=== PATIENT | male | born 1955 | race Caucasian/White ===

== ENCOUNTER 2016-11-28 19:47 | Emergency (ER) | payer OTHER, MEDICARE ==
[~2016-11-28] VITALS: Ht 188 cm; Wt 104.8 kg
[~2016-11-28 19:47] MED LIST: ASP81CT; ATOR40TA; DANT25CA PO; DPAS20025; HCT25T; HDRL25T; IBP600T1; INSASP10V; INSU100V8; INSULIN; METO-270 PO; MTP100TCR; PNT40TEC PO; RMP5C PO; TIZAN4T; TRAMADOL; TRIA0.2581 PO; VNL75T PO; ZLP10T
--- OUTSIDE RECORDS SUMMARY | 2016-11-28 19:52 | XMS REPORT | Continuity of Care Document ---
Author Author [facility] Organization [facility] Address Unknown Phone Unavailable Care Team Providers Care Electrical And Electronic Assembler Name Role Phone Donovan Terrell PCP [phone] Source Comments Some departments are not documenting in the electronic medical record. If you do not see the information that you expected, contact Release of Information in the Health Information Management department at [phone] for further assistance in locating additional records.[facility] Active Allergies and Adverse Reactions Allergen Noted Date Severity Reactions Comments Ranitidine Hcl 05/18/2007 Medium Allergy recorded in SMS: ZANTAC~Reactions: DIARRHEA Current Medications Not on file Active Problems Not on file Social History Tobacco Use Types Packs/Day Years Used Date Never Assessed Plan of Care Health Maintenance Due Date Last Done Comments Hepatitis C Screening 1953 Physical (Comprehensive) 1960 Exam Pertussis Vaccine 1964 Tetanus Vaccine 1970 Colorectal Cancer 2003 Screening Shingles Vaccine 2013 Influenza Vaccine 07/16/2016 Results from Last 3 Months Not on file
[2016-11-28] MEDS ORDERED: AMOXICILLIN 500 MG (POLYMOX) CAP PO ONE (21:12)
--- NOTE | 2016-11-28 21:13 | ED EENT ---
History of Present Illness General Chief Complaint: Oral/Throat Problems Stated Complaint: PARTIAL DENTURE HOOKED IN TONGUE Source: patient Exam Limitations: no limitations History of Present Illness Time seen by provider: 21:12 Initial Comments To ER with reports of his partial denture being hooked in the frenulum of the tongue for the past few hours. He is unable to get this undone. Timing/Duration: abrupt Severity: moderate Location: mouth Prearrival Treatment: no prearrival treatment Associated Symptoms: denies symptoms Allergies and Home Medications Allergies Coded Allergies: Ranitidine (Verified Allergy, Unknown, 08/08/08) Home Medications PRN (Reported) Prescribed by: SKIP PERRY on 07/31/16 1256 Aspirin 81 Mg Chew (Reported) Atorvastatin Calcium 40 Mg Tablet (Reported) Dantrolene Sodium 25 Mg Capsule 25 MG PO QID (Reported) Dipyridamole/Aspirin 1 Ea Cap (Reported) Hydrochlorothiazide 25 Mg Tab (Reported) Metoprolol Succinate 25 Mg Tab.er.24h 25 MG PO BID (Reported) Pantoprazole Sodium 40 Mg Tablet.dr 40 MG PO BID (Reported) Ramipril 5 Mg Capsule 10 PO BID (Reported) Triazolam 0.25 Mg Tablet 0.25 MG PO HS (Reported) Venlafaxine Hcl 75 Mg Tab 75 MG PO BID (Reported) Review of Systems Constitutional: see HPI Eyes: No Symptoms Reported Ears: No Symptoms Reported Nose: no symptoms reported Mouth: see HPI Throat: no symptoms reported Respiratory: no symptoms reported Cardiovascular: no symptoms reported Musculoskeletal: no symptoms reported Skin: no symptoms reported Past Xqpilts-Tlozys-Yiqzuq Hx Patient Social History Recent Foreign Travel: No Contact w/Someone Who Travel: No Respiratory Hx Respiratory Disorders: No Cardiovascular Hx Cardiac Disorders: Yes (WHOLE IN HEART-PFO DX. [place] 2006) Neurological Hx Neurological Disorders: Yes Reproductive System Hx Reproductive Disorders: Yes (PROSTATE CANCER- AROUND ) Genitourinary Hx Genitourinary Disorders: No Gastrointestinal Hx Gastrointestinal Disorders: No Musculoskeletal Hx Musculoskeletal Disorders: Yes Endocrine Hx Endocrine Disorders: Yes HEENT HX ENT Disorders: No Psychosocial Hx Psychiatric Problems: No Blood Transfusions Hx Blood Disorders: No Physical Exam Vital Signs Vital Sign - Last 12Hours 11/28/16 21:11 Temp 98.4 Pulse 87 Resp 18 B/P 143/82 Pulse Ox 97 O2 Delivery Room Air General Appearance: WD/WN no apparent distress Eyes: bilateral eye EOMI, bilateral eye PERRL, bilateral eye normal inspection Ears: bilateral ear TM normal, bilateral ear auricle normal, bilateral ear canal normal Mouth/Throat: other (the left side of the frenulum of the tongue is in fact hooked on a piece of the partial denture with the piece of the partial denture protruding out the other side of the frenulum.) Neck: non-tender full range of motion Respiratory: no respiratory distress no accessory muscle use Gastrointestinal: normal bowel sounds non tender soft Neurologic/Psychiatric: alert normal mood/affect oriented x 3 Skin: normal color warm/dry Progress/Results/Core Measures Results/Orders My Orders Orders-ZHARA DIAMOND APRN Lidocaine/Epi 1% 1:100,000 (Xylocaine /E (11/28/16 21:15) Amoxicillin Capsule (Polymox Capsule) (11/28/16 21:15) Amoxicillin Capsule (Polymox Capsule) (11/28/16 21:12) Medications Given in ED Current Medications Medications Dose Ordered Sig/Rhea Route Start Time Stop Time Status Last Admin Dose Admin Lidocaine/ Epinephrine 1 ml ONCE ONCE INJ 11/28/16 21:15 11/28/16 21:16 11/28/16 21:16 1 ML Vital Signs/I&O Vital Sign - Last 12Hours 11/28/16 11/28/16 21:11 21:16 Temp 98.4 98.4 Pulse 87 Resp 18 B/P 143/82 Pulse Ox 97 O2 Delivery Room Air Departure Impression Impression: Primary Impression: Denture injury Disposition: 01 HOME, SELF-CARE Condition: Stable Departure-Patient Inst. Decision time for Depature: 21:22 Referrals: VÍCTOR CORBIN MD (PCP/Family) Primary Care Physician Patient Instructions: Dental Bridges Add. Discharge Instructions: 1. Use a mouthwash 2-3 times a day for the next 2 days 2. Return to ER for any redness or swelling to this area or excessive bleeding 3. Follow up with whomever provides your dentures to see if they can make this particular spike a little less sharp. All discharge instructions reviewed with patient and/or family. Voiced understanding. ZAHRA DIAMOND APRN Nov 28, 2016 21:13
[2016-11-28] MEDS ORDERED: LIDOCAINE/EPI 1%-1:100,000 (XYLOCAINE) 20ML INJ ONE (21:15)
[2016-11-28] MEDS: AMOXICILLIN 250 MG (POLYMOX) CAP PO SCH ×2 (21:19→21:24)
[2016-11-28 21:25] VITALS: BP 143/82
== END 2016-11-28 21:25 | disposition home or self-care (01) ==
LOC: EDUNIT# 19:47 → ER 19:49
DX: S01.542A Puncture wound with foreign body of oral cavity, initial encounter (principal); Z79.82 Long term (current) use of aspirin; Z79.899 Other long term (current) drug therapy; Z85.46 Personal history of malignant neoplasm of prostate; X58.XXXA Exposure to other specified factors, initial encounter; Y92.009 Unspecified place in unspecified non-institutional (private) residence as the place of occurrence of the external cause; Y99.8 Other external cause status
CPT/HCPCS: 99282

== ENCOUNTER → 2017-03-01 | Outpatient (CLI) | payer BC, MEDICARE ==
--- NOTE | 2017-03-01 13:16 | Diagnostic Imaging Report ---
PROCEDURE: US Thyroid. TECHNIQUE: Multiple real-time grayscale images were obtained of the thyroid in various projections. INDICATION: Anterior right neck fullness. Comparison: None. DISCUSSION: The thyroid gland is normal in echotexture and size with normal color Doppler blood flow. The right thyroid measures 4.2 x 1.7 x 1.7 cm. The left thyroid measures 4.0 x 1.2 x 1.9 cm. No discrete nodule is identified. No abnormal adjacent lymph node is identified. IMPRESSION: Normal sonographic appearance of the thyroid gland. Dictated by: Dictated on workstation # [id number]
== END ==
LOC: RAD 11:35
PROVIDERS: ATTEND Internal Medicine
DX: E03.9 Hypothyroidism, unspecified (principal)
CPT/HCPCS: 76536

== ENCOUNTER → 2017-05-19 | Outpatient (CLI) | payer BC, MEDICARE ==
[~2017-05-19] MED LIST changes: +AMIT25TA9 PO; +APIX5TAB PO; +ASPI-983 PO; +ATOR40TA70 PO; +CINN500C2 PO; +DILT120C53 PO; +HYDR25TA4 PO; +INSU100I10 SQ; +INSU100I14 SQ; +INSU100V16 SC; +INSU100V5 SQ; -METO-270 PO; +METO-333 PO; +METO-387 PO; +NF-METHI10 PO; +OMEG-109 PO; +OMEG-77 PO; +PANT40TA3 PO; +PROP150T2 PO; +PROP225T2 PO; +RAMI10CA PO; +RIVA20TA PO; +TRAM50TA2 PO
== END ==
LOC: CARD 15:53
PROVIDERS: ATTEND Internal Medicine
DX: R00.2 Palpitations (principal)
CPT/HCPCS: 93005

== ENCOUNTER → 2017-05-21 | Outpatient (CLI) | payer BC, MEDICARE ==
[~2017-05-21] MED LIST changes: -APIX5TAB PO; -INSU100V16 SC; -INSU100V5 SQ; +METO-270 PO; -METO-387 PO; -NF-METHI10 PO; -OMEG-77 PO; -PROP225T2 PO
== END ==
LOC: CARD 10:50
PROVIDERS: ATTEND Internal Medicine Cardiovascular Disease
DX: I48.91 Unspecified atrial fibrillation (principal); I63.9 Cerebral infarction, unspecified; I10 Essential (primary) hypertension; E78.2 Mixed hyperlipidemia
CPT/HCPCS: 93306

== ENCOUNTER 2017-05-24 08:48 | Inpatient (IN) | payer BC, MEDICARE ==
[2017-05-24] VITALS (10 sets, daily range): BP systolic 85–132; BP diastolic 48–80
[~2017-05-24 08:48] MED LIST changes: -AMIT25TA9 PO; -ASPI-983 PO; -ATOR40TA70 PO; -CINN500C2 PO; -DILT120C53 PO; -HYDR25TA4 PO; -INSU100I10 SQ; -INSU100I14 SQ; -METO-333 PO; -OMEG-109 PO; -PANT40TA3 PO; -PROP150T2 PO; -RAMI10CA PO; -RIVA20TA PO; -TRAM50TA2 PO
[2017-05-24] MEDS ORDERED: DILTIAZEM DRIP 100 MG in SODIUM CHLORIDE (ADD-VANTAGE) 100 ML IV SCH ×2 (14:00→14:45)
[2017-05-24] MEDS ORDERED: DILTIAZEM 100 MG/VIAL (CARDIZEM) ADD-VANTAGE IV ONE (14:30)
[2017-05-24] MEDS ORDERED: SODIUM CHLORIDE (ADD-VANTAGE) 100 ML IV ONE (14:30)
[2017-05-24] MEDS ORDERED: METO-333 PO (14:43)
[2017-05-24] MEDS ORDERED: AMIT25TA9 PO (14:43)
[2017-05-24] MEDS ORDERED: TRAM50TA2 PO (14:43)
[2017-05-24] MEDS ORDERED: INSU100I10 SQ (14:43)
[2017-05-24] MEDS ORDERED: RAMI10CA PO (14:43)
[2017-05-24] MEDS ORDERED: INSU100I14 SQ (14:43)
[2017-05-24] MEDS ORDERED: HYDR25TA4 PO (14:43)
[2017-05-24] MEDS ORDERED: DILT120C53 PO (14:43)
[2017-05-24] MEDS ORDERED: RIVA20TA PO (14:43)
[2017-05-24] MEDS ORDERED: PANT40TA3 PO (14:43)
[2017-05-24] MEDS ORDERED: ATOR40TA70 PO (14:43)
[2017-05-24] MEDS ORDERED: ASPI-983 PO (14:43)
[2017-05-24] MEDS ORDERED: VNL75T PO (14:43)
[2017-05-24] MEDS ORDERED: CINN500C2 PO (14:45)
[2017-05-24] MEDS ORDERED: DILTIAZEM 25 MG/5 ML INJ (CARDIZEM) VIAL IVP NR (14:45)
[2017-05-24] MEDS ORDERED: CATHETER FLUSH 10 ML SYR IV PRN (14:45)
[2017-05-24] MEDS ORDERED: OMEG-109 PO (14:45)
[2017-05-24 14:53] LABS: MEAN PLATELET VOLUME 9.7 FL (7.4-10.4); RED BLOOD COUNT 4.18 10^6/uL (4.35-5.85); RED CELL DISTRIBUTION WIDTH 12.8 % (10.0-14.5); WHITE BLOOD COUNT 6.1 10^3/uL (4.3-11.0)
[2017-05-24 15:09] LABS: ALANINE AMINOTRANSFERASE 15 U/L (0-55); ALBUMIN 3.3 GM/DL (3.2-4.5); ANION GAP 4 MMOL/L (5-14); ASPARTATE AMINO TRANSFERASE 14 U/L (5-34); BILIRUBIN,TOTAL 0.4 MG/DL (0.1-1.0); BLOOD UREA NITROGEN 21 MG/DL (7-18); BUN/CREATININE RATIO 27; CALCIUM 8.4 MG/DL (8.5-10.1); CARBON DIOXIDE 27 MMOL/L (21-32); CHLORIDE 101 MMOL/L (98-107); CREATININE SERUM 0.79 MG/DL (0.60-1.30); GFR ESTIMATED > 60; GLUCOSE 297 MG/DL (70-105); MAGNESIUM 1.7 MG/DL (1.8-2.4); POTASSIUM 4.3 MMOL/L (3.6-5.0); SODIUM 132 MMOL/L (135-145); TOTAL PROTEIN 5.7 GM/DL (6.4-8.2)
[2017-05-24 15:26] LABS: INR 1.7 (0.8-1.4); PROTHROMBIN TIME PATIENT 19.8 SEC (12.2-14.7)
[2017-05-24 15:29] LABS: TROPONIN I < 0.30 NG/ML (<0.30)
[2017-05-24] MEDS: MAGNESIUM 1 GM/100 ML IVPB 100 ML IV SCH ×2 (17:16→18:25)
[2017-05-24] MEDS ORDERED: RIVAROXABAN 20 MG TABLET (XARELTO) PO SCH (18:00)
[2017-05-24] MEDS: PANTOPRAZOLE 40 MG (PROTONIX) TAB PO SCH (20:31)
[2017-05-24] MEDS: RAMIPRIL 5 MG (ALTACE) CAP PO SCH (20:32)
[2017-05-24] MEDS: meTOprolol TARTRATE 25 MG (LOPRESSOR) TABLET PO SCH (20:32)
[2017-05-24] MEDS ORDERED: ATORVASTATIN 40 MG (LIPITOR) TABLET PO SCH (21:00)
[2017-05-24] MEDS ORDERED: AMITRIPTYLINE 25 MG (ELAVIL) TAB PO SCH (21:00)
[2017-05-24] MEDS ORDERED: INSULIN GLARGINE HUM REC ANLOG 56 UNIT SQ SCH (21:00)
[2017-05-24] MEDS ORDERED: inSUlin DETERMIR 1 UNIT/0.01 ML (LEVEMIR) CHARGE PER UNIT SQ SCH (21:00)
[2017-05-24] MEDS ORDERED: [UNRECOGNIZED DRUG - OTHER] SQ SCH (21:00)
[2017-05-24] MEDS ORDERED: NON-FORMULARY MEDICATION 1 EA EA (Ramipril 10 MG) PO SCH (21:00)
[2017-05-24] MEDS: inSUlin ASPART (NovoLOG) 1 UNIT/0.01 ML (CHARGE PER UNIT) SC SCH (23:14)
[2017-05-24] MEDS: CATHETER FLUSH 10 ML SYR IV SCH (23:14)
[2017-05-25] VITALS (18 sets, daily range): BP systolic 85–132; BP diastolic 46–66
[2017-05-25 04:02] LABS: MEAN PLATELET VOLUME 9.5 FL (7.4-10.4); RED BLOOD COUNT 4.33 10^6/uL (4.35-5.85)
[2017-05-25 04:21] LABS: ANION GAP 7 MMOL/L (5-14); BLOOD UREA NITROGEN 18 MG/DL (7-18); BUN/CREATININE RATIO 25; CALCIUM 8.9 MG/DL (8.5-10.1); CARBON DIOXIDE 29 MMOL/L (21-32); CHLORIDE 102 MMOL/L (98-107); CREATININE SERUM 0.72 MG/DL (0.60-1.30); GFR ESTIMATED > 60; GLUCOSE 80 MG/DL (70-105); POTASSIUM 3.7 MMOL/L (3.6-5.0); SODIUM 138 MMOL/L (135-145)
[2017-05-25] MEDS: CATHETER FLUSH 10 ML SYR IV SCH ×2 (06:19→14:00)
[2017-05-25] MEDS: inSUlin ASPART (NovoLOG) 1 UNIT/0.01 ML (CHARGE PER UNIT) SC SCH ×3 (06:20→16:15)
[2017-05-25] MEDS: PANTOPRAZOLE 40 MG (PROTONIX) TAB PO SCH (06:20)
[2017-05-25] MEDS ORDERED: OMEGA 3 (FISH OIL) 1000 MG CAP PO SCH (07:00)
--- NOTE | 2017-05-25 07:37 | Diagnostic Imaging Report ---
INDICATION: Atrial fibrillation with RVR. Bilateral pulmonary emboli. COMPARISON STUDY: None. FINDINGS: Portable semiupright view of the chest demonstrate the heart size is upper normal. Lungs are clear. The vascularity is normal. There is questionable small hiatal hernia. IMPRESSION: 1. The heart size is upper normal. 2. There is a questionable small hiatal hernia versus tortuosity of aorta. Dictated by: Dictated on workstation # [id number]
[2017-05-25] MEDS ORDERED: LIDOCAINE 2% VISCOUS 15 ML UDC ONE (07:47)
--- NOTE | 2017-05-25 08:12 | Cardiology History & Physical ---
HPI-Cardiology Cardiology Consultation Date of Consultation 05/25/17 Date of Admission May 24, 2070 Time Seen by Provider: 08:06 Indication: tachycardia HPI 61 years old gentleman with history of CVA, patient was seen in my office last week and noted to be in atrial fibrillation with rapid ventricular response, he was referred for for evaluation of tachycardia. Denied any chest pain or shortness of breath. Denied any palpitation, I started him on Cardizem and Eliquis, returned yesterday and he was still tachycardic, I decided to admit him to the hospital start him on Cardizem drip and workup for atrial fibrillation. has been compliant with his medications. overnight he converted to sinus rhythm, continue to be asymptomatic. PMH-Cardiology Immunizations Up To Date Tetanus Booster (DTap): Unknown Date of Influenza Vaccine: Aug 24, 2016 Seasonal Allergies Seasonal Allergies: No Surgeries HX Surgeries: Yes (RIGHT TESTICAL REMOVED) Respiratory Hx Respiratory Disorders: No Cardiovascular Hx Cardiovascular Disorders: Yes (WHOLE IN HEART-PFO DX. [place] 2006) Cardiac Disorders: Atrial Fibrillation, High Cholesterol, Hypertension Neurological Hx Neurological Disorders: Yes Reproductive System Hx Reproductive Disorders: Yes (PROSTATE CANCER- AROUND ) Sexually Transmitted Disease: No HIV/AIDS: No Genitourinary Hx Genitourinary Disorders: No Gastrointestinal Hx Gastrointestinal Disorders: No Gastrointestinal Disorders: Gastroesophageal Reflux, Chronic Constipation Musculoskeletal Hx Musculoskeletal Disorders: Yes Endocrine Hx Endocrine Disorders: Yes HEENT HX ENT Disorders: No HEENT Disorders: Cataract Loss of Vision: Denies Hearing Impairment: Denies Cancer Cancer: Prostate Psychosocial Hx Psychiatric Problems: No Blood Transfusions Hx Blood Disorders: No Other PMHx Other PMHx: past medical history as discussed below Social History Patient Social History Marrital Status: Employed/Student: retired Alcohol Use: Denies Use Recreational Drug Use: No Smoking: Never smoker Recent Foreign Travel: No Contact w/other who traveled: No Recent Infectious Disease Expo: No Family Hx Family History: Alzheimer's disease G8 SISTER Arthritis G8 SISTER Completed stroke 19 FATHER Dementia G8 SISTER Diabetes mellitus 19 MOTHER G8 BROTHER Hypercholesterolemia Hypertension 19 FATHER Myocardial infarction 19 FATHER Respiratory disorder 19 FATHER ROS-Cardiology Review of Systems General: No Chills, No Night Sweats, No Fatigue, No Malaise, No Appetite HEENT: No Head Aches, No Visual Changes, No Eye Pain, No Ear Pain, No Dysphasia , No Sinus Congestion, No Post Nasal Drip, No Sore Throat Pulmonary: No Dyspnea, No Cough, No Pleuritic Chest Pain Cardiovascular: No: Chest Pain, Edema, Lt Headedness, Orthopnea, Palpitations, Paroxysmal Noc. Dyspnea Gastrointestinal: No: Abdominal Pain, Constipation, Diarrhea, Hematochezia, Melena, Nausea, Vomiting Genitourinary: No Dysuria, No Frequency, No Incontinence, No Hematuria, No Retention Musculoskeletal: No: arm pain, back pain, foot pain, hand pain, leg pain, neck pain, shoulder pain Neurological: Change in speech, Numbness, Weakness, No: Confusion, Incoordination, Seizures Home Medications & Allergies Allergies: Coded Allergies: ranitidine (Verified Allergy, Unknown, 08/08/08) Home Medication List Reviewed: Yes Exam-Cardiology Vital Signs Vital Signs Date Time Temp Pulse Resp B/P (MAP) Pulse Ox O2 Delivery O2 Flow Rate FiO2 05/25/17 06:00 84 21 103/52 95 05/25/17 05:00 Room Air 05/25/17 00:00 98.2 Exam General Appearance: Alert, Oriented X3, Cooperative, No Acute Distress HEENT: Atraumatic, PERRLA Respiratory: Clear to Auscultation, Normal Air Movement Cardiovascular: Regular Rate, Normal S1, Normal S2, No Murmurs Abdominal: Normal Bowel Sounds, Soft, No Tenderness, No Hepatosplenomegaly, No Masses Extremities: No Clubbing, No Cyanosis, No Edema, Normal Pulses, No Tenderness/ Swelling Skin: No Rashes, No Breakdown, No Significant Lesion Neuro: Other (history of CVA with slurred speech and weakness) Psych/Mental Status: Mental Status NL, Mood NL Results Labs Labs Laboratory Tests 05/24/17 14:46: White Blood Count 6.1, Red Blood Count 4.18L, Hemoglobin 12.0L, Hematocrit 37L, Mean Corpuscular Volume 88, Mean Corpuscular Hemoglobin 29, Mean Corpuscular Hemoglobin Concent 33, Red Cell Distribution Width 12.8, Platelet Count 164, Mean Platelet Volume 9.7, Prothrombin Time 19.8H, INR Comment 1.7H, Activated Partial Thromboplast Time 38H, Sodium Level 132L, Potassium Level 4.3, Chloride Level 101, Carbon Dioxide Level 27, Anion Gap 4L, Blood Urea Nitrogen 21H, Creatinine 0.79, Estimat Glomerular Filtration Rate > 60, BUN/Creatinine Ratio 27, Glucose Level 297H, Calcium Level 8.4L, Magnesium Level 1.7L, Total Bilirubin 0.4, Aspartate Amino Transf (AST/SGOT) 14, Alanine Aminotransferase ( ALT/SGPT) 15, Alkaline Phosphatase 73, Troponin I < 0.30, Total Protein 5.7L, Albumin 3.3, Thyroid Stimulating Hormone (TSH) 0.00L, Free Thyroxine 1.57H, TSH [place] Testing 0.00L 05/24/17 20:25: Glucometer 101 05/25/17 03:42: White Blood Count 8.0, Red Blood Count 4.33L, Hemoglobin 12.5L, Hematocrit 38L, Mean Corpuscular Volume 89, Mean Corpuscular Hemoglobin 29, Mean Corpuscular Hemoglobin Concent 33, Red Cell Distribution Width 13.0, Platelet Count 171, Mean Platelet Volume 9.5, Sodium Level 138, Potassium Level 3.7, Chloride Level 102, Carbon Dioxide Level 29, Anion Gap 7, Blood Urea Nitrogen 18, Creatinine 0.72, Estimat Glomerular Filtration Rate > 60, BUN/Creatinine Ratio 25, Glucose Level 80, Calcium Level 8.9, Magnesium Level 2.0 A/P-Cardiology Admission Diagnosis Paroxysmal atrial fibrillation/flutter CVA Tachycardia Hypertension Hyperlipidemia Assessment/Plan Paroxysmal atrial fibrillation/atrial flutter, started on Xarelto last week, admitted to the hospital and started on Cardizem drip, converted to sinus rhythm. I will continue on beta blockers and calcium channel blockers, planning to evaluate stress test and echocardiogram today. Hyperthyroidism, noted incidentally, I will consult Dr. Selby for evaluation. [id number] score of 4, yearly risk of stroke without oral anticoagulation is 4 percent. Patient was started on Xarelto History of CVA in 2006, TIA in 2005, was maintained on Aggrenox, it was changed to Xarelto after discovering the atrial fibrillation last week. Continue to monitor Hypertension, controlled, monitor blood pressure while starting on the new medication Hyperlipidemia I will evaluate lipid profile and metabolic profile Diabetes mellitus, followed and managed by primary care physician Clinical Quality Measures DVT/VTE Risk/Contraindication: Risk Factor Score Per Nursin RFS Level Per Nursing on Admit: 2=Moderate DAMIEN DUVALL MD May 25, 2017 08:12
[2017-05-25] MEDS ORDERED: DILTIAZEM 120 MG (CARDIZEM CD) CAP PO SCH (09:00)
[2017-05-25] MEDS ORDERED: HYDROCHLOROTHIAZIDE 25 MG (HCTZ) TAB PO SCH (09:00)
[2017-05-25] MEDS: meTOprolol TARTRATE 25 MG (LOPRESSOR) TABLET PO SCH (09:00)
[2017-05-25] MEDS: RAMIPRIL 5 MG (ALTACE) CAP PO SCH (09:00)
[2017-05-25] MEDS ORDERED: NON-FORMULARY MEDICATION 1 EA EA (Omega-3 Fatty Acids/Fish Oil (Fish Oil 1,200 mg Softgel) PO SCH (09:00)
[2017-05-25] MEDS ORDERED: ASPIRIN E.C. 81 MG (ECOTRIN) TAB PO SCH (09:00)
[2017-05-25] MEDS ORDERED: REGADENOSON 0.4 MG/5 ML SYR (LEXISCAN) IV ONE ×2 (12:00→12:15)
--- NOTE | 2017-05-25 15:15 | Consultation-Hospitalist ---
HPI History of Present Illness: HPI/Chief Complaint The patient is a 61-year-old white male admitted by Dr. Desai for potential cardioversion of recent onset atrial fibrillation. The patient and his states that last Wednesday she had gone to work and he had fallen to the floor at home. Ultimately he was able to get himself to the phone albeit with great difficulty. He had had a scheduled appointment with Dr. Desai for the morning. His came home from work after the phone call and got things arranged and he was seen in the afternoon. He was found to be in atrial fibrillation at that time. I met him a goodly number of years ago because of adult-onset diabetes and hypertension. He ultimately suffered a right hemispheric CVA which left him with considerable disability on the left side. He underwent considerable rehabilitation process. He was ultimately able to walk with a platform CANE and an ankle brace. His left hand did not fair so well and despite rather exotic brace with extension capability it did not proved to be very useful and he is abandoned that. 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 He has converted to a sinus rhythm overnight avoiding the need for electrocardioversion Source: patient Exam Limitations: no limitations Date Seen 05/25/17 Attending Physician Shiva Desai MD PCP Ashu Jackson MD Referring Physician Giselle Date of Admission May 24, 2017 at 14:00 Home Medications & Allergies Home Medications Reviewed patient Home Medication Reconciliation Form Allergies Allergies Coded Allergies ranitidine (Verified Allergy, Unknown, 08/08/08) Past Ordrdry-Hlwkwp-Eflkjz Hx Patient Social History Marrital Status: Employed/Student: retired Alcohol Use: Denies Use Recreational Drug Use: No Smoking Status: Former Smoker Physical Abuse Screen: No Sexual Abuse: No Recent Foreign Travel: No Contact w/other who traveled: No Recent Hopitalizations: No Recent Infectious Disease Expo: No Immunizations Up To Date Tetanus Booster (TDap): Unknown Date of Influenza Vaccine: Aug 24, 2016 Seasonal Allergies Seasonal Allergies: No Surgeries HX Surgeries: Yes (RIGHT TESTICAL REMOVED) Respiratory Hx Respiratory Disorders: No Cardiovascular Hx Cardiovascular Disorders: Yes (WHOLE IN HEART-PFO DX. [place] 2006) Neurological Hx Neurological Disorders: Yes Neurological Disorders: Stroke Reproductive System Hx Reproductive Disorders: Yes (PROSTATE CANCER- AROUND ) Sexually Transmitted Disease: No HIV/AIDS: No Genitourinary Hx Genitourinary Disorders: No Gastrointestinal Hx Gastrointestinal Disorders: No Gastrointestinal Disorders: Gastroesophageal Reflux, Chronic Constipation Musculoskeletal Hx Musculoskeletal Disorders: Yes Musculoskeletal Disorders: Foot Drop (left) Endocrine Hx Endocrine Disorders: Yes Endocrine Disorders: Diabetes, Insulin dep HEENT HX ENT Disorders: No HEENT Disorders: Cataract Loss of Vision: Denies Hearing Impairment: Denies Cancer Cancer: Prostate Psychosocial Hx Psychiatric Problems: No Blood Transfusions Hx Blood Disorders: No Family Medical History Family Hx: Alzheimer's disease G8 SISTER Arthritis G8 SISTER Completed stroke 19 FATHER Dementia G8 SISTER Diabetes mellitus 19 MOTHER G8 BROTHER Hypercholesterolemia Hypertension 19 FATHER Myocardial infarction 19 FATHER Respiratory disorder 19 FATHER Review of Systems Constitutional: see HPI EENTM: no symptoms reported Respiratory: no symptoms reported Gastrointestinal: constipation Genitourinary: frequency, hesitancy Musculoskeletal: other (left-sided hemiparesis) Skin: no symptoms reported Physical Exam Physical Exam Vital Signs Vital Sign - Last 12Hours 05/24/17 05/24/17 05/24/17 05/24/17 14:00 14:45 15:45 20:00 Temp 98.6 Pulse 98 Resp 21 B/P (MAP) 97/64 Pulse Ox 98 O2 Delivery Room Air Capillary Refill : General Appearance: No Apparent Distress, WD/WN, Other (very mild speech impairment post CVA) Eyes: Bilateral Eye Normal Inspection HEENT: Normal ENT Inspection Neck: Normal Inspection Respiratory: Chest Non Tender, Lungs Clear, Normal Breath Sounds, No Accessory Muscle Use, No Respiratory Distress Cardiovascular: Regular Rate, Rhythm, No Edema, No Gallop, No JVD, No Murmur, Normal Peripheral Pulses Gastrointestinal: Normal Bowel Sounds, No Organomegaly, No Pulsatile Mass, Non Tender, Soft Extremity: Other (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 He is able to perform arm movements at the shoulder level.) Neurologic/Psychiatric: Alert, Oriented x3, No Motor/Sensory Deficits, Normal Mood/Affect Skin: Normal Color, Warm/Dry Lymphatic: No Adenopathy Results Results/Procedures Lab Laboratory Tests 05/24/17 14:46 05/25/17 03:42 Assessment/Plan Admission Diagnosis Recent onset atrial fibrillation now converted. 2.diabetes mellitus type II insulin requiring. 3.hypertension. 4.remote CVA with left-sided hemiparesis Assessment and Plan Continue present medications as per med reconciliation. Early discharge. Comment: Thyroid analyzer shows a TSH of 0. Free T4 is very marginally elevated. I would recommend repeat analyzer as an outpatient in 2-3 months Clinical Quality Measures DVT/VTE Risk/Contraindication: Risk Factor Score Per Nursin RFS Level Per Nursing on Admit: 2=Moderate CRISTOBAL MARIN MD May 25, 2017 15:15
[2017-05-25] MEDS ORDERED: PROPAFENONE 225 MG PO NR (16:01)
[2017-05-25] MEDS ORDERED: PROPAFENONE 150 MG (RYTHMOL) TABLET PO NR (16:04)
--- NOTE | 2017-05-25 16:06 | Short Stay Summary ---
History of Present Illness History of Present Illness Reason for visit/HPI 61 years old gentleman with history of CVA, patient was seen in my office last week and noted to be in atrial fibrillation with rapid ventricular response, he was referred for for evaluation of tachycardia. Denied any chest pain or shortness of breath. Denied any palpitation, I started him on Cardizem and Eliquis, returned yesterday and he was still tachycardic, I decided to admit him to the hospital start him on Cardizem drip and workup for atrial fibrillation. has been compliant with his medications. overnight he converted to sinus rhythm, continue to be asymptomatic. Date of Admission May 24, 2017 at 14:00 Date of Discharge 05/25/17 Time Seen by Provider: 08:00 Attending Physician Damien Desai MD Admitting Physician Ashu Jackson MD Consult Dr. Terrell Man Allergies and Home Medications Allergies Coded Allergies: ranitidine (Verified Allergy, Unknown, 08/08/08) Home Medications Amitriptyline HCl 25 Mg Tablet, 25 MG PO HS, (Reported) Aspirin 81 Mg Tablet.dr, 81 MG PO DAILY, (Reported) Atorvastatin Calcium 40 Mg Tablet, 40 MG PO HS, (Reported) Cinnamon Bark 500 Mg Capsule, 500 MG PO DAILY, (Reported) Dantrolene Sodium 25 Mg Capsule, 25 MG PO QID, (Reported) Diltiazem HCl 120 Mg Cap.er.24h, 120 MG PO DAILY, (Reported) Hydrochlorothiazide 25 Mg Tablet, 25 MG PO DAILY, (Reported) Insulin Aspart 300 Units/3 Ml Solution, 16-18 UNITS SQ AC, (Reported) Insulin Glargine,Hum.rec.anlog 100 Unit/1 Ml Insuln.pen, 56 UNITS SQ HS, ( Reported) Metoprolol Tartrate 25 Mg Tablet, 25 MG PO BID, (Reported) [place]-3 Fatty Acids/Fish Oil 1 Each Capsule, 1,200 MG PO DAILY, (Reported) Pantoprazole Sodium 40 Mg Tablet.dr, 40 MG PO BID, (Reported) Ramipril 10 Mg Capsule, 10 MG PO BID, (Reported) Rivaroxaban 20 Mg Tablet, 20 MG PO 1800, (Reported) Tramadol HCl 50 Mg Tablet, 50-100 MG PO QID PRN for PAIN-MODERATE, (Reported) TAKES 1-2 OF A (50 MG) TABLET Venlafaxine HCl 75 Mg Tab, 75 MG PO BID, (Reported) Past Upjemtq-Onvnmc-Tauhnm Hx Patient Social History Marrital Status: Employed/Student: retired Alcohol Use: Denies Use Recreational Drug Use: No Smoking Status: Former Smoker Physical Abuse Screen: No Sexual Abuse: No Recent Foreign Travel: No Contact w/other who traveled: No Recent Hopitalizations: No Recent Infectious Disease Expo: No Immunizations Up To Date Tetanus Booster (TDap): Unknown Date of Influenza Vaccine: Aug 24, 2016 Seasonal Allergies Seasonal Allergies: No Surgeries HX Surgeries: Yes (RIGHT TESTICAL REMOVED) Respiratory Hx Respiratory Disorders: No Cardiovascular Hx Cardiovascular Disorders: Yes (WHOLE IN HEART-PFO DX. [place] 2006) Neurological Hx Neurological Disorders: Yes Neurological Disorders: Stroke Reproductive System Hx Reproductive Disorders: Yes (PROSTATE CANCER- AROUND ) Sexually Transmitted Disease: No HIV/AIDS: No Genitourinary Hx Genitourinary Disorders: No Gastrointestinal Hx Gastrointestinal Disorders: No Gastrointestinal Disorders: Gastroesophageal Reflux, Chronic Constipation Musculoskeletal Hx Musculoskeletal Disorders: Yes Musculoskeletal Disorders: Foot Drop (left) Endocrine Hx Endocrine Disorders: Yes Endocrine Disorders: Diabetes, Insulin dep HEENT HX ENT Disorders: No HEENT Disorders: Cataract Loss of Vision: Denies Hearing Impairment: Denies Cancer Cancer: Prostate Psychosocial Hx Psychiatric Problems: No Blood Transfusions Hx Blood Disorders: No Family Medical History Family Hx: Alzheimer's disease G8 SISTER Arthritis G8 SISTER Completed stroke 19 FATHER Dementia G8 SISTER Diabetes mellitus 19 MOTHER G8 BROTHER Hypercholesterolemia Hypertension 19 FATHER Myocardial infarction 19 FATHER Respiratory disorder 19 FATHER Constitutional: no symptoms reported, see HPI, weakness EENTM: no symptoms reported, see HPI Respiratory: no symptoms reported, see HPI Cardiovascular: no symptoms reported, see HPI Gastrointestinal: no symptoms reported, see HPI Genitourinary: no symptoms reported, see HPI Musculoskeletal: no symptoms reported, see HPI Skin: no symptoms reported, see HPI Psychiatric/Neurological: No Symptoms Reported, See HPI, Numbness, Weakness Physical Exam Vital Signs Vital Sign - Last 12Hours 05/24/17 05/24/17 05/24/17 05/24/17 14:00 14:45 15:45 20:00 Temp 98.6 Pulse 98 Resp 21 B/P (MAP) 97/64 Pulse Ox 98 O2 Delivery Room Air Capillary Refill : General Appearance: No Apparent Distress, WD/WN Eyes: Bilateral Eye EOMI, Bilateral Eye Normal Inspection, Bilateral Eye PERRL HEENT: PERRL/EOMI, TMs Normal, Normal ENT Inspection, Pharynx Normal Neck: Full Range of Motion, Normal Inspection, Non Tender, Supple, Carotid Bruit Respiratory: Chest Non Tender, Lungs Clear, Normal Breath Sounds, No Accessory Muscle Use, No Respiratory Distress Cardiovascular: Regular Rate, Rhythm, No Edema, No Gallop, No JVD, No Murmur, Normal Peripheral Pulses Gastrointestinal: Normal Bowel Sounds, No Organomegaly, No Pulsatile Mass, Non Tender, Soft Back: Normal Inspection, No CVA Tenderness, No Vertebral Tenderness Extremity: Normal Capillary Refill, Normal Inspection, Normal Range of Motion, Non Tender, No Calf Tenderness, No Pedal Edema Neurologic/Psychiatric: Alert, Oriented x3, Aphasia, Facial Droop, Motor Weakness (left-sided weakness) Skin: Normal Color, Warm/Dry Lymphatic: No Adenopathy Clinical Quality Measures DVT/VTE Risk/Contraindication: Risk Factor Score Per Nursin RFS Level Per Nursing on Admit: 2=Moderate Short Stay Diagnosis Discharge Diagnosis-Short Stay Admission Diagnosis: paroxysmal atrial fibrillation Tachycardia Hypertension CVA Final Discharge Diagnosis: paroxysmal atrial fibrillation Tachycardia Hyperthyroidism Hypertension CVA Conclusion Labs Laboratory Tests 05/24/17 20:25: Glucometer 101 05/25/17 03:42: White Blood Count 8.0, Red Blood Count 4.33L, Hemoglobin 12.5L, Hematocrit 38L, Mean Corpuscular Volume 89, Mean Corpuscular Hemoglobin 29, Mean Corpuscular Hemoglobin Concent 33, Red Cell Distribution Width 13.0, Platelet Count 171, Mean Platelet Volume 9.5, Sodium Level 138, Potassium Level 3.7, Chloride Level 102, Carbon Dioxide Level 29, Anion Gap 7, Blood Urea Nitrogen 18, Creatinine 0.72, Estimat Glomerular Filtration Rate > 60, BUN/Creatinine Ratio 25, Glucose Level 80, Calcium Level 8.9, Magnesium Level 2.0 Conclusion/Plan Paroxysmal atrial fibrillation/atrial flutter, started on Xarelto last week, admitted to the hospital and started on Cardizem drip, converted to sinus rhythm. echocardiogram was done last week and showed normal LV function, underwent stress test today which was normal with no ischemia or infarction, I will start the patient on propafenone as an outpatient and monitor him as an outpatient. Hyperthyroidism, noted incidentally, Dr. Man was consulted and he recommended monitoring and repeating thyroid function test in 2-3 months [id number] score of 4, yearly risk of stroke without oral anticoagulation is 4 percent. Patient was started on Xarelto History of CVA in 2006, TIA in 2005, was maintained on Aggrenox, it was changed to Xarelto after discovering the atrial fibrillation last week. Continue to monitor Hypertension, controlled, in 20 to monitor blood pressure as an outpatient Hyperlipidemia monitor lipids Diabetes mellitus, followed and managed by primary care physician DAMIEN DESAI MD May 25, 2017 16:06
[2017-05-25] MEDS ORDERED: PROP150T2 PO (16:07)
--- OUTSIDE RECORDS SUMMARY | 2017-05-25 17:57 | XMS REPORT | Continuity of Care Document ---
Author Author [facility] Organization [facility] Address Unknown Phone Unavailable Care Team Providers Care Rn Endocrinology Name Role Phone Terrell Man PCP [phone] Source Comments Some departments are not documenting in the electronic medical record. If you do not see the information that you expected, contact Release of Information in the Health Information Management department at [phone] for further assistance in locating additional records.[facility] Active Allergies and Adverse Reactions Allergen Noted [...] 2003 Screening Shingles Vaccine 2013 Influenza Vaccine 07/16/2017 Results from Last 3 Months Not on file
--- OUTSIDE RECORDS SUMMARY | 2017-05-25 17:58 | XMS REPORT ---
Author Author Heavenly Nolen [facility] Address [address] [facility] [address] [place], [place] [id number] Care Team Providers Care Pain Management Specialist Name Role Phone Heavenly Nolen PCP Unavailable Allergies and Adverse Reactions Name Reaction Notes Zantac Plan of Treatment Planned Activity Comments Planned Date Planned Time Plan/Goal GUIDE NERV DESTR ELEC STIM 09/12/2015 12:00 AM GUIDE NERV DESTR ELEC STIM 06/11/2015 12:00 AM Medications Active Name Start Date Estimated Completion Date SIG Comments Aspir-81 81 mg oral tablet,delayed release (DR/EC) take 1 tablet (81 mg ) by oral route once daily Lipitor 40 mg oral tablet take 1 tablet (40 mg) by oral route once daily Aggrenox 25-200 mg oral capsule, ER multiphase 12 hr take 1 capsule by oral route 2 times per day in the morning and evening hydralazine 25 mg oral tablet take 1 tablet (25 mg) by oral route 2 times per day with food metoprolol tartrate 100 mg oral tablet take 1 tablet (100 mg) by oral route 2 times per day with meals Effexor 75 mg oral tablet take 1 tablet (75 mg) by oral route 2 times per day with food hydrochlorothiazide 25 mg oral tablet take 1 tablet (25 mg) by oral route once daily Protonix 40 mg oral tablet,delayed release (DR/EC) take 1 tablet (40 mg ) by oral route once daily triazolam 0.25 mg oral tablet take 1 tablet (0.25 mg) by oral route once daily at bedtime as needed Novolog 100 unit/mL subcutaneous solution inject by subcutaneous route 12 units at breakfast, 14 units at lunch, and 12 units at dinner. Lantus 100 unit/mL subcutaneous solution inject by subcutaneous route 55 units at bedtime. Altace Oral tramadol 50 mg oral tablet 04/02/2015 03/27/2016 take 1-2 tablets by oral route 4 times a day as needed for 90 days Botox 100 unit injection recon soln 08/12/2015 11/10/2015 Inject using E-stim /EMG guidance by experienced provider for left hemipsaticity #00 Dantrium 25 mg oral capsule 09/12/2015 01/10/2016 take 1 capsule by oral route 4 times a day for 30 days tirrate to this dose per calender Name Start Date Expiration Date SIG Comments Voltaren 1 % topical gel 07/18/2010 10/16/2010 apply 2 gram to affected area(s ) by topical route 4 times per day for 30 days tramadol-acetaminophen 37.5-325 mg oral tablet 05/17/2013 08/15/2013 TAKE 1 TABLET BY MOUTH EVERY 8 HOURS NEEDED tizanidine 4 mg oral capsule 11/09/2013 11/04/2014 take 2 capsules (8 mg) by oral route 2 times per day magnesium citrate oral solution 11/28/2013 12/02/2013 take 1 bottle by oral route for obstipation dx: neurogenic bowel due to CVA GlycoLax 17 gram/dose oral powder 11/28/2013 06/26/2014 take 17 -34 gram mixed with 8 oz. water, juice, soda, coffee or tea by oral route once daily for neurogenic bowel from CVA Discontinued Name Start Date Discontinued Date SIG Comments ibuprofen 600 mg oral tablet 03/31/2010 take 1 tablet (600 mg) by oral route every 6 hours as needed with food tizanidine 4 mg oral tablet 05/14/2010 take 2 tablets by oral route 2 times a day pt d/ary long ago. Ultracet 37.5-325 mg oral tablet 04/02/2015 04/02/2015 1 tab po q 8 hrs/PRN wants it without tylenol Problem List Description Status Onset Cerebrovascular Accident (CVA) Active Diabetes Mellitus, Type II Active Hypertension Active Vital Signs Date Time BP-Sys(mm[Hg] BP-Mercedez(mm[Hg]) HR(bpm) RR(rpm) Temp WT HT HC BMI BSA BMI Percentile O2 Sat(%) 09/12/2015 9:43:00 AM 110 mmHg 62 mmHg 84 bpm 18 rpm 97.5 F 196 lbs 74 in 25.16 kg/m2 2.15 m2 07/09/2015 10:40:00 AM 156 mmHg 76 mmHg 72 bpm 18 rpm 97.1 F 220 lbs 73 in 29.0252 kg/m 2.2671 m 06/11/2015 8:55:00 AM 134 mmHg 78 mmHg 71 bpm 18 rpm 97 F 220 lbs 74 in 28.25 kg/m2 2.28 m2 04/02/2015 11:21:00 AM 122 mmHg 72 mmHg 68 bpm 18 rpm 97.9 F 220 lbs 74 in 28.246 kg/m 2.2826 m 02/05/2015 11:03:00 AM 118 mmHg 60 mmHg 78 bpm 18 rpm 98 F 08/07/2014 12:09:00 PM 124 mmHg 64 mmHg 96 bpm 20 rpm 98.1 F 203 lbs 74 in 26.0634 kg/m 2.1926 m 05/01/2014 10:30:00 AM 122 mmHg 74 mmHg 72 bpm 18 rpm 97.2 F 04/17/2014 9:57:00 AM 128 mmHg 70 mmHg 78 bpm 20 rpm 97.8 F 227 lbs 74 in 29.1448 kg/m 2.3186 m 02/05/2014 10:29:00 AM 118 mmHg 70 mmHg 88 bpm 18 rpm 97.6 F 227 lbs 11/28/2013 12:14:00 PM 144 mmHg 82 mmHg 80 bpm 22 rpm 98.3 F 212 lbs 05/14/2010 1:00:00 PM 122 mmHg 72 mmHg 72 bpm 16 rpm 96.8 F 245 lbs 03/31/2010 1:50:00 PM 126 mmHg 82 mmHg 72 bpm 16 rpm 96.9 F 249 lbs 01/15/2010 3:55:00 PM 124 mmHg 80 mmHg 66 bpm 16 rpm 97.6 F 242 lbs 12/18/2009 3:50:00 PM 102 mmHg 62 mmHg 76 bpm 16 rpm 97.6 F 11/26/2009 3:32:00 PM 118 mmHg 60 mmHg 82 bpm 16 rpm 98.8 F 241 lbs Social History Name Description Comments Lives with spouse Unemployed College graduate, 4-year denies alcohol use denies smoking History of Procedures Date Ordered Description Order Status 12/22/2009 12:00 AM DRAIN/INJ JOINT/BURSA W/O US Reviewed 12/22/2009 12:00 AM Kenalog 10 Mg Im- Reviewed 10/05/2011 12:00 AM Botulinum Toxin (Botox), Type A (per unit) Reviewed 10/05/2011 12:00 AM GUIDE NERV DESTR NEEDLE EMG Reviewed 10/05/2011 12:00 AM CHEMODENERVATION OF MUSCLE(S); EXTREMITY(S) AND/OR TRUNK MUSCLE( Reviewed 12/18/2011 12:00 AM Botulinum Toxin (Botox), Type A (per unit) Reviewed 12/18/2011 12:00 AM GUIDE NERV DESTR NEEDLE EMG Reviewed 12/18/2011 12:00 AM CHEMODENERVATION OF MUSCLE(S); EXTREMITY(S) AND/OR TRUNK MUSCLE( Reviewed 03/18/2012 12:00 AM Botulinum Toxin (Botox), Type A (per unit) Reviewed 03/18/2012 12:00 AM GUIDE NERV DESTR NEEDLE EMG Reviewed 03/18/2012 12:00 AM CHEMODENERVATION OF MUSCLE(S); EXTREMITY(S) AND/OR TRUNK MUSCLE( Reviewed 07/10/2012 12:00 AM Botulinum Toxin (Botox), Type A (per unit) Reviewed 07/10/2012 12:00 AM GUIDE NERV DESTR NEEDLE EMG Reviewed 07/10/2012 12:00 AM CHEMODENERVATION OF MUSCLE(S); EXTREMITY(S) AND/OR TRUNK MUSCLE( Reviewed 10/21/2012 12:00 AM Botulinum Toxin (Botox), Type A (per unit) Reviewed 10/21/2012 12:00 AM GUIDE NERV DESTR NEEDLE EMG Reviewed 10/21/2012 12:00 AM CHEMODENERVATION OF MUSCLE(S); EXTREMITY(S) AND/OR TRUNK MUSCLE( Reviewed 02/03/2013 12:00 AM Botulinum Toxin (Botox), Type A (per unit) Reviewed 02/03/2013 12:00 AM GUIDE NERV DESTR NEEDLE EMG Reviewed 02/03/2013 12:00 AM CHEMODENERVATION OF MUSCLE(S); EXTREMITY(S) AND/OR TRUNK MUSCLE( Reviewed 05/05/2013 12:00 AM Botulinum Toxin (Botox), Type A (per unit) Reviewed 05/05/2013 12:00 AM GUIDE NERV DESTR NEEDLE EMG Reviewed 05/05/2013 12:00 AM CHEMODENERVATION OF MUSCLE(S); EXTREMITY(S) AND/OR TRUNK MUSCLE( Reviewed 05/23/2013 12:00 AM INJ TRIGGER POINT 1/2 MUSCL Reviewed 05/23/2013 12:00 AM Kenalog, Per 10 Mg [facility]#5981-5149-22 Reviewed 03/13/2010 12:00 AM Botulinum Toxin (Botox), Type A (per unit) Reviewed 03/13/2010 12:00 AM GUIDE NERV DESTR NEEDLE EMG Reviewed 03/13/2010 12:00 AM CHEMODENERVATION OF MUSCLE(S); EXTREMITY(S) AND/OR TRUNK MUSCLE( Reviewed 03/31/2010 12:00 AM DRAIN/INJ JOINT/BURSA W/O US Reviewed 03/31/2010 12:00 AM Kenalog 10 Mg Im- Reviewed 02/05/2014 12:00 AM GUIDE NERV DESTR ELEC STIM Reviewed 02/05/2014 12:00 AM Physical Therapy Consult Reviewed 02/05/2014 12:00 AM Occupational Therapy Consult Reviewed 07/18/2010 12:00 AM Botulinum Toxin (Botox), Type A (per unit) Reviewed 07/18/2010 12:00 AM GUIDE NERV DESTR NEEDLE EMG Reviewed 07/18/2010 12:00 AM CHEMODENERVATION OF MUSCLE(S); EXTREMITY(S) AND/OR TRUNK MUSCLE( Reviewed 12/01/2009 12:00 AM Botulinum Toxin (Botox), Type A (per unit) Reviewed 12/01/2009 12:00 AM GUIDE NERV DESTR NEEDLE EMG Reviewed 12/05/2010 12:00 AM Botulinum Toxin (Botox), Type A (per unit) Reviewed 12/05/2010 12:00 AM GUIDE NERV DESTR NEEDLE EMG Reviewed 12/05/2010 12:00 AM CHEMODENERVATION OF MUSCLE(S); EXTREMITY(S) AND/OR TRUNK MUSCLE( Reviewed 08/07/2014 12:00 AM Botulinum Toxin (Botox), Type A (per unit) Reviewed 08/07/2014 12:00 AM GUIDE NERV DESTR ELEC STIM Reviewed 08/07/2014 12:00 AM CHEMODENERV 1 EXTREMITY 1-4 Reviewed 08/07/2014 12:00 AM CHEMODENERV 1 EXTREM 5/> EA Reviewed 05/01/2014 12:00 AM Botulinum Toxin (Botox), Type A (per unit) Reviewed 05/01/2014 12:00 AM GUIDE NERV DESTR ELEC STIM Reviewed 05/01/2014 12:00 AM CHEMODENERV 1 EXTREMITY 1-4 Reviewed 05/01/2014 12:00 AM CHEMODENERV 1 EXTREM 5/> EA Reviewed 03/20/2011 12:00 AM Botulinum Toxin (Botox), Type A (per unit) Reviewed 03/20/2011 12:00 AM GUIDE NERV DESTR NEEDLE EMG Reviewed 03/20/2011 12:00 AM CHEMODENERVATION OF MUSCLE(S); EXTREMITY(S) AND/OR TRUNK MUSCLE( Reviewed 02/07/2015 12:00 AM Botulinum Toxin (Botox), Type A (per unit) Reviewed 02/07/2015 12:00 AM GUIDE NERV DESTR ELEC STIM Reviewed 02/07/2015 12:00 AM CHEMODENERV 1 EXTREMITY 1-4 Reviewed 02/07/2015 12:00 AM CHEMODENERV 1 EXTREM 5/> EA Reviewed 2011 12:00 AM Botulinum Toxin (Botox), Type A (per unit) Reviewed 2011 12:00 AM GUIDE NERV DESTR NEEDLE EMG Reviewed 2011 12:00 AM CHEMODENERVATION OF MUSCLE(S); EXTREMITY(S) AND/OR TRUNK MUSCLE( Reviewed 07/09/2015 12:00 AM INJ TRIGGER POINT 1/2 MUSCL Reviewed Results Summary Data and Description Results 12/18/2009 12:00 AM Amount used 20 mg Joint/Area left subacromial bursa 04/02/2015 12:32 PM WBC 7.5 RBC 5.02 HGB 15.30 g/dLHCT 44.0 %MCV 88.0 fLMCH 30.50 pgMCHC 34.80 g/dLRDW CV 12.40 %MPV 9.50 fLPLT 205 %NEUT 62.30 %%LYMP 29.60 %%MONO 6.90 %%EOS 0.90 %%BASO 0.30 %#NEUT 4.67 #LYMP 2.22 #MONO 0.52 #EOS 0.07 #BASO 0.02 GLUCOSE 200.0 mg/dLSODIUM 137.0 mmol/LPOTASSIUM 4.20 mmol/ LCHLORIDE 98.0 mmol/LCO2 25.0 mmol/LBUN 23.0 mg/dLCREATININE 0.80 mg/dLSGOT/AST 19.0 IU/LSGPT/ALT 31.0 IU/LALK PHOS 107.0 IU/LTOTAL PROTEIN 6.80 g/dLALBUMIN 4.20 g/dLTOTAL BILI 0.50 mg/dLCALCIUM 9.80 mg/dLeGFR >60 mL/min/1.73 m2 History Of Immunizations Not available. History of Past Illness Name Date of Onset Comments Muscle Spasm Nov 26 2009 3:36PM Other muscular calcification and ossification Nov 26 2009 3:36PM Hemiplegia, Post-Stroke Nov 26 2009 3:36PM Other acquired deformities of finger; unspecified deformity Nov 26 2009 3: 36PM Other acquired deformities of toe Nov 26 2009 3:36PM Other acquired deformities of finger; unspecified deformity Dec 01 2009 10: 53PM Other acquired deformities of toe Dec 01 2009 10:53PM Other muscular calcification and ossification Dec 01 2009 10:53PM Hemiplegia, Post-Stroke Dec 01 2009 10:53PM Diabetes Mellitus, Type II Hypertension 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 Muscle Spasm Dec 18 2009 3:53PM Other muscular calcification and ossification Dec 18 2009 3:53PM Hemiplegia, Post-Stroke Dec 18 2009 3:53PM Other acquired deformities of finger; unspecified deformity Dec 18 2009 3: 53PM Other acquired deformities of toe Dec 18 2009 3:53PM Subacromial Bursitis Dec 22 2009 9:47PM Muscle Spasm Jan 15 2010 3:59PM Other muscular calcification and ossification Jan 15 2010 3:59PM Hemiplegia, Post-Stroke Jan 15 2010 3:59PM Other acquired deformities of finger; unspecified deformity Jan 15 2010 3: 59PM Other acquired deformities of toe Jan 15 2010 3:59PM Other acquired deformities of finger; unspecified deformity Mar 13 2010 3: 56PM Other acquired deformities of toe Mar 13 2010 3:56PM Other muscular calcification and ossification Mar 13 2010 3:56PM Hemiplegia, Post-Stroke Mar 13 2010 3:56PM Muscle Spasm Mar 31 2010 1:58PM Other muscular calcification and ossification Mar 31 2010 1:58PM Hemiplegia, Post-Stroke Mar 31 2010 1:58PM Other acquired deformities of finger; unspecified deformity Mar 31 2010 1: 58PM Other acquired deformities of toe Mar 31 2010 1:58PM Subacromial Bursitis Mar 31 2010 2:46PM Muscle Spasm May 14 2010 1:08PM Other muscular calcification and ossification May 14 2010 1:08PM Hemiplegia, Post-Stroke May 14 2010 1:08PM Other acquired deformities of finger; unspecified deformity May 14 2010 1: 08PM Other acquired deformities of toe May 14 2010 1:08PM Other acquired deformities of finger; unspecified deformity Jul 18 2010 12: 20PM Other acquired deformities of toe Jul 18 2010 12:20PM Hemiplegia, Post-Stroke Jul 18 2010 12:20PM Spasm Jul 18 2010 12:20PM Other acquired deformities of finger; unspecified deformity Dec 05 2010 11: 30AM Other acquired deformities of toe Dec 05 2010 11:30AM Hemiplegia, Post-Stroke Dec 05 2010 11:30AM Spasm Dec 05 2010 11:30AM Other acquired deformities of finger; unspecified deformity Mar 20 2011 11: 42AM Other acquired deformities of toe Mar 20 2011 11:42AM Hemiplegia, Post-Stroke Mar 20 2011 11:42AM Spasm Mar 20 2011 11:42AM Other acquired deformities of finger; unspecified deformity 2011 11: 40AM Other acquired deformities of toe 2011 11:40AM Hemiplegia, Post-Stroke 2011 11:40AM Spasm 2011 11:40AM Other acquired deformities of finger; unspecified deformity Oct 05 2011 8: 06AM Other acquired deformities of toe Oct 05 2011 8:06AM Hemiplegia, Post-Stroke Oct 05 2011 8:06AM Spasm Oct 05 2011 8:06AM Other acquired deformities of finger; unspecified deformity b 2011 11: 37AM Other acquired deformities of toe b 2011 11:37AM Hemiplegia, Post-Stroke b 2011 11:37AM Spasm b 2011 11:37AM Other acquired deformities of finger; unspecified deformity Mar 18 2012 12: 06PM Other acquired deformities of toe Mar 18 2012 12:06PM Hemiplegia, Post-Stroke Mar 18 2012 12:06PM Spasm Mar 18 2012 12:06PM Other acquired deformities of finger; unspecified deformity Jul 10 2012 2: 24PM Other acquired deformities of toe Jul 10 2012 2:24PM Hemiplegia, Post-Stroke Jul 10 2012 2:24PM Spasm Jul 10 2012 2:24PM Other acquired deformities of finger; unspecified deformity Oct 21 2012 11: 43AM Other acquired deformities of toe Oct 21 2012 11:43AM Hemiplegia, Post-Stroke Oct 21 2012 11:43AM Spasm Oct 21 2012 11:43AM Other acquired deformities of finger; unspecified deformity Feb 03 2013 1: 10PM Other acquired deformities of toe Feb 03 2013 1:10PM Hemiplegia, Post-Stroke Feb 03 2013 1:10PM Spasm Feb 03 2013 1:10PM Other acquired deformities of finger; unspecified deformity May 05 2013 10: 37AM Other acquired deformities of toe May 05 2013 10:37AM Hemiplegia, Post-Stroke May 05 2013 10:37AM Spasm May 05 2013 10:37AM Myofascial pain May 23 2013 4:44PM Other acquired deformities of finger; unspecified deformity Oct 11 2013 10: 27AM Other acquired deformities of toe Oct 11 2013 10:27AM Hemiplegia, Post-Stroke Oct 11 2013 10:27AM Spasm Oct 11 2013 10:27AM myofascial pain Nov 28 2013 12:25PM Spastic hemiplegia; affecting nondominant side Nov 28 2013 11:24AM Spasticity of cerebral origin Nov 28 2013 11:24AM Neurogenic Bowel Nov 28 2013 11:24AM Myofascial pain Dec 11 2013 9:26AM Other acquired deformities of finger; unspecified deformity Feb 05 2014 10: 31AM Other acquired deformities of toe Feb 05 2014 10:31AM Hemiplegia, Post-Stroke Feb 05 2014 10:31AM Spasm Feb 05 2014 10:31AM Spastic hemiplegia; affecting nondominant side Apr 17 2014 10:01AM Spasticity of cerebral origin Apr 17 2014 10:01AM Neurogenic Bowel Apr 17 2014 10:01AM Muscle Spasm Apr 17 2014 10:01AM Myofascial pain Apr 17 2014 3:33PM Other acquired deformities of finger; unspecified deformity May 01 2014 10: 32AM Other acquired deformities of toe May 01 2014 10:32AM Hemiplegia, Post-Stroke May 01 2014 10:32AM Muscle spasticity May 01 2014 10:32AM Other acquired deformities of finger; unspecified deformity Aug 07 2014 3: 52PM Other acquired deformities of toe Aug 07 2014 3:52PM Hemiplegia, Post-Stroke Aug 07 2014 3:52PM Muscle spasticity Aug 07 2014 3:52PM Other acquired deformities of finger; unspecified deformity Feb 05 2015 11: 04AM Other acquired deformities of toe Feb 05 2015 11:04AM Hemiplegia, Post-Stroke Feb 05 2015 11:04AM Muscle spasticity Feb 05 2015 11:04AM Spastic hemiplegia; affecting nondominant side Apr 02 2015 11:25AM Spasticity of cerebral origin Apr 02 2015 11:25AM Neurogenic Bowel Apr 02 2015 11:25AM Other acquired deformities of finger; unspecified deformity Jun 11 2015 8: 57AM Other acquired deformities of toe Jun 11 2015 8:57AM Hemiplegia, Post-Stroke Jun 11 2015 8:57AM Muscle spasticity Jun 11 2015 8:57AM Myofascial pain Jul 09 2015 10:41AM Other acquired deformities of finger; unspecified deformity Sep 12 2015 9: 43AM Other acquired deformities of toe Sep 12 2015 9:43AM Hemiplegia, Post-Stroke Sep 12 2015 9:43AM Muscle spasticity Sep 12 2015 9:43AM Payers Insurance Name Company Name Plan Name Plan Number Policy Number Policy Group Number Start Date [facility] [id number] N/A Medicare Part B Medicare Secondary [id number] Sunday, 2009 Medicare Part B Medicare Of [place] [id number] Sunday, 2009 History of Encounters Visit Date Visit Type Provider 09/12/2015 Procedures Heavenly Nolen MD 07/09/2015 Office visit Heavenly Nolen MD 06/11/2015 Procedures Heavenly Nolen MD 04/02/2015 Office visit Heavenly Nolen MD 02/05/2015 Procedures Heavenly Nolen MD 08/07/2014 Procedures Heavenly Nolen MD 05/01/2014 Procedures Heavenly Nolen MD 04/17/2014 Office visit Heavenly Nolen MD 02/05/2014 Procedures Heavenly Nolen MD 11/28/2013 Office visit Heavenly Nolen MD 10/10/2013 Procedures Heavenly Nolen MD 05/23/2013 Office visit Rigo Gonzalez MD 05/05/2013 Procedures Rigo Gonzalez MD 02/03/2013 Procedures Rigo Gonzalez MD 10/21/2012 Procedures Rigo Gonzalez MD 07/01/2012 Procedures Rigo Gonzalez MD 03/18/2012 Procedures Rigo Gonzalez MD 12/18/2011 Procedures Rigo Gonzalez MD 10/02/2011 Procedures Rigo Gonzalez MD 2011 Procedures Rigo Gonzalez MD 03/20/2011 Procedures Rigo Gonzalez MD 12/05/2010 Procedures Rigo Gonzalez MD 07/18/2010 Procedures Rigo Gonzalez MD 05/14/2010 Office visit Rigo Gonzalez MD 03/31/2010 Office visit Rigo Gonzalez MD 03/13/2010 Procedures Rigo Gonzalez MD 01/15/2010 Office visit Rigo Gonzalez MD 12/18/2009 Office visit Rigo Gonzalez MD 11/26/2009 Office visit Rigo Gonzalez MD 08/23/2009 Office visit Rigo Gonzalez MD
--- OUTSIDE RECORDS SUMMARY | 2017-05-25 17:58 | XMS REPORT ---
Author Author Heavenly Nolen [facility] Address [address] [place], [place] [id number] Care Team Providers Care Integration Software Developer Name Role Phone Heavenly Nolen PCP Unavailable Allergies and Adverse Reactions Name Reaction Notes Zantac Plan of Treatment Planned Activity Comments Planned Date Planned Time Plan/Goal GUIDE NERV DESTR ELEC STIM 06/11/2015 12:00 [...] route 55 units at bedtime. Altace Oral Dantrium 25 mg oral capsule 04/02/2015 07/31/2015 take 1 capsule by oral route 4 times a day for 30 days tirrate to this dose per calender tramadol 50 mg oral tablet 04/02/2015 03/27/2016 take 1-2 tablets by oral route 4 times a day as needed for 90 days Name Start Date Expiration Date SIG Comments [...] once daily for neurogenic bowel from CVA Botox 100 unit injection recon soln 04/04/2015 07/03/2015 Inject using E-stim/ EMG guidance by experienced provider for left hemipsaticity #00 Discontinued Name Start Date Discontinued Date SIG [...] HC BMI BSA BMI Percentile O2 Sat(%) 07/09/2015 10:40:00 AM 156 mmHg 76 mmHg 72 bpm 18 rpm 97.1 F 220 lbs 73 in 29.03 kg/m2 2.27 m2 06/11/2015 8:55:00 AM 134 mmHg 78 mmHg 71 bpm 18 rpm 97 F 220 lbs 74 in 28.246 kg/m 2.2826 m 04/02/2015 11:21:00 AM 122 mmHg 72 mmHg 68 bpm 18 rpm 97.9 F 220 lbs 74 in 28.25 kg/m2 2.28 m2 02/05/2015 11:03:00 AM 118 mmHg 60 mmHg 78 bpm 18 rpm 98 F 08/07/2014 12:09:00 PM 124 mmHg 64 mmHg 96 bpm 20 rpm 98.1 F 203 lbs 74 in 26.06 kg/m2 2.19 m2 05/01/2014 10:30:00 AM 122 mmHg 74 mmHg 72 bpm 18 rpm 97.2 F 04/17/2014 9:57:00 AM 128 mmHg 70 mmHg 78 bpm 20 rpm 97.8 F 227 lbs 74 in 29.14 kg/m2 2.32 m2 02/05/2014 10:29:00 AM 118 mmHg 70 mmHg [...] 05/23/2013 12:00 AM Kenalog, Per 10 Mg [facility]#[id number] Reviewed 03/13/2010 12:00 AM Botulinum Toxin (Botox), [...] of toe b 2011 11:37AM Hemiplegia, Post-Stroke Dec 18 2011 11:37AM Spasm Dec 18 2011 11:37AM Other acquired deformities of finger; [...] 8:57AM Myofascial pain Jul 09 2015 10:41AM Payers Insurance Name Company Name Plan Name Plan Number Policy Number Policy Group Number Start Date [facility] [id number] N/A Medicare Part B Medicare Secondary [id number] Sunday, 2009 Medicare Part B [employer] [place] [id number] Sunday, 2009 History of Encounters Visit Date Visit Type Provider 07/09/2015 Office visit Heavenly Nolen MD 06/11/2015 [...]
--- OUTSIDE RECORDS SUMMARY | 2017-05-25 17:59 | XMS REPORT ---
Author Author [facility] Organization [facility] Address [address] [place], [place] [id number] Care Team Providers Care Screen Stretcher Name Role Phone PCP Unavailable Allergies and Adverse Reactions Name Reaction Notes Zantac Plan of Treatment Not available. Medications Active Name Start Date Estimated Completion Date SIG Comments Aspir-81 Oral Tablet, Delayed Release (E.C.) mg take 1 tablet (81 mg) by oral route once daily Lipitor Oral Tablet 40 mg take 1 tablet (40 mg) by oral route once daily Aggrenox Oral Cap, Multiphasic Release 12 hr 200-25 mg take 1 capsule by oral route 2 times per day in the morning and evening Hydralazine Oral Tablet 25 mg take 1 tablet (25 mg) by oral route 2 times per day with food Metoprolol Tartrate Oral Tablet 100 mg take 1 tablet (100 mg) by oral route 2 times per day with meals Effexor Oral Tablet 75 mg take 1 tablet (75 mg) by oral route 2 times per day with food Hydrochlorothiazide Oral Tablet 25 mg take 1 tablet (25 mg) by oral route once daily Protonix Oral Tablet, Delayed Release (E.C.) 40 mg take 1 tablet (40 mg ) by oral route once daily Triazolam Oral Tablet 0.25 mg take 1 tablet (0.25 mg) by oral route once daily at bedtime as needed Novolog Subcutaneous Solution 100 unit/mL inject by subcutaneous route 12 units at breakfast, 14 units at lunch, and 12 units at dinner. Lantus Subcutaneous Solution 100 unit/mL inject by subcutaneous route 55 units at bedtime. Altace Oral Dantrium oral capsule 25 mg 04/02/2015 07/31/2015 take 1 capsule by oral route 4 times a day for 30 days tirrate to this dose per calender tramadol oral tablet 50 mg 04/02/2015 03/27/2016 take 1-2 tablets by oral route 4 times a day as needed for 90 days Botox injection recon soln 100 unit 04/04/2015 07/03/2015 Inject using E-stim/ EMG guidance by experienced provider for left hemipsaticity #00 Name Start Date Expiration Date SIG Comments Voltaren Topical Gel 1 % 07/18/2010 10/16/2010 apply 2 gram to affected area(s ) by topical route 4 times per day for 30 days tramadol-acetaminophen oral tablet 37.5-325 mg 05/17/2013 08/15/2013 TAKE 1 TABLET BY MOUTH EVERY 8 HOURS NEEDED tizanidine Oral capsule 4 mg 11/09/2013 11/04/2014 take 2 capsules (8 mg) by oral route 2 times per day magnesium citrate oral solution 11/28/2013 12/02/2013 take 1 bottle by oral route for obstipation dx: neurogenic bowel due to CVA GlycoLax oral powder 17 gram/dose 11/28/2013 06/26/2014 take 17 -34 gram mixed with 8 oz. water, juice, soda, coffee or tea by oral route once daily for neurogenic bowel from CVA Discontinued Name Start Date Discontinued Date SIG Comments Ibuprofen Oral Tablet 600 mg 03/31/2010 take 1 tablet (600 mg) by oral route every 6 hours as needed with food Tizanidine Oral Tablet 4 mg 05/14/2010 take 2 tablets by oral route 2 times a day pt d/ary long ago. Ultracet oral tablet 37.5-325 mg 04/02/2015 04/02/2015 1 tab po q 8 hrs/PRN wants it without tylenol Problem List Description Status Onset Cerebrovascular Accident (CVA) Active Diabetes Mellitus, Type II Active Hypertension Active Vital Signs Date Time BP-Sys(mm[Hg] BP-Mercedez(mm[Hg]) HR(bpm) RR(rpm) Temp WT HT HC BMI BSA BMI Percentile O2 Sat(%) 04/02/2015 11:21:00 AM 122 mmHg 72 mmHg [...] 12:00 AM DRAIN/INJ JOINT/BURSA W/O US Reviewed 10/05/2011 12:00 AM GUIDE NERV DESTR NEEDLE EMG Reviewed 10/05/2011 12:00 AM CHEMODENERVATION OF MUSCLE(S); EXTREMITY(S) AND/OR TRUNK MUSCLE( Reviewed 12/18/2011 12:00 AM GUIDE NERV DESTR NEEDLE EMG Reviewed 12/18/2011 12:00 AM CHEMODENERVATION OF MUSCLE(S); EXTREMITY(S) AND/OR TRUNK MUSCLE( Reviewed 03/18/2012 12:00 AM GUIDE NERV DESTR NEEDLE EMG Reviewed 03/18/2012 12:00 AM CHEMODENERVATION OF MUSCLE(S); EXTREMITY(S) AND/OR TRUNK MUSCLE( Reviewed 07/10/2012 12:00 AM GUIDE NERV DESTR NEEDLE EMG Reviewed 07/10/2012 12:00 AM CHEMODENERVATION OF MUSCLE(S); EXTREMITY(S) AND/OR TRUNK MUSCLE( Reviewed 10/21/2012 12:00 AM GUIDE NERV DESTR NEEDLE EMG Reviewed 10/21/2012 12:00 AM CHEMODENERVATION OF MUSCLE(S); EXTREMITY(S) AND/OR TRUNK MUSCLE( Reviewed 02/03/2013 12:00 AM GUIDE NERV DESTR NEEDLE EMG Reviewed 02/03/2013 12:00 AM CHEMODENERVATION OF MUSCLE(S); EXTREMITY(S) AND/OR TRUNK MUSCLE( Reviewed 05/05/2013 12:00 AM GUIDE NERV DESTR NEEDLE EMG Reviewed 05/05/2013 12:00 AM CHEMODENERVATION OF MUSCLE(S); EXTREMITY(S) AND/OR TRUNK MUSCLE( Reviewed 05/23/2013 12:00 AM INJ TRIGGER POINT 1/2 MUSCL Reviewed 03/13/2010 12:00 AM GUIDE NERV DESTR NEEDLE EMG Reviewed 03/13/2010 12:00 AM CHEMODENERVATION OF MUSCLE(S); EXTREMITY(S) AND/OR TRUNK MUSCLE( Reviewed 03/31/2010 12:00 AM DRAIN/INJ JOINT/BURSA W/O US Reviewed 02/05/2014 12:00 AM GUIDE NERV DESTR ELEC STIM Reviewed 07/18/2010 12:00 AM GUIDE NERV DESTR NEEDLE EMG Reviewed 07/18/2010 12:00 AM CHEMODENERVATION OF MUSCLE(S); EXTREMITY(S) AND/OR TRUNK MUSCLE( Reviewed 12/01/2009 12:00 AM GUIDE NERV DESTR NEEDLE EMG Reviewed 12/05/2010 12:00 AM GUIDE NERV DESTR NEEDLE EMG Reviewed 12/05/2010 12:00 AM CHEMODENERVATION OF MUSCLE(S); EXTREMITY(S) AND/OR TRUNK MUSCLE( Reviewed 08/07/2014 12:00 AM GUIDE NERV DESTR ELEC STIM Reviewed 08/07/2014 12:00 AM CHEMODENERV 1 EXTREMITY 1-4 Reviewed 08/07/2014 12:00 AM CHEMODENERV 1 EXTREM 5/> EA Reviewed 05/01/2014 12:00 AM GUIDE NERV DESTR ELEC STIM Reviewed 05/01/2014 12:00 AM CHEMODENERV 1 EXTREMITY 1-4 Reviewed 05/01/2014 12:00 AM CHEMODENERV 1 EXTREM 5/> EA Reviewed 03/20/2011 12:00 AM GUIDE NERV DESTR NEEDLE EMG Reviewed 03/20/2011 12:00 AM CHEMODENERVATION OF MUSCLE(S); EXTREMITY(S) AND/OR TRUNK MUSCLE( Reviewed 02/07/2015 12:00 AM GUIDE NERV DESTR ELEC STIM Reviewed 02/07/2015 12:00 AM CHEMODENERV 1 EXTREMITY 1-4 Reviewed 02/07/2015 12:00 AM CHEMODENERV 1 EXTREM 5/> EA Reviewed 2011 12:00 AM GUIDE NERV DESTR NEEDLE EMG Reviewed 2011 12:00 AM CHEMODENERVATION OF MUSCLE(S); EXTREMITY(S) AND/OR TRUNK MUSCLE( Reviewed Results Summary Data and Description Results [...] toe Dec 18 2009 3:53PM Subacromial Bursitis b 2009 9:47PM Muscle Spasm Jan 15 2010 [...] deformities of finger; unspecified deformity Dec 18 2011 11: 37AM Other acquired deformities of toe Dec 18 2011 11:37AM Hemiplegia, Post-Stroke Dec 18 2011 [...] 11:25AM Neurogenic Bowel Apr 02 2015 11:25AM Payers Insurance Name Company Name Plan Name Plan Number Policy Number Policy Group Number Start Date [facility] [id number] N/A Medicare Part B Medicare Secondary [id number] Sunday, 2009 Medicare Part B Medicare [place] [id number] Sunday, 2009 History of Encounters Visit Date Visit Type Provider 04/02/2015 Office visit Heavenly Nolen MD 02/05/2015 [...]
--- OUTSIDE RECORDS SUMMARY | 2017-05-25 18:00 | XMS REPORT ---
Author Author Heavenly Nolen [facility] Address [address] [place], [place] [id number] Care Team Providers Care Oil Burner Mechanic Name Role Phone Heavenly Nolen PCP Unavailable [...] 12:00 AM Kenalog 10 Mg Im- Reviewed 09/12/2015 12:00 AM Botulinum Toxin (Botox), Type A (per unit) Reviewed 09/12/2015 12:00 AM GUIDE NERV DESTR ELEC STIM Reviewed 09/12/2015 12:00 AM CHEMODENERV 1 EXTREMITY 1-4 Reviewed 09/12/2015 12:00 AM CHEMODENERV 1 EXTREM 5/> EA Reviewed 10/05/2011 12:00 AM Botulinum Toxin (Botox), [...] POINT 1/2 MUSCL Reviewed 05/23/2013 12:00 AM [place], Per 10 Mg [facility]#[id number] Reviewed 03/13/2010 12:00 AM Botulinum Toxin (Botox), [...] AM CHEMODENERV 1 EXTREM 5/> EA Reviewed 06/11/2015 12:00 AM Botulinum Toxin (Botox), Type A (per unit) Reviewed 06/11/2015 12:00 AM GUIDE NERV DESTR ELEC STIM Reviewed 06/11/2015 12:00 AM CHEMODENERV 1 EXTREMITY 1-4 Reviewed 06/11/2015 12:00 AM CHEMODENERV 1 EXTREM 5/> EA Reviewed 2011 12:00 AM Botulinum Toxin (Botox), Type A (per unit) Reviewed 2011 12:00 AM GUIDE NERV DESTR NEEDLE EMG Reviewed 2011 12:00 AM CHEMODENERVATION OF MUSCLE(S); EXTREMITY(S) AND/OR TRUNK MUSCLE( Reviewed 07/09/2015 12:00 AM INJ TRIGGER POINT 1/2 MUSCL Reviewed 07/09/2015 12:00 AM Kenalog, Per 10 Mg [facility]#[id number] Reviewed Results Summary Data and Description Results [...] Policy Number Policy Group Number Start Date [facility] Benefit Services [facility] [id number] N/A Medicare Part B Medicare Secondary [id number] Sunday, 2009 Medicare Part B Medicare [place] [id number] Sunday, 2009 History of Encounters Visit Date [...]
--- OUTSIDE RECORDS SUMMARY | 2017-05-25 18:01 | XMS REPORT | Continuity of Care Document ---
Author Author [facility] Organization [facility] Address Unknown Phone Unavailable Allergies Active Description Code Type Severity Reaction Onset Reported/Identified Relationship to Patient Clinical Status Yes ranitidine [id number] Drug Allergy Unknown N/A 08/08/2008 Medications Problems Date Dx Coded Attending Type Code Diagnosis Diagnosed By 02/15/2014 BERNICE CELAYA MD Ot 438.89 OTH LATE EFFECT-CEREBROVASCULAR DISEASE 02/15/2014 BERNICE CELAYA MD Ot 719.41 JOINT PAIN-SHLDER 02/15/2014 BERNICE CELAYA MD Ot 781.0 ABN INVOLUN MOVEMENT NEC 02/15/2014 BERNICE CELAYA MD Ot V57.21 ENCOUNTER FOR OCCUPATIONAL THERAPY 04/15/2016 DWAINE CALVO DPM Ot I70.202 UNSP ATHSCL IONE ARTERIES OF EXTREMITI 04/16/2016 DWAINE CALVO DPM Ot I70.202 UNSP ATHSCL IONE ARTERIES OF EXTREMITI 07/07/2016 DWAINE CALVO DPM Ot I70.202 UNSP ATHSCL IONE ARTERIES OF EXTREMITI 07/31/2016 ILIANA REYES MD Ot Z01.818 ENCOUNTER FOR OTHER PREPROCEDURAL EXAMIN 07/31/2016 ILIANA REYES MD Ot D12.5 BENIGN NEOPLASM OF SIGMOID COLON 07/31/2016 ILIANA REYES MD Ot K21.0 GASTRO-ESOPHAGEAL REFLUX DISEASE WITH ES 07/31/2016 ILIANA REYES MD, Ot K22.70 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70 SHAW'S ESOPHAGUS WITHOUT DYSPLASIA 08/05/2016 ILIANA REYES MD Ot K29.70 GASTRITIS, UNSPECIFIED, WITHOUT BLEEDING 08/05/2016 ILIANA REYES MD Ot K44.9 DIAPHRAGMATIC HERNIA WITHOUT OBSTRUCTION 08/05/2016 ILIANA REYES MD Ot K59.00 CONSTIPATION, UNSPECIFIED 08/05/2016 ILIANA REYES MD Ot K63.5 POLYP OF COLON 08/05/2016 ILIANA REYES MD Ot K64.2 THIRD DEGREE HEMORRHOIDS 08/05/2016 ILIANA REYES MD Ot Z12.11 ENCOUNTER FOR SCREENING FOR MALIGNANT NE 08/06/2016 ILIANA REYES MD Ot D12.5 BENIGN NEOPLASM OF SIGMOID COLON 08/06/2016 ILIANA REYES MD Ot K21.0 GASTRO-ESOPHAGEAL REFLUX DISEASE WITH ES 08/06/2016 ILIANA REYES MD Ot K22.70 SHAW'S ESOPHAGUS WITHOUT DYSPLASIA 08/06/2016 ABI REYES MDKI Ot K29.70 GASTRITIS, UNSPECIFIED, WITHOUT BLEEDING 08/06/2016 ILIANA REYES MD Ot K44.9 DIAPHRAGMATIC HERNIA WITHOUT OBSTRUCTION 08/06/2016 ILIANA REYES MD Ot K59.00 CONSTIPATION, UNSPECIFIED 08/06/2016 ILIANA REYES MD Ot K63.5 POLYP OF COLON 08/06/2016 ABI REYES MDKI Ot K64.2 THIRD DEGREE HEMORRHOIDS 08/06/2016 ILIANA REYES MD Ot Z12.11 ENCOUNTER FOR SCREENING FOR MALIGNANT NE 08/11/2016 VÍCTOR CORBIN MD Ot R94.6 ABNORMAL RESULTS OF THYROID FUNCTION RAJINDER 08/11/2016 VÍCTOR CORBIN MD Ot R94.6 ABNORMAL RESULTS OF THYROID FUNCTION RAJINDER 09/09/2016 VÍCTOR CORBIN MD Ot R94.6 ABNORMAL RESULTS OF THYROID FUNCTION RAJINDER 09/22/2016 VÍCTOR CORBIN MD Ot R94.6 ABNORMAL RESULTS OF THYROID FUNCTION RAJINDER 11/28/2016 ZAHRA DIAMOND OPTOMETRIC COORDINATOR Ot S01.542A PUNCTURE WOUND WITH FOREIGN BODY OF ORAL 11/28/2016 ZAHRA DIAMOND APRN Ot X58.XXXA EXPOSURE TO OTHER SPECIFIED FACTORS, INI 11/28/2016 ZAHRA DIAMOND APRN Ot Y92.[address] IN [facility] NON-INSTITUT ( PRIVATE 11/28/2016 ZAHRA DIAMOND APRN Ot Y99.8 OTHER EXTERNAL CAUSE STATUS 11/28/2016 ZAHRA DIAMOND OPTOMETRIC COORDINATOR Ot Z79.82 SEDIMENT 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 Visit Date/Time Discharge Status Pt. Type Provider Facility Loc./Unit Complaint [id number] 09/12/2015 09:53:02 09/12/2015 23: 59:59 [facility] Outpatient Bernice Celaya [id number] 07/09/2015 11:39:42 07/09/2015 23: 59:59 [facility] Outpatient Bernice Celaya [id number] 06/24/2015 22:24:46 06/24/2015 23: 59:59 [facility] Outpatient Bernice Celaya [id number] 06/24/2015 21:31:20 06/24/2015 23: 59:59 [facility] Outpatient Bernice Celaya [id number] 02/05/2015 09:48:51 02/05/2015 23: 59:59 [facility] Outpatient Bernice Celaya [id number] 08/07/2014 11:58:00 08/07/2014 23: 59:59 [facility] Outpatient Bernice Celaya [id number] 05/01/2014 10:42:32 05/01/2014 23: 59:59 [facility] Outpatient Bernice Celaya [id number] 04/17/2014 10:53:13 04/17/2014 23: 59:59 [facility] Outpatient Bernice Celaya [id number] 02/05/2014 11:05:01 02/05/2014 23: 59:59 [facility] Outpatient Bernice Celaya [id number] 11/28/2013 12:14:28 11/28/2013 23: 59:59 [facility] Outpatient Bernice Celaya
--- OUTSIDE RECORDS SUMMARY | 2017-05-25 18:01 | XMS REPORT ---
Author Author [facility] Organization [facility] Address [address] [place], [place] [address] Care Team Providers Care Personalization Specialist Name Role Phone PCP Unavailable Allergies and [...] HC BMI BSA BMI Percentile O2 Sat(%) 06/11/2015 8:55:00 AM 134 mmHg 78 mmHg [...] ossification Dec 18 2009 3:53PM Hemiplegia, Post-Stroke b 2009 3:53PM Other acquired deformities of finger; unspecified deformity Dec 18 2009 3: 53PM Other acquired deformities of toe b 2009 3:53PM Subacromial Bursitis b 2009 9:47PM [...] 8:57AM Muscle spasticity Jun 11 2015 8:57AM Payers Insurance Name Company Name Plan Name Plan Number Policy Number Policy Group Number Start Date [facility] [id number] N/A Medicare Part B Medicare Secondary [id number] Sunday, 2009 Medicare Part B Medicare [place] [id number] Sunday, 2009 History of Encounters Visit Date Visit Type Provider 06/11/2015 Procedures Heavenly Nolen MD 04/02/2015 Office [...]
--- OUTSIDE RECORDS SUMMARY | 2017-05-25 18:01 | XMS REPORT ---
Author Author Heavenly Nolen [facility] Address [address] [place], [place] [id number] Care Team Providers Care Boilermaker Ship Name Role Phone Heavenly Nolen PCP Unavailable [...] 05/23/2013 12:00 AM Kenalog, Per 10 Mg [facility]#[id number] Reviewed 03/13/2010 12:00 AM Botulinum Toxin (Botox), [...] Policy Group Number Start Date [facility] Benefit Services [facility] Benef[facility] [id number] N/A Medicare Part B Medicare Secondary [id number] Sunday, 2009 Medicare Part B Medicare [place] [id number] Sunday, 2009 History of Encounters Visit Date [...]
--- OUTSIDE RECORDS SUMMARY | 2017-05-26 08:53 | XMS REPORT | Continuity of Care Document ---
Author Author [facility] Organization [facility] Address Unknown Phone Unavailable Care Team Providers Care Louver Mortiser Operator Name Role Phone Terrell Man PCP [phone] Source Comments Some departments are not documenting in the electronic medical record. If you do not see the information that you expected, contact Release of Information in the Health Information Management department at [phone] for further assistance in locating additional records.[facility] Active Allergies and Adverse Reactions Allergen [...]
--- OUTSIDE RECORDS SUMMARY | 2017-05-26 08:57 | XMS REPORT | Continuity of Care Document ---
Author Author [facility] Organization [facility] Address Unknown Phone Unavailable Allergies Active Description Code Type Severity Reaction Onset Reported/Identified Relationship to Patient Clinical Status Yes ranitidine [id number] Drug Allergy Unknown N/A 08/08/2008 Medications Problems Date Dx Coded Attending Type Code Diagnosis Diagnosed By 02/15/2014 BERNICE CELAYA MD Ot 438.89 OTH LATE EFFECT-CEREBROVASCULAR DISEASE 02/15/2014 BERNICE CELAYA MD Ot 719.41 JOINT PAIN-SHLDER 02/15/2014 BERNICE CELAYA MD Ot 781.0 ABN INVOLUN MOVEMENT NEC 02/15/2014 BERNICE CELAYA MD Ot V57.21 ENCOUNTER FOR OCCUPATIONAL THERAPY 04/15/2016 DWAINE CALVO DPM Ot I70.202 UNSP ATHSCL [place] ARTERIES OF EXTREMITI 04/16/2016 DWAINE CALVO DPM Ot I70.202 UNSP ATHSCL [place] ARTERIES OF EXTREMITI 07/07/2016 DWAINE CALVO DPM Ot I70.202 UNSP ATHSCL [place] ARTERIES OF EXTREMITI 07/31/2016 ILIANA REYES MD Ot Z01.818 ENCOUNTER FOR OTHER PREPROCEDURAL EXAMIN 07/31/2016 ILIANA REYES MD Ot D12.5 BENIGN NEOPLASM OF SIGMOID COLON 07/31/2016 ILIANA REYES MD Ot K21.0 GASTRO-ESOPHAGEAL REFLUX DISEASE WITH ES 07/31/2016 IILANA REYES MD, Ot K22.70 SHAW'S ESOPHAGUS WITHOUT [...] OF THYROID FUNCTION RAJINDER 11/28/2016 ZAHRA DIAMOND PLATING ENGINEER Ot S01.542A PUNCTURE WOUND WITH FOREIGN BODY OF ORAL 11/28/2016 ZAHRA DIAMOND APRN Ot X58.XXXA EXPOSURE TO OTHER SPECIFIED FACTORS, INI 11/28/2016 ZAHRA DIAMOND APRN Ot Y92.[address] IN [facility] NON-INSTITUT ( PRIVATE 11/28/2016 ZAHRA DIAMOND APRN Ot Y99.8 OTHER EXTERNAL CAUSE STATUS 11/28/2016 ZAHRA DIAMOND PLATING ENGINEER Ot 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 Visit Date/Time Discharge Status Pt. Type Provider Facility Loc./Unit Complaint [id number] 09/12/2015 09:53:02 09/12/2015 23: 59:59 [facility] Outpatient Bernice Celaya [id number] 07/09/2015 11:39:42 07/09/2015 23: 59:59 [facility] Outpatient Bernice Celaya [id number] 06/24/2015 22:24:46 06/24/2015 23: 59:59 [facility] Outpatient Bernice Celaya [id number] 06/24/2015 21:31:20 06/24/2015 23: 59:59 [facility] Outpatient Bernice Cealya [id number] 02/05/2015 09:48:51 02/05/2015 23: 59:59 [facility] Outpatient Bernice Celaya [id number] 08/07/2014 11:58:00 08/07/2014 23: 59:59 [facility] Outpatient Bernice Celaya [id number] 05/01/2014 10:42:32 05/01/2014 23: 59:59 [facility] Outpatient Bernice Celaya [id number] 04/17/2014 10:53:13 04/17/2014 23: 59:59 [facility] Outpatient Bernice Celaya [id number] 02/05/2014 11:05:01 02/05/2014 23: 59:59 [facility] Outpatient Bernice Celaya [id number] 11/28/2013 12:14:28 11/28/2013 23: 59:59 [facility] Outpatient Bernice Celaya
--- NOTE | 2017-05-26 10:19 | STRESS TEST ---
PROCEDURE PHYSICIAN: DAMIEN DUVALL DATE OF PROCEDURE: 05/25/2017 LEXISCAN MYOVIEW STRESS TEST REPORT: BASELINE HEART RATE: 89 BASELINE BLOOD PRESSURE: 137/77 BASELINE EKG: Sinus rhythm with no ischemic changes. SUMMARY: The patient was injected with 10.33 mCi of technetium 99 Myoview and the resting images were obtained. Then the patient received 0.4 mg of Lexiscan followed by 31.2 mCi of technetium 99 Myoview. Throughout the test, there were no EKG changes. The resting and stress images were reviewed and compared in the short axis, horizontal long axis, and vertical long axis views. Review of the images showed extracardiac attenuation with no significant ischemia or infarction on SPECT images. SSS is 3, SDS 3, TID value 0.89. On the gated images, the left ventricle appeared to be normal size with normal contractility. Calculated ejection fraction 58%. IN CONCLUSION: 1. The patient tolerated Lexiscan well. 2. Extracardiac attenuation with no significant ischemia or infarction on SPECT images. 3. Normal left ventricular size with normal contractility. Calculated ejection fraction 58%. Job ID: [id number] Dictated Date: 05/25/2017 15:07:04 Shoe Stamper Date: 05/26/2017 10:15:45 / tbk
== END 2017-05-25 16:30 | disposition home or self-care (01) | DRG 309 ==
LOC: EDSTATUS 08:48 → UNDOADMOB 14:00 → OBSVTOIN 14:00 → INTOOBSV 14:00 → ICU 14:00 → UNDODISIN 05-25 16:30
PROVIDERS: ADMIT Internal Medicine Cardiovascular Disease; ATTEND Internal Medicine Cardiovascular Disease
DX: I48.0 Paroxysmal atrial fibrillation (principal); I69.354 Hemiplegia and hemiparesis following cerebral infarction affecting left non-dominant side; E05.90 Thyrotoxicosis, unspecified without thyrotoxic crisis or storm; I10 Essential (primary) hypertension; E78.2 Mixed hyperlipidemia; E11.9 Type 2 diabetes mellitus without complications; K21.9 Gastro-esophageal reflux disease without esophagitis; K59.00 Constipation, unspecified; Z85.46 Personal history of malignant neoplasm of prostate; Z79.4 Long term (current) use of insulin; Z87.891 Personal history of nicotine dependence
CPT/HCPCS: 36415; 71010; 78452; 80048; 80053; 82962; 83735; 84439; 84443; 84484; 85027; 85610; 85730; 93005; 93017

== ENCOUNTER 2017-06-30 07:00 | Day surgery (SDC) | payer BC, MEDICARE ==
[~2017-06-30] VITALS: Ht 188 cm; Wt 98.4 kg
[2017-06-30] VITALS (22 sets, daily range): BP systolic 124–158; BP diastolic 75–108
[~2017-06-30 07:00] MED LIST changes: +AMIT25TA9 PO; +ASPI-983 PO; +ATOR40TA70 PO; +CINN500C2 PO; +DILT120C53 PO; +HYDR25TA4 PO; +INSU100I10 SQ; +INSU100I14 SQ; -METO-270 PO; +METO-333 PO; +METO-387 PO; +OMEG-109 PO; +PANT40TA3 PO; +PROP150T2 PO; +RAMI10CA PO; +RIVA20TA PO; +TRAM50TA2 PO
[2017-06-30] MEDS ORDERED: NS IV 1000 ML 1,000 ML ONE (07:11)
[2017-06-30] MEDS ORDERED: LIDOCAINE TOPICAL 4% 50 ML BTL ONE (07:11)
[2017-06-30] MEDS ORDERED: NS IV 1000 ML 1,000 ML IV SCH (08:09)
--- NOTE | 2017-06-30 08:37 | Cardiac Procedure Note-CS/ASA ---
Pre-Procedure Note Pre-Op Procedure Note H&P Reviewed The H&P was reviewed, patient examined and no changes noted. Date H&P Reviewed: Jun 30, 2017 Time H&P Reviewed: 08:37 Conscious Sedation Pre-Proced Time Reviewed: 08:37 ASA Class: 3 Airway Mallampati Classification: ([place] appropriate class) I. II. III, IV Lungs Heart ASA score ASA 1: a normal healthy patient ASA 2: a patient with a mild systemic disease (mid diabetes, controlled hypertension, obesity X ASA 3: a patient with a severe systemic disease that limits activity (angina , COPD, prior Myocardial infarction) ASA 4: a patient with an incapacitating disease that is a constant threat to life (CHF, renal failure) ASA 5: a moribund patient not expected to survive 24 hrs. (ruptured aneurysm) ASA 6: a declared brain patient whose organs are being harvested. For emergent operations, add the letter E after the classification Grade 3 Sedation Plan: Analgesia, Amnesia, Plan communicated to team members, Discussed options with patient/fam, Discussed risks with patient/fam Note The patient is an appropriate candidate to undergo the planned procedure, sedation, and anesthesia. The patient immediately re-assessed prior to indication. DAMIEN DUVALL MD Jun 30, 2017 08:37
--- NOTE | 2017-06-30 08:39 | Diagnostic Imaging Report ---
EXAM: CHEST 1 VIEW, AP/PA ONLY INDICATION: afib cva htn COMPARISON: Chest radiographs 05/25/2017. FINDINGS: Normal heart size and pulmonary vascularity. No focal pulmonary opacity, pleural effusion or pneumothorax. Again noted is the tortuous aorta versus small esophageal hiatal hernia. No acute osseous findings. No significant change. IMPRESSION: No acute cardiopulmonary findings. Dictated by: Dictated on workstation # [id number]
[2017-06-30 08:41] LABS: MEAN PLATELET VOLUME 9.9 FL (7.4-10.4); RED CELL DISTRIBUTION WIDTH 13.2 % (10.0-14.5); WHITE BLOOD COUNT 9.5 10^3/uL (4.3-11.0)
[2017-06-30 08:57] LABS: INR 1.7 (0.8-1.4); PROTHROMBIN TIME PATIENT 20.1 SEC (12.2-14.7)
[2017-06-30 09:05] LABS: ALANINE AMINOTRANSFERASE 16 U/L (0-55); ALBUMIN 4.1 GM/DL (3.2-4.5); ANION GAP 10 MMOL/L (5-14); ASPARTATE AMINO TRANSFERASE 13 U/L (5-34); BILIRUBIN,TOTAL 0.4 MG/DL (0.1-1.0); BLOOD UREA NITROGEN 18 MG/DL (7-18); BUN/CREATININE RATIO 17; CALCIUM 9.8 MG/DL (8.5-10.1); CARBON DIOXIDE 28 MMOL/L (21-32); CHLORIDE 98 MMOL/L (98-107); CREATININE SERUM 1.04 MG/DL (0.60-1.30); GFR ESTIMATED > 60; GLUCOSE 279 MG/DL (70-105); POTASSIUM 3.9 MMOL/L (3.6-5.0); SODIUM 136 MMOL/L (135-145); TOTAL PROTEIN 7.2 GM/DL (6.4-8.2)
[2017-06-30] MEDS ORDERED: MIDAZOLAM 2 MG/2 ML (VERSED) VIAL ONE (09:20)
[2017-06-30] MEDS ORDERED: proPOfol 200 MG/20 ML (DIPRIVAN) VIAL IV ONE (09:20)
[2017-06-30] MEDS ORDERED: NF-METHI10 PO (09:49)
[2017-06-30] MEDS ORDERED: PROP225T2 PO (09:49)
[2017-06-30] MEDS ORDERED: CINN500C2 PO (09:49)
[2017-06-30] MEDS ORDERED: OMEG-77 PO (09:49)
[2017-06-30] MEDS ORDERED: INSU100I14 SQ (09:49)
[2017-06-30] MEDS ORDERED: TRAMADOL 50 MG PO PRN (10:30)
--- NOTE | 2017-06-30 10:56 | Anesthesia-Procedure Note ---
Procedure Start/Stop Time Date of Procedure: Jun 30, 2017 Start Time: 10:12 Referring Physician: Giselle Preprocedural Diagnosis: A-fib Stop Time: 10:21 Postprocedural Diagnosis: same Procedures/Interventions Procedures Called to CV[facility] for DEIRDRE/Cardioversion sedation. Brief history obtained from patient. at bedside. 2mg versed and 70mg propofol given for procedure. Tolerated DEIRDRE and Cardioversion well. Oral airway placed to maintain airway patency post Cardioversion. VSS. Care to CVCL RN. LACEY AGOSTO CRNA Jun 30, 2017 10:56
[2017-06-30] MEDS ORDERED: PATIENT MAY USE OWN MEDS, ALL MC SCH (13:45)
[2017-06-30] MEDS: DANTROLENE 25 MG PO SCH ×3 (15:46→21:18)
[2017-06-30] MEDS: PROPAFENONE HCL 225 MG PO SCH ×2 (15:47→23:44)
[2017-06-30] MEDS ORDERED: ATORVASTATIN 40 MG (LIPITOR) TABLET PO SCH (21:00)
[2017-06-30] MEDS ORDERED: AMITRIPTYLINE 25 MG (ELAVIL) TAB PO SCH (21:00)
[2017-06-30] MEDS ORDERED: INSULIN GLARGINE HUM REC ANLOG SQ SCH (21:00)
[2017-06-30] MEDS ORDERED: RIVAROXABAN 20 MG TABLET (XARELTO) PO SCH (21:00)
[2017-06-30] MEDS: DILTIAZEM 120 MG (CARDIZEM CD) CAP PO SCH (21:10)
[2017-06-30] MEDS: Ramipril 10 MG PO SCH (21:11)
[2017-06-30] MEDS: PANTOPRAZOLE 40 MG (PROTONIX) TAB PO SCH (21:15)
[2017-06-30] MEDS: VENlafaxine 75 MG (EFFEXOR) TAB PO SCH (21:15)
[2017-06-30] MEDS: OMEGA 3 (FISH OIL) 1000 MG CAP PO SCH (21:16)
[2017-06-30] MEDS: meTOprolol TARTRATE 25 MG (LOPRESSOR) TABLET PO SCH (21:17)
[2017-07-01] VITALS: BP 133/65
[2017-07-01 04:00] VITALS: BP 125/88
[2017-07-01 07:56] VITALS: BP 128/66
--- NOTE | 2017-07-01 08:08 | Short Stay Summary ---
History of Present Illness History of Present Illness Reason for visit/HPI 62 years old gentleman with history of paroxysmal atrial fibrillation, admitted for DEIRDRE and electrical cardioversion, was done successfully yesterday and he has been doing well since then, he has history of CVA and TIA in 2006 and 2005. History of hypertension and hyperlipidemia. Date of Admission June 30, 2017 Date of Discharge July 01, 2017 Time Seen by Provider: 08:06 Attending Physician Damien Desai MD Admitting Physician Ashu Jackson MD Consult Allergies and Home Medications Allergies Coded Allergies: ranitidine (Verified Allergy, Unknown, 08/08/08) Home Medications Amitriptyline HCl 25 Mg Tablet, 25 MG PO HS, (Reported) Aspirin 81 Mg Tablet.dr, 81 MG PO DAILY, (Reported) Atorvastatin Calcium 40 Mg Tablet, 40 MG PO HS, (Reported) Cinnamon Bark 500 Mg Capsule, 1,000 MG PO DAILY, (Reported) Dantrolene Sodium 25 Mg Capsule, 25 MG PO QID, (Reported) Diltiazem HCl 120 Mg Cap.er.24h, 120 MG PO BID, (Reported) Hydrochlorothiazide 25 Mg Tablet, 25 MG PO DAILY, (Reported) Insulin Aspart 300 Units/3 Ml Solution, 16 UNITS SQ DAILY WITH BREAKFAST, ( Reported) Insulin Aspart 300 Units/3 Ml Solution, 18 UNITS SQ W/ LUNCH AND SUPPER, ( Reported) Insulin Glargine,Hum.rec.anlog 100 Unit/1 Ml Insuln.pen, 56 UNITS SQ HS, ( Reported) Methimazole 10 Mg Tab, 10 MG PO DAILY, (Reported) Metoprolol Tartrate 25 Mg Tablet, 25 MG PO BID, (Reported) Lawrence-3 Fatty Acids/Fish Oil 1 Each Capsule, 1,000 MG PO BID, (Reported) Pantoprazole Sodium 40 Mg Tablet.dr, 40 MG PO BID, (Reported) Propafenone HCl 225 Mg Tablet, 225 MG PO 0800,1600,0000, (Reported) Ramipril 10 Mg Capsule, 10 MG PO BID, (Reported) Rivaroxaban 20 Mg Tablet, 20 MG PO HS, (Reported) Tramadol HCl 50 Mg Tablet, 50 MG PO QID PRN for PAIN-MODERATE, (Reported) Venlafaxine HCl 75 Mg Tab, 75 MG PO BID, (Reported) Past Qvnlbet-Egmxpv-Mbhata Hx Patient Social History Smoking Status: Never a Smoker Recent Foreign Travel: No Contact w/other who traveled: No Recent Hopitalizations: No Recent Infectious Disease Expo: No Immunizations Up To Date Tetanus Booster (TDap): Unknown Date of Influenza Vaccine: Aug 24, 2016 Seasonal Allergies Seasonal Allergies: No Surgeries HX Surgeries: Yes (RIGHT TESTICAL REMOVED) Respiratory Hx Respiratory Disorders: No Cardiovascular Hx Cardiovascular Disorders: Yes (WHOLE IN HEART-PFO DX. IN 2006) Neurological Hx Neurological Disorders: Yes Neurological Disorders: Stroke Reproductive System Hx Reproductive Disorders: Yes (PROSTATE CANCER- AROUND ) Sexually Transmitted Disease: No HIV/AIDS: No Genitourinary Hx Genitourinary Disorders: No Gastrointestinal Hx Gastrointestinal Disorders: No Gastrointestinal Disorders: Gastroesophageal Reflux, Chronic Constipation Musculoskeletal Hx Musculoskeletal Disorders: Yes Musculoskeletal Disorders: Foot Drop Endocrine Hx Endocrine Disorders: Yes Endocrine Disorders: Diabetes, Insulin dep HEENT HX ENT Disorders: No HEENT Disorders: Cataract Loss of Vision: Denies Hearing Impairment: Denies Cancer Cancer: Prostate Psychosocial Hx Psychiatric Problems: No Blood Transfusions Hx Blood Disorders: No Family Medical History Family Hx: Alzheimer's disease G8 SISTER Arthritis G8 SISTER Completed stroke 19 FATHER Dementia G8 SISTER Diabetes mellitus 19 MOTHER G8 BROTHER Hypercholesterolemia Hypertension 19 FATHER Myocardial infarction 19 FATHER Respiratory disorder 19 FATHER Constitutional: no symptoms reported, see HPI EENTM: see HPI, no symptoms reported Respiratory: no symptoms reported, see HPI Cardiovascular: no symptoms reported, see HPI Gastrointestinal: see HPI Genitourinary: no symptoms reported, see HPI Musculoskeletal: see HPI Skin: no symptoms reported, see HPI Psychiatric/Neurological: See HPI Physical Exam Vital Signs Vital Sign - Last 12Hours 06/30/17 06/30/17 06/30/17 06/30/17 10:10 10:15 11:00 13:38 Temp 97.1 Pulse 103 Resp 18 B/P (MAP) 124/75 Pulse Ox 97 O2 Delivery Nasal Cannula O2 Flow Rate 4.00 Capillary Refill : General Appearance: No Apparent Distress, WD/WN Eyes: Bilateral Eye Normal Inspection, Bilateral Eye PERRL, Bilateral Eye EOMI HEENT: PERRL/EOMI, TMs Normal, Normal ENT Inspection, Pharynx Normal Neck: Full Range of Motion, Normal Inspection, Non Tender, Supple, Carotid Bruit Respiratory: Chest Non Tender, Lungs Clear, Normal Breath Sounds, No Accessory Muscle Use, No Respiratory Distress Cardiovascular: Regular Rate, Rhythm, No Edema, No Gallop, No JVD, No Murmur, Normal Peripheral Pulses Gastrointestinal: Normal Bowel Sounds, No Organomegaly, No Pulsatile Mass, Non Tender, Soft Back: Normal Inspection, No CVA Tenderness, No Vertebral Tenderness Extremity: Normal Capillary Refill, Normal Inspection, Non Tender, No Calf Tenderness, No Pedal Edema Neurologic/Psychiatric: Alert, Oriented x3, Normal Mood/Affect Skin: Normal Color, Warm/Dry Lymphatic: No Adenopathy Short Stay Diagnosis Discharge Diagnosis-Short Stay Admission Diagnosis: paroxysmal atrial fibrillation Hypertension Hyperlipidemia History of CVA Final Discharge Diagnosis: paroxysmal atrial fibrillation Hypertension Hyperlipidemia History of CVA Conclusion Labs Laboratory Tests 06/30/17 08:27: White Blood Count 9.5, Red Blood Count 5.00, Hemoglobin 14.3, Hematocrit 44, Mean Corpuscular Volume 87, Mean Corpuscular Hemoglobin 29, Mean Corpuscular Hemoglobin Concent 33, Red Cell Distribution Width 13.2, Platelet Count 214, Mean Platelet Volume 9.9, Prothrombin Time 20.1H, INR Comment 1.7H, Activated Partial Thromboplast Time 38H, Sodium Level 136, Potassium Level 3.9, Chloride Level 98, Carbon Dioxide Level 28, Anion Gap 10, Blood Urea Nitrogen 18, Creatinine 1.04, Estimat Glomerular Filtration Rate > 60, BUN/Creatinine Ratio 17, Glucose Level 279H, Calcium Level 9.8, Total Bilirubin 0.4, Aspartate Amino Transf (AST/SGOT) 13, Alanine Aminotransferase (ALT/SGPT) 16, Alkaline Phosphatase 104, Total Protein 7.2, Albumin 4.1 Conclusion/Plan Paroxysmal atrial fibrillation, status post DEIRDRE with electrical cardioversion, successful, maintaining sinus rhythm, continue to monitor. History of CVA in 2006, TIA in 2005, maintained on Xarelto Hypertension, controlled, continue on current medications and monitor Hyperlipidemia, continue on current medications and monitor Diabetes mellitus, followed and managed by primary care physician Hypothyroidism, managed by primary care physic DAMIEN DESAI MD Jul 01, 2017 08:08
[2017-07-01] MEDS: meTOprolol TARTRATE 25 MG (LOPRESSOR) TABLET PO SCH (08:37)
[2017-07-01] MEDS: PROPAFENONE HCL 225 MG PO SCH (08:38)
[2017-07-01] MEDS: DANTROLENE 25 MG PO SCH (08:38)
[2017-07-01] MEDS: OMEGA 3 (FISH OIL) 1000 MG CAP PO SCH (08:39)
[2017-07-01] MEDS: VENlafaxine 75 MG (EFFEXOR) TAB PO SCH (08:40)
[2017-07-01] MEDS: PANTOPRAZOLE 40 MG (PROTONIX) TAB PO SCH (08:40)
[2017-07-01] MEDS: Ramipril 10 MG PO SCH (08:41)
[2017-07-01] MEDS: DILTIAZEM 120 MG (CARDIZEM CD) CAP PO SCH (08:42)
[2017-07-01] MEDS ORDERED: METHIMAZOLE 10 MG PO SCH (09:00)
[2017-07-01] MEDS ORDERED: HYDROCHLOROTHIAZIDE 25 MG (HCTZ) TAB PO SCH (09:00)
[2017-07-01] MEDS ORDERED: ASPIRIN E.C. 81 MG (ECOTRIN) TAB PO SCH (09:00)
--- OUTSIDE RECORDS SUMMARY | 2017-07-01 10:23 | XMS REPORT | Clinical Summary ---
Author Author [facility] Organization [facility] Address Unknown Phone Unavailable Care Team Providers Care Scale Expert Name Role Phone PCP Unavailable Source Comments Some departments are not documenting in the electronic medical record. If you do not see the information that you expected, contact Release of Information in the Health Information Management department at [phone] for further assistance in locating additional records.[facility] Allergies Active Allergy Reactions Severity Noted Date Comments Ranitidine Hcl Medium 05/18/2007 Allergy recorded in SMS: ZANTAC~Reactions: DIARRHEA Current Medications Not on file Active Problems Not on file Social History Tobacco Use Types Packs/Day Years Used Date Never Assessed Sex Assigned at Date Recorded Not on file Last Filed Vital Signs Not on file Plan of Treatment Health Maintenance Due Date Last Done Comments HEPATITIS C SCREENING 1955 PHYSICAL (COMPREHENSIVE) 1960 EXAM PERTUSSIS VACCINE 1964 TETANUS VACCINE 1970 COLORECTAL CANCER 2003 SCREENING SHINGLES VACCINE 2013 INFLUENZA VACCINE 07/16/2017 Results Not on filefrom Last 3 Months
[2017-07-01 11:48] VITALS: BP 128/66
== END 2017-07-01 09:55 | disposition home or self-care (01) ==
LOC: CATH 07:00 → ICU 10:55 → CATH 07-01 09:55
PROVIDERS: ATTEND Internal Medicine Cardiovascular Disease
DX: I48.0 Paroxysmal atrial fibrillation (principal); I10 Essential (primary) hypertension; E78.5 Hyperlipidemia, unspecified; E11.9 Type 2 diabetes mellitus without complications; I69.398 Other sequelae of cerebral infarction; E03.9 Hypothyroidism, unspecified; Z79.4 Long term (current) use of insulin; Z79.899 Other long term (current) drug therapy; Z79.01 Long term (current) use of anticoagulants
CPT/HCPCS: 36415; 71010; 80053; 82962; 85027; 85610; 85730; 87081; 92960; 93005; 93312; 93320; 93325

== ENCOUNTER 2017-07-21 07:53 | Day surgery (SDC) | payer BC, MEDICARE ==
[2017-07-21] VITALS (12 sets, daily range): BP systolic 106–128; BP diastolic 70–94
[~2017-07-21] VITALS: Ht 188 cm; Wt 97.1 kg
[~2017-07-21 07:53] MED LIST changes: +NF-METHI10 PO; +OMEG-77 PO; +PROP225T2 PO
[2017-07-21] MEDS ORDERED: NS IV 1000 ML 1,000 ML ONE (07:55)
[2017-07-21] MEDS ORDERED: HEParin (CATH LAB) 2,000 ML IV ONE (07:55)
--- OUTSIDE RECORDS SUMMARY | 2017-07-21 08:05 | XMS REPORT | Clinical Summary ---
Author Author [facility] Organization [facility] Address Unknown Phone Unavailable Care Team Providers Care Manager Security Name Role Phone PCP Unavailable Source Comments Some departments are not documenting in the electronic medical record. If you do not see the information that you expected, contact Release of Information in the Health Information Management department at [phone] for further assistance in locating additional records.[facility] Allergies Active Allergy Reactions Severity Noted Date Comments Ranitidine Hcl Medium 05/18/2007 Allergy recorded in SMS: ZANTAC~Reactions: DIARRHEA Current Medications Not on file Active Problems Not on file Encounters Date Type Specialty Care Team Description 07/20/2017 Patient Profile Cardiology Yong Alcantara New Patient ( discuss AFL RFA) 07/20/2017 Documentation Cardiology Yogn Alcantara Records Request (Shiva Desai MD/ Via [facility] ) [phone]) 07/20/2017 Documentation Cardiology Yong Alcantara Records Request (Terrell Man MD/ Via [facility] ) [phone]) from Last 3 Months Social History Tobacco Use Types Packs/Day Years [...]
--- OUTSIDE RECORDS SUMMARY | 2017-07-21 08:05 | XMS REPORT | Continuity of Care Document ---
Author Author [facility] Address Unknown Phone Unavailable Care Team Providers Care Grocery Clerk Checking Name Role Phone [employer] Unavailable Unavailable Problems Medications Allergies, Adverse Reactions, Alerts Immunizations Results Vital Signs Encounters Location Location Details Encounter Type Encounter Number Reason For Visit Attending Provider ADM Date [place] [id number] [place] 07/25/2007 07/25/2007 Active [facility] O Active [facility] Procedures Plan of Care Social History Assessment and Plan Family History Value Date Source Advance Directives Order Name Results Value Date Source
--- OUTSIDE RECORDS SUMMARY | 2017-07-21 08:05 | XMS REPORT | Encounter Summary ---
Author Author [facility] Organization [facility] Address Unknown Phone Unavailable Care Team Providers Care Log Cutter Name Role Phone PCP Unavailable Reason for Visit * Reason Comments New Patient discuss AFL RFA Encounter Details Date Type Department Care Team Description 07/20/2017 Patient Profile [facility] Yong Alcantara New Patient (discuss AFL [address] RFA) [address] [place] [address] Social History Tobacco Use Types Packs/Day Years Used Date Never Assessed Sex Assigned at Date Recorded Not on file as of this encounter Progress Notes * Yong Alcantara - 07/20/2017 1:36 PM CDT LMOM for pt to call back to complete pt profile. 07/20/17 in this encounter Plan of Treatment Not on fileas of this encounter Visit Diagnoses Not on filein this encounter
--- OUTSIDE RECORDS SUMMARY | 2017-07-21 08:05 | XMS REPORT | Encounter Summary ---
Author Author [facility] Organization [facility] Address Unknown Phone Unavailable Care Team Providers Care Shuttle Inspector Name Role Phone PCP Unavailable Reason for Visit * Reason Comments Records Request Terrell Man MD/ Via [facility] [phone] Encounter Details Date Type Department Care Team Description 07/20/2017 Documentation [facility] Yong Alcantara Records Request (Terrell [address] Henri Man MD/ Via [facility] [address] [facility] [place] [address] ) [phone] Social History Tobacco Use Types Packs/Day Years Used Date Never Assessed Sex Assigned at Date Recorded Not on file as of this encounter Progress Notes * Yong Alcantara - 07/20/2017 1:28 PM CDT Request for the following medical records for purpose of continuity of care: Roland Lombardo 1955 has an appointment with Dr. Rojas on 07/27/17 Please send the following if available: OV notes Medication list Problem list Recent Labs Last 4 EKG's Ablation Notes Cath reports Device Implant notes Last Device check Cardioversion Event monitor report with ECG strips Holter monitor report with ECG strips Stress Test ECHO any additional cardiac information / testing. Please Fax to: [phone] Thank you, Yong Alcantara [facility] 1 in this encounter Plan of Treatment Not on fileas of this encounter Visit Diagnoses Not on filein this encounter
--- OUTSIDE RECORDS SUMMARY | 2017-07-21 08:05 | XMS REPORT | Encounter Summary ---
Author Author [facility] Organization [facility] Address Unknown Phone Unavailable Care Team Providers Care Sample Body Builder Name Role Phone PCP Unavailable Reason for Visit * Reason Comments Records Request Shiva Desai MD/ [facility] (f ) [phone] Encounter Details Date Type Department Care Team Description 07/20/2017 Documentation [facility] Yong Alcantara Records Request (Shiva [address] Henri Desai MD/ Via [address] [address] (f) [phone]) [phone] Social History Tobacco Use Types Packs/Day Years Used Date Never Assessed Sex Assigned at Date Recorded Not on file as of this encounter Progress Notes * Yong Alcantara - 07/20/2017 1:32 PM CDT Request for the following medical [...] cardiac information / testing. Please Fax to: [phone] Thank you, Yong Alcantara [facility] 1 in this encounter Plan of Treatment Not on fileas of this encounter Visit Diagnoses Not on filein this encounter
[2017-07-21] MEDS ORDERED: NS IV 1000 ML 1,000 ML IV SCH ×3 (08:06→11:06)
[2017-07-21 09:05] LABS: MEAN PLATELET VOLUME 9.5 FL (7.4-10.4); RED BLOOD COUNT 4.76 10^6/uL (4.35-5.85); WHITE BLOOD COUNT 5.8 10^3/uL (4.3-11.0)
--- NOTE | 2017-07-21 09:11 | Diagnostic Imaging Report ---
INDICATION: Hypertension, preop for coronary artery angiography Portable chest obtained at 8:28 a.m. and compared to 06/30/17. Heart is normal in size. Mediastinal silhouette is unremarkable. The lungs are clear. There is no pneumothorax or pleural fluid. IMPRESSION: No acute process in the chest. Dictated by: Dictated on workstation # [id number]
[2017-07-21] MEDS ORDERED: DILT120C53 PO (09:16)
[2017-07-21 09:18] LABS: INR 1.2 (0.8-1.4); PROTHROMBIN TIME PATIENT 15.5 SEC (12.2-14.7)
[2017-07-21 09:21] LABS: ALANINE AMINOTRANSFERASE 13 U/L (0-55); ALBUMIN 3.9 GM/DL (3.2-4.5); ANION GAP 11 MMOL/L (5-14); ASPARTATE AMINO TRANSFERASE 14 U/L (5-34); BILIRUBIN,TOTAL 0.7 MG/DL (0.1-1.0); BLOOD UREA NITROGEN 23 MG/DL (7-18); BUN/CREATININE RATIO 21; CARBON DIOXIDE 26 MMOL/L (21-32); CHLORIDE 99 MMOL/L (98-107); CHOLESTEROL 139 MG/DL (< 200); CREATININE SERUM 1.07 MG/DL (0.60-1.30); DIRECT LDL 90 MG/DL (1-129); GFR ESTIMATED > 60; GLUCOSE 219 MG/DL (70-105); POTASSIUM 4.1 MMOL/L (3.6-5.0); SODIUM 136 MMOL/L (135-145); TOTAL PROTEIN 7.1 GM/DL (6.4-8.2); TRIGLYCERIDES 113 MG/DL (<150); VLDL CHOLESTEROL 23 MG/DL (5-40)
[2017-07-21] MEDS ORDERED: fentaNYL INJECTION 100 MCG/2 ML AMP ONE (09:56)
[2017-07-21] MEDS ORDERED: MIDAZOLAM 5 MG/5 ML (VERSED) VIAL ONE (09:56)
--- NOTE | 2017-07-21 10:14 | Cardiac Procedure Note-CS/ASA ---
Pre-Procedure Note Pre-Op Procedure Note H&P Reviewed The H&P was reviewed, patient examined and no changes noted. Date H&P Reviewed: Jul 21, 2017 Time H&P Reviewed: 10:14 Conscious Sedation Pre-Proced Time Reviewed: 10:14 ASA Class: 3 Airway Mallampati Classification: (yuhaaviatam appropriate class) I. II. III, IV Lungs Heart ASA score ASA 1: a normal healthy patient ASA 2: a patient with a mild systemic disease (mid diabetes, controlled hypertension, obesity x ASA 3: a patient with a severe systemic disease that limits activity (angina , COPD, prior Myocardial infarction) ASA 4: a patient with an incapacitating disease that is a constant threat to life (CHF, renal failure) ASA 5: a moribund patient not expected to survive 24 hrs. (ruptured aneurysm) ASA 6: a declared brain patient whose organs are being harvested. For emergent operations, add the letter E after the classification Grade 3 Sedation Plan: Analgesia, Amnesia, Plan communicated to team members, Discussed options with patient/fam, Discussed risks with patient/fam Note The patient is an appropriate candidate to undergo the planned procedure, sedation, and anesthesia. The patient immediately re-assessed prior to indication. DAMIEN DUVALL MD Jul 21, 2017 10:14
--- NOTE | 2017-07-21 11:12 | Cardiac Cath Report ---
Cardiac Cath Report Physician (s)/Compound Mixer (s) Physician DAMIEN DUVALL MD Pre-Procedure Diagnosis Pre-Procedure Diagnosis: coronary artery disease Post-Procedure Note Procedure Start Date: Jul 21, 2017 Procedure Start Time: 11:00 Name of Procedure: left heart catheterization Findings/Procedure Note PROCEDURE NOTE: After explaining the procedure to the patient, all pros and cons were explained, all questions were answered. The patient signed the consent and then she was placed on the cardiac catheterization laboratory. The patient was placed on the cardiac catheterization laboratory. Groin was prepped SL fashion local anesthesia was used. Sheath placed in the artery. Mer right and left catheter were used to access the coronary system. Pigtail was used to access the left ventricular cavity. Left ventriculogram was not done, pressure was measured At the end of the procedure the sheath was removed. Closure device was used FINDINGS: Hemodynamics LV 97/15, end-diastolic pressure of 15 Aorta 99/65 mean of 78 ANATOMY: Left Main is free of obstructive disease Left Anterior Descending is slightly tortuous with no significant obstructive disease Left Circumflex is free of obstructive disease Right Coronory Artery is free of obstructive disease mild irregularity in the mid portion LV Gram was not done to limit the contrast exposure CONCLUSION: 1. Mild coronary artery disease nonobstructive disease 2. Normal left ventricular end-diastolic pressure DISCUSSION AND RECOMMENDATION: patient had EKG changes probably due to left ventricular hypertrophy and tachycardia. No significant obstructive disease was noted. Estimated blood loss (mL): 10 ml Contrast Amount: 40 ml Total Radiation Dose: 60 mGy Post-Procedure Diagnosis Post-operative diagnosis: Coronary artery disease Paroxysmal atrial fibrillation Anthony I atrial flutter CVA DAMIEN DUVALL MD Jul 21, 2017 11:12
[2017-07-21] MEDS ORDERED: PATIENT MAY USE OWN MEDS, ALL PO SCH (11:15)
[2017-10-14] MEDS ORDERED: INSU100I10 SC (15:24)
[2017-10-14] MEDS ORDERED: APIX5TAB PO (15:24)
[2017-10-14] MEDS ORDERED: PROP150T2 PO (15:24)
[2017-10-14] MEDS ORDERED: INSU100I14 SC (15:24)
[2017-10-14] MEDS ORDERED: HYDR-3812 PO (15:24)
[2017-10-14] MEDS ORDERED: INSU100V16 SQ ×2 (15:24)
[2017-10-14] MEDS ORDERED: INSU100I14 SQ (15:24)
[2017-10-14] MEDS ORDERED: TRAM50TA2 PO (15:39)
== END 2017-07-21 16:08 | disposition home or self-care (01) ==
LOC: CATH 07:53
PROVIDERS: ATTEND Internal Medicine Cardiovascular Disease
DX: I25.10 Atherosclerotic heart disease of native coronary artery without angina pectoris (principal); I48.0 Paroxysmal atrial fibrillation; E05.90 Thyrotoxicosis, unspecified without thyrotoxic crisis or storm; I11.9 Hypertensive heart disease without heart failure; E78.5 Hyperlipidemia, unspecified; Z79.899 Other long term (current) drug therapy; Z79.4 Long term (current) use of insulin; Z87.891 Personal history of nicotine dependence; Z86.73 Personal history of transient ischemic attack (TIA), and cerebral infarction without residual deficits; Z79.01 Long term (current) use of anticoagulants
CPT/HCPCS: 36415; 71010; 80053; 80061; 85027; 85610; 85730; 87081; 93458

== ENCOUNTER 2017-08-23 21:09 | Day surgery (SDC) | payer MEDICARE, BC ==
[~2017-08-23] VITALS: Ht 188 cm; Wt 94.3 kg
[~2017-08-23 21:09] MED LIST changes: +METO-270 PO; -METO-387 PO
--- OUTSIDE RECORDS SUMMARY | 2017-08-23 21:15 | XMS REPORT | Continuity of Care Document ---
Author Author [facility] Organization [facility] Address Unknown Phone Unavailable Care Team Providers Care Deburring Machine Operator Name Role Phone [employer] Unavailable Unavailable Problems Medications Allergies, Adverse Reactions, Alerts Immunizations Results Vital Signs Encounters Location Location Details Encounter Type Encounter Number Reason For Visit Attending Provider ADM Date [place] [id number] [place] 07/25/2007 07/25/2007 Active [facility] OUTPATIENT [id number] LIBBY ECHEVERRIA 07/27/2017 Active [facility] EXT RECOVERY [id number] LIBBY ECHEVERRIA 08/12/2017 08/13/2017 Active [facility] O LIBBY ECHEVERRIA Active [facility] Procedures Plan of Care Social History Assessment and Plan Family History Value Date Source Advance Directives Order Name Results Value Date Source
--- OUTSIDE RECORDS SUMMARY | 2017-08-23 21:16 | XMS REPORT | Encounter Summary ---
Author Author [facility] Organization [facility] Address Unknown Phone Unavailable Care Team Providers Care Event Av Operator Name Role Phone PCP Unavailable Encounter Details Date Type Department Care Team Description 08/12/2017 Procedure Pass Cardiac Catheterization Laboratory [address] [place] [address] Social History Tobacco Use Types Packs/Day Years Used Date Never Assessed Sex Assigned at Date Recorded Not on file as of this encounter Plan of Treatment Not on fileas of this encounter Visit Diagnoses Not on filein this encounter
--- OUTSIDE RECORDS SUMMARY | 2017-08-23 21:16 | XMS REPORT | Encounter Summary ---
Author Author [facility] Organization [facility] Address Unknown Phone Unavailable Care Team Providers Care Logistics Coordinator Name Role Phone PCP Unavailable Reason for Visit * Auth/Cert Status Reason Specialty Diagnoses / Referred By Referred To Procedures Contact Contact Diagnoses A trial Fibrillation P rocedures Atrial Flutter Radiofrequency Ablation Comprehensive EP Study Comprehensive EP Study with Coronary Sinus Standard Mapping 3-D Mapping Encounter Details Date Type Department Care Team Description 08/12/2017 Hospital Cardiac Catheterization Gunnar Rojas MD Atrial fibrillation and - Encounter Laboratory [address] flutter (HCC) 08/13/[address] [place] [address] [place] [address] [phone] Social History Tobacco Use Types Packs/Day Years Used Date Never Assessed Sex Assigned at Date Recorded Not on file as of this encounter Last Filed Vital Signs Vital Sign Reading Time Taken Blood Pressure 136/84 08/13/2017 6:15 AM CDT Pulse 96 08/13/2017 6:15 AM CDT Temperature 36.9 C (98.4 F) 08/13/2017 6:15 AM CDT Respiratory Rate - - Oxygen Saturation 98% 08/13/2017 6:15 AM CDT Inhaled Oxygen - - Concentration Weight 98.2 kg (216 lb 7.9 oz) 08/12/2017 6:26 AM CDT Height 188 cm (6' 2") 08/12/2017 6:26 AM CDT Body Mass Index 27.8 08/12/2017 6:26 AM CDT in this encounter Medications at Time of Discharge Medication Sig. Disp. Refills Start Date End Date amitriptyline (ELAVIL) 25 Take 25 mg by mouth at mg tablet bedtime daily. aspirin EC 81 mg tablet Take 81 mg by mouth daily. Take with food. atorvastatin (LIPITOR) 40 Take 40 mg by mouth mg tablet daily. CINNAMON BARK (CINNAMON Take 1,000 mg by mouth. PO) dantrolene (DANTRIUM) 25 Take 25 mg by mouth four mg capsule times daily. DOCOSAHEXANOIC ACID/EPA Take 1,000 mg by mouth (FISH OIL PO) daily. insulin aspart (NOVOLOG Inject 15 Units under the FLEXPEN) 100 unit/mL skin three times daily injection PEN with meals. 16 units breakfast; 18 units for lunch and dinner INSULIN Inject 56 Units under the GLARGINE,HUM.REC.ANLOG skin at bedtime daily. (LANTUS SOLOSTAR SC) methIMAzole (TAPAZOLE) 10 Take 10 mg by mouth mg tablet daily. metoprolol tartrate Take 25 mg by mouth twice (LOPRESSOR) [address] daily[address] pantoprazole [address] Take 40 mg by mouth (PROTONIX) 40 mg tablet daily. ramipril (ALTACE) 10 mg Take 10 mg by mouth capsule daily. rivaroxaban (XARELTO) 20 Take 20 mg by mouth mg tablet daily. Take with food. traMADol (ULTRAM) 50 mg Take 50 mg by mouth twice tablet daily. venlafaxine XR (EFFEXOR Take 75 mg by mouth twice XR) 75 mg capsule daily. Take with food. as of this encounter Progress Notes * Nan Mccoy RN - 08/13/2017 8:21 AM CDT Patient discharged to home with all belongings. Discharge instructions, med reconciliation and home wound care instructions given and explained to patient and family both verbally and written. Accompanied by spouse. No complaints of pain or discomfort. Right groins site remains clean, dry, and intact with no evidence of a hematoma after ambulation. Patient escorted to [facility] via Transport. Patient to follow up with [facility] ([facility]) or on-call physician with any additional questions or concerns. All contact numbers provided. Patient and family acceptant of DC instuctions and report understanding to all information. * Nan Mccoy RN - 08/12/2017 6:06 AM CDT Patient arrived on unit via wheelchair accompanied by family. Patient transferred to the bed with assistance. Assessment completed, refer to flowsheet for details. Orders released, reviewed, and implemented as appropriate. Oriented to surroundings, call light within reach. Plan of care reviewed. Will continue to monitor and assess. in this encounter H&P Notes * Irena Mendez APRN-C - 08/10/2017 11:23 AM CDT Formatting of this note may be different from the original. Patient presents for procedure. Please see History and Physical copied below from date of service 07/27/2017. KHOI Saavedra Progress Notes Gunnar Rojas MD Date of Service: 07/27/2017 Roland Lombardo is a 62 y.o. male. HPI I had the pleasure of seeing your patient Roland Lombardo in the [facility] as a part of the [facility] office today for initial Electrophysiolgy Consultation regarding his persistent Atrial Flutter. He is typically followed and was referred by my friend and colleague Dr. Desai, his primary drug and alcohol counselor in [place], [place]. Mr. Lombardo is an exceptionally pleasant 62 y.o. male, who is accompanied by his equally pleasant spouse, Rozina. All data in this note, including the past medical history, was newly collected today. His PMHx briefly includes: Persistent AFL; Normal LV Function by DEIRDRE (06/2017) by Dr. Desai; Mild LA Dilation by Echo (06/2017) Dr. Desai; Mild Carotid Artery Disease by Duplex Dr. Desai (05/2017); No significant ischemia by Thallium (2016) by Dr. 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 Vyas-2006 regarding PFO closure; Hypertension; IDDM He has a [id number] score of 4: Prior Stroke, HTN, IDDM -- 05/2017: During a routine f/u with his PMD, he detected an irregular rhythm. The duration of the AFIB at that time was unknown, he was admitted and initiated rate control and then spontaneously converted back to sinus rhythm. However, within a few weeks he had recurrent AFIB and underwent initiation of Rythmol 225 mg TID and CVRT. He has continued further rate control titration over the last month and a half. -- 07/20/17: Follow up with Dr. Desai, he was in persistent AFL with RVR (rates up to 120 bpm) and borderline hypotension I spoke with Dr. Desai by phone at that time, he increased his Diltiazem and referred him for EP Consultation. During that OV, he had some potential ST elevation versus AFL, therefore Giselle pursued cardiac catheterization on 07/21/17 -- 07/21/17: Catheterization by Dr. Desai in [place], [place] per patient report, non obstructive CAD, Rythmol continued. 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 He has been experiencing some SOA over the last couple weeks. He states he does not have palpitations with is Atrial Arrhythmias. He denies any chest discomfort, palpitations, lightheadedness, dizziness, near syncope or syncope, PND or orthopnea. FHx, SHx and ROS documented and I have reviewed, with some pertinent features to include: No FHx of premature CAD. He is a former Smoker (quit 13 years ago) . Most pertinent ROS is included/discussed throughout the note, e.g. HPI and A/ P. ASSESSMENT AND PLAN: -- Paroxysmal AFIB (PAFIB) and AFL -- ?OSAS He appears to have a counter-clockwise AFL circuit. Per Dr. Desai, most, if not all of his ECGs have been AFL, not AFIB. If however, he's had AFIB and it has been organized to AFL, there is data that suggests that an Ablation, eliminating the AFL may also eliminate the AFIB. However, if he has had both arrhythmias unrelated, then elimination of his AFL may not eliminate his AFIB and he would be at risk of having recurrent AFIB. If his AFL is left sided, which it does NOT appear to be, then we will likely pursue CVRT at that time, keeping him in the hospital for at least 2-3 days to allow for initiation of Sotalol. We had a lengthy discussion regarding AFL and Atrial Fibrillation, the pathophysiology, the mechanism, and therapeutic options. We discussed what I call the 3 R's: The Rhythm being abnormal; the Rate being Rapid; and the Risk of stroke. At this time we discussed SVT, the different types of SVT, the pathophysiology of SVT, the mechanisms and the Txic options for SVT. We discussed AVN suppressing medical Tx (B-blockers or Ca++ Channel Blockers) vs. Membrane stabilizing AA drug Tx (flecainide, Rythmol, etc.) vs. EPS and RFA for a cure. We discussed the procedure and risks of the procedure at length and all questions were answered. We discussed those risks of the procedure to include but not be limited to , SD, stroke, cardiac perforation, complete heart block needing PPM implant, bleeding, infection, or blood clots. The patient and his spouse/significant other verbalized a good understanding of all of this and wishes to proceed with an EPS and RFA as a definitive/curative procedure. We discussed the association between obstructive sleep apnea and AFIB and that inadequately Tx'd sleep apnea will increase the risk of recurrent AFIB and make controlling the AFIB much more difficult. Thus I emphasized the need to be strictly compliant with his CPAP, etc. And asked him to discuss with his PMD reassessing his CPAP settings if it hadn't been done over the last year. PLAN: -- After lengthy discussion, he wishes to proceed with an AFL RFA procedure -- We will obtain a sleep study to determine whether or not he has OSAS contributing to his AFIB/AFL Mr. Lombardo was educated regarding plan of care. He was instructed to call our office with any questions or concerns, as well as to notify us of any new or worsening symptoms. He verbalized understanding. I appreciate the opportunity to participate in the care of your patient. Please do not hesitate to contact me directly if you have any questions or further insights into his care. I have scheduled his follow-up with Dr. Desai 1 month post-procedure and with me in 3 month(s) post-procedure. Vitals: 07/27/17 1508 BP: 120/78 Pulse: 79 Weight: 105.6 kg (232 lb 14.4 oz) Height: 1.88 m (6' 2") Body mass index is 29.9 kg/(m^2). Past Medical History Patient Active Problem List Diagnosis Date Noted CVA (cerebral vascular accident) (HCC) 07/27/2017 A. 2007 CVA, residual left side weakness PFO (patent foramen ovale) 07/27/2017 Hypertension 07/27/2017 Atrial fibrillation and flutter (HCC) 07/27/2017 A. Started on xarelto May 19 2017 B. DEIRDRE/CV successful Jun 2017 C. [id number] score=4 Hyperlipidemia 07/27/2017 Diabetes (HCC) 07/27/2017 Review of Systems Constitution: Positive for weakness. HENT: Negative. Eyes: Negative. Cardiovascular: Positive for claudication, dyspnea on exertion, irregular heartbeat and leg swelling. Respiratory: Negative. Endocrine: Negative. Hematologic/Lymphatic: Negative. Skin: Negative. Musculoskeletal: Positive for falls. Gastrointestinal: Positive for constipation. Genitourinary: Negative. Neurological: Positive for focal weakness, loss of balance, numbness and paresthesias. Psychiatric/Behavioral: Negative. Allergic/Immunologic: Negative. All other systems reviewed and are negative. Physical Exam Constitutional: He is in no acute distress, resting comfortably. Skin/Integument: Warm and dry. Left digits onychomycosis Eyes: PERRL, sclera are non-icteric and no xanthelasmas noted ENT : Hearing is intact, Oropharynx is clear and moist. Heme/Lym/Immun: Supple neck, without thyromegaly Respiratory-Pulmonary/Chest: Effort normal and breath sounds normal. No respiratory distress or accessory muscle use. No obvious tracheal deviation. Clear to auscultation bilaterally. Cardiovascular: No evidence of increased jugular venous pressure, carotids are 2+/4+ equal bilaterally, without obvious bruit. Irregularly irregular rhythm, S1 , S2. I do not appreciate any significant murmur today. No heaves, thrills or rubs. GI: obese, + Bowel sounds, soft and non-tender Musc/Skeletal-Extremities: With Right 1-2+ and Left 2-3+ pretibial and pedal pitting peripheral edema and with what appears to be full ROM on Right side. Neuro: Patient is alert and oriented to person, place, and time. Left hemiparesis but with some mobility of both extremities. Mild left facial droop. Psych: Patient does not appear anxious, he appears appropriate, with normal non -pressured speech and what appears to be appropriate judgement Cardiovascular Studies ECG today documents persistent atrial flutter with inverted flutter waves in the inferior leads and upright flutter waves in V1 with an atrial flutter cycle length of approximately 230 ms with variable AV block. Problems Addressed Today No diagnosis found. Current Medications (including today's revisions) amitriptyline (ELAVIL) 25 mg tablet Take 25 mg by mouth at bedtime daily. aspirin EC 81 mg tablet Take 81 mg by mouth daily. Take with food. atorvastatin (LIPITOR) 40 mg tablet Take 40 mg by mouth daily. CINNAMON BARK (CINNAMON PO) Take 1,000 mg by mouth. dantrolene (DANTRIUM) 25 mg capsule Take 25 mg by mouth four times daily. diltiazem XR (DILACOR XR) 120 mg capsule Take 120 mg by mouth daily. Take 2 tabs in the AM and 1 tab in the PM DOCOSAHEXANOIC ACID/EPA (FISH OIL PO) Take 1,000 mg by mouth daily. insulin aspart (NOVOLOG FLEXPEN) 100 unit/mL injection PEN Inject 5 Units under the skin three times daily with meals. INSULIN GLARGINE,HUM.REC.ANLOG (LANTUS SOLOSTAR SC) Inject under the skin. methIMAzole (TAPAZOLE) 10 mg tablet Take 10 mg by mouth daily. metoprolol tartrate (LOPRESSOR) 25 mg tablet Take 25 mg by mouth twice daily. pantoprazole DR (PROTONIX) 40 mg tablet Take 40 mg by mouth daily. propafenone (RYTHMOL) 225 mg tablet Take 225 mg by mouth every 8 hours. ramipril (ALTACE) 10 mg capsule Take 10 mg by mouth daily. rivaroxaban (XARELTO) 20 mg tablet Take 20 mg by mouth daily. Take with food. traMADol (ULTRAM) 50 mg tablet Take 50 mg by mouth twice daily. venlafaxine XR (EFFEXOR XR) 75 mg capsule Take 75 mg by mouth twice daily. Take with food. Documentation recorded by Dann Schultz, acting as scribe for Gunnar Rojas M.D. Allergies Allergen Reactions Ranitidine Hcl Allergy recorded in SMS: ZANTAC~Reactions: DIARRHEA No past surgical history on file. Social History Social History Marital status: Spouse name: N/A Number of children: N/A Years of education: N/A Occupational History Not on file. Social History Main Topics Smoking status: Not on file Smokeless tobacco: Not on file Alcohol use Not on file Drug use: Not on file Sexual activity: Not on file Other Topics Concern Not on file Social History Narrative No narrative on file Family History Problem Relation Age of Onset Diabetes Mother Hypertension Father in this encounter Plan of Treatment Not on fileas of this encounter Procedures Procedure Name Priority Date/Time Associated Diagnosis Comments ECG-SCAN 08/17/2017 Results for this 12:11 PM CDT procedure are in the results section. ECG-SCAN 08/17/2017 Results for this 12:11 PM CDT procedure are in the results section. ECG-SCAN 08/17/2017 Results for this 12:11 PM CDT procedure are in the results section. ECG-SCAN 08/17/2017 Results for this 12:11 PM CDT procedure are in the results section. ECG-SCAN 08/15/2017 Results for this 2:54 PM CDT procedure are in the results section. in this encounter Results * ECG-SCAN (08/17/2017 12:11 PM) Narrative Ordered by an unspecified provider. * ECG-SCAN (08/17/2017 12:11 PM) Narrative Ordered by an unspecified provider. * ECG-SCAN (08/17/2017 12:11 PM) Narrative Ordered by an unspecified provider. * ECG-SCAN (08/17/2017 12:11 PM) Narrative Ordered by an unspecified provider. * ECG-SCAN (08/15/2017 2:54 PM) Narrative Ordered by an unspecified provider. * POC GLUCOSE (08/13/2017 7:30 AM) Component Value Ref Range Glucose, POC 136 (H) 70 - 100 MG/DL Specimen Performing Laboratory [facility] [address] [place] [address] * BASIC METABOLIC PANEL (08/13/2017 3:33 AM) Component Value Ref Range Sodium 133 (L) 137 - 147 MMOL/L Potassium 4.2 3.5 - 5.1 MMOL/L Chloride 100 98 - 110 MMOL/L CO2 29 21 - 30 MMOL/L Anion Gap 4 3 - 12 Glucose 159 (H) 70 - 100 MG/DL Blood Urea Nitrogen 25 7 - 25 MG/DL Creatinine 0.81 0.4 - 1.24 MG/DL Calcium 8.6 8.5 - 10.6 MG/DL eGFR Non >60 >60 mL/min Comment: The eGFR is not validated for use in drug dosing adjustments. Continue to use estimated creatinine clearance per dosing reference text. Please contact the Clinical Pharmacist for questions. eGFR >60 >60 mL/min Comment: The eGFR is not validated for use in drug dosing adjustments. Continue to use estimated creatinine clearance per dosing reference text. Please contact the Clinical Pharmacist for questions. Specimen Performing Laboratory [facility] [address] [place] [address] * CBC AND DIFF (08/13/2017 3:33 AM) Component Value Ref Range White Blood Cells 6.6 4.5 - 11.0 K/UL RBC 3.87 (L) 4.4 - 5.5 M/UL Hemoglobin 10.8 (L) 13.5 - 16.5 GM/DL Hematocrit 33.2 (L) 40 - 50 % MCV 85.8 80 - 100 FL MCH 27.8 26 - 34 PG MCHC 32.4 32.0 - 36.0 G/DL RDW 14.3 11 - 15 % Platelet Count 152 150 - 400 K/UL MPV 7.7 7 - 11 FL Neutrophils 66 41 - 77 % Lymphocytes 22 (L) 24 - 44 % Monocytes 9 4 - 12 % Eosinophils 3 0 - 5 % Basophils 0 0 - 2 % Absolute Neutrophil Count 4.30 1.8 - 7.0 K/UL Absolute Lymph Count 1.50 1.0 - 4.8 K/UL Absolute Monocyte Count 0.60 0 - 0.80 K/UL Absolute Eosinophil Count 0.20 0 - 0.45 K/UL Absolute Basophil Count 0.00 0 - 0.20 K/UL Specimen Performing Laboratory [facility] [address] [place], [place] [id number] * POC GLUCOSE (08/12/2017 8:13 PM) Component Value Ref Range Glucose, POC 174 (H) 70 - 100 MG/DL Specimen Performing Laboratory [facility] [address] [place], [place] [id number] * POC GLUCOSE (08/12/2017 2:10 PM) Component Value Ref Range Glucose, POC 257 (H) 70 - 100 MG/DL Specimen Performing Laboratory [facility] [address] [place], [place] [id number] * EP STUDY (08/12/2017 10:00 AM) Specimen Performing Laboratory OTHER OUTSIDE LAB Impressions : 1.Successful Cavotricuspid/Subeustachian Isthmus AblationTerminating the AFL. 2.Normal sinus rhythm was present at the conclusion of the procedure. PLAN: 1.We will monitor the patient overnight in the hospital with plans for discharge in the morning. 2.The patient will continue anticoagulation for atleast 1 month. Narrative PROCEDURE: 1.Atrial Flutter RFA CavoTricuspid (Subeustachian) Isthmus Ablation - ablation in the right atrium 2.Complete EP study with coronary sinus catheter placement - with LA pacing, RA pacing by right atrial leilani catheter. 3.3D intracardiac electroanatomic mapping using the NAVX mapping system. 4.Moderate sedation. SUPERVISOR IN CHARGE: Gunnar Rojas MD HEAD PORTER/FEllow: Kailey Trevizo MD INDICATION FOR PROCEDURE: Atrial flutter resistant to medications PRESENTING RHYTHM:Atrial Flutter ANTI-COAGULATION: Xarelto CONSENT: The risks, benefits, indications and alternatives to the procedure were explained in detail to the patient and available family members prior to the procedure.The patient and available family members expressed a good understanding of the procedure and risks.All questions asked were answered and consent was obtained. SEDATION: The patient was transported to the Electrophysiology Laboratory in a non-sedated state and was placed supine on the fluoroscopy table. The patient underwent moderate sedation using Versed and Fentanyl administered by a trained Registered Nurse who was supervised by . The patient underwent continuous blood pressure, heart rate and O2 saturation monitoring throughout the procedure with supplemental oxygen utilized as needed.Upon completion of the procedure the patient was returned to a monitored bed in stable condition. Total duration was 85 minutes. ACCESS: The right groin was prepped and draped in a sterile fashion. 0.25% Marcaine was injected into the subcutaneous tissue overlying the right femoral vein. The right femoral vein was accessed using the modified Seldinger technique with placement of sheaths and catheters as described below. CATHETERS: 1.Decapolar deflectable EP catheter inserted via a 6 Fr Thai sheath in the right femoral vein, advanced to the coronary sinus. 2. 20 polecrista catheter placed in the lateral wall in the right atrium through 7 F sheath right femoral. 3.An ablation catheter for ablation was placed. Flexibility ablation catheter inserted via an 8.5 Thai SRO sheath in the right femoral vein, advanced to the right atrium utilized for mapping and ablation. Also note, the SRO sheath was exchanged at the end of the procedure for a short 8.5 Thai sheath. EP STUDY FINDINGS: Baseline: Atrial flutter CL 200 msec, V rate 150 bpm, QRS 66 msec, QT 275 msec Final: Sinus CL 620 msec OK 160 msec QRS 103 msec, QT 350 msec, AH 61 msec, HV 53 msec MAPPING and ABLATION: The ablation catheter was advanced to the right atrium where mapping was performed using the Sal X mapping system. We found that the patient was in typical counter clockwise flutter with activation proceeding from leilani to CS and concentric activation. We could entrain the flutter. PPI-TCLwas very short when paced from prox CS. Ablation of the cava-tricuspid/subeustachian isthmus using the ablation catheter was performed using a spot and drag technique to create a line of RF application beginning at 6 o clock on the tricuspid annulus and ending at the RA-IVC junction. Flutter terminated during ablation. Activation was low to high when we paced from low leilani suggesting block in the CTI region.When paced from CS, activation was high to low and MAP catheter was the last to be activated when placed just lateral to the line. Another reinforcing line was placed slightly lateral to the original line. Once Bidirectional Conduction Block was achieved in the cavotricuspid isthmus, we monitored the patient for an additional 15 minutes and conduction times were reassessed and additional programmed stimulation was performed. Initial : LLRA to PCS: 53 ms PCS to LLRA: 146 ms in AFL LLRA to MAP at 0400 41 ms Final: LLRA to MAP at 0400 125 msec LLRA to MAP at 0500 138 msec LLRA to Prox CS123 msec Prox CS to MAP at 0600 118 msec Prox CS to MAP at 0700 111 msec Prox CS to MAP at 0800 91 msec AV wenckebach: 310 ms VA block: 420 ms AVNERP: 600/230. No jump or echo beats. The patient tolerated the procedure well. No adverse events were noted at the end of the study. * BLOOD TYPE CONFIRMATION - ORDER ONLY IF REQUESTED BY LAB (08/12/2017 6:45 AM) Component Value Ref Range ABO/RH(D) A POS Specimen Performing Laboratory [facility] [address] [place] [address] * POC GLUCOSE (08/12/2017 6:30 AM) Component Value Ref Range Glucose, POC 205 (H) 70 - 100 MG/DL Specimen Performing Laboratory [facility] [address] [place] [address] * TYPE & CROSSMATCH (08/12/2017 6:30 AM) Component Value Ref Range Units Ordered 0 Crossmatch Expires 08/15/2017 Record Check 2ND TYPE REQUIRED ABO/RH(D) A POS Antibody Screen NEG Electronic Crossmatch YES Specimen Performing Laboratory [facility] [address] [place] [address] * POC PT/INR (08/12/2017 6:29 AM) Component Value Ref Range INR POC 1.9 (H) 0.8 - 1.2 Specimen Performing Laboratory [facility] [address] [place] [address] in this encounter Visit Diagnoses Diagnosis Atrial fibrillation and flutter (HCC) - Primary Atrial flutter, unspecified type (HCC) in this encounter Admitting Diagnoses Diagnosis Atrial Fibrillation Atrial flutter (HCC) in this encounter Administered Medications Medication Order MAR Action Action Date Dose Rate Site amitriptyline (ELAVIL) tablet 25 mg Given 08/12/2017 25 mg 25 mg, Oral, AT BEDTIME DAILY, First 20:17 CDT dose on Anjana 08/12/17 at 2100, Until Discontinued, Admission/Obs/Extended Recovery aspirin EC tablet 81 mg Given 08/13/2017 81 mg 81 mg, Oral, DAILY, First dose on Wed 07:59 CDT 08/13/17 at 0900, Until Discontinued, Admission/Obs/Extended Recovery atorvastatin (LIPITOR) tablet 40 mg Given 08/12/2017 40 mg 40 mg, Oral, DAILY, First dose on Anjana 20:18 CDT 08/12/17 at 1130, Until Discontinued, Admission/Obs/Extended Recovery Given 08/13/2017 40 mg 07:59 CDT dantrolene (DANTRIUM) capsule 25 mg Given 08/12/2017 25 mg 25 mg, Oral, FOUR TIMES DAILY, First 17:09 CDT dose on Anjana 08/12/17 at 1300, Until Discontinued, Admission/Obs/Extended Recovery Given 08/12/2017 25 mg 20:18 CDT Given 08/13/2017 25 mg 08:00 CDT insulin aspart (NOVOLOG FLEXPEN) Given 08/13/2017 16 Units Arm, Left injection PEN 16 Units 07:32 CDT 16 Units, Subcutaneous, DAILY WITH BREAKFAST, First dose on Anjana 08/12/17 at 1130, Until Discontinued, Hold if NPO for procedure, unable to eat, or if FSBS < 70 mg/dL Give at start of meal. NOTE: This is a HIGH ALERT Medication. insulin aspart (NOVOLOG FLEXPEN) Given 08/12/2017 18 Units Arm, Left injection PEN 18 Units 14:10 CDT 18 Units, Subcutaneous, DAILY WITH LUNCH, First dose on Anjana 08/12/17 at 1200, Until Discontinued, Hold if NPO for procedure, unable to eat, or if FSBS < 70 mg/dL Give at start of meal. NOTE: This is a HIGH ALERT Medication. insulin glargine (LANTUS SOLOSTAR) Given 08/12/2017 56 Units Abdomen: LLQ injection PEN 56 Units 20:16 CDT 56 Units, Subcutaneous, AT BEDTIME DAILY, First dose on Anjana 08/12/17 at 2100, Until Discontinued, -- Do not mix with other insulins -- NOTE: This is a HIGH ALERT Medication. methIMAzole (TAPAZOLE) tablet 10 mg Given 08/13/2017 10 mg 10 mg, Oral, DAILY, First dose on Wed 07:59 CDT 08/13/17 at 0900, Until Discontinued, Admission/Obs/Extended Recovery metoprolol tartrate (LOPRESSOR) tablet Given 08/12/2017 25 mg 25 mg 20:17 CDT 25 mg, Oral, TWICE DAILY, First dose on Anjana 08/12/17 at 2100, Until Discontinued, Hold for heart rate < 60 bpm or systolic BP < 100 Given 08/13/2017 25 mg 07:[address] (PROTONIX) tablet 40 mg Given 08/13/2017 40 mg 40 mg, Oral, DAILY, First dose on Wed 07:59 CDT 08/13/17 at 0900, Until Discontinued, Do not crush or chew tablet. ramipril (ALTACE) capsule 10 mg Given 08/13/2017 10 mg 10 mg, Oral, DAILY, First dose on Wed 07:59 CDT 08/13/17 at 0900, Until Discontinued, Admission/Obs/Extended Recovery rivaroxaban (XARELTO) tablet 20 mg Given 08/12/2017 20 mg 20 mg, Oral, DAILY WITH DINNER, First 17:09 CDT dose on Anjana 08/12/17 at 1700, Until Discontinued, Administer with food 4-6 hours post procedure NOTE: This is a HIGH ALERT Medication. sodium chloride 0.9 % infusion Given - New 08/12/2017 75 mL/hr 1,000 mL, Intravenous, at 75 mL/hr, Bag 07:15 CDT CONTINUOUS, Starting Anjana 08/12/17 at 0615, Until Wed08/13/17 at 1033, -EF >35%: NS @ 75 mL/hr to be started the morning of the procedure (not to exceed 750 mL) -EF <35%: NS @ 20 mL/hr to be started the morning of procedure (not to exceed 500 mL) Dose/Rate Verify 08/12/2017 75 mL/hr 10:40 CDT traMADol (ULTRAM) tablet 50 mg Given 08/12/2017 50 mg 50 mg, Oral, TWICE DAILY, First dose on 12:40 CDT Anjana 08/12/17 at 1130, Until Discontinued, Admission/Obs/Extended Recovery Given 08/12/2017 50 mg 20:17 CDT Given 08/13/2017 50 mg 07:59 CDT venlafaxine XR (EFFEXOR XR) capsule 75 Given 08/12/2017 75 mg mg 20:17 CDT 75 mg, Oral, TWICE DAILY, First dose on Anjana 08/12/17 at 2100, Until Discontinued, Admission/Obs/Extended Recovery Given 08/13/2017 75 mg 08:00 CDT in this encounter
--- OUTSIDE RECORDS SUMMARY | 2017-08-23 21:16 | XMS REPORT | Clinical Summary ---
Author Author [facility] Organization [facility] Address Unknown Phone Unavailable Care Team Providers Care Market Research Analyst Name Role Phone PCP Unavailable Source Comments Some departments are not documenting in the electronic medical record. If you do not see the information that you expected, contact Release of Information in the Health Information Management department at [phone] for further assistance in locating additional records.[facility] Allergies Active Allergy Reactions Severity Noted Date Comments Ranitidine Hcl Medium 05/18/2007 Allergy recorded in SMS: ZANTAC~Reactions: DIARRHEA Current Medications Prescription Sig. Disp. Refills Start End Date Status Date methIMAzole (TAPAZOLE) 10 Take 10 mg by mouth Active mg tablet daily. aspirin EC 81 mg tablet Take 81 mg by mouth Active daily. Take with food. ramipril (ALTACE) 10 mg Take 10 mg by mouth Active capsule daily. metoprolol tartrate Take 25 mg by mouth twice Active (LOPRESSOR) 25 mg tablet daily. venlafaxine XR (EFFEXOR Take 75 mg by mouth twice Active XR) 75 mg capsule daily. Take with food. dantrolene (DANTRIUM) 25 Take 25 mg by mouth four Active mg capsule times daily. pantoprazole DR Take 40 mg by mouth Active (PROTONIX) 40 mg tablet daily. traMADol (ULTRAM) 50 mg Take 50 mg by mouth twice Active tablet daily. amitriptyline (ELAVIL) 25 Take 25 mg by mouth at Active mg tablet bedtime daily. atorvastatin (LIPITOR) 40 Take 40 mg by mouth Active mg tablet daily. rivaroxaban (XARELTO) 20 Take 20 mg by mouth Active mg tablet daily. Take with food. DOCOSAHEXANOIC ACID/EPA Take 1,000 mg by mouth Active (FISH OIL PO) daily. CINNAMON BARK (CINNAMON Take 1,000 mg by mouth. Active PO) insulin aspart (NOVOLOG Inject 15 Units under the Active FLEXPEN) 100 unit/mL skin three times daily injection PEN with meals. 16 units breakfast; 18 units for lunch and dinner INSULIN Inject 56 Units under the Active GLARGINE,HUM.REC.ANLOG skin at bedtime daily. (LANTUS SOLOSTAR SC) diltiazem XR (DILACOR XR) Take 120 mg by mouth 08/13/20 Discontin 120 mg capsule daily. Take 2 tabs in the 17 ued AM and 1 tab in the PM propafenone (RYTHMOL) 225 Take 225 mg by mouth 07/27/20 Discontin mg tablet every 8 hours. 17 ued Active Problems Problem Noted Date Atrial flutter ([facility]) 08/12/2017 CVA (cerebral vascular accident) ([facility]) 07/27/2017 Overview: A. 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 Started on xarelto May 19 2017 B. DEIRDRE/CV successful Jun 2017 C. [id number] score=4 D. 08/12/17 EPS/AFL RFA by Dr. Rojas. Entrainment confirmed CTI-dependant atrial flutter. CTI line performed. Flutter terminated with ablation. Bidirectional block was achieved. Hyperlipidemia 07/27/2017 Diabetes ([facility]) 07/27/2017 HTN (hypertension) Encounters Date Type Specialty Care Team Description 08/12/2017 Hospital Cardiology Gunnar Rojas MD Atrial fibrillation and - Encounter flutter ([facility]) 08/13/2017 08/12/2017 Procedure Pass Cardiology 08/12/2017 Surgery Cardiology Gunnar Rojas MD Atrial Flutter Radiofrequency Ablation 08/11/2017 Anesthesia Cardiology Bud Duncan MD Event 08/10/2017 Pre-Admit Cardiology Irena Mendez, WELDING INSPECTOR-C Orders Only 08/09/2017 Documentation Cardiology Corrine Humphrey RN Lab Results ( Pre-procedue labs) 08/02/2017 Documentation Cardiology Andrés Trejo RN Precertification (Medicare) 07/27/2017 Office Visit Cardiology Gunnar Rojas MD New Patient ( ref by Dr. Desai to discuss AFL RFA) 07/22/2017 Documentation Cardiology Pretty Ferreira Records Request (Requesting records from [facility] and [facility]) 07/20/2017 Patient Profile Cardiology AndrezcortesLeroy castleangel New Patient ( discuss AFL RFA) 07/20/2017 Documentation Cardiology Yong Alcantara Records Request (Shiva Desai MD/ Via [facility] () [phone]) 07/20/2017 Documentation Cardiology Yong Alcantara Records Request (Terrell Man MD/ Via [facility] () [phone]) from Last 3 Months Family History Medical History Relation Name Comments Hypertension Father Diabetes Mother Relation Name Status Comments Father Mother Social History Tobacco Use Types Packs/Day Years Used Date Never Assessed Sex Assigned at Date Recorded Not on file Last Filed Vital Signs Vital Sign Reading [...] Mass Index 27.8 08/12/2017 6:26 AM CDT Plan of Treatment Health Maintenance Due Date Last Done Comments HEPATITIS C SCREENING 1953 PHYSICAL (COMPREHENSIVE) 1960 EXAM PERTUSSIS VACCINE 1964 TETANUS VACCINE 1970 DILATED EYE EXAM 1971 FOOT EXAM 1971 HBA1C 1971 MICROALBUMIN 1971 COLORECTAL CANCER 2003 SCREENING SHINGLES VACCINE 2013 INFLUENZA VACCINE 08/15/2017 Procedures Procedure Name Priority Date/Time Associated Diagnosis [...] CDT procedure are in the results section. from Last 3 Months Results * ECG-SCAN (08/17/2017 12:11 PM) Narrative Ordered by an unspecified provider. * ECG-SCAN (08/17/2017 12:11 PM) Narrative Ordered by an unspecified provider. * ECG-SCAN (08/17/2017 12:11 PM) Narrative Ordered by an unspecified provider. * ECG-SCAN (08/17/2017 12:11 PM) Narrative Ordered by an unspecified provider. * ECG-SCAN (08/15/2017 2:54 PM) Narrative Ordered by an unspecified provider. * POC GLUCOSE (08/13/2017 7:30 AM) Only the most recent of 4 results within the time period is included. Component Value Ref Range Glucose, POC 136 (H) 70 - 100 MG/DL Specimen Performing Laboratory [facility] [address] [place] [address] * CBC AND DIFF (08/13/2017 3:33 AM) [...] - 0.20 K/UL Specimen Performing Laboratory Blood [facility] [address] [place] [address] * BASIC METABOLIC PANEL (08/13/2017 3:33 AM) Only the most recent of 2 results within the time period is included. Component Value Ref Range Sodium 133 (L) [...] Pharmacist for questions. Specimen Performing Laboratory Blood [facility] [address] [place] [address] * EP STUDY (08/12/2017 10:00 AM) Specimen [...] using the NAVX mapping system. 4.Moderate sedation. HOMICIDE SQUAD CAPTAIN: Gunnar Rojas MD POWER OPERATOR/FEllow: Kailey Trevizo MD INDICATION FOR PROCEDURE: Atrial [...] trained Registered Nurse who was supervised by me. The patient underwent continuous blood pressure, heart [...] EP catheter inserted via a 6 Fr Macanese sheath in the right femoral vein, advanced to the coronary sinus. 2. 20 polecrista catheter placed in the lateral wall in the right atrium through 7 F sheath right femoral. 3.An ablation catheter for ablation was placed. Flexibility ablation catheter inserted via an 8.5 Macanese SRO sheath in the right femoral vein, advanced to the right atrium utilized for mapping and ablation. Also note, the SRO sheath was exchanged at the end of the procedure for a short 8.5 Macanese sheath. EP STUDY FINDINGS: Baseline: Atrial flutter CL 200 msec, V rate 150 bpm, QRS 66 msec, QT 275 msec Final: Sinus CL 620 msec PA 160 msec QRS 103 msec, QT 350 msec, AH 61 msec, HV 53 msec MAPPING and ABLATION: The ablation catheter was advanced to the right atrium where mapping was performed using the [employer] X mapping system. We found that the [...] ABO/RH(D) A POS Specimen Performing Laboratory Blood [facility] [address] [place] [address] * TYPE & CROSSMATCH (08/12/2017 6:30 AM) Component Value Ref Range Units Ordered 0 Crossmatch Expires 08/15/2017 Record Check 2ND TYPE REQUIRED ABO/RH(D) A POS Antibody Screen NEG Electronic Crossmatch YES Specimen Performing Laboratory Blood [facility] [address] [place] [address] * POC PT/INR (08/12/2017 6:29 AM) Component Value Ref Range INR POC 1.9 (H) 0.8 - 1.2 Specimen Performing Laboratory [facility] [address] [place] [address] * CBC (08/09/2017) Component Value Ref Range White Blood Cells 7.94 RBC 4.43 Hemoglobin 12.6 (L) Hematocrit 39.3 (L) MCV 88.7 MCH 28.4 MCHC 32.1 Platelet Count 183 MPV RDW Specimen Performing Laboratory [facility] [address] , [address] [address] * MAGNESIUM (08/09/2017) Component Value Ref Range Magnesium 1.8 Specimen Performing Laboratory [facility] [address] , [address] [address] * COMPREHENSIVE METABOLIC PANEL (06/30/2017) Component Value Ref Range Sodium 136 Potassium 3.9 Chloride 98 CO2 28 Blood Urea Nitrogen 18 Creatinine 1.04 Glucose 279 (A) 105 Calcium 9.8 Total Protein 7.2 Total Bilirubin 0.4 Albumin 4.1 Alk Phosphatase 104 AST (SGOT) 13 ALT (SGPT) 16 eGFR Non eGFR Anion Gap Specimen Performing Laboratory Blood [facility] LAB * THYROID STIMULATING HORMONE-TSH (05/24/2017) Component Value Ref Range TSH 0.00 (A) 0.35 - 4.94 Specimen Performing Laboratory Blood [facility] * FREE T4 (FREE THYROXINE) ONLY (05/24/2017) Component Value Ref Range T4-Free 1.57 (A) 1.48 Specimen Performing Laboratory Blood [facility] from Last 3 Months
--- OUTSIDE RECORDS SUMMARY | 2017-08-23 21:17 | XMS REPORT | Encounter Summary ---
Author Author [facility] Organization [facility] Address Unknown Phone Unavailable Care Team Providers Care Semiconductor Manufacturing Technician Name Role Phone PCP Unavailable Reason for Visit * Reason Comments Records Request Terrell Man MD/ [facility] [phone] Encounter Details Date Type Department Care Team Description 07/20/2017 Documentation [facility] Yong Alcantara Records Request (Terrell [address] Man MD/ Via [facility] [address] [facility] [place] [address] ) [phone] Social History Tobacco Use Types Packs/Day Years [...] cardiac information / testing. Please Fax to: [phone] Thank you, Yong Alcantara [facility] NOZZLE AND SLEEVE WORKER 1 in this encounter Plan of Treatment Not on fileas of this encounter Visit Diagnoses Not on filein this encounter
--- OUTSIDE RECORDS SUMMARY | 2017-08-23 21:17 | XMS REPORT | Encounter Summary ---
Author Author [facility] Organization [facility] Address Unknown Phone Unavailable Care Team Providers Care Senior Sharepoint Architect Name Role Phone PCP Unavailable Reason for Visit * Reason Comments Records Request Shiva Desai MD/ Via [facility] (f ) [phone] Encounter Details Date Type Department Care Team Description 07/20/2017 Documentation [facility] Yong Alcantara Records Request (Shiva [address] Desai MD/ Via [address] [address] (f) [phone]) [phone] Social History Tobacco Use Types Packs/Day Years [...] cardiac information / testing. Please Fax to: [phone] Thank you, Yong Alcantara [facility] LAP WINDER 1 in this encounter Plan of Treatment Not on fileas of this encounter Visit Diagnoses Not on filein this encounter
--- OUTSIDE RECORDS SUMMARY | 2017-08-23 21:17 | XMS REPORT | Encounter Summary ---
Author Author [facility] Organization [facility] Address Unknown Phone Unavailable Care Team Providers Care Concrete Puddler Name Role Phone PCP Unavailable Reason for Visit * Reason Comments Precertification Medicare Encounter Details Date Type Department Care Team Description 08/02/2017 Documentation [facility] Andrés Trejo, RN Precertification [address] (Medicare) [address] [place] [address] Social History Tobacco Use Types Packs/Day Years Used Date Never Assessed Sex Assigned at Date Recorded Not on file as of this encounter Progress Notes * Andrés Trejo, RN - 08/02/2017 12:15 PM CDT Medicare is listed as patient's primary insurance coverage. Pre-certification is not required for hospitalizations. in this encounter Plan of Treatment Not on fileas of this encounter Visit Diagnoses Not on filein this encounter
--- OUTSIDE RECORDS SUMMARY | 2017-08-23 21:17 | XMS REPORT | Encounter Summary ---
Author Author [facility] Organization [facility] Address Unknown Phone Unavailable Care Team Providers Care Supervisor Tan Room Name Role Phone PCP Unavailable Reason for Visit * Reason Comments New Patient ref by Dr. Desai to discuss AFL RFA Encounter Details Date Type Department Care Team Description 07/27/2017 Office Visit [facility] Gunnar Rojas MD New [facility] ([facility] [address] [facility] [address] [facility] Giselle to discuss AFL RFA) [address] [place] [address] [place] [address] [phone] Social History Tobacco Use Types Packs/Day Years Used Date Never Assessed Sex Assigned at Date Recorded Not on file as of this encounter Last Filed Vital Signs Vital Sign Reading Time Taken Blood Pressure 120/78 07/27/2017 3:08 PM CDT Pulse 79 07/27/2017 3:08 PM CDT Temperature - - Respiratory Rate - - Oxygen Saturation - - Inhaled Oxygen - - Concentration Weight 105.6 kg (232 lb 14.4 oz) 07/27/2017 3:08 PM CDT Height 188 cm (6' 2") 07/27/2017 3:08 PM CDT Body Mass Index 29.9 07/27/2017 3:08 PM CDT in this encounter Instructions * Patient Instructions - Monica Dinh RN - 07/27/2017 3:15 PM CDT Plan for Atrial Flutter Ablation on 08/12/17 - see pre procedure instructions If you need to call to change or have further questions, please call the EP nurse triage line: [phone] Get a sleep study test Do NOT miss any doses of Xarelto Follow up with Dr Rojas 3 months following your procedure - call [phone] in this encounter Progress Notes * Gunnar Rojas MD - 07/27/2017 3:15 PM CDT Formatting of this note may be different from the original. Date of Service: 07/27/2017 Roland Lombardo is a 62 y.o. male. HPI I had the pleasure of seeing your patient Roland Lombardo in the [facility] as a part of the [facility] office today for initial Electrophysiolgy Consultation regarding his persistent Atrial Flutter. He is typically followed and was referred by my friend and colleague Dr. Desai, his primary hog killer in [place], [place]. Mr. Lombardo is an exceptionally pleasant 62 y.o. male, who is accompanied by his equally pleasant spouse, Rozina. All data in this note, including the past medical history, was newly collected today. His PMHx briefly includes: Persistent AFL and ? AFIB; Normal LV Function by DEIRDRE (06/2017) by Dr. Desai; Mild LA Dilation by Echo (06/2017) Dr. Desai; Mild Carotid Artery Disease by Duplex Dr. Desia (05/2017); No significant ischemia by Thallium (05/2017) by Dr. 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 Vyas-2006 regarding PFO closure; Hypertension; IDDM He has a [id number] score of 4: Prior Stroke, HTN, IDDM -- 05/2017: During a routine f/u with his PMD, he detected an irregular rhythm. He was in AFIB or AFL (Record NA). The duration of the Atrial Arrhythmia at that time was unknown. He was admitted and initiated on rate control and then spontaneously converted back to sinus rhythm. However, within a few weeks he had recurrent AFIB or AFL and underwent initiation of Rythmol 225 mg TID and CVRT. He has continued further rate control titration over the last month and a half. -- 07/20/17: Follow up with Dr. Desai, he was in persistent AFL with RVR (rates up to 120 bpm) and borderline hypotension I spoke with Dr. Desai by phone at that time, he increased his Diltiazem, hoping that his borderline hypotension was related to his RVR and he referred him for EP Consultation. During that OV, he had some potential ST elevation versus AFL waves, therefore Dr. Desai pursued cardiac catheterization on 07/21/17 -- 07/21/17: Cardiac Catheterization by Dr. Desai in [place], [place] per patient report, non obstructive CAD, Rythmol continued. 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 He has been experiencing some SOA over the last couple weeks. He states he does not have palpitations with is Atrial Arrhythmias and therefore outside of his associated symptoms is unaware when they occur. He denies any chest discomfort, palpitations, lightheadedness, dizziness, near syncope or syncope, PND or orthopnea. FHx, SHx and ROS documented and I have reviewed, with some pertinent features to include: No FHx of premature CAD. He is a former Smoker (quit 13 years ago) . Most pertinent ROS is included/discussed throughout the note, e.g. HPI and A/ P. ASSESSMENT AND PLAN: -- Persistent Atrial Flutter -- ? Atrial Fibrillation -- Anticoagulation -- Prior CVA/TIA -- HTN -- Diabetes -- OSAS -- PFO -- Persistent Atrial Flutter (AFL): He has reportedly had Atrial Fibrillation fibrillation in the past, however per Dr. Desai's review, and I do not have all the records to review myself, what was called atrial fibrillation was in fact Atrial Flutter. We also discussed Atrial Fibrillation (AFIB) and the difference between Atrial Fibrillation and Atrial Flutter. At a minimum, we know that he certainly has been in persistent AFL since his visit with Dr. Desai on 07/20/17. We had a lengthy discussion regarding AFL and Atrial Fibrillation, the pathophysiology, the mechanism, and therapeutic options. We discussed what I call the 3 R's: The Rhythm being abnormal; the Rate being Rapid; and the Risk of stroke. Again, He CURRENTLY appears to have a counter-clockwise AFL circuit AND Per Dr. Desai, most, if not all of his ECGs have been AFL, not AFIB. I have recommended that he pursue Rhythm Control, that is, episcopal and maintenance of sinus rhythm. Regarding Rhythm Control of his AFL--> We discussed Membrane stabilizing AA drug Tx (flecainide, Rythmol, etc.) vs. EPS and RFA for a cure. If however, he's had AFIB and it has organized to AFL, then there is data that suggests that an Ablation, eliminating the AFL may also eliminate the AFIB. However, if he has had both arrhythmias unrelated, then elimination of his AFL may not eliminate his AFIB and thus, he would be at risk of having recurrent AFIB. We discussed the procedure of AFL RFA itself along with its associated risks, rationale, options, and benefits in detail with Roland Lombardo and his spouse. We discussed the risks to include, but not be limited to: , OK, stroke, cardiac perforation, complete heart block, bleeding, swelling, hematoma, infection, pneumothorax, DVT, or vascular injury. We discussed that the cure rate for CavalTricuspid Isthmus-Dependent Atrial Flutter Ablation is ~90+%. Roland Huy Munira and his spouse, verbalized a good understanding of all of this and wish(es) to proceed with an EPS and RFA as a definitive/curative procedure. Therefore we will schedule his procedure. He will continue his anticoagulation up to and throughout the procedure. He will continue his rate controlling medication up to and throughout the procedure. Although, If his AFL is left sided, which it does NOT appear to be, then we will likely pursue CVRT at that time, keeping him in the hospital for at least 2 -3 days to allow for initiation of Sotalol. -- ?OSAS: We ALSO discussed the association between sleep apnea (SAS) and Atrial Arrhythmias and that inadequately Tx'd sleep apnea will increase the risk of recurrent AFIB and AFL and makes controlling Atrial Arrhythmias much more difficult. Thus I emphasized the need to be strictly compliant with his CPAP, etc. We will obtain a sleep study to determine whether or not he has OSAS contributing to his AFIB/AFL -- Anticoagulation: He denies any bleeding issues, tolerating anticoagulation well. Although AFL RFA is likely curative, given his history of TIA, CVA, and possible A. fib in the past one would have to consider whether to continue anticoagulation chronically. I will leave that final decision up to Dr. Desai and his primary care physician. However his AFL, assuming it is CTI dependent and successfully ablated, would not warrant continued anticoagulation , in and of itself. Mr. Lombardo was educated regarding plan of [...] Patient Active Problem List Diagnosis Date Noted HTN (hypertension) CVA (cerebral vascular accident) ([facility]) 07/27/2017 A. 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 Started on xarelto May 19 2017 B. DEIRDRE/CV successful Jun 2017 C. [id number] score=4 Hyperlipidemia 07/27/2017 Diabetes ([facility]) 07/27/2017 Review of Systems Constitution: Positive for [...] with variable AV block. Problems Addressed Today Encounter Diagnoses Name Primary? Atrial fibrillation and flutter (HCC) Yes Essential hypertension Current Medications (including today's revisions) amitriptyline (ELAVIL) [...] tablet Take 40 mg by mouth daily. ramipril (ALTACE) 10 mg capsule Take 10 [...] acting as scribe for Gunnar Rojas M.D. * Gunnar Rojas MD - 07/27/2017 3:15 PM CDT in this encounter Plan of Treatment Name Priority Associated Diagnoses Order Schedule ECG 12-LEAD Routine Atrial fibrillation and Ordered: 07/27/2017 flutter (HCC) Essential hypertension as of this encounter Results * COMPREHENSIVE METABOLIC PANEL (06/30/2017) Component Value [...] Specimen Performing Laboratory Blood OTHER OUTSIDE LAB in this encounter Visit Diagnoses Diagnosis Atrial fibrillation and flutter (HCC) - Primary Essential hypertension Unspecified essential hypertension in this encounter
--- OUTSIDE RECORDS SUMMARY | 2017-08-23 21:17 | XMS REPORT | Encounter Summary ---
Author Author [facility] Organization [facility] Address Unknown Phone Unavailable Care Team Providers Care Larry Operator Name Role Phone PCP Unavailable Reason for Visit * Auth/Cert Status Reason Specialty Diagnoses / Referred By Referred To Procedures Contact Contact Diagnoses A trial Fibrillation P rocedures Atrial Flutter Radiofrequency Ablation Comprehensive EP Study Comprehensive EP Study with Coronary Sinus Standard Mapping 3-D Mapping Encounter Details Date Type Department Care Team Description 08/12/2017 Anesthesia Cardiac Catheterization Bud Duncan MD Laboratory [address] [facility] [address] [place] [address] [place] [address] [phone] Social History Tobacco Use Types Packs/Day Years Used Date Never Assessed Sex Assigned at Date Recorded Not on file as of this encounter OR Notes * Anesthesia Postprocedure Evaluation - Alex Gómez MD - 08/13/2017 2:31 AM CDT Post-Anesthesia Evaluation Name: Roland Lombardo : 1955 Age: 62 y.o. Sex: male Procedure Date: 08/12/2017 Procedure: Procedure(s) with comments: Atrial Flutter Radiofrequency Ablation - Transeptal Unlikely, Rep Wei Foley? (Ask Patient/EP Nurse), Incomplete Reservation Sheet Received 08-02-2017 Comprehensive EP Study Comprehensive EP Study with Coronary Sinus Standard Mapping 3-D Mapping Surgeon: Surgeon(s): MD Kailey Hawkins MBBS Post-Anesthesia Vitals BP: 139/83 (08/12 2345) Temp: 36.8 C (98.2 F) (08/12 2345) Pulse: 101 (08/12 2345) Respirations: 20 PER MINUTE (08/12 2034) SpO2: 97 % (08/12 2345) O2 Delivery: None (Room Air) (08/12 2345) SpO2 Pulse: 87 (08/12 1600) Height: 188 cm (74") (08/12 626) Post Anesthesia Evaluation Note Evaluation location: pre/post Patient participation: recovered; patient participated in evaluation Level of consciousness: alert Pain management: adequate Hydration: normovolemia Temperature: 36.0C - 38.4C Airway patency: adequate Perioperative Events Perioperative events: no Post-op nausea and vomiting: no PONV Postoperative Status Cardiovascular status: hemodynamically stable Respiratory status: spontaneous ventilation Follow-up needed: none Perioperative Events * Anesthesia Preprocedure Evaluation - Kathryn Brower CRNA - 08/12/2017 7:31 AM CDT Formatting of this note may be different from the original. Anesthesia Pre-Procedure Evaluation Name: Roland Lombardo : 1955 Age: 62 y.o. Sex: male Procedure Date: 08/12/2017 Procedure: Procedure(s) with comments: Atrial Flutter Radiofrequency Ablation - Transeptal Unlikely, Rep Wei Foley? (Ask Patient/EP Nurse), Incomplete Reservation Sheet Received 08-02-2017 Comprehensive EP Study Comprehensive EP Study with Coronary Sinus Standard Mapping 3-D Mapping Physical Assessment Vital Signs (last filed in past 24 hours): BP: 126/77 (08/12 626) Temp: 36.5 C (97.7 F) (08/12 626) Pulse: 136 (08/12 626) Respirations: 22 PER MINUTE (08/12 626) SpO2: 94 % (08/12 626) Height: 188 cm (74") (08/12 626) Weight: 98.2 kg (216 lb 7.9 oz) (08/12 626) Patient History Allergies Allergen Reactions Ranitidine Hcl Allergy recorded in SMS: ZANTAC~Reactions: DIARRHEA Current Medications Medication Directions amitriptyline (ELAVIL) 25 mg tablet Take 25 [...] (NOVOLOG FLEXPEN) 100 unit/mL injection PEN Inject 15 Units under the skin three times daily with meals. 16 units breakfast; 18 units for lunch and dinner INSULIN GLARGINE,HUM.REC.ANLOG (LANTUS SOLOSTAR SC) Inject 56 Units under the skin at bedtime daily. methIMAzole (TAPAZOLE) 10 mg tablet Take 10 [...] by mouth twice daily. Take with food. Review of Systems/Medical History Patient summary reviewed Nursing notes reviewed Pertinent labs reviewed PONV Screening: Non-smoker No history of anesthetic complications No family history of anesthetic complications Airway - negative Pulmonary - negative Cardiovascular Hypertension, well controlled Dysrhythmias PVD Hyperlipidemia GI/Hepatic/Renal - negative Neuro/Psych Hx TIA CVA, residual symptoms Patient with history of stroke 2006, residual left sided weakness (arm and leg), uses cane for ambulation. Speech is mildly slowed and thickened Musculoskeletal - negative Endocrine/Other Diabetes, well controlled; using insulin Physical Exam Airway Findings Mallampati: II TM distance: >3 FB Neck ROM: full Mouth opening: good Airway patency: adequate Dental Findings: Upper dentures and partials Cardiovascular Findings: Negative Rhythm: regular Rate: normal Pulmonary Findings: Negative Breath sounds clear to auscultation. Abdominal Findings: Negative Abdomen soft Bowel sounds normal. Neurological Findings: Motor deficit Comments: Left sided arm and leg weakness, residual from stroke in 2006. Other Findings: Dental appliances left in at this time, patient understands will remove if anesthesia services needed during case. Diagnostic Tests Hematology: Lab Results Component Value Date HGB 12.6 08/09/2017 HCT 39.3 08/09/2017 PLTCT 183 08/09/2017 WBC 7.94 08/09/2017 NEUT 73 05/30/2007 ANC 5.99 05/30/2007 ALC 1.21 05/30/2007 BRIANDA 10 05/30/2007 AMC 0.79 05/30/2007 EOSA 2 05/30/2007 ABC 0.03 05/30/2007 MCV 88.7 08/09/2017 MCH 28.4 08/09/2017 MCHC 32.1 08/09/2017 MPV 8.0 06/10/2007 RDW 13.3 06/10/2007 General Chemistry: Lab Results Component Value Date NA 135 08/09/2017 K 4.5 08/09/2017 CL 97 08/09/2017 CO2 31 08/09/2017 GAP 12 08/09/2017 BUN 17 08/09/2017 CR 0.9 08/09/2017 GLU 182 08/09/2017 GLU 148 06/20/2007 CA 8.9 08/09/2017 ALBUMIN 4.1 06/30/2017 LACTIC 1.7 05/22/2007 MG 1.8 08/09/2017 TOTBILI 0.4 06/30/2017 PO4 3.1 05/28/2007 Coagulation: Lab Results Component Value Date PT 12.4 07/25/2007 PTT 25.8 05/27/2007 INR 1.9 08/12/2017 INR 1.2 07/25/2007 Anesthesia Plan ASA score: 3 Plan: MAC and general NPO status: acceptable Comments: (Anesthesia asked to evaluate only at this time.) Informed Consent Anesthetic plan and risks discussed with patient and spouse. Use of blood products discussed with patient and spouse; consented to blood products. Plan discussed with: anesthesiologist. in this encounter Miscellaneous Notes * Addendum Note - Alex Gómez MD - 08/13/2017 2:31 AM CDT Formatting of this note may be different from the original. Addendum created 08/13/17 0231 by Alex Gómez MD Sign clinical note in this encounter Plan of Treatment Not on fileas of this encounter Visit Diagnoses Not on filein this encounter
--- OUTSIDE RECORDS SUMMARY | 2017-08-23 21:17 | XMS REPORT | Encounter Summary ---
Author Author [facility] Organization [facility] Address Unknown Phone Unavailable Care Team Providers Care Sporting Goods Sales Associate Name Role Phone PCP Unavailable Reason for Visit * Auth/Cert Status Reason Specialty Diagnoses / Referred By Referred To Procedures Contact Contact Diagnoses A trial Fibrillation P rocedures Atrial Flutter Radiofrequency Ablation Comprehensive EP Study Comprehensive EP Study with Coronary Sinus Standard Mapping 3-D Mapping Encounter Details Date Type Department Care Team Description 08/12/2017 Surgery Cardiac Catheterization Gunnar Rojas MD Atrial Flutter Laboratory [address] Radiofrequency Ablation [address] [facility] [address] [address] [place] [address] [place] [address] [phone] Social History Tobacco Use Types Packs/Day Years [...] a hematoma after ambulation. Patient escorted to lobby via Transport. Patient to follow up with [facility] (MAC) or on-call physician with any [...] seeing your patient Roland Lombardo in the [facility] as a part of the [facility] office today for initial Electrophysiolgy Consultation regarding his persistent Atrial Flutter. He is typically followed and was referred by my friend and colleague Dr. Desai, his primary medical liaison in [place], [place]. Mr. Lombardo is an exceptionally pleasant [...] PFO closure; Hypertension; IDDM He has a [id number] score of 4: Prior Stroke, HTN, IDDM [...] -- 07/21/17: Catheterization by Dr. Desai in [place], [place] per patient report, non obstructive CAD, [...] include but not be limited to , [place], stroke, cardiac perforation, complete heart block needing [...] 2017 B. DEIRDRE/CV successful Jun 2017 C. [id number] score=4 Hyperlipidemia 07/27/2017 Diabetes (HCC) 07/27/2017 Review [...] Specimen Performing Laboratory [facility] [address] [place] [address] * BASIC METABOLIC PANEL (08/13/2017 3:33 AM) [...] questions. Specimen Performing Laboratory [facility] [address] [id number] * CBC AND DIFF (08/13/2017 3:33 AM) [...] K/UL Specimen Performing Laboratory [facility] [address] [place], [place] [id number] * POC GLUCOSE (08/12/2017 8:13 PM) Component Value Ref Range Glucose, POC 174 (H) 70 - 100 MG/DL Specimen Performing Laboratory MAIN LAB [address] [place] [id number] * POC GLUCOSE (08/12/2017 2:10 PM) Component Value Ref Range Glucose, POC 257 (H) 70 - 100 MG/DL Specimen Performing Laboratory MAIN LAB [address] [place] [id number] * EP STUDY (08/12/2017 10:00 AM) Specimen [...] using the NAVX mapping system. 4.Moderate sedation. INDIAN NANNY: Gunnar Rojas MD DETAIL ASSEMBLER/FEllow: Kailey Trevizo MD INDICATION FOR PROCEDURE: Atrial [...] trained Registered Nurse who was supervised by ga. The patient underwent continuous blood pressure, heart [...] EP catheter inserted via a 6 Fr Qatari sheath in the right femoral vein, advanced to the coronary sinus. 2. 20 polecrista catheter placed in the lateral wall in the right atrium through 7 F sheath right femoral. 3.An ablation catheter for ablation was placed. Flexibility ablation catheter inserted via an 8.5 Qatari SRO sheath in the right femoral vein, advanced to the right atrium utilized for mapping and ablation. Also note, the SRO sheath was exchanged at the end of the procedure for a short 8.5 Qatari sheath. EP STUDY FINDINGS: Baseline: Atrial flutter CL 200 msec, V rate 150 bpm, QRS 66 msec, QT 275 msec Final: Sinus CL 620 msec UT 160 msec QRS 103 msec, QT 350 [...] Specimen Performing Laboratory [facility] [address] [place] [address] * POC GLUCOSE (08/12/2017 6:30 AM) Component Value Ref Range Glucose, POC 205 (H) 70 - 100 MG/DL Specimen Performing Laboratory MAIN LAB [address] [place] [address] * TYPE & CROSSMATCH (08/12/2017 6:30 AM) Component Value Ref Range Units Ordered 0 Crossmatch Expires 08/15/2017 Record Check 2ND TYPE REQUIRED ABO/RH(D) A POS Antibody Screen NEG Electronic Crossmatch YES Specimen Performing Laboratory [facility] [address] [place] [address] * POC PT/INR (08/12/2017 6:29 AM) Component Value Ref Range INR POC 1.9 (H) 0.8 - 1.2 Specimen Performing Laboratory MAIN LAB [address] [place] [address] in this encounter Visit Diagnoses Diagnosis Paroxysmal atrial fibrillation (HCC) Atrial fibrillation Typical atrial flutter (HCC) Atrial flutter in this encounter Admitting Diagnoses Diagnosis Atrial [...]
--- OUTSIDE RECORDS SUMMARY | 2017-08-23 21:17 | XMS REPORT | Encounter Summary ---
Author Author [facility] Organization [facility] Address Unknown Phone Unavailable Care Team Providers Care Emergency Department Director Name Role Phone PCP Unavailable Reason for Visit * Reason Comments Lab Results Pre-procedue labs Encounter Details Date Type Department Care Team Description 08/09/2017 Documentation [facility] Corrine Humphrey RN Lab Results (Pre-procedue [address] labs) [address] [place] [address] Social History Tobacco Use Types Packs/Day Years Used Date Never Assessed Sex Assigned at Date Recorded Not on file as of this encounter Plan of Treatment Not on fileas of this encounter Results * CBC (08/09/2017) Component Value Ref Range White Blood Cells 7.94 RBC 4.43 Hemoglobin 12.6 (L) Hematocrit 39.3 (L) MCV 88.7 MCH 28.4 MCHC 32.1 Platelet Count 183 MPV RDW Specimen Performing [place] [address] * MAGNESIUM (08/09/2017) Component Value Ref Range Magnesium 1.8 Specimen Performing [place] [address] * BASIC METABOLIC PANEL (08/09/2017) Component Value Ref Range Sodium 135 Potassium 4.5 Chloride 97 CO2 31 Blood Urea Nitrogen 17 Creatinine 0.9 Glucose 182 (H) Calcium 8.9 eGFR Non eGFR Anion Gap 12 Specimen Performing [place] [address] in this encounter Visit Diagnoses Diagnosis Atrial fibrillation and flutter (HCC) Essential hypertension Unspecified essential hypertension in this encounter
--- OUTSIDE RECORDS SUMMARY | 2017-08-23 21:17 | XMS REPORT | Encounter Summary ---
Author Author [facility] Organization [facility] Address Unknown Phone Unavailable Care Team Providers Care Finance Intern Name Role Phone PCP Unavailable Reason for Visit * Reason Comments Records Request Requesting records from [facility] Encounter Details Date Type Department Care Team Description 07/22/2017 Documentation [facility] Cardiology Pretty Ferreira Records Request [address] (Requesting records from [address] [place] [address] [facility]) [phone] Social History Tobacco Use Types Packs/Day Years Used Date Never Assessed Sex Assigned at Date Recorded Not on file as of this encounter Progress Notes * Pretty Ferreira - 07/22/2017 8:59 AM CDT STAT RECORDS REQUEST Please send the following records for continuation of care: Roland Lombardo 1955 Office Notes EKG's Recent Cardiac Testing Any Cardiac-related records Recent lab Cardiac Procedures H&P/Discharge Summary Operative Reports- Cardiac Please fax to: Stephenie Ferreira [facility] Cardiology in this encounter Plan of Treatment Not on fileas of this encounter Visit Diagnoses Not on filein this encounter
--- OUTSIDE RECORDS SUMMARY | 2017-08-23 21:17 | XMS REPORT | Encounter Summary ---
Author Author [facility] Address Unknown Phone Unavailable Care Team Providers Care Pet Sitter Name Role Phone PCP Unavailable Encounter Details Date Type Department Care Team Description 08/10/2017 Pre-Admit XDD CARDIOLOGY Irena Mendez, SENIOR INSTRUMENTATION ENGINEER-C Orders Only [id number] [place] [address] Social History Tobacco Use Types Packs/Day Years Used Date Never Assessed Sex Assigned at Date Recorded Not on file as of this encounter Plan of Treatment Not on fileas of this encounter Visit Diagnoses Not on filein this encounter
--- OUTSIDE RECORDS SUMMARY | 2017-08-23 21:17 | XMS REPORT | Encounter Summary ---
Author Author [facility] Organization [facility] Address Unknown Phone Unavailable Care Team Providers Care Coating And Baking Operator Name Role Phone PCP Unavailable Reason for Visit * Reason Comments New Patient discuss AFL RFA Encounter Details Date Type Department Care Team Description 07/20/2017 Patient Profile [facility] Yong Alcantara New Patient (discuss AFL [id number] R[address]) [address] [place] [address] Social History Tobacco Use Types Packs/Day Years [...]
--- NOTE | 2017-08-23 21:48 | ED Fall/Injury ---
General Chief Complaint: Trauma-Non Activation Stated Complaint: FALL/INJURIES Source: patient, spouse Exam Limitations: no limitations History of Present Illness Time seen by provider: 21:39 Initial Comments Patient presents to ER by private conveyance after a fall partly one hour ago after getting out of a truck he fell over onto his left side. He has a previous history of stroke with left side mild hemiparesis. He is not available to move that left arm and now has some obvious deformity and pain in the left arm, right thumb, right knee and shooting down the left side of his neck. He says the neck pain is chronic just exacerbated by the fall. He denies any shortness of breath, cough, chest pain, dysuria, abdominal pain, hip pain. Patient is on blood thinners for his history of stroke and had a cardiac ablation a few weeks ago. Allergies and Home Medications Allergies Coded Allergies: ranitidine (Verified Allergy, Unknown, 08/08/08) Home Medications Amitriptyline HCl 25 Mg Tablet, 25 MG PO HS, (Reported) Aspirin 81 Mg Tablet.dr, 81 MG PO DAILY, (Reported) Atorvastatin Calcium 40 Mg Tablet, 40 MG PO HS, (Reported) Cinnamon Bark 500 Mg Capsule, 1,000 MG PO DAILY, (Reported) Dantrolene Sodium 25 Mg Capsule, 25 MG PO QID, (Reported) Hydrochlorothiazide 25 Mg Tablet, 25 MG PO DAILY, (Reported) Insulin Aspart 300 Units/3 Ml Solution, 16 UNITS SQ DAILY WITH BREAKFAST, ( Reported) Insulin Aspart 300 Units/3 Ml Solution, 18 UNITS SQ W/ LUNCH AND SUPPER, ( Reported) Insulin Glargine,Hum.rec.anlog 100 Unit/1 Ml Insuln.pen, 56 UNITS SQ HS, ( Reported) Methimazole 10 Mg Tab, 10 MG PO DAILY, (Reported) Metoprolol Tartrate 25 Mg Tablet, 25 MG PO BID, (Reported) [place]-3 Fatty Acids/Fish Oil 1 Each Capsule, 1,000 MG PO BID, (Reported) Pantoprazole Sodium 40 Mg Tablet.dr, 40 MG PO BID, (Reported) Propafenone HCl 225 Mg Tablet, 225 MG PO 0800,1600,0000, (Reported) Ramipril 10 Mg Capsule, 10 MG PO BID, (Reported) Rivaroxaban 20 Mg Tablet, 20 MG PO HS, (Reported) Tramadol HCl 50 Mg Tablet, 50 MG PO QID PRN for PAIN-MODERATE, (Reported) Venlafaxine HCl 75 Mg Tab, 75 MG PO BID, (Reported) Constitutional: No chills, No diaphoresis, No fever, No malaise Eyes: Denies Blindness, Denies Blurred Vision, Denies Drainage Ears, Nose, Mouth, Throat: denies ear pain, denies ear discharge Respiratory: No cough, No short of breath Cardiovascular: No chest pain, Hx of Intervention, No palpitations Gastrointestinal: No abdominal pain, No constipation, No diarrhea, No nausea, No vomiting Genitourinary: No discharge, No dysuria Musculoskeletal: see HPI, joint pain, neck pain Skin: No pruritus, No rash, other (skin tears left elbow) Psychiatric/Neurological: Denies Headache, Denies Numbness, Denies Paresthesia , Pre-Existing Deficit, Denies Seizure Past Lsocwbl-Gdmdrn-Oxgtdp Hx Patient Social History Former Smoker, Quit: May 15, 2000 Recent Foreign Travel: No Contact w/Someone Who Travel: No Recent Hopitalizations: No Immunizations Up To Date Tetanus Booster (TDap): Unknown PED Vaccines UTD: No Date of Influenza Vaccine: Aug 24, 2016 Seasonal Allergies Seasonal Allergies: No Surgeries History of Surgeries: Yes (R TESTICAL REMOVED) Respiratory History of Respiratory Disorde: No Cardiovascular History of Cardiac Disorders: Yes (HOLE IN HEART) Neurological History of Neurological Disord: Yes Neurological Disorders: Stroke Reproductive System Hx Reproductive Disorders: Yes (PROSTATE CANCER- AROUND ) Sexually Transmitted Disease: No HIV/AIDS: No Genitourinary History of Genitourinary Disor: No Gastrointestinal History of Gastrointestinal Di: Yes Gastrointestinal Disorders: Gastroesophageal Reflux, Chronic Constipation Musculoskeletal History of Musculoskeletal Dis: Yes (LEFT SIDED WEAKNESS FROM CVA) Musculoskeletal Disorders: Foot Drop Endocrine History of Endocrine Disorders: Yes Endocrine Disorders: Diabetes, Insulin dep HEENT History of HEENT Disorders: Yes (L EYE LAZY) HEENT Disorders: Cataract Loss of Vision: Denies Hearing Impairment: Denies Cancer History of Cancer: Yes Cancer: Prostate Type of Tx Receive: Surgical Intervention Psychosocial History of Psychiatric Problem: No Integumentary History of Skin or Integumenta: No Blood Transfusions History of Blood Disorders: No Family Medical History Family Medial History: Alzheimer's disease G8 SISTER Arthritis G8 SISTER Completed stroke 19 FATHER Dementia G8 SISTER Diabetes mellitus 19 MOTHER G8 BROTHER Hypercholesterolemia Hypertension 19 FATHER Myocardial infarction 19 FATHER Respiratory disorder 19 FATHER Physical Exam Vital Signs Vital Sign - Last 12Hours 08/23/17 22:38 Temp 96.4 Pulse 84 Resp 20 B/P (MAP) 169/92 Pulse Ox 96 Capillary Refill : General Appearance: WD/WN, moderate distress HEENT: PERRL/EOMI, normal ENT inspection, TMs normal, pharynx normal, other ( raccoon eyes left worse than right) Neck: non-tender, supple, normal inspection Cardiovascular: normal peripheral pulses, regular rate, rhythm, no edema, no murmur Respiratory: chest non-tender, lungs clear, normal breath sounds Gastrointestinal: normal bowel sounds, non tender, soft Extremities: slow capillary refill (sluggish capillary refill left hand 5-6 seconds.), other (obvious deformity and swelling of the mid shaft humerus left side. Skin tears over left elbow, painful to touch over right thumb,) Neurologic/Psychiatric: alert, normal mood/affect, oriented x 3, sensory deficit (chronic left-sided weakness and numbness of the left arm that is unchanged. No new neurologic deficits noted.) Skin: other (skin tear to left temporal region, left elbow, small abrasion right knee, right thumb.) [place] Coma Score Best Eye Response: (4) Open Spontaneously Best Verbal Response: (5) Oriented Best Motor Response: (6) Obeys Commands [place] Total: 15 Progress/Results/Core Measures Results/Orders Lab Results Laboratory Tests Test 08/23/17 22:54 Range/Units White Blood Count 9.3 4.3-11.0 10^3/uL Red Blood Count 4.27 L 4.35-5.85 10^6/uL Hemoglobin 12.0 L 13.3-17.7 G/DL Hematocrit 37 L 40-54 % Mean Corpuscular Volume 88 80-99 FL Mean Corpuscular Hemoglobin 28 25-34 PG Mean Corpuscular Hemoglobin Concent 32 32-36 G/DL Red Cell Distribution Width 13.7 10.0-14.5 % Platelet Count 241 130-400 10^3/uL Mean Platelet Volume 9.6 7.4-10.4 FL Neutrophils (%) (Auto) 78 H 42-75 % Lymphocytes (%) (Auto) 14 12-44 % Monocytes (%) (Auto) 7 0-12 % Eosinophils (%) (Auto) 1 0-10 % Basophils (%) (Auto) 0 0-10 % Neutrophils # (Auto) 7.2 1.8-7.8 X 10^3 Lymphocytes # (Auto) 1.3 1.0-4.0 X 10^3 Monocytes # (Auto) 0.7 0.0-1.0 X 10^3 Eosinophils # (Auto) 0.1 0.0-0.3 10^3/uL Basophils # (Auto) 0.0 0.0-0.1 10^3/uL Prothrombin Time 16.8 H 12.2-14.7 SEC INR Comment 1.4 0.8-1.4 Activated Partial Thromboplast Time 30 24-35 SEC Sodium Level 136 135-145 MMOL/L Potassium Level 4.7 3.6-5.0 MMOL/L Chloride Level 101 98-107 MMOL/L Carbon Dioxide Level 25 21-32 MMOL/L Anion Gap 10 5-14 MMOL/L Blood Urea Nitrogen 20 H 7-18 MG/DL Creatinine 1.03 0.60-1.30 MG/DL Estimat Glomerular Filtration Rate > 60 BUN/Creatinine Ratio 19 Glucose Level 424 *H 70-105 MG/DL Calcium Level 9.2 8.5-10.1 MG/DL Total Bilirubin 0.4 0.1-1.0 MG/DL Aspartate Amino Transf (AST/SGOT) 14 5-34 U/L Alanine Aminotransferase (ALT/SGPT) 15 0-55 U/L Alkaline Phosphatase 162 H 40-136 U/L Total Protein 7.1 6.4-8.2 GM/DL Albumin 3.9 3.2-4.5 GM/DL My Orders Orders - PIETRO ARELLANO Humerus, Left, 2 Views (08/23/17 21:41) Hand, Right, 3 Views (08/23/17 21:41) Knee, Right, 3 Views (08/23/17 21:41) Ct Head/Cervical Spine Wo (08/23/17 21:41) Cbc With Automated Diff (08/23/17 21:41) Comprehensive Metabolic Panel (08/23/17 21:41) Protime With Inr (08/23/17 21:41) Partial Thromboplastin Time (08/23/17 21:41) Ua Culture If Indicated (08/23/17 21:41) Type And Screen (08/23/17 21:41) Chest 1 View, Ap/Pa Only (08/23/17 21:48) Ekg Tracing (08/23/17 21:52) Lidocaine 1% Injection (Xylocaine 1% Inj (08/23/17 22:00) Vital Signs/I&O Vital Sign - Last 12Hours 08/23/17 08/23/17 22:38 23:17 Temp 96.4 96.4 Pulse 84 84 Resp 20 20 B/P (MAP) 169/92 169/92 (117) Pulse Ox 96 96 Progress Note #1: Time: 23:37 Progress Note Decreased capillary refill time and increased tension on the left hand distal to the left humerus fracture. Obtain strike her device and call orthopedic surgeon, Dr. PEREZ who performed a manometry test showing elevated pressures 50 and 70 mmHg in the compartment surround the left thumb. His plan is to take the patient for immediate fasciotomy. He has spoken to orthopedic surgeon Dr. lynn and trauma surgeon Dr. Ibarra at [place] who have conditionally accepted the patient as long as they have a bed available. I called [place] and spoke with the neurosurgeon Dr. Mckinley who is accepted the patient and the ER doctor who we will be transferring to Dr. Hawley and given report. Progress Note #2: Time: 01:21 Progress Note Patient back in room with recovery nurse in the ER. He was given 10 units regular insulin and his blood sugar went from 400 down to 200. He received general anesthesia and left hand fasciotomy. Cap refill of left hand digits is now brisk, less than 3 seconds. Facial abrasions and skin tears of been dressed as well as his left humeral fracture was closed reduced and splinted in the OR. Patient is on oxygen mask with good vital signs. As soon as he is completely recovered from his outpatient fasciotomy we will have him transferred to [place] by EMS. ECG Initial ECG Impression Date: Aug 23, 2017 Initial ECG Impression Time: 22:27 Initial ECG Rate: 91 Initial ECG Rhythm: Normal Sinus Initial ECG Intervals: Normal Initial ECG Impression: Normal Initial ECG Comparisson: No Previous ECG Available Comment No T-wave elevation or depression. Diagnostic Imaging Diagonstic Imaging: Xray Plain Films/CT/US/NM/MRI: other (humerus) Comments Comminuted displaced and angulated fracture of the midshaft humerus left side. Old deformity without acute fracture of the elbow. Reviewed: Reviewed by Me Diagonstic Imaging: Xray Plain Films/CT/US/NM/MRI: hand (right probably to the ER including his left chest area of testicular) Comments Small avulsion fracture of the first index of the right thumb. Reviewed: Reviewed by Me Diagonstic Imaging: Xray Plain Films/CT/US/NM/MRI: knee (right) Comments No acute osseous abnormality noted. Reviewed: Reviewed by Me Diagonstic Imaging: Xray Plain Films/CT/US/NM/MRI: chest (1v) Comments No acute cardiopulmonary, osseous abnormality noted. Reviewed: Reviewed by Me Diagonstic Imaging: CT Plain Films/CT/US/NM/MRI: c-spine, head (acute extra-axial hemorrhage along the left cerebral convexity measuring up to 9 mm and is compatible with a subdural hematoma. No midline shift or calvarial fracture. Incidentally there is an area of encephalomalacia in the paraventricular white matter of the right temporal lobe compatible with a remote infarct. Paranasal sinus disease. Opacification of the left maxillary sinus with calcifications, possible fungal sinusitis. Retention cyst versus polyp in the right maxillary antrum. The C- spine shows no acute fracture or malalignment. There are degenerative degenerative changes of the cervical spine.) Consults Consults : Consulting Physician: LEONOR PEREZ MD Consults Notes Spoke with him about the concern for compartment syndrome the left hand and forearm and since we don't have a [place] syringe he recommends getting an art line and needle and he'll be on his way. Departure Impression Impression: Primary Impression: Thumb fracture Qualified Codes: S62.514A - Nondisplaced fracture of proximal phalanx of right thumb, initial encounter for closed fracture Additional Impressions: Humerus fracture Qualified Codes: S42.355A - Nondisplaced comminuted fracture of shaft of humerus, left arm, initial encounter for closed fracture Fall Qualified Codes: W19.XXXA - Unspecified fall, initial encounter Compartment syndrome of left hand Qualified Codes: T79.A12A - Traumatic compartment syndrome of left upper extremity, initial encounter Subdural hematoma, acute Disposition: 02 XFER SHT-TRM HOSP ([facility]) Condition: Stable Transfer Time Spoke to Accepting Phy: 23:[address] PEREZ, orthopedic surgeon spoke with Dr. Ibarra, trauma surgeon at [place] and he accepts the patient conditionally to having a bed. I spoke with Dr. Mckinley, neurosurgery who is willing to accept the patient but she says they will need orthopedic surgeon willing to take this postoperative patient for his fasciotomy. Dr. Carrillo, orthopedic surgery has accepted the patient after being spoken to by Dr. PEREZ, orthopedic surgery. Spoke to Dr. Hawley in the ER and he was given report. Transfer Time: 02:56 Transfer Facility: [place], [place]. Method of Transfer: EMS Departure-Patient Inst. Referrals: VÍCTOR CORBIN MD (PCP/Family) Primary Care Physician Copy Copies To 1: VÍCTOR CORBIN MD Copies To 2: LEONOR PEREZ MD, TITUS J Aug 23, 2017 21:48
[2017-08-23] MEDS ORDERED: LIDOCAINE 1% INJ 20 ML (XYLOCAINE) VIAL INJ ONE (22:00)
[2017-08-23] MEDS ORDERED: HYDR25TA4 PO (22:46)
[2017-08-23 23:09] LABS: BASOPHILS % (AUTO) 0 % (0-10); EOSINOPHILS # (AUTO) 0.1 10^3/uL (0.0-0.3); EOSINOPHILS % (AUTO) 1 % (0-10); LYMPHOCYTES # (AUTO) 1.3 X 10^3 (1.0-4.0); LYMPHOCYTES % (AUTO) 14 % (12-44); MEAN CORPUSCULAR HEMOGLOBIN 28 PG (25-34); MEAN CORPUSCULAR HGB CONC 32 G/DL (32-36); MEAN CORPUSCULAR VOLUME 88 FL (80-99); MEAN PLATELET VOLUME 9.6 FL (7.4-10.4); MONOCYTES # (AUTO) 0.7 X 10^3 (0.0-1.0); MONOCYTES % (AUTO) 7 % (0-12); NEUTROPHILS # (AUTO) 7.2 X 10^3 (1.8-7.8); NEUTROPHILS % (AUTO) 78 % (42-75); PLATELET COUNT 241 10^3/uL (130-400); RED BLOOD COUNT 4.27 10^6/uL (4.35-5.85); RED CELL DISTRIBUTION WIDTH 13.7 % (10.0-14.5); WHITE BLOOD COUNT 9.3 10^3/uL (4.3-11.0)
[2017-08-23 23:20] LABS: INR 1.4 (0.8-1.4); PROTHROMBIN TIME PATIENT 16.8 SEC (12.2-14.7)
--- NOTE | 2017-08-23 23:36 | Consultation ---
History of Present Illness History of Present Illness Patient Consulted On(sariah/time) 08/23/17 23:31 Date Seen by Provider: Aug 23, 2017 Time Seen by Provider: 22:40 Reason for Visit: Fall History of Present Illness 62 y/o white male fell injuring his left josh-paretic arm. He also struck his head and face as well. Complains mostly of left are pain and discomfort. Allergies and Home Medications Allergies Coded Allergies: ranitidine (Verified Allergy, Unknown, 08/08/08) Home Medications Amitriptyline HCl 25 Mg Tablet, 25 MG PO HS, (Reported) Aspirin 81 Mg Tablet.dr, 81 MG PO DAILY, (Reported) Atorvastatin Calcium 40 Mg Tablet, 40 MG PO HS, (Reported) Cinnamon Bark 500 Mg Capsule, 1,000 MG PO DAILY, (Reported) Dantrolene Sodium 25 Mg Capsule, 25 MG PO QID, (Reported) Hydrochlorothiazide 25 Mg Tablet, 25 MG PO DAILY, (Reported) Insulin Aspart 300 Units/3 Ml Solution, 16 UNITS SQ DAILY WITH BREAKFAST, ( Reported) Insulin Aspart 300 Units/3 Ml Solution, 18 UNITS SQ W/ LUNCH AND SUPPER, ( Reported) Insulin Glargine,Hum.rec.anlog 100 Unit/1 Ml Insuln.pen, 56 UNITS SQ HS, ( Reported) Methimazole 10 Mg Tab, 10 MG PO DAILY, (Reported) Metoprolol Tartrate 25 Mg Tablet, 25 MG PO BID, (Reported) [place]-3 Fatty Acids/Fish Oil 1 Each Capsule, 1,000 MG PO BID, (Reported) Pantoprazole Sodium 40 Mg Tablet.dr, 40 MG PO BID, (Reported) Propafenone HCl 225 Mg Tablet, 225 MG PO 0800,1600,0000, (Reported) Ramipril 10 Mg Capsule, 10 MG PO BID, (Reported) Rivaroxaban 20 Mg Tablet, 20 MG PO HS, (Reported) Tramadol HCl 50 Mg Tablet, 50 MG PO QID PRN for PAIN-MODERATE, (Reported) Venlafaxine HCl 75 Mg Tab, 75 MG PO BID, (Reported) Past Ulfsfln-Ougvbk-Cwpkpi Hx Patient Social History Alcohol Use: Denies Use Recreational Drug Use: No Smoking Status: Former Smoker Former Smoker, Quit: May 15, 2000 Recent Foreign Travel: No Contact w/Someone Who Travel: No Recent Infectious Disease Expo: No Recent Hopitalizations: No Physical Abuse: No Sexual Abuse: No Mistreated: No Fear: No Immunizations Up To Date Tetanus Booster (TDap): More than 5yrs PED Vaccines UTD: No Date of Influenza Vaccine: Aug 24, 2016 Seasonal Allergies Seasonal Allergies: No Surgeries History of Surgeries: Yes (R TESTICAL REMOVED, r elbow, ablation) Surgeries: Orthopedic (Prior ORIF and Removal of hardware left elbow Dr Toro ) Respiratory History of Respiratory Disorde: No Cardiovascular History of Cardiac Disorders: Yes (ASD, atrial flutter) Cardiac Disorders: Coronary Artery Disease, Hypertension Neurological History of Neurological Disord: Yes Neurological Disorders: Stroke Reproductive System Hx Reproductive Disorders: Yes (PROSTATE CANCER- AROUND ) Sexually Transmitted Disease: No HIV/AIDS: No Genitourinary History of Genitourinary Disor: No Gastrointestinal History of Gastrointestinal Di: Yes Gastrointestinal Disorders: Gastroesophageal Reflux, Chronic Constipation Musculoskeletal History of Musculoskeletal Dis: Yes (LEFT SIDED WEAKNESS FROM CVA) Musculoskeletal Disorders: Foot Drop Endocrine History of Endocrine Disorders: Yes Endocrine Disorders: Diabetes, Insulin dep HEENT History of HEENT Disorders: Yes (L EYE LAZY) HEENT Disorders: Cataract Loss of Vision: Denies Hearing Impairment: Denies Cancer History of Cancer: Yes Cancer: Prostate Type of Tx Receive: Surgical Intervention Psychosocial History of Psychiatric Problem: No Suicide Risk Score: 1 Integumentary History of Skin or Integumenta: No Blood Transfusions History of Blood Disorders: No Family Medical History Family Medial History: Alzheimer's disease G8 SISTER Arthritis G8 SISTER Completed stroke 19 FATHER Dementia G8 SISTER Diabetes mellitus 19 MOTHER G8 BROTHER Hypercholesterolemia Hypertension 19 FATHER Myocardial infarction 19 FATHER Respiratory disorder 19 FATHER Review of Systems-General Constitutional: no symptoms reported EENTM: no symptoms reported Respiratory: no symptoms reported Cardiovascular: no symptoms reported Musculoskeletal: joint pain, joint swelling Skin: other (skin tears) Psychiatric/Neurological: Pre-Existing Deficit Physical Exam-General Problems Physical Exam Vital Signs Vital Sign - Last 12Hours 08/23/17 22:38 Temp 96.4 Pulse 84 Resp 20 B/P (MAP) 169/92 Pulse Ox 96 Capillary Refill : Less Than 3 Seconds General Appearance: mild distress Neck: supple Respiratory: no respiratory distress, no accessory muscle use Cardiovascular: regular rate, rhythm Back: no vertebral tenderness Extremities: slow capillary refill, swelling, other (obvious deformity of left humerus, sluggish swelling of extremely swollen hand.) Comments Daniel pressures left hand, Thenar eminence 56, Interosseous 72 Xrays show displaced left humerus fracture Assessment/Plan Assessment/Plan Admission Diagnosis/Plan Left humerus fracture Compartment syndrome Left hand Left sided josh-paresis Chronic Anticoagulation Small subdural hematoma Plan: Needs emergent compartment releases then transfer to facility with neurosurgery. LEONOR PEREZ MD Aug 23, 2017 23:36
[2017-08-23 23:44] LABS: ALANINE AMINOTRANSFERASE 15 U/L (0-55); ALBUMIN 3.9 GM/DL (3.2-4.5); ANION GAP 10 MMOL/L (5-14); ASPARTATE AMINO TRANSFERASE 14 U/L (5-34); BILIRUBIN,TOTAL 0.4 MG/DL (0.1-1.0); BLOOD UREA NITROGEN 20 MG/DL (7-18); BUN/CREATININE RATIO 19; CALCIUM 9.2 MG/DL (8.5-10.1); CARBON DIOXIDE 25 MMOL/L (21-32); CHLORIDE 101 MMOL/L (98-107); CREATININE SERUM 1.03 MG/DL (0.60-1.30); GFR ESTIMATED > 60; POTASSIUM 4.7 MMOL/L (3.6-5.0); SODIUM 136 MMOL/L (135-145); TOTAL PROTEIN 7.1 GM/DL (6.4-8.2)
[2017-08-23] MEDS ORDERED: HYDROcodone/APAP 10 MG/325 MG (LORTAB) TAB PO PRN (23:45)
[2017-08-23] MEDS ORDERED: SUCCINYLCHOLINE INJ 100 MG/5 ML SYR ONE (23:50)
[2017-08-23] MEDS ORDERED: proPOfol 200 MG/20 ML (DIPRIVAN) VIAL IV ONE (23:50)
[2017-08-23] MEDS ORDERED: LIDOCAINE PF 2% 5 ML (XYLOCAINE) VIAL ONE (23:50)
[2017-08-23] MEDS ORDERED: ONDANSETRON 4 MG/2 ML (SDV) Z0FRAN ONE (23:50)
[2017-08-23] MEDS ORDERED: fentaNYL INJECTION 100 MCG/2 ML AMP ONE (23:50)
[2017-08-23] MEDS ORDERED: MIDAZOLAM 2 MG/2 ML (VERSED) VIAL ONE (23:51)
[2017-08-24] LABS: GLUCOSE 424 MG/DL (70-105)
[2017-08-24] MEDS ORDERED: ceFAZolin 1,000 MG (ANCEF) VIAL ONE (00:07)
[2017-08-24] MEDS ORDERED: morphine INJ 10 MG/ML 1ML (SYR OR VIAL) ONE ×2 (00:08→00:38)
[2017-08-24] MEDS: LACTATED RINGERS 1,000 ML IV PRN ×2 (00:12→00:50)
[2017-08-24] MEDS ORDERED: inSUlin (REGULAR) HUMAN 1 UNIT/0.01 ML (CHARGE PER UNIT) ONE (00:29)
[2017-08-24] MEDS ORDERED: SEVOFLURANE (ULTANE) 15 ML INHAL SOLN ONE ×4 (00:54→00:56)
[2017-08-24] MEDS ORDERED: ROCURONIUM 50 MG/5 ML (ZEMURON) VIAL IV ONE (00:56)
--- NOTE | 2017-08-24 01:20 | Progress Note-Post Operative ---
Post-Operative Progess Note Surgeon (s)/Pulmonary Fellow (s) Surgeon LEONOR PEREZ MD Pulmonary Fellow: None Pre-Operative Diagnosis Left hand compartment syndrome Post-Operative Diagnosis Same Left humerus shaft fx, closed Procedure & Operative Findings Date of Procedure 08/24/17 Procedure Performed/Findings 4 incision compartment release left hand Closed reduction, splinting left humerus Anesthesia Type GETA Estimated Blood Loss Estimated blood loss (mL): min Specimens/Packing Specimens Removed None LEONOR PEREZ MD Aug 24, 2017 01:20
[2017-08-24] MEDS ORDERED: HYDROmorphone (DILAUDID) 2 MG/ML VIAL IVP PRN (01:30)
[2017-08-24] MEDS ORDERED: PROMETHAZINE INJ 25 MG/ML (PHENERGAN) AMP IVP PRN (01:30)
[2017-08-24] MEDS ORDERED: morphine INJ 10 MG/ML 1ML (SYR OR VIAL) IVP PRN (01:30)
[2017-08-24] MEDS ORDERED: ONDANSETRON 4 MG/2 ML (SDV) Z0FRAN IVP PRN (01:30)
[2017-08-24 02:42] VITALS: BP 174/105
--- NOTE | 2017-08-24 03:59 | OPERATIVE REPORT ---
DATE OF SERVICE: 08/24/2017 PREOPERATIVE DIAGNOSES: Left hand and forearm compartment syndrome, left closed humeral shaft fracture and anticoagulation status. POSTOPERATIVE DIAGNOSES: Left hand and forearm compartment syndrome, left closed humeral shaft fracture and anticoagulation status. PROCEDURES PERFORMED: 1. Four-incision left hand fasciotomies including 2 dorsal, a thenar and a carpal canal release for compartment syndrome. 2. Closed reduction and splinting of humeral shaft fracture. DATE AND TIME OF SURGERY: Please see anesthesia record. SURGEON: Leonor Peters MD ANESTHESIA: General endotracheal. ESTIMATED BLOOD LOSS: Minimal. INTRAVENOUS FLUIDS: Please see anesthesia record. ANTIBIOTICS: Ancef. COMPLICATIONS: None. INDICATIONS FOR PROCEDURE: The patient is a 62-year-old male, coagulated, fell sustaining injuries to his left humerus and developed swelling in his hand due to blunt trauma. He had significantly elevated [place] monitoring pressures of greater than 70 in his interosseous space and high 50s in his thenar space. Risks, benefits and alternatives discussed and he elected to proceed with operative intervention. DESCRIPTION OF PROCEDURE: The patient was taken to the preoperative holding area and brought back to the operative suite after adequate induction of general anesthetic, preoperative antibiotics, placed supine on the OR table. Arm was prepped and draped. Arm was elevated. An Esmarch tourniquet was placed about the upper forearm and then a dorsal incision was made over the 2nd and 4th metacarpals just palmar to the first metacarpal in the thenar eminence and then a traditional large open carpal tunnel release was carried out to release the carpal canal. Once all of the fascias were released and decompressed, wounds were irrigated. The carpal canal was loosely closed with nylon suture. Vessel loops in a crossed fashion across the dorsal incisions was carried out and dressings were applied. Coaptation splint on the humerus with a posterior splint around the forearm were placed after dressings were applied. The patient was transferred to the recovery room in stable condition having tolerated the procedure well. He will subsequently be transferred to [facility] for evaluation and treatment of his subdural hematoma and the orthopedic surgeon on-call there was apprised of his condition and treatments that were rendered. Job ID: [id number] DocumentID: [id number] Dictated Date: 08/24/2017 01:15:58 Special Education Kindergarten Teacher Date: 08/24/2017 03:58:57 Dictated By: LEONOR PETERS MD
--- NOTE | 2017-08-24 05:58 | Diagnostic Imaging Report ---
INDICATION: Fall. COMPARISON: None. FINDINGS: 3 views of the right knee joint demonstrate no acute fracture or dislocation. No focal osseous lesions are seen. No significant joint effusion is seen. The surrounding soft tissue structures are unremarkable. There are no radiopaque foreign bodies. IMPRESSION: 1. No acute fractures or dislocations of the right knee joint. Dictated by: Dictated on workstation # [id number]
--- NOTE | 2017-08-24 05:58 | Diagnostic Imaging Report ---
INDICATION: Fall. COMPARISON: None FINDINGS: Single frontal view of the chest demonstrates normal heart size and pulmonary vascularity. The lungs are clear. No large pleural effusion or pneumothorax is seen. The visualized osseous structures show no acute abnormalities. IMPRESSION: 1. No acute cardiopulmonary process. Dictated by: Dictated on workstation # [id number]
--- NOTE | 2017-08-24 06:10 | Diagnostic Imaging Report ---
INDICATION: Fall. Deformity. COMPARISON: None FINDINGS: There is acute comminuted, but predominantly transverse oriented fracture involving the midshaft of the left humerus. There is moderate angulation with the apex projecting medially. Note is also made of chronic appearing deformity of the distal humerus. This corresponds to fracture described on 08/07/2008. No unexpected radiopaque foreign bodies are seen. IMPRESSION: 1. Acute fracture of the midshaft of the left clavicle. 2. Chronic deformity of the distal left humerus at the elbow. Dictated by: Dictated on workstation # [id number]
--- NOTE | 2017-08-24 06:10 | Diagnostic Imaging Report ---
INDICATION: Fall. COMPARISON: None FINDINGS: 3 radiographic views of the right hand were obtained. There is a small osseous fragment adjacent to the lateral posterior surface of the proximal margins of the first proximal phalanx. Findings could be on the basis of small fracture of the proximal phalanx. There is also chronic appearing deformity of the distal phalanx. Small extraosseous calcification is also noted adjacent to the distal margins of the first metacarpal. Remainder of the hand is unremarkable. There is no other evidence of acute fracture or dislocation. Joint spaces are otherwise maintained. No unexpected radiopaque foreign bodies are seen. IMPRESSION: 1. Findings suspicious for small corner fracture involving the proximal margins of the first proximal phalanx. 2. Small calcification adjacent to the distal margins of the first metacarpal of uncertain significance. Additional small fracture cannot be excluded. Dictated by: Dictated on workstation # [id number]
--- NOTE | 2017-08-24 07:07 | Diagnostic Imaging Report ---
PROCEDURE: CT head and CT cervical spine without contrast. TECHNIQUE: Multiple contiguous axial images were obtained through the brain and cervical spine without the use of intravenous contrast. Sagittal and coronal reformations through the cervical spine were then performed. INDICATION: Fall. Trauma to the head. COMPARISON: 05/18/2007 FINDINGS: CT head: There is acute appearing extra-axial hyperdense hematoma overlying the lateral superior margins of the left temporal lobe extending over the lateral margins the left frontal lobe. It measures approximately 9-10 mm in maximal thickness. There is some minimal mass effect on the underlying left frontal and temporal lobe sulci. There is no appreciable midline shift. There is moderate sized area of decreased attenuation involving the posterior right frontal lobe extending into the parietal lobe and right temporal lobe. Findings are likely on the basis of old infarct. There are also scattered and confluent areas of decreased attenuation within the periventricular and subcortical deep white matter consistent with chronic small vessel ischemic changes. There is no other loss of kwon-white matter junction differentiation to suggest acute territorial infarct. Ventricles and cortical sulci are otherwise diffusely prominent consistent with age-related parenchymal volume loss. The calvarium is intact. There is some soft tissue emphysema about the left orbit. There is also deformity of the left sphenoid wing suggestive of potential acute fracture. There is complete opacification of the left maxillary sinus. Hyperdense material within the left maxillary sinus is noted and is suggestive of chronic sinusitis; possibly fungal. There is also partial scattered opacification of the ethmoid air cells and mucosal retention cyst versus polyp in the right maxillary sinus. Mastoid air cells are unremarkable. CT cervical spine: Static alignment of the cervical spine is maintained. There is no significant anteroretrolisthesis. There is no evidence of jumped facets. Vertebral body heights are preserved. There is no evidence of acute fracture. No bony fragments are seen within the spinal canal. There are mild multilevel degenerative changes consisting of intervertebral disc height loss with anterior and posterior disc osteophyte complex formations. These changes appear greatest at the C5-C6 level. Pre-and paravertebral soft tissue structures are unremarkable. Included portions of the lung apices are clear. IMPRESSION: 1. Acute left-sided epidural versus subdural extra-axial hematoma. 2. Chronic small vessel ischemic changes in deep white matter. 3. Moderate sized area of diminished attenuation in the posterior right cerebral hemisphere consistent with old infarct. 4. No CT evidence of acute fracture or dislocation of cervical spine. 5. Mild multilevel degenerative changes of the cervical spine. 6. Possible left sphenoid wing fracture with associated soft tissue emphysema. 7. Paranasal sinus disease as described above. Dictated by: Dictated on workstation # [id number]
== END 2017-08-24 02:15 | disposition short-term general hospital (02) ==
LOC: EDUNIT# 21:09 → ER 21:11 → SDC 23:24
PROVIDERS: ATTEND Orthopaedic Surgery Orthopaedic Surgery of the Spine
DX: S42.302A Unspecified fracture of shaft of humerus, left arm, initial encounter for closed fracture (principal); T79.A12A Traumatic compartment syndrome of left upper extremity, initial encounter; S06.5X0A Traumatic subdural hemorrhage without loss of consciousness, initial encounter; W19.XXXA Unspecified fall, initial encounter; Z79.01 Long term (current) use of anticoagulants; Z87.891 Personal history of nicotine dependence; I25.10 Atherosclerotic heart disease of native coronary artery without angina pectoris; I10 Essential (primary) hypertension; K21.9 Gastro-esophageal reflux disease without esophagitis; K59.09 Other constipation; I69.354 Hemiplegia and hemiparesis following cerebral infarction affecting left non-dominant side; Z85.46 Personal history of malignant neoplasm of prostate; E11.9 Type 2 diabetes mellitus without complications; Z79.4 Long term (current) use of insulin
CPT/HCPCS: 36415; 70450; 71010; 72125; 73060; 73130; 73562; 80053; 82962; 85025; 85610; 85730; 86850; 86900; 86901; 93005; 96374

== ENCOUNTER 2017-08-31 10:02 | Inpatient (IN) | payer BC, MEDICARE ==
[~2017-08-31] VITALS: Ht 188 cm; Wt 109.8 kg
--- OUTSIDE RECORDS SUMMARY | 2017-08-31 12:57 | XMS REPORT | Clinical Summary ---
Author Author [facility] Organization [facility] Address Unknown Phone Unavailable Care Team Providers Care Diet Therapist Name Role Phone PCP Unavailable Source Comments Some departments are not documenting in the electronic medical record. If you do not see the information that you expected, contact Release of Information in the Health Information Management department at [phone] for further assistance in locating additional records.[facility] Allergies Active Allergy Reactions Severity Noted Date [...] AM and 1 tab in the PM Active Problems Problem Noted Date Atrial flutter (HCC) 08/12/2017 CVA (cerebral vascular accident) ([facility]) 07/27/2017 Overview: A. 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 Started on xarelto May 19 2017 B. DEIRDRE/CV successful Jun 2017 C. [id number] score=4 D. 08/12/17 EPS/AFL RFA by Dr. Rojas. Entrainment confirmed CTI-dependant atrial flutter. CTI line performed. Flutter terminated with ablation. Bidirectional block was achieved. Hyperlipidemia 07/27/2017 Diabetes (HCC) 07/27/2017 HTN (hypertension) Encounters Date Type Specialty Care Team Description 08/12/2017 Hospital Cardiology Gunnar Rojas MD Atrial fibrillation and - Encounter flutter ([facility]) 08/13/2017 08/12/2017 Procedure Pass Cardiology 08/12/2017 Surgery Cardiology Gunnar Rojas MD Atrial Flutter Radiofrequency Ablation 08/11/2017 Anesthesia Cardiology Bud Duncan MD Event 08/10/2017 Pre-Admit Cardiology Irena Mendez, DELIVERY ANALYST-C Orders Only 08/09/2017 Documentation Cardiology Corrine Humphrey, health coordinator Results ( Pre-procedue labs) 08/02/2017 Documentation Cardiology Andrés Trejo, GIL Precertification (Medicare) 07/27/2017 Office Visit Cardiology Gunnar Rojas MD New Patient ( ref by Dr. Desai to discuss AFL RFA) 07/22/2017 Documentation Cardiology Pretty Ferreira Records Request (Requesting records from [facility] and [facility]) 07/20/2017 Patient Profile Cardiology MaricruzLeroyangel New Patient ( discuss AFL RFA) 07/20/2017 Documentation Cardiology Yong Alcantara Records Request (Shiva Desai MD/ [facility] () [phone]) 07/20/2017 Documentation Cardiology Yong Alcantara Records Request (Terrell Man MD/ [facility] () [phone]) from Last 3 Months Family History Medical [...] 2003 SCREENING SHINGLES VACCINE 2013 INFLUENZA VACCINE 06/15/2017 Procedures Procedure Name Priority Date/Time Associated Diagnosis [...] MG/DL Specimen Performing Laboratory MAIN LAB [address] [place] [address] * CBC AND DIFF (08/13/2017 3:33 AM) [...] K/UL Specimen Performing Laboratory Blood MAIN LAB [address] [place] [address] * BASIC METABOLIC PANEL (08/13/2017 3:33 AM) [...] Performing Laboratory Blood [facility] MAIN LAB [address] [place] [address] * EP STUDY (08/12/2017 10:00 AM) Specimen [...] using the NAVX mapping system. 4.Moderate sedation. RED CROSS EXECUTIVE DIRECTOR: Gunnar Rojas MD CANCER PROGRAM DIRECTOR/FEllow: Kailey Trevizo MD INDICATION FOR PROCEDURE: Atrial [...] EP catheter inserted via a 6 Fr Cuban sheath in the right femoral vein, advanced to the coronary sinus. 2. 20 polecrista catheter placed in the lateral wall in the right atrium through 7 F sheath right femoral. 3.An ablation catheter for ablation was placed. Flexibility ablation catheter inserted via an 8.5 Cuban SRO sheath in the right femoral vein, advanced to the right atrium utilized for mapping and ablation. Also note, the SRO sheath was exchanged at the end of the procedure for a short 8.5 Cuban sheath. EP STUDY FINDINGS: Baseline: Atrial flutter CL 200 msec, V rate 150 bpm, QRS 66 msec, QT 275 msec Final: Sinus CL 620 msec IA 160 msec QRS 103 msec, QT 350 [...] POS Specimen Performing Laboratory Blood MAIN LAB [address] [place] [address] * TYPE & CROSSMATCH (08/12/2017 6:30 AM) Component Value Ref Range Units Ordered 0 Crossmatch Expires 08/15/2017 Record Check 2ND TYPE REQUIRED ABO/RH(D) A POS Antibody Screen NEG Electronic Crossmatch YES Specimen Performing Laboratory Blood MAIN LAB [address] [place] [address] * POC PT/INR (08/12/2017 6:29 AM) Component Value Ref Range INR POC 1.9 (H) 0.8 - 1.2 Specimen Performing Laboratory [facility] LAB [address] [place] [address] * CBC (08/09/2017) Component Value Ref Range White Blood Cells 7.94 RBC 4.43 Hemoglobin 12.6 (L) Hematocrit 39.3 (L) MCV 88.7 MCH 28.4 MCHC 32.1 Platelet Count 183 MPV RDW Specimen Performing Laboratory Blood MAG LAB [address] [address] * MAGNESIUM (08/09/2017) Component Value Ref Range Magnesium 1.8 Specimen Performing Laboratory Blood MAG LAB [address] [address] * COMPREHENSIVE METABOLIC PANEL (06/30/2017) Component Value [...]
--- OUTSIDE RECORDS SUMMARY | 2017-08-31 12:57 | XMS REPORT | Continuity of Care Document ---
Author Author [facility] Organization [facility] Address Unknown Phone Unavailable Care Team Providers Care Bell Valet Name Role Phone [employer] Unavailable Unavailable Problems Medications Allergies, Adverse Reactions, Alerts Immunizations Results Vital Signs Encounters Location Location Details Encounter Type Encounter Number Reason For Visit Attending Provider ADM [place] [id number] [place] 07/25/2007 07/25/[address] [facility] OUTPATIENT [id number] LIBBY ECHEVERRIA 07/27/[address] [facility] EXT RECOVERY [id number] LIBBY ECHEVERRIA 08/12/2017 08/13/[address] [facility] O LIBBY ECHEVERRIA Active [facility] Procedures Plan of Care Social History Assessment and Plan Family History Value Date Source Advance Directives Order Name Results Value Date Source
--- OUTSIDE RECORDS SUMMARY | 2017-08-31 12:58 | XMS REPORT | Encounter Summary ---
Author Author [facility] Organization [facility] Address Unknown Phone Unavailable Care Team Providers Care National Service Officer Name Role Phone PCP Unavailable Encounter Details Date Type Department Care Team Description 08/12/2017 Procedure Pass Cardiac Catheterization Laboratory [address] [place] [address] Social History Tobacco Use Types Packs/Day Years Used Date Never Assessed Sex Assigned at Date Recorded Not on file as of this encounter Plan of Treatment Not on fileas of this encounter Visit Diagnoses Not on filein this encounter
--- OUTSIDE RECORDS SUMMARY | 2017-08-31 12:58 | XMS REPORT | Encounter Summary ---
Author Author [facility] Organization [facility] Address Unknown Phone Unavailable Care Team Providers Care Optical Lens Manufacturing Tech Name Role Phone PCP Unavailable Reason for Visit * Reason Comments Records Request Requesting records from [facility] and [facility] Encounter Details Date Type Department Care Team Description 07/22/2017 Documentation [facility] Cardiology Pretty Ferreira Records Request [address] (Requesting records from [address] [place] [address] [facility]) [phone] Social History Tobacco Use Types Packs/Day Years [...] Cardiac Please fax to: Stephenie Ferreira [facility] Cardiology in this encounter Plan of Treatment Not on fileas of this encounter Visit Diagnoses Not on filein this encounter
--- OUTSIDE RECORDS SUMMARY | 2017-08-31 12:58 | XMS REPORT | Encounter Summary ---
Author Author [facility] Organization [facility] Address Unknown Phone Unavailable Care Team Providers Care Administrative Representative Name Role Phone PCP Unavailable Reason for [...] Gunnar Rojas MD Atrial Flutter Laboratory [address]blation [address] [place] [address] [place] [address] [phone] Social History Tobacco Use Types Packs/Day Years [...] via Transport. Patient to follow up with [facility] Cardiology (MAC) or on-call physician with any [...] seeing your patient Roland Lombardo in the [facility] as a part of the [facility] Cardiology [facility] office today for initial Electrophysiolgy Consultation regarding his persistent Atrial Flutter. He is typically followed and was referred by my friend and colleague Dr. Desai, his primary vehicle technician in [place], [place]. Mr. Lombardo is an exceptionally pleasant [...] PFO closure; Hypertension; IDDM He has a [id number] score of 4: Prior Stroke, HTN, IDDM [...] -- 07/21/17: Catheterization by Dr. Desai in [place], [place] per patient report, non obstructive CAD, [...] include but not be limited to , [place], stroke, cardiac perforation, complete heart block needing [...] 2017 B. DEIRDRE/CV successful Jun 2017 C. [id number] score=4 Hyperlipidemia 07/27/2017 Diabetes (HCC) 07/27/2017 Review [...] Specimen Performing Laboratory [facility] MAIN LAB [address] [place] [address] * BASIC METABOLIC PANEL (08/13/2017 3:33 AM) [...] Specimen Performing Laboratory Blood MAIN LAB [address] [place] [id number] * CBC AND DIFF (08/13/2017 3:33 AM) [...] K/UL Specimen Performing Laboratory Blood MAIN LAB [address] [place], [place] [id number] * POC GLUCOSE (08/12/2017 8:13 PM) Component Value Ref Range Glucose, POC 174 (H) 70 - 100 MG/DL Specimen Performing Laboratory MAIN LAB [address] [place] [address] * POC GLUCOSE (08/12/2017 2:10 PM) Component Value Ref Range Glucose, POC 257 (H) 70 - 100 MG/DL Specimen Performing Laboratory MAIN LAB [address] [place] [address] * EP STUDY (08/12/2017 10:00 AM) Specimen [...] using the NAVX mapping system. 4.Moderate sedation. TOLL TEST DESK WORKER: Gunnar Rojas MD MEDICAL INSURANCE COLLECTOR/FEllow: Kailey Trevizo MD INDICATION FOR PROCEDURE: Atrial [...] trained Registered Nurse who was supervised by tx. The patient underwent continuous blood pressure, heart [...] EP catheter inserted via a 6 Fr Ghanaian sheath in the right femoral vein, advanced to the coronary sinus. 2. 20 polecrista catheter placed in the lateral wall in the right atrium through 7 F sheath right femoral. 3.An ablation catheter for ablation was placed. Flexibility ablation catheter inserted via an 8.5 Ghanaian SRO sheath in the right femoral vein, advanced to the right atrium utilized for mapping and ablation. Also note, the SRO sheath was exchanged at the end of the procedure for a short 8.5 Ghanaian sheath. EP STUDY FINDINGS: Baseline: Atrial flutter [...] Specimen Performing Laboratory Blood MAIN LAB [address] [place] [address] * POC GLUCOSE (08/12/2017 6:30 AM) Component Value Ref Range Glucose, POC 205 (H) 70 - 100 MG/DL Specimen Performing Laboratory MAIN LAB [address] [place] [address] * TYPE & CROSSMATCH (08/12/2017 6:30 AM) Component Value Ref Range Units Ordered 0 Crossmatch Expires 08/15/2017 Record Check 2ND TYPE REQUIRED ABO/RH(D) A POS Antibody Screen NEG Electronic Crossmatch YES Specimen Performing Laboratory Blood MAIN LAB [address] [place] [address] * POC PT/INR (08/12/2017 6:29 AM) Component Value Ref Range INR POC 1.9 (H) 0.8 - 1.2 Specimen Performing Laboratory MAIN LAB [address] [place] [address] in this encounter Visit Diagnoses Diagnosis Paroxysmal [...]
--- OUTSIDE RECORDS SUMMARY | 2017-08-31 12:58 | XMS REPORT | Encounter Summary ---
Author Author [facility] Organization [facility] Address Unknown Phone Unavailable Care Team Providers Care Barrel Turner Name Role Phone PCP Unavailable Reason for Visit * Auth/Cert Status Reason Specialty Diagnoses / Referred By Referred To Procedures Contact Contact Diagnoses A trial Fibrillation P rocedures Atrial Flutter Radiofrequency Ablation Comprehensive EP Study Comprehensive EP Study with Coronary Sinus Standard Mapping 3-D Mapping Encounter Details Date Type Department Care Team Description 08/12/2017 Anesthesia Cardiac Catheterization Bud Duncan MD Laboratory [address] [facility] [place] [address] [place] [address] [phone] Social History Tobacco Use Types Packs/Day Years [...]
--- OUTSIDE RECORDS SUMMARY | 2017-08-31 12:58 | XMS REPORT | Encounter Summary ---
Author Author [facility] Organization [facility] Address Unknown Phone Unavailable Care Team Providers Care Kersey Department Supervisor Name Role Phone PCP Unavailable Reason for [...] (HCC) 08/13/[address] [place] [address] [place] [address] [phone] Social History Tobacco Use Types Packs/Day Years [...] a hematoma after ambulation. Patient escorted to [facility] via Transport. Patient to follow up [...] seeing your patient Roland Lombardo in the [facility] as a part of the [facility] Cardiology [facility] office today for initial Electrophysiolgy Consultation regarding his persistent Atrial Flutter. He is typically followed and was referred by my friend and colleague Dr. Desai, his primary grouter helper in [place], [place]. Mr. Lombardo is an exceptionally pleasant [...] PFO closure; Hypertension; IDDM He has a [id number] score of 4: Prior Stroke, HTN, IDDM [...] -- 07/21/17: Catheterization by Dr. Desai in [place], [place] per patient report, non obstructive CAD, [...] include but not be limited to , [place], stroke, cardiac perforation, complete heart block needing [...] 2017 B. DEIRDRE/CV successful Jun 2017 C. [id number] score=4 Hyperlipidemia 07/27/2017 Diabetes (HCC) 07/27/2017 Review [...] Specimen Performing Laboratory [facility] MAIN LAB [address] [place] [address] * BASIC METABOLIC PANEL (08/13/2017 3:33 AM) [...] questions. Specimen Performing Laboratory Blood MAIN LAB [address] [place] [address] * CBC AND DIFF (08/13/2017 3:33 AM) [...] K/UL Specimen Performing Laboratory Blood MAIN LAB [address] [place], [place] [id number] * POC GLUCOSE (08/12/2017 8:13 PM) Component Value Ref Range Glucose, POC 174 (H) 70 - 100 MG/DL Specimen Performing Laboratory MAIN LAB [address] [place], [place] [id number] * POC GLUCOSE (08/12/2017 2:10 PM) Component Value Ref Range Glucose, POC 257 (H) 70 - 100 MG/DL Specimen Performing Laboratory MAIN LAB [address] [place], [place] [id number] * EP STUDY (08/12/2017 10:00 AM) Specimen [...] using the NAVX mapping system. 4.Moderate sedation. FLAVORING MACHINE OPERATOR: Gunnar Rojas MD COMMUNITY EDUCATOR/FEllow: Kailey Trevizo MD INDICATION FOR PROCEDURE: Atrial [...] EP catheter inserted via a 6 Fr Ukrainian sheath in the right femoral vein, advanced to the coronary sinus. 2. 20 polecrista catheter placed in the lateral wall in the right atrium through 7 F sheath right femoral. 3.An ablation catheter for ablation was placed. Flexibility ablation catheter inserted via an 8.5 Ukrainian SRO sheath in the right femoral vein, advanced to the right atrium utilized for mapping and ablation. Also note, the SRO sheath was exchanged at the end of the procedure for a short 8.5 Ukrainian sheath. EP STUDY FINDINGS: Baseline: Atrial flutter CL 200 msec, V rate 150 bpm, QRS 66 msec, QT 275 msec Final: Sinus CL 620 msec [place] 160 msec QRS 103 msec, QT 350 [...] Specimen Performing Laboratory Blood MAIN LAB [address] [place] [address] * POC GLUCOSE (08/12/2017 6:30 AM) Component Value Ref Range Glucose, POC 205 (H) 70 - 100 MG/DL Specimen Performing Laboratory MAIN LAB [address] [place] [address] * TYPE & CROSSMATCH (08/12/2017 6:30 AM) Component Value Ref Range Units Ordered 0 Crossmatch Expires 08/15/2017 Record Check 2ND TYPE REQUIRED ABO/RH(D) A POS Antibody Screen NEG Electronic Crossmatch YES Specimen Performing Laboratory Blood MAIN LAB [address] [place] [address] * POC PT/INR (08/12/2017 6:29 AM) Component Value Ref Range INR POC 1.9 (H) 0.8 - 1.2 Specimen Performing Laboratory MAIN LAB [address] [place] [address] in this encounter Visit Diagnoses Diagnosis Atrial [...]
--- OUTSIDE RECORDS SUMMARY | 2017-08-31 12:58 | XMS REPORT | Encounter Summary ---
Author Author [facility] Organization [facility] Address Unknown Phone Unavailable Care Team Providers Care Quality Assurance Tester Name Role Phone PCP Unavailable Encounter Details Date Type Department Care Team Description 08/10/2017 Pre-Admit XDD CARDIOLOGY Irena Mendez, STOCKROOM WORKER-C Orders Only [address] [place] [address] Social History Tobacco Use Types Packs/Day Years Used Date Never Assessed Sex Assigned at Date Recorded Not on file as of this encounter Plan of Treatment Not on fileas of this encounter Visit Diagnoses Not on filein this encounter
--- OUTSIDE RECORDS SUMMARY | 2017-08-31 12:58 | XMS REPORT | Encounter Summary ---
Author Author [facility] Organization [facility] Address Unknown Phone Unavailable Care Team Providers Care Hydrometer Calibrator Name Role Phone PCP Unavailable Reason for Visit * Reason Comments Lab Results Pre-procedue labs Encounter Details Date Type Department Care Team Description 08/09/2017 Documentation [facility] Corrine Humphrey RN Lab Results (Pre-procedue [address] labs) [address] [place] [address] Social History Tobacco Use Types Packs/Day Years [...] RDW Specimen Performing [place] [address] * MAGNESIUM (08/09/2017) Component Value Ref Range Magnesium 1.8 Specimen Performing [place] [address] * BASIC METABOLIC PANEL (08/09/2017) Component Value Ref Range Sodium 135 Potassium 4.5 Chloride 97 CO2 31 Blood Urea Nitrogen 17 Creatinine 0.9 Glucose 182 (H) Calcium 8.9 eGFR Non eGFR Anion Gap 12 Specimen Performing [place] [address] in this encounter Visit Diagnoses Diagnosis Atrial fibrillation and flutter (HCC) Essential hypertension Unspecified essential hypertension in this encounter
--- OUTSIDE RECORDS SUMMARY | 2017-08-31 12:58 | XMS REPORT | Encounter Summary ---
Author Author [facility] Organization [facility] Address Unknown Phone Unavailable Care Team Providers Care Rod Tape Operator Name Role Phone PCP Unavailable Reason for Visit * Reason Comments New Patient ref by Dr. Desai to discuss AFL RFA Encounter Details Date Type Department Care Team Description 07/27/2017 Office Visit [facility] Gunnar Rojas MD New [facility] ([facility] [facility] Giselle to discuss AFL RFA) [address] [place] [address] [place] [address] [phone] Social History Tobacco Use Types Packs/Day Years [...] please call the EP nurse triage line: [phone] Get a sleep study test Do NOT miss any doses of Xarelto Follow up with Dr Rojas 3 months following your procedure - call [phone] in this encounter Progress Notes * Gunnar Rojas MD - 07/27/2017 3:15 PM CDT Formatting of this note may be different from the original. Date of Service: 07/27/2017 Roland Lombardo is a 62 y.o. male. HPI I had the pleasure of seeing your patient Roland Lombardo in the [facility] as a part of the [facility] office today for initial Electrophysiolgy Consultation regarding his persistent Atrial Flutter. He is typically followed and was referred by my friend and colleague Dr. Desai, his primary vice president of instruction in [place], [place]. Mr. Lombardo is an exceptionally pleasant [...] Desai (05/2017); No significant ischemia by Thallium (05/2017) by Dr. 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 Vyas-2006 regarding PFO closure; Hypertension; IDDM He has a [id number] score of 4: Prior Stroke, HTN, IDDM [...] 07/21/17: Cardiac Catheterization by Dr. Desai in [place], [place] per patient report, non obstructive CAD, [...] that he pursue Rhythm Control, that is, hindu and maintenance of sinus rhythm. Regarding Rhythm [...] include, but not be limited to: , [place], stroke, cardiac perforation, complete heart block, bleeding, [...] Noted HTN (hypertension) CVA (cerebral vascular accident) ([facility]) 07/27/2017 A. 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 Started on xarelto May 19 2017 B. DEIRDRE/CV successful Jun 2017 C. [id number] score=4 Hyperlipidemia 07/27/2017 Diabetes ([facility]) 07/27/2017 Review of Systems Constitution: Positive for [...]
--- OUTSIDE RECORDS SUMMARY | 2017-08-31 12:58 | XMS REPORT | Encounter Summary ---
Author Author [facility] Organization [facility] Address Unknown Phone Unavailable Care Team Providers Care Disability Services Coordinator Name Role Phone PCP Unavailable Reason for Visit * Reason Comments Precertification Medicare Encounter Details Date Type Department Care Team Description 08/02/2017 Documentation [facility] Andrés Trejo, RN Precertification [address] (Medicare) [address] [place] [address] Social History Tobacco Use Types Packs/Day Years [...]
--- OUTSIDE RECORDS SUMMARY | 2017-08-31 12:58 | XMS REPORT | Encounter Summary ---
Author Author [facility] Organization [facility] Address Unknown Phone Unavailable Care Team Providers Care Airport Representative Name Role Phone PCP Unavailable Reason for Visit * Reason Comments New Patient discuss AFL RFA Encounter Details Date Type Department Care Team Description 07/20/2017 Patient Profile [facility] Yong Alcantara New Patient (discuss AFL [address] [place] [place] RFA) [address] [place] [address] Social History Tobacco Use Types Packs/Day Years [...]
--- OUTSIDE RECORDS SUMMARY | 2017-08-31 12:59 | XMS REPORT | Encounter Summary ---
Author Author [facility] Organization [facility] Address Unknown Phone Unavailable Care Team Providers Care Molding Line Assistant Name Role Phone PCP Unavailable Reason for Visit * Reason Comments Records Request Shiva Desai MD/ Via [facility] [place] (f ) [phone] Encounter Details Date Type Department Care Team Description 07/20/2017 Documentation [facility] Yong Alcantara Records Request (Shiva [address] Desai MD/ Via [address] [address] (f) [phone]) [phone] Social History Tobacco Use Types Packs/Day Years [...] cardiac information / testing. Please Fax to: [phone] Thank you, Yong Alcantara [facility] [employer] 1 in this encounter Plan of Treatment Not on fileas of this encounter Visit Diagnoses Not on filein this encounter
--- OUTSIDE RECORDS SUMMARY | 2017-08-31 12:59 | XMS REPORT | Encounter Summary ---
Author Author [facility] Organization [facility] Address Unknown Phone Unavailable Care Team Providers Care Core Baker Name Role Phone PCP Unavailable Reason for Visit * Reason Comments Records Request Terrell Man MD/ Via [employer] [phone] Encounter Details Date Type Department Care Team Description 07/20/2017 Documentation [facility] Yong Alcantara Records Request (Terrell [address] Man MD/ Via [facility] [address] [place] [address] ) [phone] Social History Tobacco Use Types Packs/Day Years [...] cardiac information / testing. Please Fax to: [phone] Thank you, Yong Alcantara [facility] 1 in this encounter Plan of Treatment Not on fileas of this encounter Visit Diagnoses Not on filein this encounter
[2017-08-31 13:13] VITALS: BP 143/87
--- NOTE | 2017-08-31 13:28 | Occupational Therapy Eval ---
OT Evaluation-General/PLF Medical Diagnosis Admission Date Aug 31, 2017 at 12:40 Medical Diagnosis: Subdural hematoma, Left humeral fx Onset Date: Aug 24, 2017 Therapy Diagnosis Therapy Diagnosis: Weakness Height/Weight Height (Feet): 6 Height (Inches): 2.00 Weight (Pounds): 208 Weight (Ounces): 0.0 Precautions Precautions/Isolations: Fall Prevention, Standard Precautions Weight Bear Status Weight Bearing Restriction: Non Weight Bearing Location Restriction: L UE Pt. is non weight bearing on left UE Referral Physician: Dr. 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 Pt. fell at home getting out of truck. Sustained subdural hematoma, left humeral fx, right fx in thumb, and then sustained I and D in left UE for compartment syndrome. Pt. states that he has had pain in left side from CVA for the last 11 years. Current History Spouse states that pt. is independent with all ADLs, except that she does occassionally help him dry off and she lays out his clothing for him. Does help him get to wheelchair out of shower, and to bedroom, to which he then can dress himself. States that recently however, he has been falling more frequently, and they were afraid that it was somehow related to his heart. Reviewed History: Yes Social History Home: Single Level Current Living Status: Spouse Entry Into Home: Ramp ADL-Prior Level of Function ADL PLOF Comments Pt. was driving, and able to bathe and dress himself. Spouse does state that he did not have much fine motor coordination in left UE due to the previous CVA 11 years ago. DME/Equipment: Bath Chair, Grab Bars, Shower Drive Self: Yes OT Current Status Subjective Pt. states that he does have pain in left UE, but does not state pain level. States though that he always has pain on left side from previous stroke, so this is "not much more." Appearance Pt. comes into room via wheelchair. Slightly agitated and eager to transfer on his own. Mental Status/Objective Patient Orientation: Unable to Assess Pt. is able to answer OT's questions, but does appear to be slightly agitated. Pt. at one point stands with his cane on his own. Is educated that he needs to wait for a therapist or staff member. Still proceeds to try and flower buncher or picker a phone on floor. When OT holds onto pt. during initial transfer, pt. asks that no one "holds onto me." Frequently moves during treatment as though he can't sit still. Current Glasses/Contacts: Yes Hand Dominance: Right Upper Extremity ROM Pt. is able to fully flex right shoulder and elbow. Is casted in right wrist due to thumb fx. Has full length cast on left UE from fingers past shoulder. Spouse states that he has limited ROM in that extremity anyways. Upper Extremity Coordination Pt. is able to wiggle fingers on right hand and utilize hand to pick things up. Pt. is NWB in left UE, and has limited function of left hand as well from previous CVA. Upper Extremity Strength Pt. demonstrates 5/5 strength in right shoulder and elbow. Unable to test in right wrist or left UE due to cast. ADL-Treatment Functional Banks Measure 0=Not Assessed/NA 4=Minimal Assistance 1=Total Assistance 5=Supervision or Setup 2=Maximal Assistance 6=Modified Banks 3=Moderate Assistance 7=Complete IndependenceIRFPAI Quality Coding Scale 6 Independent with activity with or without an assistive device 5 Patient requires set up or clean up by helper. Patient completes activity by themselves 4 Supervision or touching assist (CGA). [place] provide cues , steadying assist 3 The helper provides less than half the effort to complete the activity 2 The helper provides more than half the effort to complete the activity 1 Dependent. The helper does all the effort to complete an activity 7 Patient refused to complete or attempt activity 9 The patient did not perform the activity before the current illness or injury 88 Not attempted due to Medical conditions or safety concerns Transfers (B, C, W/C) (FIM): 4 (CGA for sit-stand and transfer to bed/chair for safety. Pt. came with single point cane, but states that he prefers to use a quad cane.) Other Treatments Unable to test pt. for all ADL skills at this time, as pt. is already dressed and has just transferred from [place]. Plans to complete these tasks tomorrow with therapist. Education OT Patient Education: Correct positioning, Exercise program, Modified ADL techniques, Progress toward Goal/Update tx plan, Purpose of tx/functional activities, Reviewed precautions, Rehab process, Safety issues, Transfer techniques, Use of adapted equipment Teaching Recipient: Patient, Family Teaching Methods: Demonstration, Discussion Response to Teaching: Verbalize Understanding, Return Demonstration OT Short Term Goals Short Term Goals Time Frame: Sep 07, 2017 Eating(FIM): 5 Grooming(FIM): 5 Bathing(FIM): 3 Upper Body Dressing(FIM): 4 Lower Body Dressing(FIM): 4 Toileting(FIM): 4 Transfers (B,C,W/C) (FIM): 5 Toilet/Commode Transfer(FIM): 5 Shower Transfer(FIM): 4 Additional Short Term Goals: 1-Demonstrate ADL Tasks, 2-Verbalize Understanding , 3-ImproveStrength/Amy 1=Demonstrate adherence to instructed precautions during ADL tasks. 2=Patient will verbalize/demonstrate understanding of assistive devices/ modifications for ADL. 3=Patient will improve strength/tolerance for activity to enable patient to perform ADL's. OT Hairspring Assembler Goals Hairspring Assembler Goals Time Frame: Sep 14, 2017 Eating (FIM): 6 Eating (QC): 6 Groomin Oral Hygiene (QC): 6 Bathing(FIM): 5 Shower/Bathe Self (QC): 4 Upper Body Dressing(FIM): 5 Upper Body Dressing (QC): 4 Lower Body Dressing(FIM): 5 Lower Body Dressing (QC): 4 On/Off Footwear (QC): 4 Toileting(FIM): 66 Toileting Hygiene (QC): 6 Transfers (B,C,W/C) (FIM): 6 Toilet/Commode Transfer(FIM): 6 Toilet/Commode Transfer (QC): 5 Shower Transfer(FIM): 5 Additional Goals: 1-Demonstrate ADL Tasks, 2-Verbalize Understanding, 3- ImproveStrength/Amy 1=Demonstrate adherence to instructed precautions during ADL tasks. 2=Patient will verbalize/demonstrate understanding of assistive devices/ modifications for ADL. 3=Patient will improve strength/tolerance for activity to enable patient to perform ADL's. OT Education/Plan Problem List/Assessment Assessment: Decreased Activ Tolerance, Decreased Safety Aware, Decreased UE Strength, Dependent Transfers, Impaired Cognition, Impaired Coordination, Impaired Funct Balance, Impaired I ADL's, Impaired Self-Care Skills, Restricted Funct UE ROM Discharge Recommendations Plan/Recommendations: Continue POC Therapy D/C Recommendations: 24 hr Supervision, Home w/ Family Support, Occupational Therapy Home Care Equpiment Recommendations-D/C: Hip Kit Barriers to Progress Cognition, agitation Target Placement Home with spouse. Patient/Family Goals To "leave as soon as possible." Treatment Plan/Plan of Care Treatment,Training & Education: Yes Patient would benefit from OT for education, treatment and training to promote independence in ADL's, mobility, safety and/or upper extremity function for ADL' s. Plan of Care: ADL Retraining, Caregiver Training, Functional Mobility, Group Exercise/Act as Ind, UE Funct Exercise/Act Treatment Duration: Sep 14, 2017 Frequency: At least 5 of 7 days/Wk (IRF) Estimated Hrs Per Day: 1.5 hours per day Agreement: Yes Rehab Potential: Good Time/GCodes Start Time: 12:25 Stop Time: 12:50 Total Time Billed (hr/min): 25 Billed Treatment Time 1, CANDY YANCEY OT Aug 31, 2017 13:28
--- NOTE | 2017-08-31 13:58 | Physical Therapy Evaluation ---
PT Evaluation-General Medical Diagnosis Admission Date Aug 31, 2017 at 12:40 Medical Diagnosis: Subdural hematoma, Left humeral fx Onset Date: Aug 24, 2017 Therapy Diagnosis Therapy Diagnosis: impaired mobility Height/Weight Height (Feet): 6 Height (Inches): 2.00 Weight (Pounds): 208 Weight (Ounces): 0.0 Precautions Precautions/Isolations: Fall Prevention, Standard Precautions Weight Bear Status Right Lower Extremity: Right Weight Bearing/Tolerated Left Lower Extremity: Left Weight Bearing/Tolerated Referral Physician: Dr. Pinzon Reason for Referral: Evaluation/Treatment Medical History Pertinent Medical History: CVA, DM, HTN Additional Medical History CVA ~11 yrs ago Current History s/p fall at home resulting in subdural hematoma and left humeral fracture Reviewed History: Yes Social History Home: Single Level Current Living Status: Spouse Entry Into Home: Ramp Prior/Core FIM Prior Level of Function Functional Allen Measure 0=Not Assessed/NA 4=Minimal Assistance 1=Total Assistance 5=Supervision or Setup 2=Maximal Assistance 6=Modified Allen 3=Moderate Assistance 7=Complete [place] Bed Mobility: 6 Transfers (B,C,W/C) (FIM): 6 Gait: 6 was driving prior to fall PT Evaluation-Current Subjective Patient agrees to PT. No c/o at this time. Pain Numeric Pain Scale: 5-Moderate Pain Location: Left Location Body Site: Shoulder Pain Description: Ache, Acute Pt/Family Goals return to home with spouse Objective Patient Orientation: Normal For Age Problem Solving: Fair ROM/Strength ROM Lower Extremities bilateral LE WNL Strenght Lower Extremities left knee flexion/extension 3-/5; hip flexion 3/5; DF/PF 3/5 right knee flexion/extension 5/5; hip flexion 5/5; DF/PF 5/5 Integumentary/Posture Integumentary refer to nursing notes Bowel Incontinence: No Bladder Incontinence: No Posture kyphotic Neuromuscular (Tone, Coordination, Reflexes) decreased tone and coordination due to CVA with left hemiparesis 11 yrs prior Sensory Vision: Wears Glasses Hearing: Functional Hand Dominance: Right Transfers Functional [place] Measure 0=Not Assessed/NA 4=Minimal Assistance 1=Total Assistance 5=Supervision or Setup 2=Maximal Assistance 6=Modified [place] 3=Moderate Assistance 7=Complete IndependenceIRFPAI Quality Coding Scale 6 Independent with activity with or without an assistive device 5 Patient requires set up or clean up by helper. Patient completes activity by themselves 4 Supervision or touching assist (CGA). [place] provide cues , steadying assist 3 The helper provides less than half the effort to complete the activity 2 The helper provides more than half the effort to complete the activity 1 Dependent. The helper does all the effort to complete an activity 7 Patient refused to complete or attempt activity 9 The patient did not perform the activity before the current illness or injury 88 Not attempted due to Medical conditions or safety concerns Transfers (B, C, W/C) (FIM): 4 Scootin Rollin Roll Left to Right (QC): 4 Supine to/from Sit: 4 Sit to/from Stand: 4 Sit to Lying (QC): 3 Lying to Sitting/Side of Bed(Q: 3 Sit to Stand (QC): 3 Chair/Otm-ty-Kdpet Xfer(QC): 3 close CGA for safety with gait belt in place Gait Does the Patient Walk?: Yes Mode of Locomotion: Walk Anticipated Mode of Locomotion: Walk Gait (FIM): 4 Distance (FIM): 3=150 ft Walk 10 feet (QC): 3 Walk 50 ft with 2 Turns(QC): 3 Walk 150 ft (QC): 3 Walking 10ft/uneven surface-QC: 3 Distance: 150' x 2 Gait Level of Assist: 4 Gait Persons Needed: 1 Gait Assistive Device: Cane Large Base Quad Comments/Gait Description step to gait sequence Stairs Stairs (FIM): 1 #of Steps: 1 Level of Assist: 4 1 Step (curb) (QC): 3 4 Steps (QC): 9 Assistive Device: Cane 12 Steps (QC): 9 step to sequence Balance Sitting Static: Normal Sitting Dynamic: Normal Standing Static: Fair Standing Dynamic: Fair Picking up an Object (QC): 3 Assessment/Needs 62 y.o. male, will benefit from skilled PT to address functional strength and mobility to improve current LOF and to safely return to home with spouse at maximum LOF. Patient appears to be impulsive and demonstrates diminished safety awareness, however, per spousal report, this is his PLOF. Rehab Potential: Good PT Short Term Goals Short Term Goals Transfers (B,C,W/C) (FIM): 5 PT Teacher Physically Impaired Goals Mcc Goals PT Mcc Goals Time Frame: Sep 24, 2017 Transfers (B,C,W/C) (FIM): 6 Sit to Lying (QC): 5 Lying-Sitting on Side/Bed(QC): 5 Sit to Stand (QC): 5 Rollin Roll Left to Right (QC): 5 Chair/Knu-lp-Cppqv Xfer(QC): 5 Car Transfer (QC): 5 Does the Patient Walk: Yes Gait (FIM): 6 Gait distance (FIM): 3=150 ft Distance: 300' Walk 10 feet (QC): 5 Walk 10ft-Uneven Surface(QC): 5 Walk 50ft with 2 Turns (QC): 5 Walk 150 ft (QC): 5 Gait Level of Assist: 6 Gait Assistive Device: Cane Large Base Quad, Cane Single Point Stairs (FIM): 1 # of Steps: 1 1 Step (curb) (QC): 3 4 Steps (QC): 9 12 Steps (QC): 9 Stairs Level Of Assist: 4 Picking up an Object (QC): 4 PT Plan Problem List Problem List: Activity Tolerance, Functional Strength, Safety, Balance, Gait Treatment/Plan Treatment Plan: Continue Plan of Care Treatment Plan: Bed Mobility, Education, Functional Activity Amy, Functional Strength, Group Therapy, Gait, Safety, Therapeutic Exercise, Transfers Treatment Duration: Sep 24, 2017 Frequency: At least 5 of 7 days/Wk (IRF) Estimated Hrs Per Day: 1.5 hours per day Patient and/or Family Agrees t: Yes Safety Risks/Education Patient Education: Safety Issues Teaching Recipient: Patient, Significant Other Teaching Methods: Demonstration, Discussion Response to Teaching: Verbalize Understanding, Return Demonstration Discharge Recommendations Therapy D/C Recommendations: Home w/ Family Support Time/GCodes Time In: 1250 Time Out: 1305 Total Billed Treatment Time: 15 Total Billed [facility]ONZALEZ PT Aug 31, 2017 13:58
--- NOTE | 2017-08-31 14:25 | Consultation-Cardiology ---
HPI-Cardiology Cardiology Consultation Date of Consultation 08/31/17 Date of Admission Time Seen by Provider: 14:18 Indication: atrial fibrillation, head trauma HPI 62 years old gentleman with paroxysmal atrial fibrillation, multiple CVA in the past, has been maintained on Xarelto, while he was getting out of his car he tripped and fell, hit his head and broke his arms, had epidural hematoma with questionable subdural hematoma. He was treated and transferred for acute rehabilitation. I was called for management, I received a report that he kept having multiple short runs of atrial fibrillation while he stayed in the hospital. Xarelto was discontinued and he was started on aspirin and Plavix. Denied any chest pain, having some slurred speech which has been chronic. No palpitation. Home Medications & Allergies Allergies: Coded Allergies: ranitidine (Verified Allergy, Unknown, 08/31/17) Home Medication List Reviewed: Yes [id number] Hx Patient Social History Marital Status: Employed/Student: retired Alcohol Use: Denies Use Smoking Status: Former Smoker Recent Foreign Travel: No Recent Infectious Disease Expo: No Recent Hopitalizations: No Immunizations Up To Date Tetanus Booster (TDap): More than 5yrs Date of Influenza Vaccine: Aug 31, 2016 Past Medical History past medical history as discussed below Family Medical History Family History: 19 FATHER Completed stroke Hypertension Myocardial infarction Respiratory disorder 19 MOTHER Diabetes mellitus G8 BROTHER Diabetes mellitus G8 SISTER Alzheimer's disease Dementia G8 SISTER Arthritis Relation not specified for: Hypercholesterolemia Constitutional: see HPI, malaise, weakness EENTM: see HPI, no symptoms reported Respiratory: no symptoms reported, see HPI Cardiovascular: no symptoms reported, see HPI Gastrointestinal: see HPI Genitourinary: no symptoms reported, see HPI Musculoskeletal: see HPI, back pain, joint pain, muscle pain, muscle weakness Skin: see HPI Psychiatric/Neurological: No Symptoms Reported, See HPI, Numbness, Pre- Existing Deficit Physical Exam Vital Signs Vital Sign - Last 12Hours 08/31/17 13:13 Temp 99.1 Pulse 103 Resp 18 B/P (MAP) 143/87 Pulse Ox 96 O2 Delivery Room Air Capillary Refill : General Appearance: No Apparent Distress, WD/WN Eyes: Bilateral Eye Normal Inspection, Bilateral Eye PERRL, Bilateral Eye EOMI HEENT: PERRL/EOMI, TMs Normal, Normal ENT Inspection, Pharynx Normal Neck: Full Range of Motion, Normal Inspection, Non Tender, Supple, Carotid Bruit Respiratory: Chest Non Tender, Lungs Clear, Normal Breath Sounds, No Accessory Muscle Use, No Respiratory Distress Cardiovascular: Regular Rate, Rhythm, No Edema, No JVD, Normal Peripheral Pulses, Systolic Murmur, Gallop/S3 Gastrointestinal: Normal Bowel Sounds, No Organomegaly, No Pulsatile Mass, Non Tender, Soft Back: Normal Inspection, No CVA Tenderness Extremity: Normal Capillary Refill, Normal Inspection, Other (past both arms) Neurologic/Psychiatric: Alert, Oriented x3, Normal Mood/Affect, Abnormal Gait, Motor Weakness Skin: Normal Color, Warm/Dry Lymphatic: No Adenopathy A/P-Cardiology Admission Diagnosis Head trauma Paroxysmal atrial fibrillation History of CVA Hypertension Hyperlipidemia Assessment/Plan Status post fall and head trauma with epidural hematoma, questionable subdural hematoma. Xarelto was discontinued and was started on aspirin and Plavix. Patient is still at high risk of bleeding with aspirin and Plavix. I recommend reinstitution of NOAC and close monitoring. Status post bilateral fractures, currently have cast on the upper extremities. Receiving physical therapy. Paroxysmal atrial fibrillation,unknown duration, started on Xarelto on May 19, 2017. Was hospitalized for A. fib with RVR, placed on Cardizem drip. Then he went back to atrial fibrillation, he has been on Rythmol since May. Underwent DEIRDRE with successful cardioversion on June 30, 2017. Still having episodes of tachycardia, appeared to be in atrial flutter at this time with a heart rate 109 , questionable ablation done last month. I'll place him on telemetry and monitor Cardiac catheterization was done in July 2017 showing mild coronary artery disease nonobstructive disease. [id number] score of 4, yearly risk of stroke without oral anticoagulation is 4 percent. Patient was on Xarelto and it was discontinued after the fall and head trauma History of CVA in 2006, TIA in 2005, was maintained on Aggrenox, it was changed to Xarelto after discovering the atrial fibrillation. Continue to monitor Hypertension, part home medication monitor blood pressure Hyperlipidemia, continue to monitor lipids Diabetes mellitus, followed and managed by primary care physician Hyperthyroidism, continue to monitor lipids, last TSH was 0. I will reevaluate TSH Clinical Quality Measures DVT/VTE Risk/Contraindication: Risk Factor Score Per Nursin RFS Level Per Nursing on Admit: 2=Moderate DAMIEN DUVALL MD Aug 31, 2017 14:25
[2017-08-31] MEDS: inSUlin ASPART (NovoLOG) 1 UNIT/0.01 ML (CHARGE PER UNIT) SC SCH ×2 (14:37→19:02)
[2017-08-31] MEDS: DANTROLENE 25 MG PO SCH ×3 (14:38→20:32)
--- NOTE | 2017-08-31 14:38 | Physical Therapy Daily Note ---
PT Daily Note-Current Subjective Patient reports to PT with casts on bilateral arms. Patient states he has multiple fractures in his left arm and humerus as well as a right thumb fracture. Patient reports he is feeling okay today and is ready to do "whatever " for therapy. Pain Numeric Pain Scale: 5-Moderate Pain Location: Left Location Body Site: Elbow Comment: Patient reports some pain throughout his whole arm including the humerus. Appearance Patient appears healthy upon the start of PT and with activities. Mental Status Patient Orientation: [place], Normal For Age Transfers Functional [place] Measure 0=Not Assessed/NA 4=Minimal Assistance 1=Total Assistance 5=Supervision or Setup 2=Maximal Assistance 6=Modified [place] 3=Moderate Assistance 7=Complete IndependenceIRFPAI Quality Coding Scale 6 Independent with activity with or without an assistive device 5 Patient requires set up or clean up by helper. Patient completes activity by themselves 4 Supervision or touching assist (CGA). [place] provide cues , steadying assist 3 The helper provides less than half the effort to complete the activity 2 The helper provides more than half the effort to complete the activity 1 Dependent. The helper does all the effort to complete an activity 7 Patient refused to complete or attempt activity 9 The patient did not perform the activity before the current illness or injury 88 Not attempted due to Medical conditions or safety concerns Transfers (B, C, W/C) (FIM): 5 Scootin Sit to/from Stand: 5 Sit to Stand (QC): 4 Patient performs sit to stand transfers with PT supervision, using right UE as assistance for rising. Weight Bearing Right Lower Extremity: Right Weight Bearing/Tolerated Left Lower Extremity: Left Weight Bearing/Tolerated NWB left UE Gait Training Does the Patient Walk?: Yes Gait (FIM): 5 Distance (FIM): 3=150 ft Distance: 150' Walk 10 feet (QC): 4 Walk 50 ft with 2 Turns(QC): 4 Walk 150 ft (QC): 4 Gait Level of Assist: 5 Gait Persons Needed: 1 Gait Assistive Device: Cane Large Base Quad Patient ambulates with ER left leg and quad cane in his right hand. Patient is educated on how to walk with the cane more properly to assist a weaker left LE. Exercises Standing: Sit to Stand, Weight shifts (weight shifts onto left leg to promote more weight bearing through this extremity) Standing Reps: 10 NuStep Minutes: 12 (NuStep used to promote weight bearing through both legs as well as improve aerobic capacity and functional gait strength.) NuStep Workload: 7 Assessment Current Status: Good Progress PT will continue progressing exercises as patient tolerates. Patient is a good candidate for LE strength and aerobic capacity training due to his previous stroke and imperfect gait as his bilateral UEs heal. PT Short Term Goals Short Term Goals Transfers (B,C,W/C) (FIM): 5 PT Usp Goals Machine Room Engineer Goals PT Usp Goals Time Frame: Sep 24, 2017 Transfers (B,C,W/C) (FIM): 6 Sit to Lying (QC): 5 Lying-Sitting on Side/Bed(QC): 5 Sit to Stand (QC): 5 Rollin Roll Left to Right (QC): 5 Chair/Ewg-oe-Bxkzo Xfer(QC): 5 Car Transfer (QC): 5 Does the Patient Walk: Yes Gait (FIM): 6 Gait distance (FIM): 3=150 ft Distance: 300' Walk 10 feet (QC): 5 Walk 10ft-Uneven Surface(QC): 5 Walk 50ft with 2 Turns (QC): 5 Walk 150 ft (QC): 5 Gait Level of Assist: 6 Gait Assistive Device: Cane Large Base Quad, Cane Single Point Stairs (FIM): 1 # of Steps: 1 1 Step (curb) (QC): 3 4 Steps (QC): 9 12 Steps (QC): 9 Stairs Level Of Assist: 4 Picking up an Object (QC): 4 PT Plan Treatment/Plan Treatment Plan: Continue Plan of Care Treatment Plan: Bed Mobility, Education, Functional Activity Amy, Functional Strength, Group Therapy, Gait, Safety, Therapeutic Exercise, Transfers Treatment Duration: Sep 24, 2017 Frequency: At least 5 of 7 days/Wk (IRF) Estimated Hrs Per Day: 1.5 hours per day Patient and/or Family Agrees t: Yes Time/GCodes Time In: 205 Time Out: 230 Total Billed Treatment Time: 25 Total Billed Treatment 1 visit EX 17 min GT 8 min DAMIAN GONZALEZ PT Aug 31, 2017 14:38
--- NOTE | 2017-08-31 15:20 | ST Cognitive Linguistic Eval ---
[facility] 08/31/17 1520: Speech Evaluation-General Medical Diagnosis Subdural hematoma, Left humeral fx Onset Date: Aug 24, 2017 Therapy Diagnosis Therapy Diagnosis: Cognitive Linguistic Skills Grossly WNL Precautions Precautions/Isolations: Fall Prevention, Standard Precautions Referral Referring Physician: Dr. Dahl Cognitive Evaluation Medical History Pertinent Medical History: CVA, DM, HTN Reviewed History: Yes Social History Current Living Status: Spouse Speech PLF-Current Status Prior Level of Function The patient experienced a stroke ten years prior. Per patient, he had difficulties swallowing immediately following his stroke, however, his swallowing difficulties have resolved. The patient denied prior challenges with speech, language, or cognition. Subjective The patient was recently admitted to [facility] following a humerus fracture. The patient greeted the clinician appropriately and was agreeable to participation in the cognitive evaluation. Language Eval: Auditory Comprehends Simple Yes/No Ques: Functional Indent/Objects Multiple [place]: Functional Ident/Pics in [place]: Functional Follows 1-Step Commands: Functional Follows Complex Directions: Functional Follows General Conversations: Functional Language Eval: Verbal Language Completes Spontaneous Greeting: Functional Produces Auto, Serial Info: Functional Imitates Simple Words/Phrases: Functional Word Finding: Functional Requests Basic Needs: Functional States Basic Personal Info: Functional Expresses Complex Ideas: Functional Objective Cognitive Domain Attention: Mild Memory: WNL Problem Solving: Functional Objective Oral Motor/Speech Production The patient displays mildly imprecise articulation, however, remains 100% intelligible in known and unknown contexts. Impression The patient displays cognitive linguistic functions grossly WNL and appropriate for completion of ADL's. Communication/Social Cognition Comprehension: 5 Expression: 5 Social Interaction: 5 Problem Solvin Memory: 5 Speech Patient Assess Expression of Ideas/Wants: Expression (4) Understanding [place] Content: Understands (4) Brief Interview-Mental Status: Yes Repetition of Three Words: Three (3) Temporal Orientation: Year: Correct (3) Temporal Orientation: Month: Accurate within 5 days(2) Temporal Orientation: Day: Correct (1) Recall : Wear to say "Sock": Yes, no cue required (2) Recall : Color: Yes, no cue required (2) Recall : Bed: Yes,after cueing (1) Speech-Plan Treatment Plan Speech Therapy Treatment Plan: Discontinue ST Evaluation, only. Frequency: Modified Program (IRF) (Evaluation, only.) Estimated Hrs Per Day: Other (Evaluation, only.) Rehab Potential: Good Safety Risks/Education Teaching Recipient: Patient Teaching Methods: Discussion Response to Teaching: Verbalize Understanding Time Speech Therapy Time In: 14:30 Speech Therapy Time Out: 14:45 Total Billed Time: 15 Billed Treatment Time 1, SPSNDCOMAZAM CLIFFORD DO 09/01/17 0718: Speech Evaluation-General Therapy Diagnosis Therapy Diagnosis: to address [place] Aug 31, 2017 15:20 AZAM DAHL DO Sep 01, 2017 07:18
--- NOTE | 2017-08-31 15:35 | Therapy Group Daily Note ---
Therapy Daily Group Note Exercises LE Seated Exercise, UE Exercise Other/Notes Pt ambulated to PT/OT Group via Lg Base Quad Cane at [facility]. Pt participated in Group which consisted of Introductions (Name, Where Are You From & What states have you traveled to), UE & LE Seated EX with modifications made for UE affected areas as well as Group Discussion with questions regarding [place] History and Geography. Pt actively participated in both EX and Discussion and gave answers as he knew them. Pt walked back to room using QC at [facility] to rest at end of Group. Start Time: 13:00 Stop Time: 14:05 Total Billed Treatment Time: 65 Total Billed Treatment 1, GRP (65m) VASQUEZ CABELLO OBSTETRICS TEACHER Aug 31, 2017 15:35
[2017-08-31] MEDS: HYDROcodone/APAP 5 MG/325 MG (LORTAB) TAB PO PRN ×2 (15:52→20:36)
--- NOTE | 2017-08-31 17:23 | Occupational Ther Daily Note ---
OT Current Status-Daily Note Subjective Pt seen in room, up in recliner, agreeable to OT. No pain mentioned but pt stated he has difficulty getting comfortable with L UE. Appearance Alert, cooperative Mental Status/Objective Functional [place] Measure 0=Not Assessed/NA 4=Minimal Assistance 1=Total Assistance 5=Supervision or Setup 2=Maximal Assistance 6=Modified [place] 3=Moderate Assistance 7=Complete [place] ADL-Treatment Pt walked to and from bathroom with CGA, quad cane to get on/off toilet. AT end of tx, pt was left up in recliner, all needs met. Functional [place] Measure 0=Not Assessed/NA 4=Minimal Assistance 1=Total Assistance 5=Supervision or Setup 2=Maximal Assistance 6=Modified [place] 3=Moderate Assistance 7=Complete IndependenceIRFPAI Quality Coding Scale 6 Independent with activity with or without an assistive device 5 Patient requires set up or clean up by helper. Patient completes activity by themselves 4 Supervision or touching assist (CGA). [place] provide cues , steadying assist 3 The helper provides less than half the effort to complete the activity 2 The helper provides more than half the effort to complete the activity 1 Dependent. The helper does all the effort to complete an activity 7 Patient refused to complete or attempt activity 9 The patient did not perform the activity before the current illness or injury 88 Not attempted due to Medical conditions or safety concerns Eating (FIM): 5 (Pt needed help to open butter, jello. Difficulty scooping jello because dish was sliding so provided Dycem non-skid mat which held container in place. Pt reported that he uses non-skid shelf paper at home for this same purpose. Able to get a drink from glass with lid and straw. Able to stab food on place with fork. He reported he uses L UE at home as an assist but has difficulty moving L UE at this time. ) Eating (QC): 5 (setup) Transfers (B, C, W/C) (FIM): 4 (Pt needed CGA to get up/down from recliner. He is able to push up with R hand only and this hand is in a cast. UE slips a little on plastic arms of recliner. Dycem placed over arm rest and pt was able to push up without cast slipping) Toilet/Commode Transfer (FIM): 4 (Pt walked to bathroom with CGA, quad cane, taking small and careful steps. He was able to get on/off BSC over toilet with CGA, pushing up from arms of BSC with R forearm. His room has grab bars on L side of toilet and he is nonweight bearing with L UE. BSC also needed to make seat taller to allow him to get up with less pushing with R UE. Pt chose not to toilet at this time) Education OT Patient Education: Modified ADL techniques, Purpose of tx/functional activities Teaching Recipient: Patient Teaching Methods: Demonstration, Discussion Response to Teaching: Verbalize Understanding, Return Demonstration OT Short Term Goals Short Term Goals Time Frame: Sep 07, 2017 Eating(FIM): 5 Grooming(FIM): 5 Bathing(FIM): 3 Upper Body Dressing(FIM): 4 Lower Body Dressing(FIM): 4 Toileting(FIM): 4 Transfers (B,C,W/C) (FIM): 5 Toilet/Commode Transfer(FIM): 5 Shower Transfer(FIM): 4 Additional Short Term Goals: 1-Demonstrate ADL Tasks, 2-Verbalize Understanding , 3-ImproveStrength/Amy 1=Demonstrate adherence to instructed precautions during ADL tasks. 2=Patient will verbalize/demonstrate understanding of assistive devices/ modifications for ADL. 3=Patient will improve strength/tolerance for activity to enable patient to perform ADL's. OT Detention Goals Detention Goals Time Frame: Sep 14, 2017 Eating (FIM): 6 Eating (QC): 6 Groomin Oral Hygiene (QC): 6 Bathing(FIM): 5 Shower/Bathe Self (QC): 4 Upper Body Dressing(FIM): 5 Upper Body Dressing (QC): 4 Lower Body Dressing(FIM): 5 Lower Body Dressing (QC): 4 On/Off Footwear (QC): 4 Toileting(FIM): 66 Toileting Hygiene (QC): 6 Transfers (B,C,W/C) (FIM): 6 Toilet/Commode Transfer(FIM): 6 Toilet/Commode Transfer (QC): 5 Shower Transfer(FIM): 5 Additional Goals: 1-Demonstrate ADL Tasks, 2-Verbalize Understanding, 3- ImproveStrength/Amy 1=Demonstrate adherence to instructed precautions during ADL tasks. 2=Patient will verbalize/demonstrate understanding of assistive devices/ modifications for ADL. 3=Patient will improve strength/tolerance for activity to enable patient to perform ADL's. OT Education/Plan Discharge Recommendations Plan/Recommendations: Continue POC Treatment Plan/Plan of Care Patient would benefit from OT for education, treatment and training to promote independence in ADL's, mobility, safety and/or upper extremity function for ADL' s. Plan of Care: ADL Retraining, Caregiver Training, Functional Mobility, Group Exercise/Act as Ind, UE Funct Exercise/Act Treatment Duration: Sep 14, 2017 Frequency: At least 5 of 7 days/Wk (IRF) Estimated Hrs Per Day: 1.5 hours per day Agreement: Yes Rehab Potential: Good Time/GCodes Start Time: 16:00 Stop Time: 16:35 Total Time Billed (hr/min): 35 Billed Treatment Time visit, 35 minutes ADL MEHUL DAVIDSON OT Aug 31, 2017 17:23
[2017-08-31] MEDS: OMEGA 3 (FISH OIL) 1000 MG CAP PO SCH (17:48)
[2017-08-31 19:06] VITALS: BP 148/90
[2017-08-31] MEDS: VENlafaxine 75 MG (EFFEXOR) TAB PO SCH (20:32)
[2017-08-31] MEDS: PANTOPRAZOLE 40 MG (PROTONIX) TAB PO SCH (20:33)
[2017-08-31] MEDS: ATORVASTATIN 40 MG (LIPITOR) TABLET PO SCH (20:33)
[2017-08-31] MEDS: RAMIPRIL 5 MG (ALTACE) CAP PO SCH (20:33)
[2017-08-31] MEDS: METOCLOPRAMIDE 5 MG (REGLAN) TAB PO SCH (20:33)
[2017-08-31] MEDS: meTOprolol TARTRATE 25 MG (LOPRESSOR) TABLET PO SCH (20:33)
[2017-08-31] MEDS: AMITRIPTYLINE 25 MG (ELAVIL) TAB PO SCH (20:33)
[2017-09-01 02:15] VITALS: BP 134/63
[2017-09-01] MEDS ORDERED: meTOprolol TARTRATE 50 MG (LOPRESSOR) TAB PO ONE (02:15)
[2017-09-01] MEDS: HYDROcodone/APAP 5 MG/325 MG (LORTAB) TAB PO PRN ×4 (02:24→22:36)
[2017-09-01 05:30] LABS: MEAN PLATELET VOLUME 9.3 FL (7.4-10.4); RED BLOOD COUNT 3.83 10^6/uL (4.35-5.85); RED CELL DISTRIBUTION WIDTH 14.5 % (10.0-14.5); WHITE BLOOD COUNT 7.7 10^3/uL (4.3-11.0)
[2017-09-01 05:37] VITALS: BP 132/80
[2017-09-01 05:54] LABS: ALANINE AMINOTRANSFERASE 11 U/L (0-55); ALBUMIN 3.6 GM/DL (3.2-4.5); ANION GAP 12 MMOL/L (5-14); ASPARTATE AMINO TRANSFERASE 18 U/L (5-34); BILIRUBIN,TOTAL 0.9 MG/DL (0.1-1.0); BLOOD UREA NITROGEN 23 MG/DL (7-18); BUN/CREATININE RATIO 27; CALCIUM 8.9 MG/DL (8.5-10.1); CARBON DIOXIDE 24 MMOL/L (21-32); CHLORIDE 96 MMOL/L (98-107); CHOLESTEROL 112 MG/DL (< 200); CREATININE SERUM 0.85 MG/DL (0.60-1.30); DIRECT LDL 67 MG/DL (1-129); GFR ESTIMATED > 60; GLUCOSE 231 MG/DL (70-105); SODIUM 132 MMOL/L (135-145); TOTAL PROTEIN 6.6 GM/DL (6.4-8.2); TRIGLYCERIDES 113 MG/DL (<150); VLDL CHOLESTEROL 23 MG/DL (5-40)
[2017-09-01 06:16] LABS: THYROID STIMULATING HORMONE 0.74 UIU/ML (0.35-4.94)
[2017-09-01] MEDS: OMEGA 3 (FISH OIL) 1000 MG CAP PO SCH ×2 (06:33→16:31)
[2017-09-01] MEDS: METOCLOPRAMIDE 5 MG (REGLAN) TAB PO SCH ×4 (06:33→20:07)
--- NOTE | 2017-09-01 07:04 | HISTORY AND PHYSICAL ---
DATE OF SERVICE: CHIEF COMPLAINT: Difficulty with walking. HISTORY OF PRESENT ILLNESS: The patient is a 62-year-old male, who fell at home in his driveway, who sustained a left humerus fracture with compartment syndrome. The patient underwent emergent fasciotomy at [facility] and then transferred to [facility]. CT of the brain suggested a bleed and patient wss transferred to an OSH for eval and treatment by Neurosurgery. Upon evaluation of the CT scan, an epidural hematoma without any midline shift or calvarium fracture was observed. Neurosurgery recommended a repeat CT scan of the brain for follow-up and conservative management. The patient had been on Xarelto due to atrial fibrillation and history of prior stroke with left hemiparesis. He reportedly recently had an ablation within the last month. He had been modified independent with extra time with a cane in his home. Prior to this, his assisted him at home as needed for adls. They live in [place], [place]. He is retired from the [employer] business. His stroke was 10 years ago. He is referred to inpatient rehabilitation unit for a comprehensive program of inpatient rehabilitation while taking taking into consideration his closed head injury with epidural hematoma in left frontotemporal region is complicated by his prior stroke as well as compartment syndrome of the left arm associated with a left displaced comminuted fracture of shaft of the humerus.Also noted is a fracture of the rt thumb treated with a cast Currently, he requires assistance for his ADLs and mobility skills. He is mod assist for transfers, bed mobility and gait with a quad cane. He is dependent for dressing, min assist for eating and grooming. PAST MEDICAL HISTORY: Right CVA with left hemiparesis, atrial fibrillation, hypertension, type 2 diabetes mellitus, and chronic left maxillary sinusitis. ALLERGIES: ZANTAC. FAMILY HISTORY: Noncontributory. SOCIAL HISTORY: Essentially as per above. He has a ramp to enter his home and has a wheelchair and shower chair. REVIEW OF SYSTEMS: A 10-point review of systems is significant for irregular heartbeat, fall, left arm pain, prior stroke. MEDICATIONS: Hydrochlorothiazide 25 mg p.o. daily, Tapazole 10 mg p.o. daily, Levemir insulin 50 units subcutaneous daily and NovoLog 16 units subcutaneous q.a.m., Lipitor 40 mg p.o. each day at bedtime, tramadol 50 mg p.o. b.i.d., Protonix 40 mg p.o. b.i.d., amitriptyline 25 mg p.o. each day at bedtime, Effexor 75 mg p.o. b.i.d., Altace 10 mg p.o. b.i.d., Lopressor 25 mg p.o. b.i.d., fish oil 1000 mg p.o. b.i.d., dantrolene 25 mg p.o. q.i.d., NovoLog 18 units subcutaneous 12 p.m. and 1700 hours, Lortab 5 one to two tablets p.o. q.4 hours p.r.n. moderate pain. PHYSICAL EXAMINATION: GENERAL APPEARANCE: Significant for a pleasant male appearing his stated age, alert and oriented, in no acute distress. VITAL SIGNS: Pulse is 103, temperature 99.1, respirations 18, blood pressure 143/87, O2 saturation 96% on room air. HEENT: Vision, speech and hearing are grossly intact. No oral lesions are noted. NECK: Supple without mass. HEART: Regular rhythm. LUNGS: Clear. ABDOMEN: Soft and nontender. Bowel sounds are present. EXTREMITIES: No lower limb edema. No calf tenderness. The left arm is in a cast.Rt Thumb in a cast. MUSCULOSKELETAL: The patient has functional strength and active range of motion on the right otherwise. On the left, he has mild left hemiparesis. Left arm is difficult to assess. He does have some anti-gravity strength, but it is in a cast. NEUROLOGIC: Sensation is grossly intact to touch. Cognition appears grossly intact. He has a mild left hemiparesis as per above. IMPRESSION: 1. Ambulatory dysfunction status post fall resulting in closed head injury with epidural hematoma treated medically. 2. Left humerus fracture associated with compartment syndrome status post fasciotomy and the patient in cast. 3. Fracture of the right thumb, in cast. 4. Diabetes mellitus, controlled with medication. 5. Chronic left maxillary sinus. 6. Late effects of right CVA with left hemiparesis. 7. Atrial fibrillation, controlled with medication. 8. Hypertension, controlled with medication. PLAN: 1. The patient will have comprehensive program of inpatient rehabilitation with goal of maximizing level of functional independence prior to discharge home with his spouse. The patient will have PT and OT 90 minutes per day each discipline, 5 days a week for 2 weeks for gait, strengthening, conditioning, balance, ADLs, any patient, family caregiver training necessary, any adaptive equipment and training as necessary. Speech therapy has assessed the patient and patient found to be functional and has signed off. Rehabilitation nursing to assist with bowel, bladder, skin care, medication administration, cast care, pain management. Plant Puller to assist with discharge planning and community reentry. Dr. Jackson is listed as his PCP. We will see if hospitalist service will follow this patient for any medical concerns. Accu-Checks q.i.d. before meals and at bedtime. Adjust insulin as appropriate. Therapy with cardiac and fall precautions. Cardiology consult has been ordered. Check labs in a.m. GLUCOMETER READINGS: This afternoon, 229. ESTIMATED LENGTH OF STAY: 2 weeks. PROGNOSIS: Rehab prognosis appears good for return to prior level of function with assistance from home health care and spouse as needed. DISCHARGE DIET: Carbohydrate consistent. CODE STATUS: FULL CODE. Job ID: [id number] DocumentID: [id number] Dictated Date: 08/31/2017 18:17:55 Strap Stitcher Date: 09/01/2017 00:30:23 Dictated By: TIFFANI CHEATHAM MD MTDD
[2017-09-01] MEDS: METHIMAZOLE TABLET 5 MG TABLET PO SCH (08:23)
[2017-09-01] MEDS: DANTROLENE 25 MG PO SCH ×4 (08:23→20:07)
[2017-09-01] MEDS: PANTOPRAZOLE 40 MG (PROTONIX) TAB PO SCH ×2 (08:23→20:07)
[2017-09-01] MEDS: VENlafaxine 75 MG (EFFEXOR) TAB PO SCH ×2 (08:23→20:07)
[2017-09-01] MEDS: inSUlin DETERMIR 1 UNIT/0.01 ML (LEVEMIR) CHARGE PER UNIT SQ SCH (08:25)
[2017-09-01] MEDS: RAMIPRIL 5 MG (ALTACE) CAP PO SCH ×2 (08:25→20:07)
[2017-09-01] MEDS: HYDROCHLOROTHIAZIDE 25 MG (HCTZ) TAB PO SCH (08:26)
[2017-09-01] MEDS: inSUlin ASPART (NovoLOG) 1 UNIT/0.01 ML (CHARGE PER UNIT) SC SCH ×3 (08:26→16:31)
[2017-09-01] MEDS: meTOprolol TARTRATE 25 MG (LOPRESSOR) TABLET PO SCH ×2 (08:26→20:07)
[2017-09-01] MEDS: APIXABAN 5 MG (ELIQUIS) TABLET PO SCH ×2 (08:26→20:07)
--- NOTE | 2017-09-01 08:32 | Cardiology Progress Note ---
Subjective Date Seen by Provider: Sep 01, 2017 Time Seen by Provider: 08:27 Subjective/Events-last exam Patient is receiving physical therapy. No new complaints. Denies any CP or palpitations. Review of Systems General: No Night Sweats, No Fatigue, No Malaise HEENT: No Head Aches, No Visual Changes, No Dysphasia, No Sore Throat Pulmonary: No Dyspnea, No Cough, No Pleuritic Chest Pain Cardiovascular: No: Chest Pain, Palpitations, Paroxysmal Noc. Dyspnea, Edema Gastrointestinal: No: Nausea, Vomiting, Diarrhea, Constipation Genitourinary: No Dysuria, No Frequency Musculoskeletal: arm pain, No: neck pain, back pain Neurological: Weakness, No: Numbness, Change in speech, Confusion Objective-Cardiology Exam Last Set of Vital Signs Vital Signs 09/01/17 05:37 Temp 97.7 Pulse 89 Resp 18 B/P (MAP) 132/80 Pulse Ox 96 O2 Delivery Room Air Capillary Refill : Less Than 3 Seconds I&O Intake and Output 09/02/17 00:00 Intake Total 200 ml Output Total 100 ml Balance 100 ml Intake Oral 200 ml Output Urine Total 100 ml # Voids 2 General: Alert, Oriented X3, Cooperative HEENT: Atraumatic, PERRLA Neck: Supple, No JVD, No Thyromegaly Lungs: Clear to Auscultation, Normal Air Movement Heart: Regular Rate, Normal S1, Normal S2, No Murmurs Abdomen: Normal Bowel Sounds, Soft, No Tenderness, No Hepatosplenomegaly, No Masses Extremities: No Clubbing, No Cyanosis, Normal Pulses, Other (casts to bilat arms) Skin: No Rashes, No Significant Lesion Neuro: Normal Gait, Cranial Nerves 3-12 NL Psych/Mental Status: Mental Status NL, Mood NL Results Lab Laboratory Tests 09/01/17 05:15 A/P-Cardiology Admission Diagnosis Head trauma Paroxysmal atrial fibrillation History of CVA Hypertension Hyperlipidemia Assessment/Plan Status post fall and head trauma with epidural hematoma, questionable subdural hematoma. Xarelto was discontinued and was started on aspirin and Plavix. Patient is still at high risk of bleeding with aspirin and Plavix. ASA and Plavix were discontinued, currently on Eliquis, tolerating it well, continue to monitor. Status post bilateral fractures, currently have cast on the upper extremities. Receiving physical therapy. Paroxysmal atrial fibrillation,unknown duration, started on Xarelto on May 19, 2017. Was hospitalized for A. fib with RVR, placed on Cardizem drip. Then he went back to atrial fibrillation, he has been on Rythmol since May. Underwent DEIRDRE with successful cardioversion on June 30, 2017. Had episode of afib with RVR early this morning, given IV lopressor. Still borderline tachycardic, possibly aflutter. I will obtain 12 lead ECG, increase Lopressor to 50mg BID. Unable to place on antiarrhythmic at this time as patient had been off OAC prior to starting Eliquis. Cardiac catheterization was done in July 2017 showing mild coronary artery disease nonobstructive disease. [id number] score of 4, yearly risk of stroke without oral anticoagulation is 4 percent. Patient was on Xarelto and it was discontinued after the fall and head trauma, currently on Eliquis. History of CVA in 2006, TIA in 2005, was maintained on Aggrenox, it was changed to Xarelto after discovering the atrial fibrillation. Currently on Eliquis. Continue to monitor Hypertension, controlled. Continue to monitor. Hyperlipidemia, continue to monitor lipids Diabetes mellitus, followed and managed by primary care physician Hyperthyroidism, TSH was 0.74, continue to monitor. Clinical Quality Measures DVT/VTE Risk/Contraindication: Risk Factor Score Per Nursin RFS Level Per Nursing on Admit: 2=Moderate DIAZ BRAXTON Sep 01, 2017 08:32
[2017-09-01] MEDS ORDERED: CLOPIDOGREL 75 MG (PLAVIX) TABLET PO SCH (09:00)
[2017-09-01] MEDS ORDERED: ASPIRIN 81 MG CHEW (CHILDREN'S ASA) PO SCH (09:00)
--- NOTE | 2017-09-01 09:15 | Physical Therapy Daily Note ---
PT Daily Note-Current Subjective Patient in recliner pre tx, agrees to PT but is eating breakfast and doesn't want to stop for therapy. He has pain 9/10 in arms, nurse notified. Appearance Patient wanted to go to the bathroom and brush his teeth and groom so patient left in chair in front of sink with nurse call, nurse notified too. Mental Status Patient Orientation: Person, Place, Situation Transfers Functional [place] Measure 0=Not Assessed/NA 4=Minimal Assistance 1=Total Assistance 5=Supervision or Setup 2=Maximal Assistance 6=Modified [place] 3=Moderate Assistance 7=Complete IndependenceIRFPAI Quality Coding Scale 6 Independent with activity with or without an assistive device 5 Patient requires set up or clean up by helper. Patient completes activity by themselves 4 Supervision or touching assist (CGA). [place] provide cues , steadying assist 3 The helper provides less than half the effort to complete the activity 2 The helper provides more than half the effort to complete the activity 1 Dependent. The helper does all the effort to complete an activity 7 Patient refused to complete or attempt activity 9 The patient did not perform the activity before the current illness or injury 88 Not attempted due to Medical conditions or safety concerns Transfers (B, C, W/C) (FIM): 4 Sit to/from Stand: 4 min assist for sit to stand from low surfaces Weight Bearing Right Lower Extremity: Right Weight Bearing/Tolerated Left Lower Extremity: Left Weight Bearing/Tolerated NWB left UE Gait Training Gait (FIM): 4 Distance: 150'x2 Gait Level of Assist: 4 Gait Persons Needed: 1 Gait Assistive Device: Cane Large Base Quad CGA, no knee flexion on the left side, left hip externally rotated, slow uncoordinated but no LOB Exercises Seated Therapy Exercises: Ankle pumps, Long arc quads, Hip flexion Seated Reps: 20 hip abd/add with pillow and RTB x20 Treatments transfers, ambulation, functional strengthening Assessment Current Status: Fair Progress Patient is very slow to participate in therapy, has a lot of small tasks he always has to do before PT Short Term Goals Short Term Goals Transfers (B,C,W/C) (FIM): 5 PT Corporate Bond Trader Goals Corporate Bond Trader Goals PT Longterm Goals Time Frame: Sep 24, 2017 Transfers (B,C,W/C) (FIM): 6 Sit to Lying (QC): 5 Lying-Sitting on Side/Bed(QC): 5 Sit to Stand (QC): 5 Rollin Roll Left to Right (QC): 5 Chair/Jkn-os-Kjdhp Xfer(QC): 5 Car Transfer (QC): 5 Does the Patient Walk: Yes Gait (FIM): 6 Gait distance (FIM): 3=150 ft Distance: 300' Walk 10 feet (QC): 5 Walk 10ft-Uneven Surface(QC): 5 Walk 50ft with 2 Turns (QC): 5 Walk 150 ft (QC): 5 Gait Level of Assist: 6 Gait Assistive Device: Cane Large Base Quad, Cane Single Point Stairs (FIM): 1 # of Steps: 1 1 Step (curb) (QC): 3 4 Steps (QC): 9 12 Steps (QC): 9 Stairs Level Of Assist: 4 Picking up an Object (QC): 4 PT Plan Problem List Problem List: Activity Tolerance, Functional Strength, Safety, Balance, Gait, Transfer, Bed Mobility, ROM Treatment/Plan Treatment Plan: Continue Plan of Care Treatment Plan: Bed Mobility, Education, Functional Activity Amy, Functional Strength, Group Therapy, Gait, Safety, Therapeutic Exercise, Transfers Treatment Duration: Sep 24, 2017 Frequency: At least 5 of 7 days/Wk (IRF) Estimated Hrs Per Day: 1.5 hours per day Patient and/or Family Agrees t: Yes Safety Risks/Education Patient Education: Gait Training, Transfer Techniques, Correct Positioning, Disease Process, Safety Issues Teaching Recipient: Patient Teaching Methods: Demonstration, Discussion Response to Teaching: Reinforcement Needed Time/GCodes Time In: 800 Time Out: 845 Total Billed Treatment Time: 45 Total Billed Treatment 1 visit GT 15' EX 15' FA 15' HALEY ESCOBEDO PT Sep 01, 2017 09:15
--- NOTE | 2017-09-01 09:42 | Cardiology Progress Note ---
Subjective Date Seen by Provider: Sep 01, 2017 Time Seen by Provider: 09:40 Subjective/Events-last exam patient is sitting in a chair, feeling better, receiving therapy. Denied any chest pain, denied any palpitation. Had multiple episodes of paroxysmal atrial fibrillation with rapid ventricular response overnight. Currently in sinus rhythm Review of Systems General: No Chills, No Night Sweats, No Fatigue, No Malaise, No Appetite, No Other HEENT: No Head Aches, No Visual Changes, No Eye Pain, No Ear Pain, No Dysphasia , No Sinus Congestion, No Post Nasal Drip, No Sore Throat, No Other Pulmonary: No Dyspnea, No Cough, No Pleuritic Chest Pain, No Other Cardiovascular: No: Chest Pain, Palpitations, Orthopnea, Paroxysmal Noc. Dyspnea, Edema, Lt Headedness, Other Objective-Cardiology Exam Last Set of Vital Signs Vital Signs 09/01/17 05:37 Temp 97.7 Pulse 89 Resp 18 B/P (MAP) 132/80 Pulse Ox 96 O2 Delivery Room Air Capillary Refill : Less Than 3 Seconds I&O Intake and Output 09/02/17 00:00 Intake Total 200 ml Output Total 100 ml Balance 100 ml Intake Oral 200 ml Output Urine Total 100 ml # Voids 2 General: Alert, Oriented X3, Cooperative HEENT: Atraumatic, PERRLA Neck: Supple, No JVD, No Thyromegaly Lungs: Clear to Auscultation, Normal Air Movement Heart: Regular Rate, Normal S1, Normal S2, No Murmurs Abdomen: Normal Bowel Sounds, Soft, No Tenderness, No Hepatosplenomegaly, No Masses Extremities: No Clubbing, No Cyanosis, Normal Pulses, Other (casts to bilat arms) Skin: No Rashes, No Significant Lesion Neuro: Normal Gait, Cranial Nerves 3-12 NL Psych/Mental Status: Mental Status NL, Mood NL Results Lab Laboratory Tests 09/01/17 05:15 A/P-Cardiology Admission Diagnosis Head trauma Paroxysmal atrial fibrillation History of CVA Hypertension Hyperlipidemia Assessment/Plan Status post fall and head trauma with epidural hematoma, Reported subdural hematoma 9 mm without midline shift. Xarelto was discontinued and was started on aspirin and Plavix. Patient is still at high risk of bleeding with aspirin and Plavix. ASA and Plavix were discontinued, and I started him on Eliquis due to the fact that there is same risk of bleeding with aspirin and Plavix but better risk reduction for stroke with his paroxysmal atrial fibrillation. Status post bilateral fractures, currently have cast on the upper extremities. Receiving physical therapy. Paroxysmal atrial fibrillation,unknown duration, started on Xarelto on May 19, 2017. Was hospitalized for A. fib with RVR, placed on Cardizem drip. Then he went back to atrial fibrillation, he was on Rythmol since May. Underwent DEIRDRE with successful cardioversion on June 30, 2017. Had episode of afib with RVR early this morning, given IV lopressor. Still borderline tachycardic, active sinus rhythm. I will obtain 12 lead ECG, increase Lopressor to 50mg BID. due to the fact that he is in sinus rhythm I will restart his Rythmol Cardiac catheterization was done in July 2017 showing mild coronary artery disease nonobstructive disease. [id number] score of 4, yearly risk of stroke without oral anticoagulation is 4 percent. Patient was on Xarelto and it was discontinued after the fall and head trauma, currently on Eliquis. History of CVA in 2006, TIA in 2005, was maintained on Aggrenox, it was changed to Xarelto after discovering the atrial fibrillation. Currently on Eliquis. Continue to monitor Hypertension, controlled. Continue to monitor. Hyperlipidemia, continue to monitor lipids Diabetes mellitus, followed and managed by primary care physician Hyperthyroidism, TSH was 0.74, continue to monitor. Clinical Quality Measures DVT/VTE Risk/Contraindication: Risk Factor Score Per Nursin RFS Level Per Nursing on Admit: 2=Moderate DAMIEN DUVALL MD Sep 01, 2017 09:42
[2017-09-01] MEDS: PROPAFENONE 150 MG (RYTHMOL) TABLET PO SCH ×3 (10:19→22:11)
--- NOTE | 2017-09-01 10:52 | PM&R Post Admission Assessment ---
Post Admission Physician Asses The preadmission screen agrees with the post admission assessment that the patient is a good candidate for inpatient rehabilitation. The patient will have a comprehensive program of inpatient rehabilitation with a goal of maximizing level of functional independence prior to discharge home with spouse and HHC. The patient will have PT/OT ninety minutes per day, each discipline, five days a week for 2 weeks for gait, strengthening, conditioning, balance, ADLs, any patient/family/caregiver training as necessary. Speech therapy to do cognitive assessment and treat as indicated. Rehabilitation nursing to assist with bowel, bladder, skin, wound care, medication administration, pain management. [place] to assist with discharge planning, community reentry. SCD's for DVT prophylaxis. He appears to be well motivated to participate in three hours of therapy a day. He should be able to tolerate three hours of therapy a day from a medical and surgical standpoint . He should benefit from the three hours of therapy a day. He has a reasonable discharge plan, reasonable discharge rehabilitation goals and a supportive family. He has various comorbidities that need to be closely monitored with medications and treatments adjusted on a daily basis as needed. 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 Risks for this patient include: 1. Fall 2. Fracture 3. DVT 4. Pulmonary embolism 5. Wound infection 6. Skin breakdown 7. Contractures 8. Poorly controlled pain 9. Urinary retention 10. UTI 11. Respiratory infection 12. Aspiration 13. Poorly controlled DM 14. Poorly controlled A FIB 15. Poorly controlled HTN Estimated Length of Stay: 18 days Prognosis: Rehab prognosis appears good for goal of discharge home with spouse and HHC modified independent to supervision for ADLs and mobility skills. TIFFANI CHEATHAM MD Sep 01, 2017 10:51
--- NOTE | 2017-09-01 11:00 | PM & R (SOAP) Progress Note ---
Subjective Time Seen by Provider: 08:20 Subjective/Events-last exam Patient was seen in his room this AM Patient min assist for transfers Casts on rt thumb and left arm OK.Appreciate Cardiology note Review of Systems Musculoskeletal: arm pain Neurological: Weakness Objective Exam Last Set of Vital Signs Vital Signs Date Time Temp Pulse Resp B/P (MAP) Pulse Ox O2 Delivery O2 Flow Rate FiO2 09/01/17 07:00 70 09/01/17 05:37 97.7 18 132/80 96 Room Air Capillary Refill : Less Than 3 Seconds I&O Intake and Output 09/02/17 00:00 Intake Total 200 ml Output Total 100 ml Balance 100 ml Intake Oral 200 ml Output Urine Total 100 ml # Voids 2 General: Alert, Oriented X3, Cooperative HEENT: Atraumatic, PERRLA Neck: Supple, No JVD, No Thyromegaly Lungs: Clear to Auscultation, Normal Air Movement Heart: Regular Rate, Normal S1, Normal S2, No Murmurs Abdomen: Normal Bowel Sounds, Soft, No Tenderness, No Hepatosplenomegaly, No Masses Extremities: No Clubbing, No Cyanosis, Normal Pulses, Other (casts to bilat arms) Skin: No Rashes, No Significant Lesion Neuro: Normal Gait, Cranial Nerves 3-12 NL Psych/Mental Status: Mental Status NL, Mood NL Results Lab Laboratory Tests 08/31/17 16:10: Glucometer 229H 08/31/17 20:08: Glucometer 142H 09/01/17 05:11: Glucometer 241H 09/01/17 05:15: White Blood Count 7.7, Red Blood Count 3.83L, Hemoglobin 10.5L, Hematocrit 34L, Mean Corpuscular Volume 88, Mean Corpuscular Hemoglobin 27, Mean Corpuscular Hemoglobin Concent 31L, Red Cell Distribution Width 14.5, Platelet Count 274, Mean Platelet Volume 9.3, Sodium Level 132L, Potassium Level 4.0, Chloride Level 96L, Carbon Dioxide Level 24, Anion Gap 12, Blood Urea Nitrogen 23H, Creatinine 0.85, Estimat Glomerular Filtration Rate > 60, BUN/Creatinine Ratio 27, Glucose Level 231H, Calcium Level 8.9, Total Bilirubin 0.9, Aspartate Amino Transf (AST/SGOT) 18, Alanine Aminotransferase (ALT/SGPT) 11, Alkaline Phosphatase 125, Total Protein 6.6, Albumin 3.6, Triglycerides Level 113, Cholesterol Level 112, LDL Cholesterol Direct 67, VLDL Cholesterol 23, HDL Cholesterol 25L, Thyroid Stimulating Hormone (TSH) 0.74 Assessment/Plan Assessment TBI s/p fall improving FRx left humerus in cast Frx rt thumb in cast A FIB controlled with meds HTN controlled 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
--- NOTE | 2017-09-01 11:56 | Consultation-Hospitalist ---
HPI History of Present Illness: HPI/Chief Complaint CC: Epidural hematoma HPI: This is a 62 [address] Jackson that presents to IRU following epidural hematoma after falling in driveway with left humerus fracture with compartment syndrome and had emergent fasciotomy in [facility] ED prior to transfer. He had been on Xarelto for AF, hx of stroke with left HP. Currently no fever, vitals stable , and cardiology has been consulted. 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 Aspirin and Plavix were DC Patient Interview: Pt states he is doing good, and states he has not been so good before Pt confirms Dr. Jackson as PCP I informed the pt that Dr. Desai will be seeing him. Pt confirms Dr. Desai as regular belt brander. Pt also confirms seeing Dr. Rojas and Dr. Wade Pt states his pain is at an 8-9 now. Pt confirms taking pain meds and that they help with his pain. Pt states he had a BM yesterday and two the day before. Pt states his BMs tend to be irregular. Physical exam stable. Pt states his follow up for his arm is early next week. Pt requested my help with adjusting pillows for his arm and head. Pt asked if he needed O2 and I assured him that he will not at this time Scribed by Phuong Nix under the direct supervision of Dr. Salas. Source: patient Exam Limitations: no limitations Date Seen 09/01/17 Attending Physician Blaze Pinzon MD PCP Ashu Jackson MD Referring Physician Date of Admission Aug 31, 2017 at 12:40 Home Medications & Allergies Home Medications Reviewed patient Home Medication Reconciliation Form Allergies Allergies Coded Allergies ranitidine (Verified Allergy, Unknown, 08/31/17) Past Vrdlimb-Makidp-Vidahk Hx Patient Social History Marrital Status: Employed/Student: retired Alcohol Use: Denies Use Smoking Status: Former Smoker Former Smoker, Quit: May 15, 2000 Recent Foreign Travel: No Contact w/other who traveled: No Recent Hopitalizations: No Recent Infectious Disease Expo: No Immunizations Up To Date Tetanus Booster (TDap): More than 5yrs Pediatric: No Date of Influenza Vaccine: Aug 31, 2016 Seasonal Allergies Seasonal Allergies: No Surgeries Yes (R TESTICAL REMOVED; r elbow; ablation) Orthopedic Respiratory No Cardiovascular Yes (Afib; ablation) Atrial Fibrillation, Coronary Artery Disease, Hypertension Neurological Yes Stroke Reproductive System Hx Reproductive Disorders: Yes (PROSTATE CANCER- AROUND ) Sexually Transmitted Disease: No HIV/AIDS: No Genitourinary Yes (Prostate CA) Gastrointestinal Yes Gastroesophageal Reflux Musculoskeletal Yes (Left sided weakness from CVA) Foot Drop Endocrine History of Endocrine Disorders: Yes Endocrine Disorders: Diabetes, Insulin dep HEENT History of HEENT Disorders: Yes HEENT Disorders: Cataract Loss of Vision: Denies Hearing Impairment: Denies Cancer Yes Prostate Type of Treatment: Surgical Intervention Psychosocial History of Psychiatric Problem: Yes Behavioral Health Disorders: Depression Integumentary History of Skin or Integumenta: No Blood Transfusions History of Blood Disorders: No Family Medical History Family Hx: Alzheimer's disease G8 SISTER Arthritis G8 SISTER Completed stroke 19 FATHER Dementia G8 SISTER Diabetes mellitus 19 MOTHER G8 BROTHER Hypercholesterolemia Hypertension 19 FATHER Myocardial infarction 19 FATHER Respiratory disorder 19 FATHER Review of Systems Constitutional: see HPI EENTM: no symptoms reported Respiratory: no symptoms reported Cardiovascular: no symptoms reported Gastrointestinal: no symptoms reported Genitourinary: no symptoms reported Musculoskeletal: joint pain (left arm and right thumb) Psychiatric/Neurological: No Symptoms Reported All Other Systems Reviewed Negative Unless Noted: Yes Physical Exam Physical Exam Vital Signs Vital Sign - Last 12Hours 08/31/17 13:13 Temp 99.1 Pulse 103 Resp 18 B/P (MAP) 143/87 Pulse Ox 96 O2 Delivery Room Air Capillary Refill : Less Than 3 Seconds General Appearance: No Apparent Distress, WD/WN, Chronically ill Eyes: Bilateral Eye Normal Inspection, Bilateral Eye PERRL HEENT: PERRL/EOMI, Normal ENT Inspection, Pharynx Normal Neck: Full Range of Motion, Normal Inspection, Non Tender, Supple, Carotid Bruit Respiratory: Chest Non Tender, Lungs Clear, No Accessory Muscle Use, No Respiratory Distress, Decreased Breath Sounds Cardiovascular: No Edema, No Gallop, No JVD, No Murmur, Normal Peripheral Pulses, Irregularly Irregular Gastrointestinal: Normal Bowel Sounds, No Organomegaly, No Pulsatile Mass, Non Tender, Soft Back: Normal Inspection, No CVA Tenderness, No Vertebral Tenderness Extremity: Normal Capillary Refill, Normal Inspection, Normal Range of Motion, Non Tender, No Calf Tenderness, No Pedal Edema Neurologic/Psychiatric: Alert, Oriented x3, No Motor/Sensory Deficits, Normal Mood/Affect Skin: Normal Color, Warm/Dry Lymphatic: No Adenopathy Results Results/Procedures Lab Laboratory Tests 09/01/17 05:15 Assessment/Plan Admission Diagnosis Assessment: Status post epidural hematoma conservatively managed while on Xarelto residual from fall Left humerus fracture with acute compartment syndrome requiring fasciotomy in ER before transfer Atrial fibrillation with bigeminy on telemetry Prior stroke with left-sided hemiparesis Assessment and Plan Plan: Confer with Cardiology Monitor pt PT/OT Pain mngt Clinical Quality Measures DVT/VTE Risk/Contraindication: Risk Factor Score Per Nursin RFS Level Per Nursing on Admit: 2=Moderate JASIEL SALAS DO Sep 01, 2017 11:56
--- NOTE | 2017-09-01 12:27 | Occupational Ther Daily Note ---
OT Current Status-Daily Note Subjective No pain reported. Appearance Pt. up in chair. Agrees to shower. Mental Status/Objective Patient Orientation: Person Functional [place] Measure 0=Not Assessed/NA 4=Minimal Assistance 1=Total Assistance 5=Supervision or Setup 2=Maximal Assistance 6=Modified [place] 3=Moderate Assistance 7=Complete [place] Pt. has bilateral UE casting that is covered with plastic to keep dry during shower. ADL-Treatment Functional [place] Measure 0=Not Assessed/NA 4=Minimal Assistance 1=Total Assistance 5=Supervision or Setup 2=Maximal Assistance 6=Modified [place] 3=Moderate Assistance 7=Complete IndependenceIRFPAI Quality Coding Scale 6 Independent with activity with or without an assistive device 5 Patient requires set up or clean up by helper. Patient completes activity by themselves 4 Supervision or touching assist (CGA). [place] provide cues , steadying assist 3 The helper provides less than half the effort to complete the activity 2 The helper provides more than half the effort to complete the activity 1 Dependent. The helper does all the effort to complete an activity 7 Patient refused to complete or attempt activity 9 The patient did not perform the activity before the current illness or injury 88 Not attempted due to Medical conditions or safety concerns Eating (FIM): 5 Eating (QC): 5 Grooming (FIM): 5 Oral Hygiene (QC): 4 Bathing (FIM): 4 (Pt. requires constant CGA in stance in shower, and min assist to wash rear niraj area.) Shower/Bathe Self (QC): 4 Upper Body (FIM): 3 (Mod assist to doff shirt and don shirt.) Upper Body Dressing (QC): 3 Lower Body Dressing (FIM): 3 (Pt. can don socks after OT starts it. Pt. can don shoes with increased time needed. Pt. attempts multiple times to don shorts and underwear, but can only get one foot sufficiently threaded. Pt. unsteady in shower in stance and so OT pulls pants up.) Lower Body Dressing (QC): 3 On/Off Footwear (QC): 3 Transfers (B, C, W/C) (FIM): 4 Shower Transfer(FIM): 4 Education OT Patient Education: Correct positioning, Modified ADL techniques, Progress toward Goal/Update tx plan, Purpose of tx/functional activities, Reviewed precautions, Rehab process, Transfer techniques, Use of adapted equipment Teaching Recipient: Patient Teaching Methods: Demonstration, Discussion Response to Teaching: Verbalize Understanding, Return Demonstration OT Short Term Goals Short Term Goals Time Frame: Sep 07, 2017 Eating(FIM): 5 Grooming(FIM): 5 Bathing(FIM): 3 Upper Body Dressing(FIM): 4 Lower Body Dressing(FIM): 4 Toileting(FIM): 4 Transfers (B,C,W/C) (FIM): 5 Toilet/Commode Transfer(FIM): 5 Shower Transfer(FIM): 4 Additional Short Term Goals: 1-Demonstrate ADL Tasks, 2-Verbalize Understanding , 3-ImproveStrength/Amy 1=Demonstrate adherence to instructed precautions during ADL tasks. 2=Patient will verbalize/demonstrate understanding of assistive devices/ modifications for ADL. 3=Patient will improve strength/tolerance for activity to enable patient to perform ADL's. OT Cafeteria Counter Attendant Goals Cafeteria Counter Attendant Goals Time Frame: Sep 14, 2017 Eating (FIM): 6 Eating (QC): 6 Groomin Oral Hygiene (QC): 6 Bathing(FIM): 5 Shower/Bathe Self (QC): 4 Upper Body Dressing(FIM): 5 Upper Body Dressing (QC): 4 Lower Body Dressing(FIM): 5 Lower Body Dressing (QC): 4 On/Off Footwear (QC): 4 Toileting(FIM): 66 Toileting Hygiene (QC): 6 Transfers (B,C,W/C) (FIM): 6 Toilet/Commode Transfer(FIM): 6 Toilet/Commode Transfer (QC): 5 Shower Transfer(FIM): 5 Additional Goals: 1-Demonstrate ADL Tasks, 2-Verbalize Understanding, 3- ImproveStrength/Amy 1=Demonstrate adherence to instructed precautions during ADL tasks. 2=Patient will verbalize/demonstrate understanding of assistive devices/ modifications for ADL. 3=Patient will improve strength/tolerance for activity to enable patient to perform ADL's. OT Education/Plan Problem List/Assessment Assessment: Decreased Activ Tolerance, Decreased Safety Aware, Decreased UE Strength, Dependent Transfers, Impaired Coordination, Impaired Funct Balance, Impaired I ADL's, Impaired Self-Care Skills, Restricted Funct UE ROM Discharge Recommendations Plan/Recommendations: Continue POC Therapy D/C Recommendations: 24 hr Supervision, Home w/ Family Support, Occupational Therapy Home Care Barriers to Progress Pt. only has use of one hand. Target Placement Home with spouse. Treatment Plan/Plan of Care Treatment,Training & Education: Yes Patient would benefit from OT for education, treatment and training to promote independence in ADL's, mobility, safety and/or upper extremity function for ADL' s. Plan of Care: ADL Retraining, Caregiver Training, Functional Mobility, Group Exercise/Act as Ind, UE Funct Exercise/Act Treatment Duration: Sep 14, 2017 Frequency: At least 5 of 7 days/Wk (IRF) Estimated Hrs Per Day: 1.5 hours per day Agreement: Yes Rehab Potential: Good Time/GCodes Start Time: 09:30 Stop Time: 10:45 Total Time Billed (hr/min): 75 Billed Treatment Time 1, ADL x 5 CANDY PICKERING OT Sep 01, 2017 12:27
--- NOTE | 2017-09-01 15:22 | Therapy Group Daily Note ---
Therapy Daily Group Note Patient Education Topic Other List Below (memory strategies) Exercises LE Seated Exercise, UE Exercise Other/Notes Pt was an active participant in OT/PT group. He introduced himself and was able to tell his name, where he lived and something he's never done but he'd like to. He was able to do seated UE and LE exercises, modifying them as needed for limitations in bilat UEs. He participated in education/discussion on memory strategies and was able to tell the group about strategies that he uses. He also participated in a memory activity and could identify strategies used during activity. He walked back to his room min assist, quad cane, and was left up in recliner with chair alarm on, all needs met. Start Time: 13:00 Stop Time: 14:20 Total Billed Treatment Time: 80 Total Billed Treatment visit, 80 minutes group MEHUL DAVIDSON OT Sep 01, 2017 15:22
[2017-09-01] MEDS: meTOprolol 5 MG/5 ML (LOPRESSOR) VIAL IV NR ×3 (17:35→17:49)
[2017-09-01 18:00] VITALS: BP 110/66
[2017-09-01] MEDS: AMITRIPTYLINE 25 MG (ELAVIL) TAB PO SCH (20:07)
[2017-09-01] MEDS: ATORVASTATIN 40 MG (LIPITOR) TABLET PO SCH (20:07)
[2017-09-02] MEDS: HYDROcodone/APAP 5 MG/325 MG (LORTAB) TAB PO PRN ×4 (02:51→18:41)
[2017-09-02 05:10] VITALS: BP 116/66
[2017-09-02] MEDS: PROPAFENONE 150 MG (RYTHMOL) TABLET PO SCH ×3 (05:14→21:11)
[2017-09-02] MEDS: METOCLOPRAMIDE 5 MG (REGLAN) TAB PO SCH ×4 (05:14→21:11)
[2017-09-02] MEDS: OMEGA 3 (FISH OIL) 1000 MG CAP PO SCH ×2 (06:41→17:02)
[2017-09-02] MEDS: inSUlin ASPART (NovoLOG) 1 UNIT/0.01 ML (CHARGE PER UNIT) SC SCH ×3 (06:42→17:02)
--- NOTE | 2017-09-02 08:03 | Cardiology Progress Note ---
Subjective Date Seen by Provider: Sep 02, 2017 Time Seen by Provider: 08:01 Subjective/Events-last exam Patient is sitting up in bed. No new complaint. Denies any CP or palpitations. Review of Systems General: No Night Sweats, No Fatigue, No Malaise HEENT: No Visual Changes, No Dysphasia Pulmonary: No Dyspnea, No Cough Cardiovascular: No: Chest Pain, Palpitations, Paroxysmal Noc. Dyspnea, Edema Gastrointestinal: No: Nausea, Vomiting, Diarrhea, Constipation Genitourinary: No Dysuria, No Frequency Musculoskeletal: No: neck pain, back pain Neurological: No: Weakness, Numbness, Change in speech, Confusion Objective-Cardiology Exam Last Set of Vital Signs Vital Signs 09/02/17 05:10 Temp 98.8 Pulse 86 Resp 18 B/P (MAP) 116/66 Pulse Ox 96 O2 Delivery Room Air Capillary Refill : Less Than 3 Seconds I&O Intake and Output 09/03/17 00:00 Intake Total 300 ml Output Total 0 ml Balance 300 ml Intake Oral 300 ml Output Urine Total 0 ml General: Alert, Oriented X3, Cooperative HEENT: Atraumatic, PERRLA Neck: Supple, No JVD, No Thyromegaly Lungs: Clear to Auscultation, Normal Air Movement Heart: Regular Rate, Normal S1, Normal S2, No Murmurs Abdomen: Normal Bowel Sounds, Soft, No Tenderness, No Hepatosplenomegaly, No Masses Extremities: No Clubbing, No Cyanosis, Normal Pulses, Other (casts to bilat arms) Skin: No Rashes, No Significant Lesion Neuro: Normal Gait, Cranial Nerves 3-12 NL Psych/Mental Status: Mental Status NL, Mood NL A/P-Cardiology Admission Diagnosis Head trauma Paroxysmal atrial fibrillation History of CVA Hypertension Hyperlipidemia Assessment/Plan Status post fall and head trauma with epidural hematoma, Reported subdural hematoma 9 mm without midline shift. Xarelto was discontinued and was started on aspirin and Plavix. Patient is still at high risk of bleeding with aspirin and Plavix. ASA and Plavix were discontinued, and I started him on Eliquis due to the fact that there is same risk of bleeding with aspirin and Plavix but better risk reduction for stroke with his paroxysmal atrial fibrillation. Status post bilateral fractures, currently have cast on the upper extremities. Receiving physical therapy. Paroxysmal atrial fibrillation,unknown duration, started on Xarelto on May 19, 2017. Was hospitalized for A. fib with RVR, placed on Cardizem drip. Then he went back to atrial fibrillation, he was on Rythmol since May. Underwent DEIRDRE with successful cardioversion on June 30, 2017. Currently in SR. Continue current medications and continue to monitor. Cardiac catheterization was done in July 2017 showing mild coronary artery disease nonobstructive disease. [id number] score of 4, yearly risk of stroke without oral anticoagulation is 4 percent. Patient was on Xarelto and it was discontinued after the fall and head trauma, currently on Eliquis. History of CVA in 2006, TIA in 2005, was maintained on Aggrenox, it was changed to Xarelto after discovering the atrial fibrillation. Currently on Eliquis. Continue to monitor Hypertension, controlled. Continue to monitor. Hyperlipidemia, continue to monitor lipids Diabetes mellitus, followed and managed by primary care physician Hyperthyroidism, TSH was 0.74, continue to monitor. Clinical Quality Measures DVT/VTE Risk/Contraindication: Risk Factor Score Per Nursin RFS Level Per Nursing on Admit: 2=Moderate DIAZ BRAXTON Sep 02, 2017 08:03
--- NOTE | 2017-09-02 08:19 | Cardiology Progress Note ---
Subjective Date Seen by Provider: Sep 02, 2017 Time Seen by Provider: 08:17 Subjective/Events-last exam Patient is in bed, feeling better, had a transient episode of a fib last night Review of Systems General: No Chills, No Night Sweats, No Fatigue, No Malaise, No Appetite, No Other HEENT: No Head Aches, No Visual Changes, No Eye Pain, No Ear Pain, No Dysphasia , No Sinus Congestion, No Post Nasal Drip, No Sore Throat, No Other Pulmonary: No Dyspnea, No Cough, No Pleuritic Chest Pain, No Other Cardiovascular: No: Chest Pain, Palpitations, Orthopnea, Paroxysmal Noc. Dyspnea, Edema, Lt Headedness, Other Objective-Cardiology Exam Last Set of Vital Signs Vital Signs 09/02/17 05:10 Temp 98.8 Pulse 86 Resp 18 B/P (MAP) 116/66 Pulse Ox 96 O2 Delivery Room Air Capillary Refill : Less Than 3 Seconds I&O Intake and Output 09/03/17 00:00 Intake Total 300 ml Output Total 0 ml Balance 300 ml Intake Oral 300 ml Output Urine Total 0 ml General: Alert, Oriented X3, Cooperative HEENT: Atraumatic, PERRLA Neck: Supple, No JVD, No Thyromegaly Lungs: Clear to Auscultation, Normal Air Movement Heart: Regular Rate, Normal S1, Normal S2, No Murmurs Abdomen: Normal Bowel Sounds, Soft, No Tenderness, No Hepatosplenomegaly, No Masses Extremities: No Clubbing, No Cyanosis, Normal Pulses, Other (casts to bilat arms) Skin: No Rashes, No Significant Lesion Neuro: Normal Gait, Cranial Nerves 3-12 NL Psych/Mental Status: Mental Status NL, Mood NL Results Lab Laboratory Tests Test 09/01/17 11:05 09/01/17 17:12 09/01/17 21:09 09/02/17 04:51 Range/Units Glucometer 339 H 116 H 131 H 110 70-110 MG/DL A/P-Cardiology Admission Diagnosis Head trauma Paroxysmal atrial fibrillation History of CVA Hypertension Hyperlipidemia Assessment/Plan Status post fall and head trauma with epidural hematoma, Reported subdural hematoma 9 mm without midline shift. Xarelto was discontinued and was started on aspirin and Plavix. Patient is still at high risk of bleeding with aspirin and Plavix. ASA and Plavix were discontinued and I started him on Eliquis due to the fact that there is same risk of bleeding with aspirin and Plavix but better risk reduction for stroke with his paroxysmal atrial fibrillation. Status post bilateral fractures, currently have cast on the upper extremities. Receiving physical therapy. Paroxysmal atrial fibrillation,unknown duration, started on Xarelto on May 19, 2017. Was hospitalized for A. fib with RVR, placed on Cardizem drip. Then he went back to atrial fibrillation, he was on Rythmol since May. Underwent DEIRDRE with successful cardioversion on June 30, 2017. Currently in SR. I restarted Rythmol, continue to monitor telemetry Cardiac catheterization was done in July 2017 showing mild coronary artery disease nonobstructive disease. [id number] score of 4, yearly risk of stroke without oral anticoagulation is 4 percent. Patient was on Xarelto and it was discontinued after the fall and head trauma, currently on Eliquis. History of CVA in 2006, TIA in 2005, was maintained on Aggrenox, it was changed to Xarelto after discovering the atrial fibrillation. Currently on Eliquis. Continue to monitor Hypertension, controlled. Continue to monitor. Hyperlipidemia, continue to monitor lipids Diabetes mellitus, followed and managed by primary care physician Hyperthyroidism, TSH was 0.74, continue to monitor. Clinical Quality Measures DVT/VTE Risk/Contraindication: Risk Factor Score Per Nursin RFS Level Per Nursing on Admit: 2=Moderate DAMIEN DUVALL MD Sep 02, 2017 08:19
[2017-09-02] MEDS: meTOprolol TARTRATE 25 MG (LOPRESSOR) TABLET PO SCH ×2 (09:10→21:09)
[2017-09-02] MEDS: DANTROLENE 25 MG PO SCH ×4 (09:11→21:10)
[2017-09-02] MEDS: VENlafaxine 75 MG (EFFEXOR) TAB PO SCH ×2 (09:11→21:14)
[2017-09-02] MEDS: RAMIPRIL 5 MG (ALTACE) CAP PO SCH ×2 (09:11→21:14)
[2017-09-02] MEDS: METHIMAZOLE TABLET 5 MG TABLET PO SCH (09:11)
[2017-09-02] MEDS: HYDROCHLOROTHIAZIDE 25 MG (HCTZ) TAB PO SCH (09:11)
[2017-09-02] MEDS: APIXABAN 5 MG (ELIQUIS) TABLET PO SCH ×2 (09:11→21:13)
[2017-09-02] MEDS: PANTOPRAZOLE 40 MG (PROTONIX) TAB PO SCH ×2 (09:11→21:10)
[2017-09-02] MEDS: inSUlin DETERMIR 1 UNIT/0.01 ML (LEVEMIR) CHARGE PER UNIT SQ SCH (09:12)
--- NOTE | 2017-09-02 09:32 | Physical Therapy Daily Note ---
PT Daily Note-Current Subjective Patient in bed pre tx, agrees to PT, needs to get dressed, has pain of 10/10 in left arm, nurse notified of pain. Appearance Patient sitting EOB with nursing to take his medicine. Mental Status Patient Orientation: Normal For Age Transfers Functional [place] Measure 0=Not Assessed/NA 4=Minimal Assistance 1=Total Assistance 5=Supervision or Setup 2=Maximal Assistance 6=Modified [place] 3=Moderate Assistance 7=Complete IndependenceIRFPAI Quality Coding Scale 6 Independent with activity with or without an assistive device 5 Patient requires set up or clean up by helper. Patient completes activity by themselves 4 Supervision or touching assist (CGA). [place] provide cues , steadying assist 3 The helper provides less than half the effort to complete the activity 2 The helper provides more than half the effort to complete the activity 1 Dependent. The helper does all the effort to complete an activity 7 Patient refused to complete or attempt activity 9 The patient did not perform the activity before the current illness or injury 88 Not attempted due to Medical conditions or safety concerns Transfers (B, C, W/C) (FIM): 4 Scootin Rollin Supine to/from Sit: 4 Sit to/from Stand: 4 bed mobility min assist, sit to stand CGA Weight Bearing Right Lower Extremity: Right Weight Bearing/Tolerated Left Lower Extremity: Left Weight Bearing/Tolerated NWB left UE Gait Training Gait (FIM): 4 Distance: 150'x2 Gait Level of Assist: 4 Gait Persons Needed: 1 Gait Assistive Device: Cane Large Base Quad CGA, patient takes very short steps with a wide base of support, uses a step-to gait pattern with left leg leading Exercises NuStep Minutes: 15 NuStep Workload: 6 Treatments bed mobility, transfers, patient was dressed with min assist, functional strengthening, ambulation Assessment Current Status: Fair Progress slowly improving mobility PT Short Term Goals Short Term Goals Transfers (B,C,W/C) (FIM): 5 PT Detention Goals Bottle Machine Operator Goals PT Bottle Machine Operator Goals Time Frame: Sep 24, 2017 Transfers (B,C,W/C) (FIM): 6 Sit to Lying (QC): 5 Lying-Sitting on Side/Bed(QC): 5 Sit to Stand (QC): 5 Rollin Roll Left to Right (QC): 5 Chair/[id number] Xfer(QC): 5 Car Transfer (QC): 5 Does the Patient Walk: Yes Gait (FIM): 6 Gait distance (FIM): 3=150 ft Distance: 300' Walk 10 feet (QC): 5 Walk 10ft-Uneven Surface(QC): 5 Walk 50ft with 2 Turns (QC): 5 Walk 150 ft (QC): 5 Gait Level of Assist: 6 Gait Assistive Device: Cane Large Base Quad, Cane Single Point Stairs (FIM): 1 # of Steps: 1 1 Step (curb) (QC): 3 4 Steps (QC): 9 12 Steps (QC): 9 Stairs Level Of Assist: 4 Picking up an Object (QC): 4 PT Plan Problem List Problem List: Activity Tolerance, Functional Strength, Safety, Balance, Gait, Transfer, Bed Mobility, ROM Treatment/Plan Treatment Plan: Continue Plan of Care Treatment Plan: Bed Mobility, Education, Functional Activity Amy, Functional Strength, Group Therapy, Gait, Safety, Therapeutic Exercise, Transfers Treatment Duration: Sep 24, 2017 Frequency: At least 5 of 7 days/Wk (IRF) Estimated Hrs Per Day: 1.5 hours per day Patient and/or Family Agrees t: Yes Safety Risks/Education Patient Education: Gait Training, Transfer Techniques, Correct Positioning, Safety Issues Teaching Recipient: Patient Teaching Methods: Demonstration, Discussion Response to Teaching: Reinforcement Needed Time/GCodes Time In: 845 Time Out: 930 Total Billed Treatment Time: 45 Total Billed Treatment 1 visit EX 15' FA 10' GT 20' HALEY ESCOBEDO PT Sep 02, 2017 09:32
[2017-09-02] MEDS: BETHANECHOL 25 MG (URECHOLINE) TAB PO SCH ×3 (11:23→21:10)
--- NOTE | 2017-09-02 11:46 | Occupational Ther Daily Note ---
OT Current Status-Daily Note Subjective Pt. does not report pain, but states that he would like to sleep. OT explains to him importance of working. Pt. agrees but only if he can stay in room. Appearance Pt. declines showering and states that he put on clean clothing with PT this morning. Does agree to work on LE dressing with AE (shoes and socks.) Mental Status/Objective Patient Orientation: Person Functional [place] Measure 0=Not Assessed/NA 4=Minimal Assistance 1=Total Assistance 5=Supervision or Setup 2=Maximal Assistance 6=Modified [place] 3=Moderate Assistance 7=Complete [place] ADL-Treatment Functional [place] Measure 0=Not Assessed/NA 4=Minimal Assistance 1=Total Assistance 5=Supervision or Setup 2=Maximal Assistance 6=Modified [place] 3=Moderate Assistance 7=Complete IndependenceIRFPAI Quality Coding Scale 6 Independent with activity with or without an assistive device 5 Patient requires set up or clean up by helper. Patient completes activity by themselves 4 Supervision or touching assist (CGA). [place] provide cues , steadying assist 3 The helper provides less than half the effort to complete the activity 2 The helper provides more than half the effort to complete the activity 1 Dependent. The helper does all the effort to complete an activity 7 Patient refused to complete or attempt activity 9 The patient did not perform the activity before the current illness or injury 88 Not attempted due to Medical conditions or safety concerns Lower Body Dressing (FIM): 3 (Pt. utilizes dressing stick, sock aide, and stripper machine operator for socks/shoes. However, has great difficulty with sock aide. Is able to doff right shoe and sock, and left shoe. Is able to don right shoe and sock and left shoe. Unable to doff/don left sock. Pt. requires increased time. Does not use equipment for right foot.) Lower Body Dressing (QC): 3 On/Off Footwear (QC): 3 Toileting (FIM): 3 Toileting Hygiene (QC): 3 Transfers (B, C, W/C) (FIM): 4 (Min assist to stand out of chair. Min assist for supine-sit with HOB raised. SBA for sit-supine.) Toilet/Commode Transfer (FIM): 4 Toilet Transfer (QC): 4 Education OT Patient Education: Modified ADL techniques, Progress toward Goal/Update tx plan, Purpose of tx/functional activities, Reviewed precautions, Rehab process, Transfer techniques, Use of adapted equipment Teaching Recipient: Patient Teaching Methods: Demonstration, Discussion Response to Teaching: Verbalize Understanding, Return Demonstration OT Short Term Goals Short Term Goals Time Frame: Sep 07, 2017 Eating(FIM): 5 Grooming(FIM): 5 Bathing(FIM): 3 Upper Body Dressing(FIM): 4 Lower Body Dressing(FIM): 4 Toileting(FIM): 4 Transfers (B,C,W/C) (FIM): 5 Toilet/Commode Transfer(FIM): 5 Shower Transfer(FIM): 4 Additional Short Term Goals: 1-Demonstrate ADL Tasks, 2-Verbalize Understanding , 3-ImproveStrength/Amy 1=Demonstrate adherence to instructed precautions during ADL tasks. 2=Patient will verbalize/demonstrate understanding of assistive devices/ modifications for ADL. 3=Patient will improve strength/tolerance for activity to enable patient to perform ADL's. OT Retirement Goals Base Brander Goals Time Frame: Sep 14, 2017 Eating (FIM): 6 Eating (QC): 6 Groomin Oral Hygiene (QC): 6 Bathing(FIM): 5 Shower/Bathe Self (QC): 4 Upper Body Dressing(FIM): 5 Upper Body Dressing (QC): 4 Lower Body Dressing(FIM): 5 Lower Body Dressing (QC): 4 On/Off Footwear (QC): 4 Toileting(FIM): 66 Toileting Hygiene (QC): 6 Transfers (B,C,W/C) (FIM): 6 Toilet/Commode Transfer(FIM): 6 Toilet/Commode Transfer (QC): 5 Shower Transfer(FIM): 5 Additional Goals: 1-Demonstrate ADL Tasks, 2-Verbalize Understanding, 3- ImproveStrength/Amy 1=Demonstrate adherence to instructed precautions during ADL tasks. 2=Patient will verbalize/demonstrate understanding of assistive devices/ modifications for ADL. 3=Patient will improve strength/tolerance for activity to enable patient to perform ADL's. OT Education/Plan Problem List/Assessment Assessment: Decreased Activ Tolerance, Decreased UE Strength, Dependent Transfers, Impaired Bed Mobility, Impaired Cognition, Impaired Coordination, Impaired Funct Balance, Impaired I ADL's, Impaired Self-Care Skills, Restricted Funct UE ROM Discharge Recommendations Plan/Recommendations: Continue POC Therapy D/C Recommendations: Home w/ Family Support, Occupational Therapy Home Care Treatment Plan/Plan of Care Treatment,Training & Education: Yes Patient would benefit from OT for education, treatment and training to promote independence in ADL's, mobility, safety and/or upper extremity function for ADL' s. Plan of Care: ADL Retraining, Caregiver Training, Functional Mobility, Group Exercise/Act as Ind, UE Funct Exercise/Act Treatment Duration: Sep 14, 2017 Frequency: At least 5 of 7 days/Wk (IRF) Estimated Hrs Per Day: 1.5 hours per day Agreement: Yes Rehab Potential: Good Time/GCodes Start Time: 10:15 Stop Time: 11:00 Total Time Billed (hr/min): 45 Billed Treatment Time 1, ADL x 3 CANDY PICKERING OT Sep 02, 2017 11:46
--- NOTE | 2017-09-02 11:58 | PM & R (SOAP) Progress Note ---
Subjective Time Seen by Provider: 10:35 Subjective/Events-last exam Patient was seen in his room this AM Patient min assist for transfers Appreciate Cardiology note and orders Patient had a run of AFIB last evening Rythmol restarted. Review of Systems Musculoskeletal: arm pain Neurological: Weakness Objective Exam Last Set of Vital Signs Vital Signs Date Time Temp Pulse Resp B/P (MAP) Pulse Ox O2 Delivery O2 Flow Rate FiO2 09/02/17 08:25 88 09/02/17 05:10 98.8 18 116/66 96 Room Air Capillary Refill : Less Than 3 Seconds I&O Intake and Output 09/03/17 00:00 Intake Total 300 ml Output Total 0 ml Balance 300 ml Intake Oral 300 ml Output Urine Total 0 ml General: Alert, Oriented X3, Cooperative HEENT: Atraumatic, PERRLA Neck: Supple, No JVD, No Thyromegaly Lungs: Clear to Auscultation, Normal Air Movement Heart: Regular Rate, Normal S1, Normal S2, No Murmurs Abdomen: Normal Bowel Sounds, Soft, No Tenderness, No Hepatosplenomegaly, No Masses Extremities: No Clubbing, No Cyanosis, Normal Pulses, Other (casts to bilat arms) Skin: No Rashes, No Significant Lesion Neuro: Normal Gait, Cranial Nerves 3-12 NL Psych/Mental Status: Mental Status NL, Mood NL Results Lab Laboratory Tests 08/31/17 16:10: Glucometer 229H 08/31/17 20:08: Glucometer 142H 09/01/17 05:11: Glucometer 241H 09/01/17 05:15: White Blood Count 7.7, Red Blood Count 3.83L, Hemoglobin 10.5L, Hematocrit 34L, Mean Corpuscular Volume 88, Mean Corpuscular Hemoglobin 27, Mean Corpuscular Hemoglobin Concent 31L, Red Cell Distribution Width 14.5, Platelet Count 274, Mean Platelet Volume 9.3, Sodium Level 132L, Potassium Level 4.0, Chloride Level 96L, Carbon Dioxide Level 24, Anion Gap 12, Blood Urea Nitrogen 23H, Creatinine 0.85, Estimat Glomerular Filtration Rate > 60, BUN/Creatinine Ratio 27, Glucose Level 231H, Calcium Level 8.9, Total Bilirubin 0.9, Aspartate Amino Transf (AST/SGOT) 18, Alanine Aminotransferase (ALT/SGPT) 11, Alkaline Phosphatase 125, Total Protein 6.6, Albumin 3.6, Triglycerides Level 113, Cholesterol Level 112, LDL Cholesterol Direct 67, VLDL Cholesterol 23, HDL Cholesterol 25L, Thyroid Stimulating Hormone (TSH) 0.74 09/01/17 11:05: Glucometer 339H 09/01/17 17:12: Glucometer 116H 09/01/17 21:09: Glucometer 131H 09/02/17 04:51: Glucometer 110 09/02/17 10:55: Glucometer 142H Assessment/Plan Assessment TBI s/p fall improving FRx left humerus in cast Frx rt thumb in cast Recuurent A FIB controlled with meds with Rythmol added HTN controlled 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
--- NOTE | 2017-09-02 13:59 | Physical Therapy Daily Note ---
PT Daily Note-Current Subjective Agreeable to PT. no complaints. Mental Status Patient Orientation: Person, Place, Time, Situation Transfers Functional Fischer Measure 0=Not Assessed/NA 4=Minimal Assistance 1=Total Assistance 5=Supervision or Setup 2=Maximal Assistance 6=Modified [place] 3=Moderate Assistance 7=Complete IndependenceIRFPAI Quality Coding Scale 6 Independent with activity with or without an assistive device 5 Patient requires set up or clean up by helper. Patient completes activity by themselves 4 Supervision or touching assist (CGA). [place] provide cues , steadying assist 3 The helper provides less than half the effort to complete the activity 2 The helper provides more than half the effort to complete the activity 1 Dependent. The helper does all the effort to complete an activity 7 Patient refused to complete or attempt activity 9 The patient did not perform the activity before the current illness or injury 88 Not attempted due to Medical conditions or safety concerns Weight Bearing Right Lower Extremity: Right Weight Bearing/Tolerated Left Lower Extremity: Left Weight Bearing/Tolerated NWB left UE Treatments Supine to sit with min assist and much effort on the patient's part. Sit to stand all attempts with min assist. Pt ambulated x 100 ft x 5 reps with QC with close CGA-min assist. Slow, unsteady gait with wide DIOGO, decresed heel strike/toe off. Pt in gym waiting for OT post treatmetn. Assessment Current Status: Good Progress Progressing towards goals. Pleasant and cooperative. PT Short Term Goals Short Term Goals Transfers (B,C,W/C) (FIM): 5 PT Detention Goals Electrical Products Sales Engineer Goals PT Detention Goals Time Frame: Sep 24, 2017 Transfers (B,C,W/C) (FIM): 6 Sit to Lying (QC): 5 Lying-Sitting on Side/Bed(QC): 5 Sit to Stand (QC): 5 Rollin Roll Left to Right (QC): 5 Chair/Zxa-ku-Aisez Xfer(QC): 5 Car Transfer (QC): 5 Does the Patient Walk: Yes Gait (FIM): 6 Gait distance (FIM): 3=150 ft Distance: 300' Walk 10 feet (QC): 5 Walk 10ft-Uneven Surface(QC): 5 Walk 50ft with 2 Turns (QC): 5 Walk 150 ft (QC): 5 Gait Level of Assist: 6 Gait Assistive Device: Cane Large Base Quad, Cane Single Point Stairs (FIM): 1 # of Steps: 1 1 Step (curb) (QC): 3 4 Steps (QC): 9 12 Steps (QC): 9 Stairs Level Of Assist: 4 Picking up an Object (QC): 4 PT Plan Problem List Problem List: Activity Tolerance, Functional Strength, Safety, Balance, Gait, Transfer, Bed Mobility Treatment/Plan Treatment Plan: Continue Plan of Care Treatment Plan: Bed Mobility, Education, Functional Activity Amy, Functional Strength, Group Therapy, Gait, Safety, Therapeutic Exercise, Transfers Treatment Duration: Sep 24, 2017 Frequency: At least 5 of 7 days/Wk (IRF) Estimated Hrs Per Day: 1.5 hours per day Patient and/or Family Agrees t: Yes Safety Risks/Education Patient Education: Safety Issues Teaching Recipient: Patient Teaching Methods: Discussion Response to Teaching: Verbalize Understanding Time/GCodes Time In: 1310 Time Out: 1356 Total Billed Treatment Time: 46 Total Billed Treatment visit GT 46 RAMSES ARREDONDO PT Sep 02, 2017 13:59
--- NOTE | 2017-09-02 15:29 | Individualized Plan of Care ---
Individualized Plan of Care Rehab Nursing IPOC Order Admission Date Aug 31, 2017 at 12:40 Current Orders Orders Nursing Communication (Patient (08/31/17 10:54) Clopidogrel Tablet (Plavix Tablet) (09/01/17 09:00) Hydrocodone/Apap 5/325 Tablet (Lortab 5 (08/31/17 11:15) Insulin Determir (Per Unit) (Levemir (Pe (09/01/17 08:00) [place] 3 Capsule (Fish Oil Capsule) (08/31/17 17:00) Hydrochlorothiazide Cap/Tablet (Hctz Cap (09/01/17 09:00) Atorvastatin Tablet (Lipitor) (08/31/17 21:00) Tramadol Tablet (Ultram Tablet) (08/31/17 21:00) Pantoprazole Tablet (Protonix Tablet) (08/31/17 21:00) Dantrolene Capsule (Dantrium Capsule) (08/31/17 13:00) Amitriptyline Tablet (Elavil Tablet) (08/31/17 21:00) Venlafaxine Immediate Release (Effexor T (08/31/17 21:00) Ramipril Capsule (Altace Capsule) (08/31/17 21:00) Metoprolol Tartrate (Ir) Tab (Lopressor (08/31/17 21:00) Aspirin Chewable Tablet (Baby Aspirin Ch (09/01/17 09:00) Insulin Aspart (Novolog) (Novolog (Charg (08/31/17 12:00) Insulin Aspart (Novolog) (Novolog (Charg (09/01/17 07:00) Cho 60g/M 1snack (16-2000 Benny) (08/31/17 Lunch) Accucheck Achs ACHS (08/31/17 11:23) Neurological Checks BID (08/31/17 11:23) Admission (Physician Order) (08/31/17 12:40) Code/Resuscitation (08/31/17 12:49) Initiate Admission Nursing Pro .admission (08/31/17 12:49) Isolation Central Supply Req (08/31/17 12:49) Follow-Up Appointment (08/31/17 12:51) Ambulate TID (08/31/17 13:18) Sequential Compression Device 08,20 (08/31/17 13:18) Dvt/Vte Risk - Notifiy Physici (08/31/17 13:18) Request Ot Evaluate & Treat (08/31/17 13:19) Methimazole Tablet (Tapazole Tablet) (09/01/17 09:00) Consult Physician (08/31/17 13:33) Patient Visit (08/31/17 ) Pt Eval Moderate Complexity (08/31/17 ) Telemetry (08/31/17 14:21) Comprehensive Metabolic Panel (09/01/17 05:00) Cbc No Diff (09/01/17 05:00) Lipid Panel (09/01/17 05:00) Thyroid Stimulating Hormone (09/01/17 05:00) Patient Visit (08/31/17 ) Exercise Therap, Ea 15 Min (08/31/17 ) Gait Training, Ea 15 Min (08/31/17 ) Patient Visit (08/31/17 ) Therapeutic, Group (08/31/17 ) Patient Visit (08/31/17 ) Speech Sound Lang Comp (08/31/17 ) Metoclopramide Tablet (Reglan Tablet) (08/31/17 21:00) Consult Physician (08/31/17 19:27) Metoprolol Tartrate (Ir) Tab (Lopressor (09/01/17 02:15) Apixaban Tablet (Eliquis Tablet) (09/01/17 09:00) Ekg Tracing (09/01/17 08:44) Propafenone Tablet (Rythmol Tablet) (09/01/17 09:45) Ekg Tracing (09/02/17 06:00) Consult Physician (09/01/17 11:01) Pt Evaluate/Treat Request (09/01/17 12:00) Request For Cognitive Services (09/01/17 12:00) Patient Visit (09/01/17 ) Gait Training, Ea 15 Min (09/01/17 ) Exercise Therap, Ea 15 Min (09/01/17 ) Functional Activities, Ea 15 (09/01/17 ) Metoprolol Tartrate Injection (Lopressor (09/01/17 17:30) Straight Cath (Urinary) (09/02/17 06:57) Bethanechol Tablet (Urecholine Tablet) (09/02/17 11:00) Patient Visit (09/02/17 ) Exercise Therap, Ea 15 Min (09/02/17 ) Gait Training, Ea 15 Min (09/02/17 ) Functional Activities, Ea 15 (09/02/17 ) Patient Visit (09/02/17 ) Gait Training, Ea 15 Min (09/02/17 ) Patient Education On: Momitor for postop constipation /cast care Other Nursing Orders: Monitor for any urinary retention -Urecholine ordered Monitor for Intensity of Therapy to be met Patient to be seen: Min.3h per day/5 of 7d PT IPOC Problem List: Activity Tolerance, Functional Strength, Safety, Balance, Gait, Transfer, Bed Mobility Treatment Plan: Continue Plan of Care Bed Mobility, Education, Functional Activity Amy, Functional Strength, Group Therapy, Gait, Safety, Therapeutic Exercise, Transfers Treatment Duration: Sep 24, 2017 Frequency: At least 5 of 7 days/Wk (IRF) Estimated Hrs Per Day: 1.5 hours per day OT IPOC Problems: Decreased Activ Tolerance, Decreased UE Strength, Dependent Transfers , Impaired Bed Mobility, Impaired Cognition, Impaired Coordination, Impaired Funct Balance, Impaired I ADL's, Impaired Self-Care Skills, Restricted Funct UE ROM OT Treatment, Training and Edu: Yes Plan of Care: ADL Retraining, Caregiver Training, Functional Mobility, Group Exercise/Act as Ind, UE Funct Exercise/Act Treatment Duration: Sep 14, 2017 Frequency: At least 5 of 7 days/Wk (IRF) Estimated Hrs Per Day: 1.[address] IPOC Speech Therapy Treatment Plan: Discontinue ST Treatment Duration: Sep 02, 2017 Frequency: Modified Program (IRF) (Evaluation, only.) Estimated Hrs Per Day: Other (Evaluation, only.) Icu Specialist/Case Mgmt Icu Specialist/Case Managemen: Discharge Planning, Patient/Family Counseling Physician IPOC Medical Issues being managed closely and that require the 24 hour availability of a physician: urinary retention improved with urecholine Poorly controlled A FIB improved with Rythmol Cardiology following HTN DM Medical Issues: Bowel/Bladder Function, DVT Prophylaxis, Falls Precautions, Fluid/Electrolyte/Nutrition Balance, Infection Protection, Pain Management, Wound Care, Other (List) (as per above) Brief Synthesis of Preadmission Screen, Post-Admission Evaluation, and Therapy Evaluations:62 yo male with PMH significant for RT Cva with Left HP who had been living with family Modified Independent prior to fall sustaining TBI mild with epidural hematoma as well as left Humerus frx and rt thumb frx managed with cast by ortho. Referred to IRU for comprhensive Inpatient rehab program with goal of returning home with family at max level of functional Glennie Had issues with urinary retention this AM which is improved with urecholine.Had run of rapid A FIB yesterday which is now resolved with Rythmol as per Cardiology orders. Medical Prognosis: good Anticipated Length of Stay: 09-14-17 Rehab Goals Maximize level of functional Glennie prior to discharge home with family hopefully at PLOF but Taking into consideration Ortho injuris and limitations with casts Anticipated discharge destinat: Home with Family and [facility] TIFFANI CHEATHAM MD Sep 02, 2017 15:29
--- NOTE | 2017-09-02 15:41 | Occupational Ther Daily Note ---
OT Current Status-Daily Note Subjective No pain reported. Appearance Pt. up in gym waiting on OT after PT treatment. Mental Status/Objective Patient Orientation: Person, Place Functional Clare Measure 0=Not Assessed/NA 4=Minimal Assistance 1=Total Assistance 5=Supervision or Setup 2=Maximal Assistance 6=Modified [place] 3=Moderate Assistance 7=Complete [place] ADL-Treatment Functional [place] Measure 0=Not Assessed/NA 4=Minimal Assistance 1=Total Assistance 5=Supervision or Setup 2=Maximal Assistance 6=Modified [place] 3=Moderate Assistance 7=Complete IndependenceIRFPAI Quality Coding Scale 6 Independent with activity with or without an assistive device 5 Patient requires set up or clean up by helper. Patient completes activity by themselves 4 Supervision or touching assist (CGA). [place] provide cues , steadying assist 3 The helper provides less than half the effort to complete the activity 2 The helper provides more than half the effort to complete the activity 1 Dependent. The helper does all the effort to complete an activity 7 Patient refused to complete or attempt activity 9 The patient did not perform the activity before the current illness or injury 88 Not attempted due to Medical conditions or safety concerns Transfers (B, C, W/C) (FIM): 4 (CGA to ambulate with quad cane.) Toilet/Commode Transfer (FIM): 4 (CGA) Toilet Transfer (QC): 4 Other Treatment Pt. completed armbike x 10 minutes using right UE only for increased overall strength and endurance. Tolerated fine motor coordination and tip pinch exercises/activities with right hand, as this is difficult for him due to fx. This translates into difficulty with pulling up socks. Pt. able to warehouse order picker blast furnace checker pieces, small beads and place them with thumb and index finger in container. States that it is difficult for him, but that he can do it. Went back to room. Transferred to toilet with CGA. Demonstrated ability to pull down pants in stance before transfer. All needs met on toilet. Education OT Patient Education: Correct positioning, Exercise program, Modified ADL techniques, Progress toward Goal/Update tx plan, Purpose of tx/functional activities, Reviewed precautions, Rehab process, Transfer techniques Teaching Recipient: Patient Teaching Methods: Demonstration, Discussion Response to Teaching: Verbalize Understanding, Return Demonstration OT Short Term Goals Short Term Goals Time Frame: Sep 07, 2017 Eating(FIM): 5 Grooming(FIM): 5 Bathing(FIM): 3 Upper Body Dressing(FIM): 4 Lower Body Dressing(FIM): 4 Toileting(FIM): 4 Transfers (B,C,W/C) (FIM): 5 Toilet/Commode Transfer(FIM): 5 Shower Transfer(FIM): 4 Additional Short Term Goals: 1-Demonstrate ADL Tasks, 2-Verbalize Understanding , 3-ImproveStrength/Amy 1=Demonstrate adherence to instructed precautions during ADL tasks. 2=Patient will verbalize/demonstrate understanding of assistive devices/ modifications for ADL. 3=Patient will improve strength/tolerance for activity to enable patient to perform ADL's. OT Shelter Goals Shelter Goals Time Frame: Sep 14, 2017 Eating (FIM): 6 Eating (QC): 6 Groomin Oral Hygiene (QC): 6 Bathing(FIM): 5 Shower/Bathe Self (QC): 4 Upper Body Dressing(FIM): 5 Upper Body Dressing (QC): 4 Lower Body Dressing(FIM): 5 Lower Body Dressing (QC): 4 On/Off Footwear (QC): 4 Toileting(FIM): 66 Toileting Hygiene (QC): 6 Transfers (B,C,W/C) (FIM): 6 Toilet/Commode Transfer(FIM): 6 Toilet/Commode Transfer (QC): 5 Shower Transfer(FIM): 5 Additional Goals: 1-Demonstrate ADL Tasks, 2-Verbalize Understanding, 3- ImproveStrength/Amy 1=Demonstrate adherence to instructed precautions during ADL tasks. 2=Patient will verbalize/demonstrate understanding of assistive devices/ modifications for ADL. 3=Patient will improve strength/tolerance for activity to enable patient to perform ADL's. OT Education/Plan Problem List/Assessment Assessment: Decreased Activ Tolerance, Dependent Transfers, Impaired Funct Balance, Impaired I ADL's, Impaired Self-Care Skills, Restricted Funct UE ROM Discharge Recommendations Plan/Recommendations: Continue POC Therapy D/C Recommendations: Home w/ Family Support, Occupational Therapy Home Care Treatment Plan/Plan of Care Treatment,Training & Education: Yes Patient would benefit from OT for education, treatment and training to promote independence in ADL's, mobility, safety and/or upper extremity function for ADL' s. Plan of Care: ADL Retraining, Caregiver Training, Functional Mobility, Group Exercise/Act as Ind, UE Funct Exercise/Act Treatment Duration: Sep 14, 2017 Frequency: At least 5 of 7 days/Wk (IRF) Estimated Hrs Per Day: 1.5 hours per day Agreement: Yes Rehab Potential: Good Time/GCodes Start Time: 14:00 Stop Time: 14:45 Total Time Billed (hr/min): 45 Billed Treatment Time 1, EX x 15minutes, FA x 30minutes CANDY PICKERING OT Sep 02, 2017 15:41
[2017-09-02 19:12] VITALS: BP 127/76
[2017-09-02] MEDS: AMITRIPTYLINE 25 MG (ELAVIL) TAB PO SCH (21:10)
[2017-09-02] MEDS: ATORVASTATIN 40 MG (LIPITOR) TABLET PO SCH (21:12)
[2017-09-03] MEDS: HYDROcodone/APAP 5 MG/325 MG (LORTAB) TAB PO PRN ×3 (04:27→16:50)
[2017-09-03] MEDS ORDERED: CATHETER FLUSH 10 ML SYR IV PRN (04:30)
[2017-09-03 05:00] VITALS: BP 135/73
[2017-09-03] MEDS: METOCLOPRAMIDE 5 MG (REGLAN) TAB PO SCH ×4 (06:31→21:39)
[2017-09-03] MEDS: BETHANECHOL 25 MG (URECHOLINE) TAB PO SCH ×4 (06:31→21:39)
[2017-09-03] MEDS: PROPAFENONE 150 MG (RYTHMOL) TABLET PO SCH ×3 (06:31→21:38)
[2017-09-03] MEDS: OMEGA 3 (FISH OIL) 1000 MG CAP PO SCH ×2 (06:31→16:49)
[2017-09-03] MEDS: inSUlin ASPART (NovoLOG) 1 UNIT/0.01 ML (CHARGE PER UNIT) SC SCH ×3 (07:06→16:50)
--- NOTE | 2017-09-03 09:12 | PM & R (SOAP) Progress Note ---
Subjective Time Seen by Provider: 08:15 Subjective/Events-last exam Patient was seen in his room this AM Patient Min assist for transfers Splints in place left arm and rt hand A FIB better controlled with adjustment in meds now Voiding Objective Exam Last Set of Vital Signs Vital Signs Date Time Temp Pulse Resp B/P (MAP) Pulse Ox O2 Delivery O2 Flow Rate FiO2 09/03/17 05:00 97.6 73 14 135/73 93 Room Air Capillary Refill : Less Than 3 Seconds I&O Intake and Output 09/04/17 00:00 Intake Total 200 ml Output Total 500 ml Balance -300 ml Intake Oral 200 ml Output Urine Total 500 ml # Voids 3 # Bowel Movements 1 General: Alert, Oriented X3, Cooperative HEENT: Atraumatic, PERRLA Neck: Supple, No JVD, No Thyromegaly Lungs: Clear to Auscultation, Normal Air Movement Heart: Regular Rate, Normal S1, Normal S2, No Murmurs Abdomen: Normal Bowel Sounds, Soft, No Tenderness, No Hepatosplenomegaly, No Masses Extremities: No Clubbing, No Cyanosis, Normal Pulses, Other (casts to bilat arms) Skin: No Rashes, No Significant Lesion Neuro: Normal Gait, Cranial Nerves 3-12 NL Psych/Mental Status: Mental Status NL, Mood NL Results Lab Laboratory Tests 08/31/17 16:10: Glucometer 229H 08/31/17 20:08: Glucometer 142H 09/01/17 05:11: Glucometer 241H 09/01/17 05:15: White Blood Count 7.7, Red Blood Count 3.83L, Hemoglobin 10.5L, Hematocrit 34L, Mean Corpuscular Volume 88, Mean Corpuscular Hemoglobin 27, Mean Corpuscular Hemoglobin Concent 31L, Red Cell Distribution Width 14.5, Platelet Count 274, Mean Platelet Volume 9.3, Sodium Level 132L, Potassium Level 4.0, Chloride Level 96L, Carbon Dioxide Level 24, Anion Gap 12, Blood Urea Nitrogen 23H, Creatinine 0.85, Estimat Glomerular Filtration Rate > 60, BUN/Creatinine Ratio 27, Glucose Level 231H, Calcium Level 8.9, Total Bilirubin 0.9, Aspartate Amino Transf (AST/SGOT) 18, Alanine Aminotransferase (ALT/SGPT) 11, Alkaline Phosphatase 125, Total Protein 6.6, Albumin 3.6, Triglycerides Level 113, Cholesterol Level 112, LDL Cholesterol Direct 67, VLDL Cholesterol 23, HDL Cholesterol 25L, Thyroid Stimulating Hormone (TSH) 0.74 09/01/17 11:05: Glucometer 339H 09/01/17 17:12: Glucometer 116H 09/01/17 21:09: Glucometer 131H 09/02/17 04:51: Glucometer 110 09/02/17 10:55: Glucometer 142H 09/02/17 16:03: Glucometer 95 09/02/17 20:12: Glucometer 54*L 09/02/17 21:04: Glucometer 88 09/03/17 05:11: Glucometer 119H Assessment/Plan Assessment TBI s/p fall improving FRx left humerus in cast Frx rt thumb in cast Recuurent A FIB controlled with meds with Rythmol added HTN controlled 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
--- NOTE | 2017-09-03 09:33 | Cardiology Progress Note ---
Subjective Date Seen by Provider: Sep 03, 2017 Time Seen by Provider: 09:32 Subjective/Events-last exam Patient is receiving therapy, feeling well, denied any chest pain or shortness of breath. No arrhythmia was detected last night Review of Systems General: No Chills, No Night Sweats, No Fatigue, No Malaise, No Appetite, No Other HEENT: No Head Aches, No Visual Changes, No Eye Pain, No Ear Pain, No Dysphasia , No Sinus Congestion, No Post Nasal Drip, No Sore Throat, No Other Pulmonary: No Dyspnea, No Cough, No Pleuritic Chest Pain, No Other Cardiovascular: No: Chest Pain, Palpitations, Orthopnea, Paroxysmal Noc. Dyspnea, Edema, Lt Headedness, Other Objective-Cardiology Exam Last Set of Vital Signs Vital Signs 09/03/17 05:00 Temp 97.6 Pulse 73 Resp 14 B/P (MAP) 135/73 Pulse Ox 93 O2 Delivery Room Air Capillary Refill : Less Than 3 Seconds I&O Intake and Output 09/04/17 00:00 Intake Total 200 ml Output Total 500 ml Balance -300 ml Intake Oral 200 ml Output Urine Total 500 ml # Voids 3 # Bowel Movements 1 General: Alert, Oriented X3, Cooperative HEENT: Atraumatic, PERRLA Neck: Supple, No JVD, No Thyromegaly Lungs: Clear to Auscultation, Normal Air Movement Heart: Regular Rate, Normal S1, Normal S2, No Murmurs Abdomen: Normal Bowel Sounds, Soft, No Tenderness, No Hepatosplenomegaly, No Masses Extremities: No Clubbing, No Cyanosis, Normal Pulses, Other (casts to bilat arms) Skin: No Rashes, No Significant Lesion Neuro: Normal Gait, Cranial Nerves 3-12 NL Psych/Mental Status: Mental Status NL, Mood NL Results Lab Laboratory Tests Test 09/02/17 10:55 09/02/17 16:03 09/02/17 20:12 09/02/17 21:04 Range/Units Glucometer 142 H 95 54 *L 88 70-110 MG/DL Test 09/03/17 05:11 Range/Units Glucometer 119 H 70-110 MG/DL A/P-Cardiology Admission Diagnosis Head trauma Paroxysmal atrial fibrillation History of CVA Hypertension Hyperlipidemia Assessment/Plan Status post fall and head trauma with epidural hematoma, Reported subdural hematoma 9 mm without midline shift. Xarelto was discontinued and was started on aspirin and Plavix. Patient is still at high risk of bleeding with aspirin and Plavix. ASA and Plavix were discontinued and I started him on Eliquis due to the fact that there is same risk of bleeding with aspirin and Plavix but better risk reduction for stroke with his paroxysmal atrial fibrillation. Status post bilateral fractures, currently have cast on the upper extremities. Receiving physical therapy. Paroxysmal atrial fibrillation,unknown duration, started on Xarelto on May 19, 2017. Was hospitalized for A. fib with RVR, placed on Cardizem drip. Then he went back to atrial fibrillation, he was on Rythmol since May. Underwent DEIRDRE with successful cardioversion on June 30, 2017. Currently in SR. I restarted Rythmol, been in sinus rhythm, no further arrhythmia was attempted in the last 24 hours. Continue to monitor Cardiac catheterization was done in July 2017 showing mild coronary artery disease nonobstructive disease. [id number] score of 4, yearly risk of stroke without oral anticoagulation is 4 percent. Patient was on Xarelto and it was discontinued after the fall and head trauma, currently on Eliquis. History of CVA in 2006, TIA in 2005, was maintained on Aggrenox, it was changed to Xarelto after discovering the atrial fibrillation. Currently on Eliquis. Continue to monitor Hypertension, controlled. Continue to monitor. Hyperlipidemia, continue to monitor lipids Diabetes mellitus, followed and managed by primary care physician Hyperthyroidism, TSH was 0.74, continue to monitor. Clinical Quality Measures DVT/VTE Risk/Contraindication: Risk Factor Score Per Nursin RFS Level Per Nursing on Admit: 2=Moderate DAMIEN DUVALL MD Sep 03, 2017 09:33
[2017-09-03] MEDS: HYDROCHLOROTHIAZIDE 25 MG (HCTZ) TAB PO SCH (09:35)
[2017-09-03] MEDS: METHIMAZOLE TABLET 5 MG TABLET PO SCH (09:35)
[2017-09-03] MEDS: APIXABAN 5 MG (ELIQUIS) TABLET PO SCH ×2 (09:35→21:40)
[2017-09-03] MEDS: VENlafaxine 75 MG (EFFEXOR) TAB PO SCH ×2 (09:35→21:45)
[2017-09-03] MEDS: meTOprolol TARTRATE 25 MG (LOPRESSOR) TABLET PO SCH ×2 (09:35→21:39)
[2017-09-03] MEDS: DANTROLENE 25 MG PO SCH ×4 (09:35→21:38)
[2017-09-03] MEDS: RAMIPRIL 5 MG (ALTACE) CAP PO SCH ×2 (09:35→21:38)
[2017-09-03] MEDS: PANTOPRAZOLE 40 MG (PROTONIX) TAB PO SCH ×2 (09:36→21:39)
[2017-09-03] MEDS: inSUlin DETERMIR 1 UNIT/0.01 ML (LEVEMIR) CHARGE PER UNIT SQ SCH (09:40)
--- NOTE | 2017-09-03 09:48 | Physical Therapy Daily Note ---
PT Daily Note-Current Subjective Pt sitting in recliner upon arrival. Pt agrees to PT. Pain Numeric Pain Scale: 5-Moderate Pain Location: Left Location Body Site: Shoulder Pain Description: Tightness Mental Status Patient Orientation: Person, Place, Time, Situation Transfers Functional [place] Measure 0=Not Assessed/NA 4=Minimal Assistance 1=Total Assistance 5=Supervision or Setup 2=Maximal Assistance 6=Modified [place] 3=Moderate Assistance 7=Complete IndependenceIRFPAI Quality Coding Scale 6 Independent with activity with or without an assistive device 5 Patient requires set up or clean up by helper. Patient completes activity by themselves 4 Supervision or touching assist ([facility]). [place] provide cues , steadying assist 3 The helper provides less than half the effort to complete the activity 2 The helper provides more than half the effort to complete the activity 1 Dependent. The helper does all the effort to complete an activity 7 Patient refused to complete or attempt activity 9 The patient did not perform the activity before the current illness or injury 88 Not attempted due to Medical conditions or safety concerns Scootin Rollin Roll Left to Right (QC): 4 Supine to/from Sit: 4 Sit to/from Stand: 4 Sit to Lying (QC): 4 Sit to Stand (QC): 4 Weight Bearing Right Lower Extremity: Right Weight Bearing/Tolerated Left Lower Extremity: Left Weight Bearing/Tolerated NWB left UE Gait Training Does the Patient Walk?: Yes Distance (FIM): 3=150 ft Distance: 150' Walk 10 feet (QC): 4 Walk 50 ft with 2 Turns(QC): 4 Walk 150 ft (QC): 4 Gait Level of Assist: 4 Gait Assistive Device: Cane Large Base Quad Pt has slow randall but is steady, no LOB. Pt fatigues and needs rest break but recovers quickly. Wheelchair Training Does the Pt Use a Wheelchair?: No Exercises Seated Therapy Exercises: Ankle pumps, Long arc quads, Hip flexion, Kicking activity Seated Reps: 20 NuStep Minutes: 13 NuStep Workload: 5 Treatments Pt transfers from recliner to standing at [facility] using QC and chair lifted. Pt ambulated in hallway using QC at [facility]. Pt uses NuStep for 13m at Workload 5 as well as Seated Ex in chair. Pt returns to room to rest in Supine in bed at end of tx with all needs met. Assessment Current Status: Good Progress Pt is getting stronger as well as more independent and safer with transfers and ambulation. PT Short Term Goals Short Term Goals Transfers (B,C,W/C) (FIM): 5 PT Assisted Goals County Supervisor Goals PT County Supervisor Goals Time Frame: Sep 24, 2017 Transfers (B,C,W/C) (FIM): 6 Sit to Lying (QC): 5 Lying-Sitting on Side/Bed(QC): 5 Sit to Stand (QC): 5 Rollin Roll Left to Right (QC): 5 Chair/Hyb-ae-Sqhve Xfer(QC): 5 Car Transfer (QC): 5 Does the Patient Walk: Yes Gait (FIM): 6 Gait distance (FIM): 3=150 ft Distance: 300' Walk 10 feet (QC): 5 Walk 10ft-Uneven Surface(QC): 5 Walk 50ft with 2 Turns (QC): 5 Walk 150 ft (QC): 5 Gait Level of Assist: 6 Gait Assistive Device: Cane Large Base Quad, Cane Single Point Stairs (FIM): 1 # of Steps: 1 1 Step (curb) (QC): 3 4 Steps (QC): 9 12 Steps (QC): 9 Stairs Level Of Assist: 4 Picking up an Object (QC): 4 PT Plan Problem List Problem List: Activity Tolerance, Functional Strength, Safety, Balance, Gait, Transfer Treatment/Plan Treatment Plan: Continue Plan of Care Treatment Plan: Bed Mobility, Education, Functional Activity Amy, Functional Strength, Group Therapy, Gait, Safety, Therapeutic Exercise, Transfers Treatment Duration: Sep 24, 2017 Frequency: At least 5 of 7 days/Wk (IRF) Estimated Hrs Per Day: 1.5 hours per day Patient and/or Family Agrees t: Yes Safety Risks/Education Patient Education: Gait Training, Transfer Techniques, Correct Positioning, Safety Issues Teaching Recipient: Patient Teaching Methods: Discussion Response to Teaching: Verbalize Understanding Time/GCodes Time In: 845 Time Out: 930 Total Billed Treatment Time: 45 Total Billed Treatment visit, GT (15m) & EX x2 (30m) VASQUEZ CABELLO RECRUITER Sep 03, 2017 09:48
--- NOTE | 2017-09-03 11:44 | Progress Note-Hospitalist ---
Progress Note HPI/CC on Admission CC: Epidural hematoma HPI: This is a 62 [address] Jackson that presents to IRU following epidural hematoma after falling in driveway with left humerus fracture with compartment syndrome and had emergent fasciotomy in [facility] ED prior to transfer. He had been on Xarelto for AF, hx of stroke with left HP. Currently no fever, vitals stable , and cardiology has been consulted. 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 Aspirin and Plavix were DC Patient Interview: Pt states he is doing good, and states he has not been so good before Pt confirms Dr. Jackson as PCP I informed the pt that Dr. Desai will be seeing him. Pt confirms Dr. Desai as regular paramedic rn. Pt also confirms seeing Dr. Rojas and Dr. Wade Pt states his pain is at an 8-9 now. Pt confirms taking pain meds and that they help with his pain. Pt states he had a BM yesterday and two the day before. Pt states his BMs tend to be irregular. Physical exam stable. Pt states his follow up for his arm is early next week. Pt requested my help with adjusting pillows for his arm and head. Pt asked if he needed O2 and I assured him that he will not at this time Scribed by Phuong Nix under the direct supervision of Dr. Salas. 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 Urecholine is working good output Patient Interview: Pt states he is 'pretty good' Pt confirms having BMs Pt rates his pain at an 8 in his arms Pt confirms urinating well on Urecholine Physical exam stable AFVSS, Pleasant, O x 3, Left arm in cast Irr Irr, CTAB anterior exam only No edema on right but trace-1+ left Assessment: Status post epidural hematoma conservatively managed while on Xarelto residual from fall Left humerus fracture with acute compartment syndrome requiring fasciotomy in ER before transfer Atrial fibrillation with bigeminy on telemetry Prior stroke with left-sided hemiparesis Acute urinary retention resolving with Urecholine Plan: Appreciate Cardiology Monitor pt PT/OT Pain mngt Urecholine for a few more days Scribed by Phuong Nix under the direct supervision of Dr. Salas. JASIEL SALAS DO Sep 03, 2017 11:44
--- NOTE | 2017-09-03 16:12 | Occupational Ther Daily Note ---
OT Current Status-Daily Note Subjective Pt alert, lying in bed. Pt agreed to therapy. Declined shower. No c/o pain. Mental Status/Objective Functional [place] Measure 0=Not Assessed/NA 4=Minimal Assistance 1=Total Assistance 5=Supervision or Setup 2=Maximal Assistance 6=Modified [place] 3=Moderate Assistance 7=Complete [place] ADL-Treatment Functional [place] Measure 0=Not Assessed/NA 4=Minimal Assistance 1=Total Assistance 5=Supervision or Setup 2=Maximal Assistance 6=Modified [place] 3=Moderate Assistance 7=Complete IndependenceIRFPAI Quality Coding Scale 6 Independent with activity with or without an assistive device 5 Patient requires set up or clean up by helper. Patient completes activity by themselves 4 Supervision or touching assist (CGA). [place] provide cues , steadying assist 3 The helper provides less than half the effort to complete the activity 2 The helper provides more than half the effort to complete the activity 1 Dependent. The helper does all the effort to complete an activity 7 Patient refused to complete or attempt activity 9 The patient did not perform the activity before the current illness or injury 88 Not attempted due to Medical conditions or safety concerns Toileting (FIM): 4 Toileting Hygiene (QC): 4 Transfers (B, C, W/C) (FIM): 4 Toilet/Commode Transfer (FIM): 4 Other Treatment Pt was able to don shoes sitting EOB. Pt then ambulated with quadcane to therapy gym with min A. Pt completed arm bike for 15 min at 10 melendez resistance with 3 rest breaks to increase strength and activity tolerance for daily functional tasks. Pt then complete fine motor UE resistive tasks with R UE to increase strength and dexterity for bathing/dressing and other ADL's. Pt ambulated back to room and transferred onto toilet with CGA using grabbars. Pt completed toileting with CGA using grabbars and quadcane. After therapy, pt sitting in recliner with call light/phone in reach. All needs met in room. OT Short Term Goals Short Term Goals Time Frame: Sep 07, 2017 Eating(FIM): 5 Grooming(FIM): 5 Bathing(FIM): 3 Upper Body Dressing(FIM): 4 Lower Body Dressing(FIM): 4 Toileting(FIM): 4 Transfers (B,C,W/C) (FIM): 5 Toilet/Commode Transfer(FIM): 5 Shower Transfer(FIM): 4 Additional Short Term Goals: 1-Demonstrate ADL Tasks, 2-Verbalize Understanding , 3-ImproveStrength/Amy 1=Demonstrate adherence to instructed precautions during ADL tasks. 2=Patient will verbalize/demonstrate understanding of assistive devices/ modifications for ADL. 3=Patient will improve strength/tolerance for activity to enable patient to perform ADL's. OT Pin Inserter Regulator Goals Usp Goals Time Frame: Sep 14, 2017 Eating (FIM): 6 Eating (QC): 6 Groomin Oral Hygiene (QC): 6 Bathing(FIM): 5 Shower/Bathe Self (QC): 4 Upper Body Dressing(FIM): 5 Upper Body Dressing (QC): 4 Lower Body Dressing(FIM): 5 Lower Body Dressing (QC): 4 On/Off Footwear (QC): 4 Toileting(FIM): 66 Toileting Hygiene (QC): 6 Transfers (B,C,W/C) (FIM): 6 Toilet/Commode Transfer(FIM): 6 Toilet/Commode Transfer (QC): 5 Shower Transfer(FIM): 5 Additional Goals: 1-Demonstrate ADL Tasks, 2-Verbalize Understanding, 3- ImproveStrength/Amy 1=Demonstrate adherence to instructed precautions during ADL tasks. 2=Patient will verbalize/demonstrate understanding of assistive devices/ modifications for ADL. 3=Patient will improve strength/tolerance for activity to enable patient to perform ADL's. OT Education/Plan Discharge Recommendations Plan/Recommendations: Continue POC Treatment Plan/Plan of Care Patient would benefit from OT for education, treatment and training to promote independence in ADL's, mobility, safety and/or upper extremity function for ADL' s. Plan of Care: ADL Retraining, Caregiver Training, Functional Mobility, Group Exercise/Act as Ind, UE Funct Exercise/Act Treatment Duration: Sep 14, 2017 Frequency: At least 5 of 7 days/Wk (IRF) Estimated Hrs Per Day: 1.5 hours per day Agreement: Yes Rehab Potential: Good Time/GCodes Start Time: 11:05 Stop Time: 12:00 Total Time Billed (hr/min): 55 Billed Treatment Time 1 visit-EX 4 (55 min) RAMSES GALINDO Sep 03, 2017 16:12
--- NOTE | 2017-09-03 16:15 | Therapy Group Daily Note ---
Therapy Daily Group Note Exercises LE Seated Exercise, UE Exercise Other/Notes Pt ambulated with min A using [employer] [facility]/PT group. Group consisted of introductions (name, place living, favorite game as a kid), socialization, UE/LE seated exercises, activities that focus on core strength, dynamic sitting, fine motor with UE AROM, per discussions during activities and opening containers/packages. Pt interacted appropriately with peers in group activities and introductions. Pt required modifications with activities due to casts on arms. Pt completed UE/LE exercises well, unable to complete all with L UE due to cast on arm. Pt was able to open packages and containers using R hand. After therapy, pt sitting in recliner with call light/phone in reach. All needs met in room. Start Time: 13:00 Stop Time: 14:30 Total Billed Treatment Time: 90 Total Billed Treatment 1-GRP RAMSES GALINDO Sep 03, 2017 16:15
[2017-09-03 18:24] VITALS: BP 146/77
[2017-09-03] MEDS: ATORVASTATIN 40 MG (LIPITOR) TABLET PO SCH (21:38)
[2017-09-03] MEDS: AMITRIPTYLINE 25 MG (ELAVIL) TAB PO SCH (21:39)
[2017-09-04] MEDS: HYDROcodone/APAP 5 MG/325 MG (LORTAB) TAB PO PRN ×3 (03:52→17:31)
[2017-09-04 05:00] VITALS: BP 154/80
[2017-09-04] MEDS: BETHANECHOL 25 MG (URECHOLINE) TAB PO SCH ×4 (06:31→20:36)
[2017-09-04] MEDS: OMEGA 3 (FISH OIL) 1000 MG CAP PO SCH ×2 (06:31→16:20)
[2017-09-04] MEDS: METOCLOPRAMIDE 5 MG (REGLAN) TAB PO SCH ×4 (06:31→20:36)
[2017-09-04] MEDS: PROPAFENONE 150 MG (RYTHMOL) TABLET PO SCH ×3 (06:31→20:58)
[2017-09-04] MEDS: inSUlin ASPART (NovoLOG) 1 UNIT/0.01 ML (CHARGE PER UNIT) SC SCH ×3 (06:34→16:20)
[2017-09-04] MEDS: inSUlin DETERMIR 1 UNIT/0.01 ML (LEVEMIR) CHARGE PER UNIT SQ SCH (08:36)
[2017-09-04] MEDS: VENlafaxine 75 MG (EFFEXOR) TAB PO SCH ×2 (08:36→20:36)
[2017-09-04] MEDS: PANTOPRAZOLE 40 MG (PROTONIX) TAB PO SCH ×2 (08:36→20:36)
[2017-09-04] MEDS: APIXABAN 5 MG (ELIQUIS) TABLET PO SCH ×2 (08:37→20:36)
[2017-09-04] MEDS: DANTROLENE 25 MG PO SCH ×4 (08:37→20:36)
[2017-09-04] MEDS: meTOprolol TARTRATE 25 MG (LOPRESSOR) TABLET PO SCH ×2 (08:37→20:36)
[2017-09-04] MEDS: RAMIPRIL 5 MG (ALTACE) CAP PO SCH ×2 (08:37→20:36)
[2017-09-04] MEDS: HYDROCHLOROTHIAZIDE 25 MG (HCTZ) TAB PO SCH (08:37)
[2017-09-04] MEDS: METHIMAZOLE TABLET 5 MG TABLET PO SCH (08:37)
--- NOTE | 2017-09-04 09:34 | Physical Therapy Daily Note ---
PT Daily Note-Current Subjective Pt sitting at EOB changing clothes w/Nurse assist upon arrival. Pt agrees to PT. Pain Numeric Pain Scale: 8 Location: Left Location Body Site: Shoulder Pain Description: Ache Mental Status Patient Orientation: Person, Place, Time, Situation Transfers Functional [place] Measure 0=Not Assessed/NA 4=Minimal Assistance 1=Total Assistance 5=Supervision or Setup 2=Maximal Assistance 6=Modified [place] 3=Moderate Assistance 7=Complete IndependenceIRFPAI Quality Coding Scale 6 Independent with activity with or without an assistive device 5 Patient requires set up or clean up by helper. Patient completes activity by themselves 4 Supervision or touching assist (CGA). [place] provide cues , steadying assist 3 The helper provides less than half the effort to complete the activity 2 The helper provides more than half the effort to complete the activity 1 Dependent. The helper does all the effort to complete an activity 7 Patient refused to complete or attempt activity 9 The patient did not perform the activity before the current illness or injury 88 Not attempted due to Medical conditions or safety concerns Scootin Sit to/from Stand: 5 Sit to Stand (QC): 5 Weight Bearing Right Lower Extremity: Right Weight Bearing/Tolerated Left Lower Extremity: Left Weight Bearing/Tolerated NWB left UE Gait Training Does the Patient Walk?: Yes Distance (FIM): 3=150 ft Distance: 150' Walk 10 feet (QC): 5 Walk 50 ft with 2 Turns(QC): 5 Walk 150 ft (QC): 5 Gait Level of Assist: 5 Gait Persons Needed: 1 Gait Assistive Device: Cane Large Base Quad Pt walks with slow randall Wheelchair Training Does the Pt Use a Wheelchair?: No Exercises Seated Therapy Exercises: Sit to stand Treatments Pt transfers from EOB to standing using QC. Pt ambulates in hallway using QC at close SBA. Pt returns to room to use restroom before transferring to recliner to rest. Pt has all needs met at end of tx. Assessment Current Status: Good Progress Pt is safe with all transfers and ambulation. PT Short Term Goals Short Term Goals Transfers (B,C,W/C) (FIM): 5 PT Snf Goals Manager Truck Goals PT Manager Truck Goals Time Frame: Sep 24, 2017 Transfers (B,C,W/C) (FIM): 6 Sit to Lying (QC): 5 Lying-Sitting on Side/Bed(QC): 5 Sit to Stand (QC): 5 Rollin Roll Left to Right (QC): 5 Chair/Aoy-eq-Zrsgv Xfer(QC): 5 Car Transfer (QC): 5 Does the Patient Walk: Yes Gait (FIM): 6 Gait distance (FIM): 3=150 ft Distance: 300' Walk 10 feet (QC): 5 Walk 10ft-Uneven Surface(QC): 5 Walk 50ft with 2 Turns (QC): 5 Walk 150 ft (QC): 5 Gait Level of Assist: 6 Gait Assistive Device: Cane Large Base Quad, Cane Single Point Stairs (FIM): 1 # of Steps: 1 1 Step (curb) (QC): 3 4 Steps (QC): 9 12 Steps (QC): 9 Stairs Level Of Assist: 4 Picking up an Object (QC): 4 PT Plan Problem List Problem List: Activity Tolerance, Functional Strength, Gait Treatment/Plan Treatment Plan: Continue Plan of Care Treatment Plan: Bed Mobility, Education, Functional Activity Amy, Functional Strength, Group Therapy, Gait, Safety, Therapeutic Exercise, Transfers Treatment Duration: Sep 24, 2017 Frequency: At least 5 of 7 days/Wk (IRF) Estimated Hrs Per Day: 1.5 hours per day Patient and/or Family Agrees t: Yes Safety Risks/Education Patient Education: Gait Training, Transfer Techniques, Correct Positioning, Safety Issues Teaching Recipient: Patient Teaching Methods: Discussion Response to Teaching: Verbalize Understanding Time/GCodes Time In: 910 Time Out: 933 Total Billed Treatment Time: 23 Total Billed Treatment visit, GT (13m) & FA (10m) VASQUEZ CABELLO PTA Sep 04, 2017 09:34
[2017-09-04 17:29] VITALS: BP 126/74
[2017-09-04] MEDS: ATORVASTATIN 40 MG (LIPITOR) TABLET PO SCH (20:36)
[2017-09-04] MEDS: AMITRIPTYLINE 25 MG (ELAVIL) TAB PO SCH (20:36)
[2017-09-05] MEDS: HYDROcodone/APAP 5 MG/325 MG (LORTAB) TAB PO PRN ×3 (02:02→21:40)
[2017-09-05 06:28] VITALS: BP 108/61
[2017-09-05] MEDS: BETHANECHOL 25 MG (URECHOLINE) TAB PO SCH ×4 (06:43→21:05)
[2017-09-05] MEDS: METOCLOPRAMIDE 5 MG (REGLAN) TAB PO SCH ×4 (06:44→21:08)
[2017-09-05] MEDS: OMEGA 3 (FISH OIL) 1000 MG CAP PO SCH ×2 (06:44→16:06)
[2017-09-05] MEDS: PROPAFENONE 150 MG (RYTHMOL) TABLET PO SCH ×3 (06:46→21:04)
[2017-09-05] MEDS: inSUlin ASPART (NovoLOG) 1 UNIT/0.01 ML (CHARGE PER UNIT) SC SCH ×3 (06:48→17:27)
[2017-09-05 08:17] VITALS: BP 125/70
[2017-09-05] MEDS: HYDROCHLOROTHIAZIDE 25 MG (HCTZ) TAB PO SCH (08:31)
[2017-09-05] MEDS: PANTOPRAZOLE 40 MG (PROTONIX) TAB PO SCH ×2 (08:32→21:04)
[2017-09-05] MEDS: METHIMAZOLE TABLET 5 MG TABLET PO SCH (08:32)
[2017-09-05] MEDS: meTOprolol TARTRATE 25 MG (LOPRESSOR) TABLET PO SCH ×2 (08:32→21:04)
[2017-09-05] MEDS: APIXABAN 5 MG (ELIQUIS) TABLET PO SCH ×2 (08:32→21:04)
[2017-09-05] MEDS: DANTROLENE 25 MG PO SCH ×4 (08:32→21:04)
[2017-09-05] MEDS: RAMIPRIL 5 MG (ALTACE) CAP PO SCH ×2 (08:32→21:09)
[2017-09-05] MEDS: VENlafaxine 75 MG (EFFEXOR) TAB PO SCH ×2 (08:32→21:05)
[2017-09-05] MEDS: inSUlin DETERMIR 1 UNIT/0.01 ML (LEVEMIR) CHARGE PER UNIT SQ SCH (08:33)
[2017-09-05 17:55] VITALS: BP 155/80
[2017-09-05] MEDS: ATORVASTATIN 40 MG (LIPITOR) TABLET PO SCH (21:04)
[2017-09-05] MEDS: AMITRIPTYLINE 25 MG (ELAVIL) TAB PO SCH (21:09)
[2017-09-06 05:38] VITALS: BP 146/76
[2017-09-06] MEDS: METOCLOPRAMIDE 5 MG (REGLAN) TAB PO SCH ×4 (06:29→20:59)
[2017-09-06] MEDS: OMEGA 3 (FISH OIL) 1000 MG CAP PO SCH ×2 (06:29→16:31)
[2017-09-06] MEDS: PROPAFENONE 150 MG (RYTHMOL) TABLET PO SCH ×3 (06:29→21:01)
[2017-09-06] MEDS: BETHANECHOL 25 MG (URECHOLINE) TAB PO SCH ×4 (06:29→20:59)
[2017-09-06] MEDS: inSUlin ASPART (NovoLOG) 1 UNIT/0.01 ML (CHARGE PER UNIT) SC SCH ×3 (06:56→16:39)
[2017-09-06] MEDS: DANTROLENE 25 MG PO SCH ×4 (08:24→20:59)
[2017-09-06] MEDS: HYDROCHLOROTHIAZIDE 25 MG (HCTZ) TAB PO SCH (08:24)
[2017-09-06] MEDS: meTOprolol TARTRATE 25 MG (LOPRESSOR) TABLET PO SCH ×2 (08:24→21:04)
[2017-09-06] MEDS: APIXABAN 5 MG (ELIQUIS) TABLET PO SCH ×2 (08:24→20:59)
[2017-09-06] MEDS: VENlafaxine 75 MG (EFFEXOR) TAB PO SCH ×2 (08:24→20:59)
[2017-09-06] MEDS: inSUlin DETERMIR 1 UNIT/0.01 ML (LEVEMIR) CHARGE PER UNIT SQ SCH (08:24)
[2017-09-06] MEDS: RAMIPRIL 5 MG (ALTACE) CAP PO SCH ×2 (08:24→20:59)
[2017-09-06] MEDS: METHIMAZOLE TABLET 5 MG TABLET PO SCH (08:24)
[2017-09-06] MEDS: PANTOPRAZOLE 40 MG (PROTONIX) TAB PO SCH ×2 (08:24→20:58)
--- NOTE | 2017-09-06 08:32 | Cardiology Progress Note ---
Subjective Date Seen by Provider: Sep 06, 2017 Time Seen by Provider: 08:30 Subjective/Events-last exam Patient sitting up in chair. No new complaint. States he is ready to go home. Denies any CP or palpitations. Review of Systems General: No Night Sweats, No Fatigue, No Malaise HEENT: No Visual Changes, No Dysphasia Pulmonary: No Dyspnea, No Cough Cardiovascular: No: Chest Pain, Palpitations, Orthopnea Gastrointestinal: No: Nausea, Vomiting, Abdominal Pain Genitourinary: No Dysuria, No Frequency Musculoskeletal: arm pain, No: neck pain, back pain Neurological: No: Weakness, Numbness, Change in speech, Confusion Objective-Cardiology Exam Last Set of Vital Signs Vital Signs 09/06/17 05:38 Temp 99.6 Pulse 79 Resp 20 B/P (MAP) 146/76 Pulse Ox 94 O2 Delivery Room Air Capillary Refill : Less Than 3 Seconds I&O Intake and Output 09/07/17 00:00 Intake Total 300 ml Output Total 750 ml Balance -450 ml Intake Oral 300 ml Output Urine Total 750 ml General: Alert, Oriented X3, Cooperative HEENT: Atraumatic, PERRLA Neck: Supple, No JVD, No Thyromegaly Lungs: Clear to Auscultation, Normal Air Movement Heart: Regular Rate, Normal S1, Normal S2, No Murmurs Abdomen: Normal Bowel Sounds, Soft, No Tenderness, No Hepatosplenomegaly, No Masses Extremities: No Clubbing, No Cyanosis, Normal Pulses Skin: No Rashes, No Significant Lesion Neuro: Normal Gait, Cranial Nerves 3-12 NL Psych/Mental Status: Mental Status NL, Mood NL A/P-Cardiology Admission Diagnosis Head trauma Paroxysmal atrial fibrillation History of CVA Hypertension Hyperlipidemia Assessment/Plan Status post fall and head trauma with epidural hematoma, Reported subdural hematoma 9 mm without midline shift. Xarelto was discontinued and was started on aspirin and Plavix. Patient is still at high risk of bleeding with aspirin and Plavix. ASA and Plavix were discontinued and was started him on Eliquis due to the fact that there is same risk of bleeding with aspirin and Plavix but better risk reduction for stroke with his paroxysmal atrial fibrillation. Status post bilateral fractures, currently have cast on the upper extremities. Receiving physical therapy. Paroxysmal atrial fibrillation,unknown duration, started on Xarelto on May 19, 2017. Was hospitalized for A. fib with RVR, placed on Cardizem drip. Then he went back to atrial fibrillation, he was on Rythmol since May. Underwent DEIRDRE with successful cardioversion on June 30, 2017. Currently in SR. Restarted Rythmol, has been in sinus rhythm, no further arrhythmia was detected in the last 72 hours. Continue to monitor Cardiac catheterization was done in July 2017 showing mild coronary artery disease nonobstructive disease. [id number] score of 4, yearly risk of stroke without oral anticoagulation is 4 percent. Patient was on Xarelto and it was discontinued after the fall and head trauma, currently on Eliquis. History of CVA in 2006, TIA in 2005, was maintained on Aggrenox, it was changed to Xarelto after discovering the atrial fibrillation. Currently on Eliquis. Continue to monitor Hypertension, controlled. Continue to monitor. Hyperlipidemia, continue to monitor lipids Diabetes mellitus, followed and managed by primary care physician Hyperthyroidism, TSH was 0.74, continue to monitor. Clinical Quality Measures DVT/VTE Risk/Contraindication: Risk Factor Score Per Nursin RFS Level Per Nursing on Admit: 2=Moderate DIAZ BRAXTON Sep 06, 2017 08:32
--- NOTE | 2017-09-06 09:08 | Cardiology Progress Note ---
Subjective Date Seen by Provider: Sep 06, 2017 Time Seen by Provider: 09:07 Subjective/Events-last exam patient is receiving physical therapy, has been feeling well, no further arrhythmia was noted. No chest pain or shortness of breath. Review of Systems General: No Chills, No Night Sweats, No Fatigue, No Malaise, No Appetite, No Other HEENT: No Head Aches, No Visual Changes, No Eye Pain, No Ear Pain, No Dysphasia , No Sinus Congestion, No Post Nasal Drip, No Sore Throat, No Other Pulmonary: No Dyspnea, No Cough, No Pleuritic Chest Pain, No Other Cardiovascular: No: Chest Pain, Palpitations, Orthopnea, Paroxysmal Noc. Dyspnea, Edema, Lt Headedness, Other Objective-Cardiology Exam Last Set of Vital Signs Vital Signs 09/06/17 05:38 Temp 99.6 Pulse 79 Resp 20 B/P (MAP) 146/76 Pulse Ox 94 O2 Delivery Room Air Capillary Refill : Less Than 3 Seconds I&O Intake and Output 09/07/17 00:00 Intake Total 300 ml Output Total 750 ml Balance -450 ml Intake Oral 300 ml Output Urine Total 750 ml General: Alert, Oriented X3, Cooperative HEENT: Atraumatic, PERRLA Neck: Supple, No JVD, No Thyromegaly Lungs: Clear to Auscultation, Normal Air Movement Heart: Regular Rate, Normal S1, Normal S2, No Murmurs Abdomen: Normal Bowel Sounds, Soft, No Tenderness, No Hepatosplenomegaly, No Masses Extremities: No Clubbing, No Cyanosis, Normal Pulses Skin: No Rashes, No Significant Lesion Neuro: Normal Gait, Cranial Nerves 3-12 NL Psych/Mental Status: Mental Status NL, Mood NL Results Lab Laboratory Tests Test 09/05/17 10:57 09/05/17 16:28 09/05/17 20:47 09/06/17 05:49 Range/Units Glucometer 248 H 159 H 237 H 180 H 70-110 MG/DL A/P-Cardiology Admission Diagnosis Head trauma Paroxysmal atrial fibrillation History of CVA Hypertension Hyperlipidemia Assessment/Plan Status post fall and head trauma with epidural hematoma, Reported subdural hematoma 9 mm without midline shift. Xarelto was discontinued and was started on aspirin and Plavix. Patient is still at high risk of bleeding with aspirin and Plavix. ASA and Plavix were discontinued and was started him on Eliquis due to the fact that there is same risk of bleeding with aspirin and Plavix but better risk reduction for stroke with his paroxysmal atrial fibrillation. Status post bilateral fractures, currently have cast on the upper extremities. Receiving physical therapy. Paroxysmal atrial fibrillation,unknown duration, started on Xarelto on May 19, 2017. Was hospitalized for A. fib with RVR, placed on Cardizem drip. Then he went back to atrial fibrillation, he was on Rythmol since May. Underwent DEIRDRE with successful cardioversion on June 30, 2017. Currently in SR. Restarted Rythmol, has been in sinus rhythm, no further arrhythmia was detected. Continue to monitor. No changes are recommended. Cardiac catheterization was done in July 2017 showing mild coronary artery disease nonobstructive disease. [id number] score of 4, yearly risk of stroke without oral anticoagulation is 4 percent. Patient was on Xarelto and it was discontinued after the fall and head trauma, currently on Eliquis. History of CVA in 2006, TIA in 2005, was maintained on Aggrenox, it was changed to Xarelto after discovering the atrial fibrillation. Currently on Eliquis. Continue to monitor Hypertension, controlled. Continue to monitor. Hyperlipidemia, continue to monitor lipids Diabetes mellitus, followed and managed by primary care physician Hyperthyroidism, TSH was 0.74, continue to monitor. Clinical Quality Measures DVT/VTE Risk/Contraindication: Risk Factor Score Per Nursin RFS Level Per Nursing on Admit: 2=Moderate DAMIEN DUVALL MD Sep 06, 2017 09:08
--- NOTE | 2017-09-06 12:55 | Occupational Ther Daily Note ---
OT Current Status-Daily Note Subjective No pain reported. Appearance Pt. in bed. Agrees to work with OT. Mental Status/Objective Patient Orientation: Person, Place Functional [place] Measure 0=Not Assessed/NA 4=Minimal Assistance 1=Total Assistance 5=Supervision or Setup 2=Maximal Assistance 6=Modified [place] 3=Moderate Assistance 7=Complete [place] ADL-Treatment Functional [place] Measure 0=Not Assessed/NA 4=Minimal Assistance 1=Total Assistance 5=Supervision or Setup 2=Maximal Assistance 6=Modified [place] 3=Moderate Assistance 7=Complete IndependenceIRFPAI Quality Coding Scale 6 Independent with activity with or without an assistive device 5 Patient requires set up or clean up by helper. Patient completes activity by themselves 4 Supervision or touching assist (CGA). [place] provide cues , steadying assist 3 The helper provides less than half the effort to complete the activity 2 The helper provides more than half the effort to complete the activity 1 Dependent. The helper does all the effort to complete an activity 7 Patient refused to complete or attempt activity 9 The patient did not perform the activity before the current illness or injury 88 Not attempted due to Medical conditions or safety concerns Grooming (FIM): 4 (CGA in stance at sink.) Bathing (FIM): 4 (CGA in stance to wash niraj areas.) Shower/Bathe Self (QC): 4 Upper Body (FIM): 3 (Pt. able to doff shirt, but did require assist to don. Able to get hands and forearms threaded, but unable to get over head or veneer puller torso.) Upper Body Dressing (QC): 3 Lower Body Dressing (FIM): 3 (Pt. able to doff socks. Able to don right sock. Required assist to don bilateral shoes and left sock. Required assist to don underwear and shorts over feet. Able to pull them up himself in stance with CGA for balance.) Lower Body Dressing (QC): 3 On/Off Footwear (QC): 2 Transfers (B, C, W/C) (FIM): 4 (CGA for ambulation.) Shower Transfer(FIM): 4 Other Treatment Pt. did not attempt to utilize AE this date due to shower size and time constraints. Education OT Patient Education: Correct positioning, Modified ADL techniques, Progress toward Goal/Update tx plan, Purpose of tx/functional activities, Reviewed precautions, Rehab process, Transfer techniques Teaching Recipient: Patient Teaching Methods: Demonstration, Discussion Response to Teaching: Verbalize Understanding, Return Demonstration OT Short Term Goals Short Term Goals Time Frame: Sep 07, 2017 Eating(FIM): 5 Grooming(FIM): 5 Bathing(FIM): 3 Upper Body Dressing(FIM): 4 Lower Body Dressing(FIM): 4 Toileting(FIM): 4 Transfers (B,C,W/C) (FIM): 5 Toilet/Commode Transfer(FIM): 5 Shower Transfer(FIM): 4 Additional Short Term Goals: 1-Demonstrate ADL Tasks, 2-Verbalize Understanding , 3-ImproveStrength/Amy 1=Demonstrate adherence to instructed precautions during ADL tasks. 2=Patient will verbalize/demonstrate understanding of assistive devices/ modifications for ADL. 3=Patient will improve strength/tolerance for activity to enable patient to perform ADL's. OT Assisted Goals Split And Drum Room Supervisor Goals Time Frame: Sep 14, 2017 Eating (FIM): 6 Eating (QC): 6 Groomin Oral Hygiene (QC): 6 Bathing(FIM): 5 Shower/Bathe Self (QC): 4 Upper Body Dressing(FIM): 5 Upper Body Dressing (QC): 4 Lower Body Dressing(FIM): 5 Lower Body Dressing (QC): 4 On/Off Footwear (QC): 4 Toileting(FIM): 66 Toileting Hygiene (QC): 6 Transfers (B,C,W/C) (FIM): 6 Toilet/Commode Transfer(FIM): 6 Toilet/Commode Transfer (QC): 5 Shower Transfer(FIM): 5 Additional Goals: 1-Demonstrate ADL Tasks, 2-Verbalize Understanding, 3- ImproveStrength/Amy 1=Demonstrate adherence to instructed precautions during ADL tasks. 2=Patient will verbalize/demonstrate understanding of assistive devices/ modifications for ADL. 3=Patient will improve strength/tolerance for activity to enable patient to perform ADL's. OT Education/Plan Problem List/Assessment Assessment: Decreased Activ Tolerance, Decreased UE Strength, Dependent Transfers, Impaired Coordination, Impaired Funct Balance, Impaired I ADL's, Impaired Self-Care Skills, Restricted Funct UE ROM Discharge Recommendations Plan/Recommendations: Continue POC Therapy D/C Recommendations: Home w/ Family Support, Occupational Therapy Home Care Treatment Plan/Plan of Care Treatment,Training & Education: Yes Patient would benefit from OT for education, treatment and training to promote independence in ADL's, mobility, safety and/or upper extremity function for ADL' s. Plan of Care: ADL Retraining, Caregiver Training, Functional Mobility, Group Exercise/Act as Ind, UE Funct Exercise/Act Treatment Duration: Sep 14, 2017 Frequency: At least 5 of 7 days/Wk (IRF) Estimated Hrs Per Day: 1.5 hours per day Agreement: Yes Rehab Potential: Good Time/GCodes Start Time: 11:00 Stop Time: 12:00 Total Time Billed (hr/min): 60 Billed Treatment Time 1, ADL x 4 CANDY PICKERING OT Sep 06, 2017 12:55
[2017-09-06] MEDS: HYDROcodone/APAP 5 MG/325 MG (LORTAB) TAB PO PRN ×2 (14:25→21:00)
--- NOTE | 2017-09-06 14:44 | Therapy Group Daily Note ---
Therapy Daily Group Note Patient Education Topic Other List Below (posture, benefits of exercise, proper breathing) Exercises LE Seated Exercise, UE Exercise Other/Notes Other/Notes Pt was an active participant in OT/PT group. He introduced himself and shared the first thing he likes to do in the fall. He contributed to discussion/ education on posture and breathing, as well as the rehab process on ARU. He also did seated UE and LE exercises, modifying them as needed for his physical limitations. He ambulated to his room with QC . Pt left up in recliner, castillo at hand all needs met. Start Time: 13:00 Stop Time: 14:15 Total Billed Treatment Time: 75 Total Billed Treatment 1,GRP CASSI SOLORZANO GENERAL TECHNICIAN Sep 06, 2017 14:44
--- NOTE | 2017-09-06 16:14 | Progress Note-Hospitalist ---
Subjective HPI/CC On Admission Date Seen by Provider: Sep 06, 2017 Time Seen by Provider: 14:50 CC: Epidural hematoma HPI: This is a 62 [address]WM [address] Jackson that presents to IRU following epidural hematoma after falling in driveway with left humerus fracture with compartment syndrome and had emergent fasciotomy in [facility] ED prior to transfer. He had been on Xarelto for AF, hx of stroke with left HP. Currently no fever, vitals stable , and cardiology has been consulted. Subjective/Events-last exam Pt reports doing well. Wants to go home. No complaints. Objective Exam Vital Signs Vital Sign - Last 12Hours 08/31/17 13:13 Temp 99.1 Pulse 103 Resp 18 B/P (MAP) 143/87 Pulse Ox 96 O2 Delivery Room Air Capillary Refill : Less Than 3 Seconds General Appearance: No Apparent Distress, WD/WN Respiratory: Lungs Clear, No Respiratory Distress Cardiovascular: Regular Rate, Rhythm, No Murmur Gastrointestinal: Normal Bowel Sounds, Non Tender, Soft Extremity: Non Tender, No Calf Tenderness Neurologic/Psychiatric: Alert, Oriented x3 Assessment/Plan Assessment and Plan Assess & Plan/Chief Complaint Epidural Hematoma Diagnosis/Problems Diagnosis/Problems (1) Atrial fibrillation Assessment & Plan: Dr. 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 Status: Chronic Assessment & Plan: PT/OT (3) Urinary retention Status: Acute Assessment & Plan: Will trial off Urecholine (4) Insulin dependent diabetes mellitus Status: Chronic Assessment & Plan: BS still elevated (>200s mostly) Appears breakfast insulin isnot sufficient given trends Will increase to equal other mealtime doses and increase basal Discussed plan with his RN to ensure no gap with changes (5) Humerus fracture Status: Acute Assessment & Plan: s/p fasciotomy for compartment syndrome Pt/OT (6) Compartment syndrome of left hand Status: Resolved Assessment & Plan: as above Qualifiers: Qualified Codes: T79.A12S - Traumatic compartment syndrome of left upper extremity, sequela (7) Normocytic anemia Status: Chronic Assessment & Plan: Mild, trend ADY YANCEY MD Sep 06, 2017 4:14 pm
--- NOTE | 2017-09-06 18:35 | PM & R (SOAP) Progress Note ---
Subjective Time Seen by Provider: 18:30 Subjective/Events-last exam Patient was seen in his rrom this evening Patient reports urgency with Urecholine-will try decreasing dose and see if patient tolerates better Ptaient SBA for transfers Appreciate DR Ruvalcaba and Cardiology note Review of Systems Genitourinary: Other (urgency) Objective Exam Last Set of Vital Signs Vital Signs Date Time Temp Pulse Resp B/P (MAP) Pulse Ox O2 Delivery O2 Flow Rate FiO2 09/06/17 13:00 80 09/06/17 05:38 99.6 20 146/76 94 Room Air Capillary Refill : Less Than 3 Seconds I&O Intake and Output 09/07/17 00:00 Intake Total 1220 ml Output Total 1100 ml Balance 120 ml Intake Oral 1220 ml Output Urine Total 1100 ml # Voids 2 # Bowel Movements 1 General: Alert, Oriented X3, Cooperative HEENT: Atraumatic, PERRLA Neck: Supple, No JVD, No Thyromegaly Lungs: Clear to Auscultation, Normal Air Movement Heart: Regular Rate, Normal S1, Normal S2, No Murmurs Abdomen: Normal Bowel Sounds, Soft, No Tenderness, No Hepatosplenomegaly, No Masses Extremities: No Clubbing, No Cyanosis, Normal Pulses Skin: No Rashes, No Significant Lesion Neuro: Normal Gait, Cranial Nerves 3-12 NL Psych/Mental Status: Mental Status NL, Mood NL Results Lab Laboratory Tests 09/03/17 20:02: Glucometer 56*L 09/03/17 21:15: Glucometer 78 09/04/17 06:04: Glucometer 133H 09/04/17 11:17: Glucometer 193H 09/04/17 16:19: Glucometer 214H 09/04/17 20:45: Glucometer 175H 09/05/17 06:00: Glucometer 195H 09/05/17 10:57: Glucometer 248H 09/05/17 16:28: Glucometer 159H 09/05/17 20:47: Glucometer 237H 09/06/17 05:49: Glucometer 180H 09/06/17 11:01: Glucometer 244H 09/06/17 16:01: Glucometer 213H Assessment/Plan Assessment TBI s/p fall improving FRx left humerus in cast Frx rt thumb in cast Recuurent A FIB controlled with meds with Rythmol added HTN controlled Late effects of stroke(RT CVA with Left HP) DM controlled HLP-Cardiology following Urinary retention improved with med Plan Continue PT/OT F/U with Cardiology and Hospitalist service prn Next Team Conference 09-08-17 Trial of decreasing Urecholine-and monitor for any urinary retention TIFFANI CHEATHAM MD Sep 06, 2017 18:35
[2017-09-06 18:55] VITALS: BP 138/85
[2017-09-06] MEDS: AMITRIPTYLINE 25 MG (ELAVIL) TAB PO SCH (20:58)
[2017-09-06] MEDS: ATORVASTATIN 40 MG (LIPITOR) TABLET PO SCH (20:59)
[2017-09-07] MEDS ORDERED: inSUlin ASPART (NovoLOG) 1 UNIT/0.01 ML (CHARGE PER UNIT) SC SCH (06:00)
[2017-09-07 06:37] VITALS: BP 131/78
[2017-09-07] MEDS: PROPAFENONE 150 MG (RYTHMOL) TABLET PO SCH ×3 (06:46→21:49)
[2017-09-07] MEDS: HYDROcodone/APAP 5 MG/325 MG (LORTAB) TAB PO PRN ×4 (06:46→21:52)
[2017-09-07] MEDS: OMEGA 3 (FISH OIL) 1000 MG CAP PO SCH ×2 (06:46→16:25)
[2017-09-07] MEDS: BETHANECHOL 25 MG (URECHOLINE) TAB PO SCH ×4 (06:46→20:24)
[2017-09-07] MEDS: METOCLOPRAMIDE 5 MG (REGLAN) TAB PO SCH ×4 (06:46→20:25)
[2017-09-07] MEDS: inSUlin ASPART (NovoLOG) 1 UNIT/0.01 ML (CHARGE PER UNIT) SC SCH ×3 (06:47→16:26)
[2017-09-07] MEDS: PANTOPRAZOLE 40 MG (PROTONIX) TAB PO SCH ×2 (08:18→20:24)
[2017-09-07] MEDS: HYDROCHLOROTHIAZIDE 25 MG (HCTZ) TAB PO SCH (08:18)
--- NOTE | 2017-09-07 08:18 | Cardiology Progress Note ---
Subjective Date Seen by Provider: Sep 07, 2017 Time Seen by Provider: 08:16 Subjective/Events-last exam Patient is in bed, feeling better, no new complaint, has been in sinus rhythm Review of Systems General: No Chills, No Night Sweats, No Fatigue, No Malaise, No Appetite, No Other HEENT: No Head Aches, No Visual Changes, No Eye Pain, No Ear Pain, No Dysphasia , No Sinus Congestion, No Post Nasal Drip, No Sore Throat, No Other Pulmonary: No Dyspnea, No Cough, No Pleuritic Chest Pain, No Other Objective-Cardiology Exam Last Set of Vital Signs Vital Signs 09/07/17 09/07/17 06:37 07:00 Temp 98.1 Pulse 85 Resp 18 B/P (MAP) 131/78 Pulse Ox 95 O2 Delivery Room Air Capillary Refill : Less Than 3 Seconds I&O Intake and Output 09/08/17 00:00 Intake Total 550 ml Output Total 575 ml Balance -25 ml Intake Oral 550 ml Output Urine Total 575 ml General: Alert, Oriented X3, Cooperative HEENT: Atraumatic, PERRLA Neck: Supple, No JVD, No Thyromegaly Lungs: Clear to Auscultation, Normal Air Movement Heart: Regular Rate, Normal S1, Normal S2, No Murmurs Abdomen: Normal Bowel Sounds, Soft, No Tenderness, No Hepatosplenomegaly, No Masses Extremities: No Clubbing, No Cyanosis, Normal Pulses Skin: No Rashes, No Significant Lesion Neuro: Normal Gait, Cranial Nerves 3-12 NL Psych/Mental Status: Mental Status NL, Mood NL Results Lab Laboratory Tests Test 09/06/17 11:01 09/06/17 16:01 09/06/17 20:09 09/07/17 05:11 Range/Units Glucometer 244 H 213 H 199 H 179 H 70-110 MG/DL A/P-Cardiology Admission Diagnosis Head trauma Paroxysmal atrial fibrillation History of CVA Hypertension Hyperlipidemia Assessment/Plan Status post fall and head trauma with epidural hematoma, Reported subdural hematoma 9 mm without midline shift. Xarelto was discontinued and was started on aspirin and Plavix. Patient is still at high risk of bleeding with aspirin and Plavix. ASA and Plavix were discontinued and was started him on Eliquis due to the fact that there is same risk of bleeding with aspirin and Plavix but better risk reduction for stroke with his paroxysmal atrial fibrillation. Status post bilateral fractures, currently have cast on the upper extremities. Receiving physical therapy and reporting improvement Paroxysmal atrial fibrillation,unknown duration, started on Xarelto on May 19, 2017. Was hospitalized for A. fib with RVR, placed on Cardizem drip. Then he went back to atrial fibrillation, he was on Rythmol since May. Underwent DEIRDRE with successful cardioversion on June 30, 2017. Currently in SR. Restarted Rythmol, has been in sinus rhythm, no further arrhythmia was detected. Continue to monitor. No changes are recommended. Cardiac catheterization was done in July 2017 showing mild coronary artery disease nonobstructive disease. [id number] score of 4, yearly risk of stroke without oral anticoagulation is 4 percent. Patient was on Xarelto and it was discontinued after the fall and head trauma, currently on Eliquis. History of CVA in 2006, TIA in 2005, was maintained on Aggrenox, it was changed to Xarelto after discovering the atrial fibrillation. Currently on Eliquis. Continue to monitor Hypertension, controlled. Continue to monitor. Hyperlipidemia, continue to monitor lipids Diabetes mellitus, followed and managed by primary care physician Hyperthyroidism, TSH was 0.74, continue to monitor. Clinical Quality Measures DVT/VTE Risk/Contraindication: Risk Factor Score Per Nursin RFS Level Per Nursing on Admit: 2=Moderate DAMIEN DUVALL MD Sep 07, 2017 08:18
[2017-09-07] MEDS: DANTROLENE 25 MG PO SCH ×4 (08:19→20:24)
[2017-09-07] MEDS: meTOprolol TARTRATE 25 MG (LOPRESSOR) TABLET PO SCH ×2 (08:19→20:24)
[2017-09-07] MEDS: METHIMAZOLE TABLET 5 MG TABLET PO SCH (08:19)
[2017-09-07] MEDS: APIXABAN 5 MG (ELIQUIS) TABLET PO SCH ×2 (08:19→20:25)
[2017-09-07] MEDS: RAMIPRIL 5 MG (ALTACE) CAP PO SCH ×2 (08:19→20:24)
[2017-09-07] MEDS: inSUlin DETERMIR 1 UNIT/0.01 ML (LEVEMIR) CHARGE PER UNIT SQ SCH (08:20)
--- NOTE | 2017-09-07 08:21 | Cardiology Progress Note ---
Subjective Date Seen by Provider: Sep 07, 2017 Time Seen by Provider: 08:20 Subjective/Events-last exam Patient sitting up in chair, eating breakfast. No new complaints. Denies any CP or dyspnea. Telemetry reveals SR. Review of Systems General: No Night Sweats, No Fatigue, No Malaise HEENT: No Visual Changes, No Dysphasia Pulmonary: No Dyspnea, No Cough Cardiovascular: No: Chest Pain, Palpitations, Paroxysmal Noc. Dyspnea, Edema Gastrointestinal: No: Nausea, Vomiting, Abdominal Pain Genitourinary: No Dysuria, No Frequency Musculoskeletal: No: neck pain, back pain Neurological: No: Weakness, Numbness, Change in speech, Confusion Objective-Cardiology Exam Last Set of Vital Signs Vital Signs 09/07/17 09/07/17 06:37 07:00 Temp 98.1 Pulse 85 Resp 18 B/P (MAP) 131/78 Pulse Ox 95 O2 Delivery Room Air Capillary Refill : Less Than 3 Seconds I&O Intake and Output 09/08/17 00:00 Intake Total 550 ml Output Total 575 ml Balance -25 ml Intake Oral 550 ml Output Urine Total 575 ml General: Alert, Oriented X3, Cooperative HEENT: Atraumatic, PERRLA Neck: Supple, No JVD, No Thyromegaly Lungs: Clear to Auscultation, Normal Air Movement Heart: Regular Rate, Normal S1, Normal S2, No Murmurs Abdomen: Normal Bowel Sounds, Soft, No Tenderness, No Hepatosplenomegaly, No Masses Extremities: No Clubbing, No Cyanosis, Normal Pulses Skin: No Rashes, No Significant Lesion Neuro: Normal Gait, Cranial Nerves 3-12 NL Psych/Mental Status: Mental Status NL, Mood NL A/P-Cardiology Admission Diagnosis Head trauma Paroxysmal atrial fibrillation History of CVA Hypertension Hyperlipidemia Assessment/Plan Status post fall and head trauma with epidural hematoma, Reported subdural hematoma 9 mm without midline shift. Xarelto was discontinued and was started on aspirin and Plavix. Patient is still at high risk of bleeding with aspirin and Plavix. ASA and Plavix were discontinued and was started him on Eliquis due to the fact that there is same risk of bleeding with aspirin and Plavix but better risk reduction for stroke with his paroxysmal atrial fibrillation. Status post bilateral fractures, currently have cast on the upper extremities. Receiving physical therapy and reporting improvement Paroxysmal atrial fibrillation,unknown duration, started on Xarelto on May 19, 2017. Was hospitalized for A. fib with RVR, placed on Cardizem drip. Then he went back to atrial fibrillation, he was on Rythmol since May. Underwent DEIRDRE with successful cardioversion on June 30, 2017. Currently in SR. Restarted Rythmol, has been in sinus rhythm, no further arrhythmia was detected. Continue to monitor. No changes are recommended. Cardiac catheterization was done in July 2017 showing mild coronary artery disease nonobstructive disease. [id number] score of 4, yearly risk of stroke without oral anticoagulation is 4 percent. Patient was on Xarelto and it was discontinued after the fall and head trauma, currently on Eliquis. History of CVA in 2006, TIA in 2005, was maintained on Aggrenox, it was changed to Xarelto after discovering the atrial fibrillation. Currently on Eliquis. Continue to monitor Hypertension, controlled. Continue to monitor. Hyperlipidemia, continue to monitor lipids Diabetes mellitus, followed and managed by primary care physician Hyperthyroidism, TSH was 0.74, continue to monitor. Clinical Quality Measures DVT/VTE Risk/Contraindication: Risk Factor Score Per Nursin RFS Level Per Nursing on Admit: 2=Moderate DIAZ BRAXTON Sep 07, 2017 08:21
[2017-09-07] MEDS: VENlafaxine 75 MG (EFFEXOR) TAB PO SCH ×2 (08:24→20:24)
--- NOTE | 2017-09-07 12:43 | Occupational Ther Daily Note ---
OT Current Status-Daily Note Subjective Pt supine in bed at beginning of tx. Agreed to participate in therapy. Appearance Alert and cooperative. Mental Status/Objective Functional [place] Measure 0=Not Assessed/NA 4=Minimal Assistance 1=Total Assistance 5=Supervision or Setup 2=Maximal Assistance 6=Modified [place] 3=Moderate Assistance 7=Complete [place] ADL-Treatment Pt required min assist to supine>EOB, EOB >standing with CGA for safety, standing <> sitting with CGA for safety and using Dycem for ship's carpenter on R arm of chair. Pt used quad cane for walking. Functional [place] Measure 0=Not Assessed/NA 4=Minimal Assistance 1=Total Assistance 5=Supervision or Setup 2=Maximal Assistance 6=Modified [place] 3=Moderate Assistance 7=Complete IndependenceIRFPAI Quality Coding Scale 6 Independent with activity with or without an assistive device 5 Patient requires set up or clean up by helper. Patient completes activity by themselves 4 Supervision or touching assist (CGA). [place] provide cues , steadying assist 3 The helper provides less than half the effort to complete the activity 2 The helper provides more than half the effort to complete the activity 1 Dependent. The helper does all the effort to complete an activity 7 Patient refused to complete or attempt activity 9 The patient did not perform the activity before the current illness or injury 88 Not attempted due to Medical conditions or safety concerns Grooming (FIM): 4 (Pt stood at sink to shave with electric razor and brush hair with no assistance with activities but with CGA for safety concerns. ) Other Treatment Pt walked to gym with quad cane, CGA, needing to stop periodically for sequencing. Used arm bike with R arm for 10 minutes at 15 melendez, requiring one recovery period, for strengthening arm for transfers and ADLs. Pt did activities of graduated clothespins to address RUE strengthening and reaching for cones in varying planes to increase mobility of RUE. Pt care transferred to PT in gym. Education OT Patient Education: Purpose of tx/functional activities, Safety issues, Transfer techniques, Use of adapted equipment Teaching Recipient: Patient Teaching Methods: Demonstration, Discussion Response to Teaching: Verbalize Understanding, Reinforcement Needed OT Short Term Goals Short Term Goals Time Frame: Sep 07, 2017 Eating(FIM): 5 Grooming(FIM): 5 Bathing(FIM): 3 Upper Body Dressing(FIM): 4 Lower Body Dressing(FIM): 4 Toileting(FIM): 4 Transfers (B,C,W/C) (FIM): 5 Toilet/Commode Transfer(FIM): 5 Shower Transfer(FIM): 4 Additional Short Term Goals: 1-Demonstrate ADL Tasks, 2-Verbalize Understanding , 3-ImproveStrength/Amy 1=Demonstrate adherence to instructed precautions during ADL tasks. 2=Patient will verbalize/demonstrate understanding of assistive devices/ modifications for ADL. 3=Patient will improve strength/tolerance for activity to enable patient to perform ADL's. OT Field Hand Goals Long-Term Goals Time Frame: Sep 14, 2017 Eating (FIM): 6 Eating (QC): 6 Groomin Oral Hygiene (QC): 6 Bathing(FIM): 5 Shower/Bathe Self (QC): 4 Upper Body Dressing(FIM): 5 Upper Body Dressing (QC): 4 Lower Body Dressing(FIM): 5 Lower Body Dressing (QC): 4 On/Off Footwear (QC): 4 Toileting(FIM): 66 Toileting Hygiene (QC): 6 Transfers (B,C,W/C) (FIM): 6 Toilet/Commode Transfer(FIM): 6 Toilet/Commode Transfer (QC): 5 Shower Transfer(FIM): 5 Additional Goals: 1-Demonstrate ADL Tasks, 2-Verbalize Understanding, 3- ImproveStrength/Amy 1=Demonstrate adherence to instructed precautions during ADL tasks. 2=Patient will verbalize/demonstrate understanding of assistive devices/ modifications for ADL. 3=Patient will improve strength/tolerance for activity to enable patient to perform ADL's. OT Education/Plan Discharge Recommendations Plan/Recommendations: Continue POC Treatment Plan/Plan of Care Patient would benefit from OT for education, treatment and training to promote independence in ADL's, mobility, safety and/or upper extremity function for ADL' s. Plan of Care: ADL Retraining, Caregiver Training, Functional Mobility, Group Exercise/Act as Ind, UE Funct Exercise/Act Treatment Duration: Sep 14, 2017 Frequency: At least 5 of 7 days/Wk (IRF) Estimated Hrs Per Day: 1.5 hours per day Agreement: Yes Rehab Potential: Good Time/GCodes Start Time: 09:15 Stop Time: 10:15 Total Time Billed (hr/min): 60 Billed Treatment Time visit, ADL 15 minutes, exercise 45 minutes MEHUL DAVIDSON OT Sep 07, 2017 12:43
--- NOTE | 2017-09-07 12:57 | PM & R (SOAP) Progress Note ---
Subjective Time Seen by Provider: 11:50 Subjective/Events-last exam Patient was seen in his room this AM Patient Min assist for transfers Objective Exam Last Set of Vital Signs Vital Signs Date Time Temp Pulse Resp B/P (MAP) Pulse Ox O2 Delivery O2 Flow Rate FiO2 09/07/17 07:00 85 09/07/17 06:37 98.1 18 131/78 95 Room Air Capillary Refill : Less Than 3 Seconds I&O Intake and Output 09/07/17 23:59 Intake Total 550 ml Output Total 575 ml Balance -25 ml Intake Oral 550 ml Output Urine Total 575 ml General: Alert, Oriented X3, Cooperative HEENT: Atraumatic, PERRLA Neck: Supple, No JVD, No Thyromegaly Lungs: Clear to Auscultation, Normal Air Movement Heart: Regular Rate, Normal S1, Normal S2, No Murmurs Abdomen: Normal Bowel Sounds, Soft, No Tenderness, No Hepatosplenomegaly, No Masses Extremities: No Clubbing, No Cyanosis, Normal Pulses Skin: No Rashes, No Significant Lesion Neuro: Normal Gait, Cranial Nerves 3-12 NL Psych/Mental Status: Mental Status NL, Mood NL Results Lab Laboratory Tests 09/04/17 16:19: Glucometer 214H 09/04/17 20:45: Glucometer 175H 09/05/17 06:00: Glucometer 195H 09/05/17 10:57: Glucometer 248H 09/05/17 16:28: Glucometer 159H 09/05/17 20:47: Glucometer 237H 09/06/17 05:49: Glucometer 180H 09/06/17 11:01: Glucometer 244H 09/06/17 16:01: Glucometer 213H 09/06/17 20:09: Glucometer 199H 09/07/17 05:11: Glucometer 179H 09/07/17 10:51: Glucometer 217H Assessment/Plan Assessment TBI s/p fall improving FRx left humerus in cast Frx rt thumb in cast Recuurent A FIB controlled with meds with Rythmol added HTN controlled Late effects of stroke(RT CVA with Left HP) DM controlled HLP-Cardiology following Urinary retention improved with med Plan Continue PT/OT F/U with Cardiology and Hospitalist service prn Next Team Conference tomorrow 10-25-17 Trial of decreasing Urecholine-and monitor for any urinary retention-doing ok with taper Discussed with Nursing-Patient to see his orthopedist tomorrow in TIFFANI Tellez MD Sep 07, 2017 12:57
--- NOTE | 2017-09-07 13:04 | Physical Therapy Daily Note ---
PT Daily Note-Current Subjective Pt sitting in Therapy Gym upon arrival. Pt agrees to PT. Pain Numeric Pain Scale: 4 Location: Left Location Body Site: Shoulder Pain Description: Ache Mental Status Patient Orientation: Person, Place, Time, Situation Transfers Functional [place] Measure 0=Not Assessed/NA 4=Minimal Assistance 1=Total Assistance 5=Supervision or Setup 2=Maximal Assistance 6=Modified [place] 3=Moderate Assistance 7=Complete IndependenceIRFPAI Quality Coding Scale 6 Independent with activity with or without an assistive device 5 Patient requires set up or clean up by helper. Patient completes activity by themselves 4 Supervision or touching assist ([facility]). [place] provide cues , steadying assist 3 The helper provides less than half the effort to complete the activity 2 The helper provides more than half the effort to complete the activity 1 Dependent. The helper does all the effort to complete an activity 7 Patient refused to complete or attempt activity 9 The patient did not perform the activity before the current illness or injury 88 Not attempted due to Medical conditions or safety concerns Scootin Sit to/from Stand: 4 Sit to Stand (QC): 4 Weight Bearing Right Lower Extremity: Right Weight Bearing/Tolerated Left Lower Extremity: Left Weight Bearing/Tolerated NWB left UE Gait Training Does the Patient Walk?: Yes Distance (FIM): 3=150 ft Distance: 300' Walk 10 feet (QC): 5 Walk 50 ft with 2 Turns(QC): 5 Walk 150 ft (QC): 5 Gait Level of Assist: 5 Gait Persons Needed: 1 Gait Assistive Device: Cane Large Base Quad Pt walks with slow randall, no LOB. Pt drifts a little to R side but able to self-correct. Wheelchair Training Does the Pt Use a Wheelchair?: No Exercises Standing: Heel/toe raises, Marching, Mini squats, Weight shifts Standing Reps: 20 NuStep Minutes: 10 NuStep Workload: 3 Treatments Pt transfers from chair to standing at [facility]. Pt uses NuStep for 10m at Workload 3 before transferring to standing for walk. Pt walks using QC in hallway at [facility] -close SBA. Pt returns to room to rest Supine in bed at end of tx with all needs met. Assessment Current Status: Good Progress Pt fatigues and needs occasional rest break but recovers quickly. PT Short Term Goals Short Term Goals Transfers (B,C,W/C) (FIM): 5 PT Manager Green Goals Group Home Goals PT Group Home Goals Time Frame: Sep 24, 2017 Transfers (B,C,W/C) (FIM): 6 Sit to Lying (QC): 5 Lying-Sitting on Side/Bed(QC): 5 Sit to Stand (QC): 5 Rollin Roll Left to Right (QC): 5 Chair/Mmb-hi-Sehnd Xfer(QC): 5 Car Transfer (QC): 5 Does the Patient Walk: Yes Gait (FIM): 6 Gait distance (FIM): 3=150 ft Distance: 300' Walk 10 feet (QC): 5 Walk 10ft-Uneven Surface(QC): 5 Walk 50ft with 2 Turns (QC): 5 Walk 150 ft (QC): 5 Gait Level of Assist: 6 Gait Assistive Device: Cane Large Base Quad, Cane Single Point Stairs (FIM): 1 # of Steps: 1 1 Step (curb) (QC): 3 4 Steps (QC): 9 12 Steps (QC): 9 Stairs Level Of Assist: 4 Picking up an Object (QC): 4 PT Plan Problem List Problem List: Activity Tolerance, Functional Strength, Gait Treatment/Plan Treatment Plan: Continue Plan of Care Treatment Plan: Bed Mobility, Education, Functional Activity Amy, Functional Strength, Group Therapy, Gait, Safety, Therapeutic Exercise, Transfers Treatment Duration: Sep 24, 2017 Frequency: At least 5 of 7 days/Wk (IRF) Estimated Hrs Per Day: 1.5 hours per day Patient and/or Family Agrees t: Yes Safety Risks/Education Patient Education: Gait Training, Transfer Techniques, Correct Positioning, Safety Issues Teaching Recipient: Patient Teaching Methods: Discussion Response to Teaching: Verbalize Understanding Time/GCodes Time In: 1015 Time Out: 1115 Total Billed Treatment Time: 60 Total Billed Treatment visit, GT x2 (30m) & EX x2 (30m) VASQUEZ CABELLO PTA Sep 07, 2017 13:04
--- NOTE | 2017-09-07 15:04 | Occupational Ther Daily Note ---
OT Current Status-Daily Note Subjective Pt EOB at beginning of tx. Agreed to walk to [facility] for therapy. Appearance Alert, cooperative. Mental Status/Objective Functional [place] Measure 0=Not Assessed/NA 4=Minimal Assistance 1=Total Assistance 5=Supervision or Setup 2=Maximal Assistance 6=Modified [place] 3=Moderate Assistance 7=Complete [place] ADL-Treatment Functional [place] Measure 0=Not Assessed/NA 4=Minimal Assistance 1=Total Assistance 5=Supervision or Setup 2=Maximal Assistance 6=Modified [place] 3=Moderate Assistance 7=Complete IndependenceIRFPAI Quality Coding Scale 6 Independent with activity with or without an assistive device 5 Patient requires set up or clean up by helper. Patient completes activity by themselves 4 Supervision or touching assist (CGA). [place] provide cues , steadying assist 3 The helper provides less than half the effort to complete the activity 2 The helper provides more than half the effort to complete the activity 1 Dependent. The helper does all the effort to complete an activity 7 Patient refused to complete or attempt activity 9 The patient did not perform the activity before the current illness or injury 88 Not attempted due to Medical conditions or safety concerns Other Treatment Pt used quad cane to walk to [facility] with CGA for safety. Pt did tabletop activity to exercise shoulder ROM and work on grasp and golf club assembler in the R hand to improve functional transfers and ADLs. Pt then walked back to room using quad cane with CGA and sat on the toilet, CGA for clothing management and transfer. Pt on toilet at end of tx and stated he would call for help when he was done. Nursing notified Education OT Patient Education: Exercise program, Purpose of tx/functional activities, Safety issues, Transfer techniques, Use of adapted equipment Teaching Recipient: Patient Teaching Methods: Demonstration, Discussion Response to Teaching: Verbalize Understanding, Return Demonstration, Reinforcement Needed OT Short Term Goals Short Term Goals Time Frame: Sep 07, 2017 Eating(FIM): 5 Grooming(FIM): 5 Bathing(FIM): 3 Upper Body Dressing(FIM): 4 Lower Body Dressing(FIM): 4 Toileting(FIM): 4 Transfers (B,C,W/C) (FIM): 5 Toilet/Commode Transfer(FIM): 5 Shower Transfer(FIM): 4 Additional Short Term Goals: 1-Demonstrate ADL Tasks, 2-Verbalize Understanding , 3-ImproveStrength/Amy 1=Demonstrate adherence to instructed precautions during ADL tasks. 2=Patient will verbalize/demonstrate understanding of assistive devices/ modifications for ADL. 3=Patient will improve strength/tolerance for activity to enable patient to perform ADL's. OT Power Plant Technician Goals Power Plant Technician Goals Time Frame: Sep 14, 2017 Eating (FIM): 6 Eating (QC): 6 Groomin Oral Hygiene (QC): 6 Bathing(FIM): 5 Shower/Bathe Self (QC): 4 Upper Body Dressing(FIM): 5 Upper Body Dressing (QC): 4 Lower Body Dressing(FIM): 5 Lower Body Dressing (QC): 4 On/Off Footwear (QC): 4 Toileting(FIM): 66 Toileting Hygiene (QC): 6 Transfers (B,C,W/C) (FIM): 6 Toilet/Commode Transfer(FIM): 6 Toilet/Commode Transfer (QC): 5 Shower Transfer(FIM): 5 Additional Goals: 1-Demonstrate ADL Tasks, 2-Verbalize Understanding, 3- ImproveStrength/Amy 1=Demonstrate adherence to instructed precautions during ADL tasks. 2=Patient will verbalize/demonstrate understanding of assistive devices/ modifications for ADL. 3=Patient will improve strength/tolerance for activity to enable patient to perform ADL's. OT Education/Plan Discharge Recommendations Plan/Recommendations: Continue POC Treatment Plan/Plan of Care Patient would benefit from OT for education, treatment and training to promote independence in ADL's, mobility, safety and/or upper extremity function for ADL' s. Plan of Care: ADL Retraining, Caregiver Training, Functional Mobility, Group Exercise/Act as Ind, UE Funct Exercise/Act Treatment Duration: Sep 14, 2017 Frequency: At least 5 of 7 days/Wk (IRF) Estimated Hrs Per Day: 1.5 hours per day Agreement: Yes Rehab Potential: Good Time/GCodes Start Time: 14:00 Stop Time: 14:30 Total Time Billed (hr/min): 30 Billed Treatment Time visit, exercise 30 minutes MEHUL DAVIDSON OT Sep 07, 2017 15:04
--- NOTE | 2017-09-07 15:28 | Physical Therapy Daily Note ---
PT Daily Note-Current Subjective Pt sitting at EOB at after just getting back from restroom with Nursing assistance upon arrival. Pt agrees to Seated Ex due to fatigue. Pain Numeric Pain Scale: 3 Location: Left Location Body Site: Shoulder Pain Description: Ache Mental Status Patient Orientation: Person, Place, Time, Situation Transfers Functional [place] Measure 0=Not Assessed/NA 4=Minimal Assistance 1=Total Assistance 5=Supervision or Setup 2=Maximal Assistance 6=Modified [place] 3=Moderate Assistance 7=Complete IndependenceIRFPAI Quality Coding Scale 6 Independent with activity with or without an assistive device 5 Patient requires set up or clean up by helper. Patient completes activity by themselves 4 Supervision or touching assist (CGA). [place] provide cues , steadying assist 3 The helper provides less than half the effort to complete the activity 2 The helper provides more than half the effort to complete the activity 1 Dependent. The helper does all the effort to complete an activity 7 Patient refused to complete or attempt activity 9 The patient did not perform the activity before the current illness or injury 88 Not attempted due to Medical conditions or safety concerns Weight Bearing Right Lower Extremity: Right Weight Bearing/Tolerated Left Lower Extremity: Left Weight Bearing/Tolerated NWB left UE Exercises Seated Therapy Exercises: Ankle pumps, Long arc quads, Hip flexion, Kicking activity, Hip abd/add Seated Reps: 20 Treatments Pt completed Seated Ex at EOB. Pt and PT also discussed schedule for tomorrow since pt is leaving early AM for [place] appt. Pt resting at EOB with all needs met at end of tx. Assessment Current Status: Good Progress Pt fatigues but works hard and is wanting to improve to be able to discharge home. PT Short Term Goals Short Term Goals Transfers (B,C,W/C) (FIM): 5 PT Skilled Nursing Goals Dock Builder Goals PT Skilled Nursing Goals Time Frame: Sep 24, 2017 Transfers (B,C,W/C) (FIM): 6 Sit to Lying (QC): 5 Lying-Sitting on Side/Bed(QC): 5 Sit to Stand (QC): 5 Rollin Roll Left to Right (QC): 5 Chair/Mpj-fk-Kdyzu Xfer(QC): 5 Car Transfer (QC): 5 Does the Patient Walk: Yes Gait (FIM): 6 Gait distance (FIM): 3=150 ft Distance: 300' Walk 10 feet (QC): 5 Walk 10ft-Uneven Surface(QC): 5 Walk 50ft with 2 Turns (QC): 5 Walk 150 ft (QC): 5 Gait Level of Assist: 6 Gait Assistive Device: Cane Large Base Quad, Cane Single Point Stairs (FIM): 1 # of Steps: 1 1 Step (curb) (QC): 3 4 Steps (QC): 9 12 Steps (QC): 9 Stairs Level Of Assist: 4 Picking up an Object (QC): 4 PT Plan Problem List Problem List: Activity Tolerance, Functional Strength, Transfer Treatment/Plan Treatment Plan: Continue Plan of Care Treatment Plan: Bed Mobility, Education, Functional Activity Amy, Functional Strength, Group Therapy, Gait, Safety, Therapeutic Exercise, Transfers Treatment Duration: Sep 24, 2017 Frequency: At least 5 of 7 days/Wk (IRF) Estimated Hrs Per Day: 1.5 hours per day Patient and/or Family Agrees t: Yes Safety Risks/Education Patient Education: Transfer Techniques, Correct Positioning, Safety Issues Teaching Recipient: Patient Teaching Methods: Discussion Response to Teaching: Verbalize Understanding Time/GCodes Time In: 1330 Time Out: 1400 Total Billed Treatment Time: 30 Total Billed Treatment visit, EX x2 (30m) VASQUEZ CABELLO DAIRY NUTRITIONIST Sep 07, 2017 15:28
[2017-09-07] MEDS ORDERED: ONDANSETRON 4 MG (ZOFRAN) ORAL DISSOLVE TAB ONE (17:56)
[2017-09-07] MEDS ORDERED: ONDANSETRON 4 MG (ZOFRAN) ORAL DISSOLVE TAB PO PRN (18:00)
[2017-09-07 18:17] VITALS: BP 150/78
[2017-09-07] MEDS: ATORVASTATIN 40 MG (LIPITOR) TABLET PO SCH (20:24)
[2017-09-07] MEDS: AMITRIPTYLINE 25 MG (ELAVIL) TAB PO SCH (20:25)
[2017-09-08 06:00] VITALS: BP 106/66
[2017-09-08] MEDS: OMEGA 3 (FISH OIL) 1000 MG CAP PO SCH ×2 (06:06→16:45)
[2017-09-08] MEDS: HYDROcodone/APAP 5 MG/325 MG (LORTAB) TAB PO PRN ×3 (06:06→20:49)
[2017-09-08] MEDS: PROPAFENONE 150 MG (RYTHMOL) TABLET PO SCH ×3 (06:06→20:48)
[2017-09-08] MEDS: BETHANECHOL 25 MG (URECHOLINE) TAB PO SCH ×2 (06:06→11:45)
[2017-09-08] MEDS: METOCLOPRAMIDE 5 MG (REGLAN) TAB PO SCH ×4 (06:06→20:48)
[2017-09-08] MEDS: inSUlin ASPART (NovoLOG) 1 UNIT/0.01 ML (CHARGE PER UNIT) SC SCH ×3 (06:11→16:46)
[2017-09-08] MEDS: DANTROLENE 25 MG PO SCH ×4 (08:03→20:48)
[2017-09-08] MEDS: VENlafaxine 75 MG (EFFEXOR) TAB PO SCH ×2 (08:03→20:48)
[2017-09-08] MEDS: meTOprolol TARTRATE 25 MG (LOPRESSOR) TABLET PO SCH ×2 (08:03→20:48)
[2017-09-08] MEDS: HYDROCHLOROTHIAZIDE 25 MG (HCTZ) TAB PO SCH (08:03)
[2017-09-08] MEDS: PANTOPRAZOLE 40 MG (PROTONIX) TAB PO SCH ×2 (08:03→20:48)
[2017-09-08] MEDS: RAMIPRIL 5 MG (ALTACE) CAP PO SCH ×2 (08:04→20:48)
[2017-09-08] MEDS: METHIMAZOLE TABLET 5 MG TABLET PO SCH (08:04)
[2017-09-08] MEDS: APIXABAN 5 MG (ELIQUIS) TABLET PO SCH ×2 (08:04→20:48)
[2017-09-08] MEDS: inSUlin DETERMIR 1 UNIT/0.01 ML (LEVEMIR) CHARGE PER UNIT SQ SCH (08:05)
--- NOTE | 2017-09-08 08:17 | Cardiology Progress Note ---
Subjective Date Seen by Provider: Sep 08, 2017 Time Seen by Provider: 08:16 Subjective/Events-last exam Patient is sitting up in chair. No new complaint. Denies any CP or palpitations. Wants to go home. Review of Systems General: No Night Sweats, No Fatigue, No Malaise HEENT: No Visual Changes, No Dysphasia, No Sore Throat Pulmonary: No Dyspnea, No Cough Cardiovascular: No: Chest Pain, Palpitations, Orthopnea, Paroxysmal Noc. Dyspnea, Edema, Lt Headedness Gastrointestinal: No: Nausea, Vomiting, Abdominal Pain Genitourinary: No Dysuria, No Frequency, No Incontinence Musculoskeletal: arm pain, No: neck pain, back pain Neurological: No: Weakness, Numbness, Change in speech, Confusion Objective-Cardiology Exam Last Set of Vital Signs Vital Signs 09/08/17 06:00 Temp 98.1 Pulse 69 Resp 14 B/P (MAP) 106/66 Pulse Ox 97 O2 Delivery Room Air Capillary Refill : Less Than 3 Seconds I&O Intake and Output 09/09/17 00:00 Intake Total 220 ml Output Total 600 ml Balance -380 ml Intake Oral 220 ml Output Urine Total 600 ml General: Alert, Oriented X3, Cooperative HEENT: Atraumatic, PERRLA Neck: Supple, No JVD, No Thyromegaly Lungs: Clear to Auscultation, Normal Air Movement Heart: Regular Rate, Normal S1, Normal S2, No Murmurs Abdomen: Normal Bowel Sounds, Soft, No Tenderness, No Hepatosplenomegaly, No Masses Extremities: No Clubbing, No Cyanosis, Normal Pulses Skin: No Rashes, No Significant Lesion Neuro: Normal Gait, Cranial Nerves 3-12 NL Psych/Mental Status: Mental Status NL, Mood NL A/P-Cardiology Admission Diagnosis Head trauma Paroxysmal atrial fibrillation History of CVA Hypertension Hyperlipidemia Assessment/Plan Status post fall and head trauma with epidural hematoma, Reported subdural hematoma 9 mm without midline shift. Xarelto was discontinued and was started on aspirin and Plavix. Patient is still at high risk of bleeding with aspirin and Plavix. ASA and Plavix were discontinued and was started him on Eliquis due to the fact that there is same risk of bleeding with aspirin and Plavix but better risk reduction for stroke with his paroxysmal atrial fibrillation. Status post bilateral fractures, currently have cast on the upper extremities. Receiving physical therapy and reporting improvement Paroxysmal atrial fibrillation,unknown duration, started on Xarelto on May 19, 2017. Was hospitalized for A. fib with RVR, placed on Cardizem drip. Then he went back to atrial fibrillation, he was on Rythmol since May. Underwent DEIRDRE with successful cardioversion on June 30, 2017. Currently in SR. Restarted Rythmol, has been in sinus rhythm, no further arrhythmia was detected. Continue to monitor. No changes are recommended. Cardiac catheterization was done in July 2017 showing mild coronary artery disease nonobstructive disease. [id number] score of 4, yearly risk of stroke without oral anticoagulation is 4 percent. Patient was on Xarelto and it was discontinued after the fall and head trauma, currently on Eliquis. History of CVA in 2006, TIA in 2005, was maintained on Aggrenox, it was changed to Xarelto after discovering the atrial fibrillation. Currently on Eliquis. Continue to monitor Hypertension, controlled. Continue to monitor. Hyperlipidemia, continue to monitor lipids Diabetes mellitus, followed and managed by primary care physician Hyperthyroidism, TSH was 0.74, continue to monitor. Clinical Quality Measures DVT/VTE Risk/Contraindication: Risk Factor Score Per Nursin RFS Level Per Nursing on Admit: 2=Moderate DIAZ BRAXTON Sep 08, 2017 08:17
--- NOTE | 2017-09-08 08:29 | PM & R (SOAP) Progress Note ---
Subjective Time Seen by Provider: 07:35 Subjective/Events-last exam Patient was seen in his room this AM Patient Min assist for transfers Objective Exam Last Set of Vital Signs Vital Signs Date Time Temp Pulse Resp B/P (MAP) Pulse Ox O2 Delivery O2 Flow Rate FiO2 09/08/17 06:00 98.1 69 14 106/66 97 Room Air Capillary Refill : Less Than 3 Seconds I&O Intake and Output 09/09/17 00:00 Intake Total 220 ml Output Total 600 ml Balance -380 ml Intake Oral 220 ml Output Urine Total 600 ml General: Alert, Oriented X3, Cooperative HEENT: Atraumatic, PERRLA Neck: Supple, No JVD, No Thyromegaly Lungs: Clear to Auscultation, Normal Air Movement Heart: Regular Rate, Normal S1, Normal S2, No Murmurs Abdomen: Normal Bowel Sounds, Soft, No Tenderness, No Hepatosplenomegaly, No Masses Extremities: No Clubbing, No Cyanosis, Normal Pulses Skin: No Rashes, No Significant Lesion Neuro: Normal Gait, Cranial Nerves 3-12 NL Psych/Mental Status: Mental Status NL, Mood NL Results Lab Laboratory Tests 09/05/17 10:57: Glucometer 248H 09/05/17 16:28: Glucometer 159H 09/05/17 20:47: Glucometer 237H 09/06/17 05:49: Glucometer 180H 09/06/17 11:01: Glucometer 244H 09/06/17 16:01: Glucometer 213H 09/06/17 20:09: Glucometer 199H 09/07/17 05:11: Glucometer 179H 09/07/17 10:51: Glucometer 217H 09/07/17 16:23: Glucometer 158H 09/07/17 20:46: Glucometer 143H 09/08/17 05:34: Glucometer 171H Assessment/Plan Assessment TBI s/p fall improving FRx left humerus in cast Frx rt thumb in cast Recuurent A FIB controlled with meds with Rythmol added HTN controlled 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 TIFFANI CHEATHAM MD Sep 08, 2017 08:29
--- NOTE | 2017-09-08 11:01 | Physical Therapy Daily Note ---
PT Daily Note-Current Subjective Pt sitting in recliner upon arrival. Nurse giving morning meds. Pt agrees to PT and knows will be leaving shortly for Dr tinoco out of town. Pain Numeric Pain Scale: 4 Location: Left Location Body Site: Shoulder Pain Description: Ache Mental Status Patient Orientation: Person, Place, Time, Situation Transfers Functional [place] Measure 0=Not Assessed/NA 4=Minimal Assistance 1=Total Assistance 5=Supervision or Setup 2=Maximal Assistance 6=Modified [place] 3=Moderate Assistance 7=Complete IndependenceIRFPAI Quality Coding Scale 6 Independent with activity with or without an assistive device 5 Patient requires set up or clean up by helper. Patient completes activity by themselves 4 Supervision or touching assist (CGA). [place] provide cues , steadying assist 3 The helper provides less than half the effort to complete the activity 2 The helper provides more than half the effort to complete the activity 1 Dependent. The helper does all the effort to complete an activity 7 Patient refused to complete or attempt activity 9 The patient did not perform the activity before the current illness or injury 88 Not attempted due to Medical conditions or safety concerns Scootin Sit to/from Stand: 4 Sit to Stand (QC): 4 Car Transfer (QC): 5 Weight Bearing Right Lower Extremity: Right Weight Bearing/Tolerated Left Lower Extremity: Left Weight Bearing/Tolerated NWB left UE Gait Training Does the Patient Walk?: Yes Distance (FIM): 6=468-70 ft Distance: 100' Walk 10 feet (QC): 5 Walk 50 ft with 2 Turns(QC): 5 Gait Level of Assist: 5 Gait Persons Needed: 1 Gait Assistive Device: Cane Large Base Quad Exercises Seated Therapy Exercises: Ankle pumps, Long arc quads, Hip flexion, Kicking activity Seated Reps: 15 Treatments Pt completes Seated Ex in recliner while Nurse gets morning meds ready for pt. Pt transfers from recliner to standing at [facility] using QC. Pt ambulates from recliner to [facility] before transferring to [facility] for Dr tinoco. PT wheels pt to car. Pt completes car transfer at [facility] with for sequencing. Pt has all needs met before leaving for appt. at end of tx. Assessment Current Status: Good Progress Pt is improving with strength and ambulation but still needs assistance with transfers and fatigues with walking. PT Short Term Goals Short Term Goals Transfers (B,C,W/C) (FIM): 5 PT Fdc Goals Fire Chief'S Aide Goals PT Fdc Goals Time Frame: Sep 24, 2017 Transfers (B,C,W/C) (FIM): 6 Sit to Lying (QC): 5 Lying-Sitting on Side/Bed(QC): 5 Sit to Stand (QC): 5 Rollin Roll Left to Right (QC): 5 Chair/Dtz-rf-Jlwfv Xfer(QC): 5 Car Transfer (QC): 5 Does the Patient Walk: Yes Gait (FIM): 6 Gait distance (FIM): 3=150 ft Distance: 300' Walk 10 feet (QC): 5 Walk 10ft-Uneven Surface(QC): 5 Walk 50ft with 2 Turns (QC): 5 Walk 150 ft (QC): 5 Gait Level of Assist: 6 Gait Assistive Device: Cane Large Base Quad, Cane Single Point Stairs (FIM): 1 # of Steps: 1 1 Step (curb) (QC): 3 4 Steps (QC): 9 12 Steps (QC): 9 Stairs Level Of Assist: 4 Picking up an Object (QC): 4 PT Plan Problem List Problem List: Activity Tolerance, Functional Strength, Gait, Transfer Treatment/Plan Treatment Plan: Continue Plan of Care Treatment Plan: Bed Mobility, Education, Functional Activity Amy, Functional Strength, Group Therapy, Gait, Safety, Therapeutic Exercise, Transfers Treatment Duration: Sep 24, 2017 Frequency: At least 5 of 7 days/Wk (IRF) Estimated Hrs Per Day: 1.5 hours per day Patient and/or Family Agrees t: Yes Safety Risks/Education Patient Education: Gait Training, Transfer Techniques, Correct Positioning, Safety Issues Teaching Recipient: Patient Teaching Methods: Discussion Response to Teaching: Verbalize Understanding Time/GCodes Time In: 800 Time Out: 835 Total Billed Treatment Time: 35 Total Billed Treatment visit, EX (15m) & FA (20m) VASQUEZ CABELLO PTA Sep 08, 2017 11:01
--- NOTE | 2017-09-08 14:38 | Physical Therapy Daily Note ---
PT Daily Note-Current Subjective Pt. agrees to Rx. Pain Numeric Pain Scale: 0-No Pain Appearance up in chair asleep in recliner Mental Status Patient Orientation: Normal For Age Attachments: Other-See Comments (forearm wraps) Transfers Functional [place] Measure 0=Not Assessed/NA 4=Minimal Assistance 1=Total Assistance 5=Supervision or Setup 2=Maximal Assistance 6=Modified [place] 3=Moderate Assistance 7=Complete IndependenceIRFPAI Quality Coding Scale 6 Independent with activity with or without an assistive device 5 Patient requires set up or clean up by helper. Patient completes activity by themselves 4 Supervision or touching assist (CGA). [place] provide cues , steadying assist 3 The helper provides less than half the effort to complete the activity 2 The helper provides more than half the effort to complete the activity 1 Dependent. The helper does all the effort to complete an activity 7 Patient refused to complete or attempt activity 9 The patient did not perform the activity before the current illness or injury 88 Not attempted due to Medical conditions or safety concerns Transfers (B, C, W/C) (FIM): 5 Scootin Rollin Supine to/from Sit: 5 Sit to/from Stand: 5 Weight Bearing Right Lower Extremity: Right Weight Bearing/Tolerated Left Lower Extremity: Left Weight Bearing/Tolerated NWB left UE Gait Training Does the Patient Walk?: Yes Gait (FIM): 5 Distance (FIM): 3=150 ft Gait Level of Assist: 5 Gait Persons Needed: 1 Gait Assistive Device: Cane Large Base Quad slow, shuffled Exercises Seated Therapy Exercises: Ankle pumps, Sit to stand, Long arc quads, Hip flexion, Hip abd/add Seated Reps: 12 NuStep Minutes: 12 NuStep Workload: 2 Assessment Current Status: Good Progress PT Short Term Goals Short Term Goals Transfers (B,C,W/C) (FIM): 5 PT Intermediate Goals Intermediate Goals PT Intermediate Goals Time Frame: Sep 24, 2017 Transfers (B,C,W/C) (FIM): 6 Sit to Lying (QC): 5 Lying-Sitting on Side/Bed(QC): 5 Sit to Stand (QC): 5 Rollin Roll Left to Right (QC): 5 Chair/Yef-yw-Ycmus Xfer(QC): 5 Car Transfer (QC): 5 Does the Patient Walk: Yes Gait (FIM): 6 Gait distance (FIM): 3=150 ft Distance: 300' Walk 10 feet (QC): 5 Walk 10ft-Uneven Surface(QC): 5 Walk 50ft with 2 Turns (QC): 5 Walk 150 ft (QC): 5 Gait Level of Assist: 6 Gait Assistive Device: Cane Large Base Quad, Cane Single Point Stairs (FIM): 1 # of Steps: 1 1 Step (curb) (QC): 3 4 Steps (QC): 9 12 Steps (QC): 9 Stairs Level Of Assist: 4 Picking up an Object (QC): 4 PT Plan Treatment/Plan Treatment Plan: Continue Plan of Care Treatment Plan: Bed Mobility, Education, Functional Activity Amy, Functional Strength, Group Therapy, Gait, Safety, Therapeutic Exercise, Transfers Treatment Duration: Sep 24, 2017 Frequency: At least 5 of 7 days/Wk (IRF) Estimated Hrs Per Day: 1.5 hours per day Patient and/or Family Agrees t: Yes Safety Risks/Education Patient Education: Gait Training, Transfer Techniques, Correct Positioning, Safety Issues Teaching Recipient: Patient Teaching Methods: Demonstration, Discussion Response to Teaching: Verbalize Understanding, Return Demonstration, Reinforcement Needed Time/GCodes Time In: 1000 Time Out: 1045 Total Billed Treatment Time: 45 Total Billed Treatment 1,GT25,ex15 G Codes Necessary: CASSI Mullen TECHNOLOGY DEVELOPMENT INTERN Sep 08, 2017 14:38
--- NOTE | 2017-09-08 15:27 | Occupational Ther Daily Note ---
OT Current Status-Daily Note Subjective Pt alert, lying in bed. Pt agreed to therapy. No c/o pain. Pt has doctor's appointment today. Mental Status/Objective Patient Orientation: Person, Place, Time, Situation Functional [place] Measure 0=Not Assessed/NA 4=Minimal Assistance 1=Total Assistance 5=Supervision or Setup 2=Maximal Assistance 6=Modified [place] 3=Moderate Assistance 7=Complete [place] ADL-Treatment Functional [place] Measure 0=Not Assessed/NA 4=Minimal Assistance 1=Total Assistance 5=Supervision or Setup 2=Maximal Assistance 6=Modified [place] 3=Moderate Assistance 7=Complete IndependenceIRFPAI Quality Coding Scale 6 Independent with activity with or without an assistive device 5 Patient requires set up or clean up by helper. Patient completes activity by themselves 4 Supervision or touching assist (CGA). [place] provide cues , steadying assist 3 The helper provides less than half the effort to complete the activity 2 The helper provides more than half the effort to complete the activity 1 Dependent. The helper does all the effort to complete an activity 7 Patient refused to complete or attempt activity 9 The patient did not perform the activity before the current illness or injury 88 Not attempted due to Medical conditions or safety concerns Grooming (FIM): 4 (CGA standing at sink for safety. Pt able to complete oral care, shaving with electric razor and brush hair. Pt required assistance to open container.) Oral Hygiene (QC): 4 Bathing (FIM): 4 (Using grabbar, long hand sponge, hand held shower and shower bench pt is able to complete with CGA while in standing to dry.) Bathing Location: L Arm, R Arm, L Upper Leg, R Upper Leg, L Lower Leg ( including foot), R Lower Leg (including foot), Chest, Abdomen, Buttocks, Perineal Area Shower/Bathe Self (QC): 4 Upper Body (FIM): 3 (Pt able to doff shirt by self then requires assist to don shirt over L arm then places R arm in sleeve and assist to date puller head.) Upper Body Dressing (QC): 3 Lower Body Dressing (FIM): 3 (Pt is able to doff socks and pants. Assist to don L sock. Pt was able to don pants/underwear over feet then CGA in standing to to hike over hips. Pt requires assist to don shoes while sitting in chair.) Lower Body Dressing (QC): 3 Shower Transfer(FIM): 4 (CGA using quadcane and grabbars.) After therapy, pt sitting in recliner with call light/phone in reach. All needs met in room. OT Short Term Goals Short Term Goals Time Frame: Sep 07, 2017 Eating(FIM): 5 Grooming(FIM): 5 Bathing(FIM): 3 Upper Body Dressing(FIM): 4 Lower Body Dressing(FIM): 4 Toileting(FIM): 4 Transfers (B,C,W/C) (FIM): 5 Toilet/Commode Transfer(FIM): 5 Shower Transfer(FIM): 4 Additional Short Term Goals: 1-Demonstrate ADL Tasks, 2-Verbalize Understanding , 3-ImproveStrength/Amy 1=Demonstrate adherence to instructed precautions during ADL tasks. 2=Patient will verbalize/demonstrate understanding of assistive devices/ modifications for ADL. 3=Patient will improve strength/tolerance for activity to enable patient to perform ADL's. OT Intermediate Goals Franchise Development Manager Goals Time Frame: Sep 14, 2017 Eating (FIM): 6 Eating (QC): 6 Groomin Oral Hygiene (QC): 6 Bathing(FIM): 5 Shower/Bathe Self (QC): 4 Upper Body Dressing(FIM): 5 Upper Body Dressing (QC): 4 Lower Body Dressing(FIM): 5 Lower Body Dressing (QC): 4 On/Off Footwear (QC): 4 Toileting(FIM): 66 Toileting Hygiene (QC): 6 Transfers (B,C,W/C) (FIM): 6 Toilet/Commode Transfer(FIM): 6 Toilet/Commode Transfer (QC): 5 Shower Transfer(FIM): 5 Additional Goals: 1-Demonstrate ADL Tasks, 2-Verbalize Understanding, 3- ImproveStrength/Amy 1=Demonstrate adherence to instructed precautions during ADL tasks. 2=Patient will verbalize/demonstrate understanding of assistive devices/ modifications for ADL. 3=Patient will improve strength/tolerance for activity to enable patient to perform ADL's. OT Education/Plan Discharge Recommendations Plan/Recommendations: Continue POC Treatment Plan/Plan of Care Patient would benefit from OT for education, treatment and training to promote independence in ADL's, mobility, safety and/or upper extremity function for ADL' s. Plan of Care: ADL Retraining, Caregiver Training, Functional Mobility, Group Exercise/Act as Ind, UE Funct Exercise/Act Treatment Duration: Sep 14, 2017 Frequency: At least 5 of 7 days/Wk (IRF) Estimated Hrs Per Day: 1.5 hours per day Agreement: Yes Rehab Potential: Good Time/GCodes Start Time: 07:00 Stop Time: 08:00 Total Time Billed (hr/min): 60 Billed Treatment Time 1 visit-ADL 4 (60 min) RAMSES GALINDO Sep 08, 2017 15:27
--- NOTE | 2017-09-08 15:35 | Progress Note-Hospitalist ---
Subjective HPI/CC On Admission Date Seen by Provider: Sep 08, 2017 Time Seen by Provider: 15:00 CC: Epidural hematoma HPI: This is a 62 [address]WM pt [address] Dr[address] Jackson that presents to IRU following epidural hematoma after falling in driveway with left humerus fracture with compartment syndrome and had emergent fasciotomy in [facility] ED prior to transfer. He had been on Xarelto for AF, hx of stroke with left HP. Currently no fever, vitals stable , and cardiology has been consulted. Subjective/Events-last exam He reports doing well. No concerns or complaints. Wants to go home. Objective Exam Vital Signs Vital Sign - Last 12Hours 09/02/17 09/02/17 00:59 05:10 Temp 98.8 Pulse 70 Resp 18 B/P (MAP) 116/66 Pulse Ox 96 O2 Delivery Room Air Capillary Refill : Less Than 3 Seconds General Appearance: No Apparent Distress, WD/WN Respiratory: Lungs Clear, No Respiratory Distress Cardiovascular: Regular Rate, Rhythm, No Murmur Extremity: Other (left forearm casted) Neurologic/Psychiatric: Alert, Oriented x3, Normal Mood/Affect Assessment/Plan Assessment and Plan Assess & Plan/Chief Complaint Epidural Hematoma Diagnosis/Problems Diagnosis/Problems (1) Insulin dependent diabetes mellitus Status: Chronic Assessment & Plan: BS improving but still above goal Will increase prandial to 15 units and basal to 35 units (2) Hemiparesis affecting left side as late effect of cerebrovascular accident Status: Chronic Assessment & Plan: PT/OT Management per primary team Continue statin Dantrolene (3) Atrial fibrillation Assessment & Plan: Dr. Desai following On Propafenone, Metoprolol, Eliquis Rate well controlled Qualifiers: Qualified Codes: I48.0 - Paroxysmal atrial fibrillation (4) Urinary retention Status: Acute Assessment & Plan: Will trial off Urecholine (5) Humerus fracture Status: Acute Assessment & Plan: s/p fasciotomy for compartment syndrome Pt/OT (6) Compartment syndrome of left hand Status: Resolved Assessment & Plan: as above Qualifiers: Qualified Codes: T79.A12S - Traumatic compartment syndrome of left upper extremity, sequela (7) Normocytic anemia Status: Chronic Assessment & Plan: Mild, trend (8) Hyperthyroidism Status: Chronic Assessment & Plan: Methimazole (9) Essential (primary) hypertension Status: Chronic Assessment & Plan: Well controlled Continue HCTZ, Ramipril, Metoprolol BC,ADY M MD Sep 08, 2017 3:35 pm
[2017-09-08 18:42] VITALS: BP 123/76
[2017-09-08] MEDS: ATORVASTATIN 40 MG (LIPITOR) TABLET PO SCH (20:48)
[2017-09-08] MEDS: AMITRIPTYLINE 25 MG (ELAVIL) TAB PO SCH (20:48)
[2017-09-09 05:37] VITALS: BP 145/65
[2017-09-09] MEDS: HYDROcodone/APAP 5 MG/325 MG (LORTAB) TAB PO PRN ×3 (06:23→17:16)
[2017-09-09] MEDS: PROPAFENONE 150 MG (RYTHMOL) TABLET PO SCH ×3 (06:23→21:26)
[2017-09-09] MEDS: OMEGA 3 (FISH OIL) 1000 MG CAP PO SCH ×2 (06:23→17:15)
[2017-09-09] MEDS: METOCLOPRAMIDE 5 MG (REGLAN) TAB PO SCH ×4 (06:23→20:31)
--- NOTE | 2017-09-09 08:14 | Cardiology Progress Note ---
Subjective Date Seen by Provider: Sep 09, 2017 Time Seen by Provider: 07:55 Subjective/Events-last exam Patient in chair, no new complaints. Denies any CP or dyspnea. Review of Systems General: No Night Sweats, No Fatigue, No Malaise HEENT: No Visual Changes, No Dysphasia Pulmonary: No Dyspnea, No Cough Cardiovascular: No: Chest Pain, Palpitations, Paroxysmal Noc. Dyspnea, Edema Gastrointestinal: No: Nausea, Vomiting, Abdominal Pain Genitourinary: No Dysuria, No Frequency Musculoskeletal: No: neck pain, back pain Neurological: No: Weakness, Numbness, Change in speech, Confusion Objective-Cardiology Exam Last Set of Vital Signs Vital Signs 09/09/17 05:37 Temp 98.1 Pulse 69 Resp 16 B/P (MAP) 145/65 Pulse Ox 97 O2 Delivery Room Air Capillary Refill : Less Than 3 SecondsLess Than 3 Seconds I&O Intake and Output 09/10/17 00:00 Intake Total 300 ml Output Total 625 ml Balance -325 ml Intake Oral 300 ml Output Urine Total 625 ml # Voids 2 General: Alert, Oriented X3, Cooperative HEENT: Atraumatic, PERRLA Neck: Supple, No JVD, No Thyromegaly Lungs: Clear to Auscultation, Normal Air Movement Heart: Regular Rate, Normal S1, Normal S2, No Murmurs Abdomen: Normal Bowel Sounds, Soft, No Tenderness, No Hepatosplenomegaly, No Masses Extremities: No Clubbing, No Cyanosis, Normal Pulses Skin: No Rashes, No Significant Lesion Neuro: Normal Gait, Cranial Nerves 3-12 NL Psych/Mental Status: Mental Status NL, Mood NL A/P-Cardiology Admission Diagnosis Head trauma Paroxysmal atrial fibrillation History of CVA Hypertension Hyperlipidemia Assessment/Plan Status post fall and head trauma with epidural hematoma, Reported subdural hematoma 9 mm without midline shift. Xarelto was discontinued and was started on aspirin and Plavix. Patient is still at high risk of bleeding with aspirin and Plavix. ASA and Plavix were discontinued and was started him on Eliquis due to the fact that there is same risk of bleeding with aspirin and Plavix but better risk reduction for stroke with his paroxysmal atrial fibrillation. Status post bilateral fractures, currently have cast on the upper extremities. Receiving physical therapy and reporting improvement Paroxysmal atrial fibrillation,unknown duration, started on Xarelto on May 19, 2017. Was hospitalized for A. fib with RVR, placed on Cardizem drip. Then he went back to atrial fibrillation, he was on Rythmol since May. Underwent DEIRDRE with successful cardioversion on June 30, 2017. Currently in SR. Restarted Rythmol, has been in sinus rhythm, no further arrhythmia was detected. Continue to monitor. No changes are recommended. Cardiac catheterization was done in July 2017 showing mild coronary artery disease nonobstructive disease. [id number] score of 4, yearly risk of stroke without oral anticoagulation is 4 percent. Patient was on Xarelto and it was discontinued after the fall and head trauma, currently on Eliquis. History of CVA in 2006, TIA in 2005, was maintained on Aggrenox, it was changed to Xarelto after discovering the atrial fibrillation. Currently on Eliquis. Continue to monitor Hypertension, controlled. Continue to monitor. Hyperlipidemia, continue to monitor lipids Diabetes mellitus, followed and managed by primary care physician Hyperthyroidism, TSH was 0.74, continue to monitor. Clinical Quality Measures DVT/VTE Risk/Contraindication: Risk Factor Score Per Nursin RFS Level Per Nursing on Admit: 2=Moderate DIAZ BRAXTON Sep 09, 2017 08:14
[2017-09-09] MEDS: HYDROCHLOROTHIAZIDE 25 MG (HCTZ) TAB PO SCH (08:27)
[2017-09-09] MEDS: METHIMAZOLE TABLET 5 MG TABLET PO SCH (08:27)
[2017-09-09] MEDS: VENlafaxine 75 MG (EFFEXOR) TAB PO SCH ×2 (08:27→20:31)
[2017-09-09] MEDS: DANTROLENE 25 MG PO SCH ×4 (08:27→20:31)
[2017-09-09] MEDS: PANTOPRAZOLE 40 MG (PROTONIX) TAB PO SCH ×2 (08:27→20:31)
[2017-09-09] MEDS: APIXABAN 5 MG (ELIQUIS) TABLET PO SCH ×2 (08:27→20:32)
[2017-09-09] MEDS: meTOprolol TARTRATE 25 MG (LOPRESSOR) TABLET PO SCH ×2 (08:27→20:32)
[2017-09-09] MEDS: inSUlin ASPART (NovoLOG) 1 UNIT/0.01 ML (CHARGE PER UNIT) SC SCH ×3 (08:28→17:15)
[2017-09-09] MEDS: RAMIPRIL 5 MG (ALTACE) CAP PO SCH ×2 (08:28→20:31)
[2017-09-09] MEDS: inSUlin DETERMIR 1 UNIT/0.01 ML (LEVEMIR) CHARGE PER UNIT SQ SCH (08:29)
--- NOTE | 2017-09-09 10:09 | Occupational Ther Daily Note ---
OT Current Status-Daily Note Subjective Pt supine in bed at beginning of tx. Agreed to change clothes and work in gym for therapy. No mention of pain. Appearance Alert, cooperative. Mental Status/Objective Functional [place] Measure 0=Not Assessed/NA 4=Minimal Assistance 1=Total Assistance 5=Supervision or Setup 2=Maximal Assistance 6=Modified [place] 3=Moderate Assistance 7=Complete [place] ADL-Treatment Functional [place] Measure 0=Not Assessed/NA 4=Minimal Assistance 1=Total Assistance 5=Supervision or Setup 2=Maximal Assistance 6=Modified [place] 3=Moderate Assistance 7=Complete IndependenceIRFPAI Quality Coding Scale 6 Independent with activity with or without an assistive device 5 Patient requires set up or clean up by helper. Patient completes activity by themselves 4 Supervision or touching assist (CGA). [place] provide cues , steadying assist 3 The helper provides less than half the effort to complete the activity 2 The helper provides more than half the effort to complete the activity 1 Dependent. The helper does all the effort to complete an activity 7 Patient refused to complete or attempt activity 9 The patient did not perform the activity before the current illness or injury 88 Not attempted due to Medical conditions or safety concerns Grooming (FIM): 5 (Pt stood at sink and brushed teeth, brushed hair, and shaved with an electric razor with SBA. ) Upper Body (FIM): 4 (Setup. Pt needed min assist to get short sleeved, tobacco sample puller shirt down over back and min assist to get sleeve over new cast. ) Lower Body Dressing (FIM): 4 (Setup. Pt donned shorts, needing min assist to straighten waistband in back, SBA, tripod cane. Got shoes on with no assistance , socks already on. ) Other Treatment Yesterday pt saw orthopedic physician and now has R wrist splint with thumb spica, L forearm cast and L upper arm splint. Edema observed between cast and splint on L UE but no pressure areas noted. Pt walked from room to gym, CGA, tripod cane. Arm bike 12 min at 15 melendez for strengthening R hand to help with transfers and ADLs. Arc with rings for ROM and grasp/mechanical commissioning engineer in R hand. Pt walked back to room, CGA, tripod cane. Pt sat up in recliner, all needs met at end of tx. Education OT Patient Education: Progress toward Goal/Update tx plan, Purpose of tx/ functional activities, Safety issues Teaching Recipient: Patient Teaching Methods: Demonstration, Discussion Response to Teaching: Verbalize Understanding, Return Demonstration OT Short Term Goals Short Term Goals Time Frame: Sep 07, 2017 Eating(FIM): 5 Grooming(FIM): 5 Bathing(FIM): 3 Upper Body Dressing(FIM): 4 Lower Body Dressing(FIM): 4 Toileting(FIM): 4 Transfers (B,C,W/C) (FIM): 5 Toilet/Commode Transfer(FIM): 5 Shower Transfer(FIM): 4 Additional Short Term Goals: 1-Demonstrate ADL Tasks, 2-Verbalize Understanding , 3-ImproveStrength/May 1=Demonstrate adherence to instructed precautions during ADL tasks. 2=Patient will verbalize/demonstrate understanding of assistive devices/ modifications for ADL. 3=Patient will improve strength/tolerance for activity to enable patient to perform ADL's. OT Flotation Operator Goals Flotation Operator Goals Time Frame: Sep 14, 2017 Eating (FIM): 6 Eating (QC): 6 Groomin Oral Hygiene (QC): 6 Bathing(FIM): 5 Shower/Bathe Self (QC): 4 Upper Body Dressing(FIM): 5 Upper Body Dressing (QC): 4 Lower Body Dressing(FIM): 5 Lower Body Dressing (QC): 4 On/Off Footwear (QC): 4 Toileting(FIM): 66 Toileting Hygiene (QC): 6 Transfers (B,C,W/C) (FIM): 6 Toilet/Commode Transfer(FIM): 6 Toilet/Commode Transfer (QC): 5 Shower Transfer(FIM): 5 Additional Goals: 1-Demonstrate ADL Tasks, 2-Verbalize Understanding, 3- ImproveStrength/Amy 1=Demonstrate adherence to instructed precautions during ADL tasks. 2=Patient will verbalize/demonstrate understanding of assistive devices/ modifications for ADL. 3=Patient will improve strength/tolerance for activity to enable patient to perform ADL's. OT Education/Plan Discharge Recommendations Plan/Recommendations: Continue POC Treatment Plan/Plan of Care Patient would benefit from OT for education, treatment and training to promote independence in ADL's, mobility, safety and/or upper extremity function for ADL' s. Plan of Care: ADL Retraining, Caregiver Training, Functional Mobility, Group Exercise/Act as Ind, UE Funct Exercise/Act Treatment Duration: Sep 14, 2017 Frequency: At least 5 of 7 days/Wk (IRF) Estimated Hrs Per Day: 1.5 hours per day Agreement: Yes Rehab Potential: Good Time/GCodes Start Time: 09:15 Stop Time: 10:15 Total Time Billed (hr/min): 60 Billed Treatment Time visit, ADLs 30 minutes, exercise 30 minutes. MEHUL DAVIDSON OT Sep 09, 2017 10:09
--- NOTE | 2017-09-09 12:21 | Physical Therapy Daily Note ---
PT Daily Note-Current Subjective Pt in restroom upon arrival. Pt agrees to PT. Pt reports discharging tomorrow , confirmed by Lens Generator. Pain Numeric Pain Scale: 4 Location: Left Location Body Site: Shoulder Pain Description: Ache Mental Status Patient Orientation: Person, Place, Time, Situation Transfers Functional [place] Measure 0=Not Assessed/NA 4=Minimal Assistance 1=Total Assistance 5=Supervision or Setup 2=Maximal Assistance 6=Modified [place] 3=Moderate Assistance 7=Complete IndependenceIRFPAI Quality Coding Scale 6 Independent with activity with or without an assistive device 5 Patient requires set up or clean up by helper. Patient completes activity by themselves 4 Supervision or touching assist (CGA). [place] provide cues , steadying assist 3 The helper provides less than half the effort to complete the activity 2 The helper provides more than half the effort to complete the activity 1 Dependent. The helper does all the effort to complete an activity 7 Patient refused to complete or attempt activity 9 The patient did not perform the activity before the current illness or injury 88 Not attempted due to Medical conditions or safety concerns Scootin Supine to/from Sit: 4 Sit to/from Stand: 4 Sit to Lying (QC): 4 Sit to Stand (QC): 4 Weight Bearing Right Lower Extremity: Right Weight Bearing/Tolerated Left Lower Extremity: Left Weight Bearing/Tolerated NWB left UE Gait Training Does the Patient Walk?: Yes Distance (FIM): 3=150 ft Distance: 150' Walk 10 feet (QC): 5 Walk 50 ft with 2 Turns(QC): 5 Walk 150 ft (QC): 5 Gait Level of Assist: 5 Gait Persons Needed: 1 Gait Assistive Device: Cane Large Base Quad Pt has slow but steady randall, no LOB. Wheelchair Training Does the Pt Use a Wheelchair?: No Exercises NuStep Minutes: 13 NuStep Workload: 5 Treatments Pt transfers from recliner to standing using QC at Min A. Pt ambulates in hallway to Therapy Gym before completing 13m on NuStep at Workload 5. Pt then completes more walking in hallway before returning to room to rest at EOB. Pt has all needs met at end of tx. Assessment Current Status: Good Progress Pt is improving with both transfers and ambulation. Pt reports is has helped having UE fixed with attachments since at [facility] yesterday. PT Short Term Goals Short Term Goals Transfers (B,C,W/C) (FIM): 5 PT Rounding Machine Operator Goals Rounding Machine Operator Goals PT Long-Term Goals Time Frame: Sep 24, 2017 Transfers (B,C,W/C) (FIM): 6 Sit to Lying (QC): 5 Lying-Sitting on Side/Bed(QC): 5 Sit to Stand (QC): 5 Rollin Roll Left to Right (QC): 5 Chair/Jlc-hs-Lmlej Xfer(QC): 5 Car Transfer (QC): 5 Does the Patient Walk: Yes Gait (FIM): 6 Gait distance (FIM): 3=150 ft Distance: 300' Walk 10 feet (QC): 5 Walk 10ft-Uneven Surface(QC): 5 Walk 50ft with 2 Turns (QC): 5 Walk 150 ft (QC): 5 Gait Level of Assist: 6 Gait Assistive Device: Cane Large Base Quad, Cane Single Point Stairs (FIM): 1 # of Steps: 1 1 Step (curb) (QC): 3 4 Steps (QC): 9 12 Steps (QC): 9 Stairs Level Of Assist: 4 Picking up an Object (QC): 4 PT Plan Problem List Problem List: Activity Tolerance, Functional Strength, Safety, Balance, Gait Treatment/Plan Treatment Plan: Continue Plan of Care Treatment Plan: Bed Mobility, Education, Functional Activity Amy, Functional Strength, Group Therapy, Gait, Safety, Therapeutic Exercise, Transfers Treatment Duration: Sep 24, 2017 Frequency: At least 5 of 7 days/Wk (IRF) Estimated Hrs Per Day: 1.5 hours per day Patient and/or Family Agrees t: Yes Safety Risks/Education Patient Education: Gait Training, Transfer Techniques, Correct Positioning, Safety Issues Teaching Recipient: Patient Teaching Methods: Discussion Response to Teaching: Verbalize Understanding Time/GCodes Time In: 1045 Time Out: 1130 Total Billed Treatment Time: 45 Total Billed Treatment visit, GT x2 (30m) & EX (15m) VASQUEZ CABELLO PTA Sep 09, 2017 12:21
[2017-09-09] MEDS ORDERED: APIX5TAB PO (15:04)
[2017-09-09] MEDS ORDERED: PROP150T2 PO (15:04)
--- NOTE | 2017-09-09 16:30 | Occupational Ther Daily Note ---
OT Current Status-Daily Note Subjective Pt in recliner at beginning of tx. Discussed upcoming discharge and agreed to do exercise for therapy. No pain mentioned. Appearance Alert, cooperative. Mental Status/Objective Functional [place] Measure 0=Not Assessed/NA 4=Minimal Assistance 1=Total Assistance 5=Supervision or Setup 2=Maximal Assistance 6=Modified [place] 3=Moderate Assistance 7=Complete [place] ADL-Treatment Functional [place] Measure 0=Not Assessed/NA 4=Minimal Assistance 1=Total Assistance 5=Supervision or Setup 2=Maximal Assistance 6=Modified [place] 3=Moderate Assistance 7=Complete IndependenceIRFPAI Quality Coding Scale 6 Independent with activity with or without an assistive device 5 Patient requires set up or clean up by helper. Patient completes activity by themselves 4 Supervision or touching assist (CGA). [place] provide cues , steadying assist 3 The helper provides less than half the effort to complete the activity 2 The helper provides more than half the effort to complete the activity 1 Dependent. The helper does all the effort to complete an activity 7 Patient refused to complete or attempt activity 9 The patient did not perform the activity before the current illness or injury 88 Not attempted due to Medical conditions or safety concerns Other Treatment Pt upcoming discharge discussed including DME that pt has and needs and how and where to get that equipment. Pt then walked with tripod cane to commons area CGA and did RUE exercises with 1# weight on RUE for ADLs. Pt then walked back to room CGA and cane, and returned to recliner. Pt in recliner with all needs met. Education OT Patient Education: Exercise program, Progress toward Goal/Update tx plan, Purpose of tx/functional activities, Safety issues, Use of adapted equipment Teaching Recipient: Patient Teaching Methods: Demonstration, Discussion Response to Teaching: Verbalize Understanding, Return Demonstration OT Short Term Goals Short Term Goals Time Frame: Sep 07, 2017 Eating(FIM): 5 Grooming(FIM): 5 Bathing(FIM): 3 Upper Body Dressing(FIM): 4 Lower Body Dressing(FIM): 4 Toileting(FIM): 4 Transfers (B,C,W/C) (FIM): 5 Toilet/Commode Transfer(FIM): 5 Shower Transfer(FIM): 4 Additional Short Term Goals: 1-Demonstrate ADL Tasks, 2-Verbalize Understanding , 3-ImproveStrength/Amy 1=Demonstrate adherence to instructed precautions during ADL tasks. 2=Patient will verbalize/demonstrate understanding of assistive devices/ modifications for ADL. 3=Patient will improve strength/tolerance for activity to enable patient to perform ADL's. OT Strip Cutting Machine Operator Goals Alf Goals Time Frame: Sep 14, 2017 Eating (FIM): 6 Eating (QC): 6 Groomin Oral Hygiene (QC): 6 Bathing(FIM): 5 Shower/Bathe Self (QC): 4 Upper Body Dressing(FIM): 5 Upper Body Dressing (QC): 4 Lower Body Dressing(FIM): 5 Lower Body Dressing (QC): 4 On/Off Footwear (QC): 4 Toileting(FIM): 66 Toileting Hygiene (QC): 6 Transfers (B,C,W/C) (FIM): 6 Toilet/Commode Transfer(FIM): 6 Toilet/Commode Transfer (QC): 5 Shower Transfer(FIM): 5 Additional Goals: 1-Demonstrate ADL Tasks, 2-Verbalize Understanding, 3- ImproveStrength/Amy 1=Demonstrate adherence to instructed precautions during ADL tasks. 2=Patient will verbalize/demonstrate understanding of assistive devices/ modifications for ADL. 3=Patient will improve strength/tolerance for activity to enable patient to perform ADL's. OT Education/Plan Discharge Recommendations Plan/Recommendations: Continue POC Treatment Plan/Plan of Care Patient would benefit from OT for education, treatment and training to promote independence in ADL's, mobility, safety and/or upper extremity function for ADL' s. Plan of Care: ADL Retraining, Caregiver Training, Functional Mobility, Group Exercise/Act as Ind, UE Funct Exercise/Act Treatment Duration: Sep 14, 2017 Frequency: At least 5 of 7 days/Wk (IRF) Estimated Hrs Per Day: 1.5 hours per day Agreement: Yes Rehab Potential: Good Time/GCodes Start Time: 13:30 Stop Time: 14:00 Total Time Billed (hr/min): 30 Billed Treatment Time visit, ADL 15 minutes, exercise 15 minutes MEHUL DAVIDSON OT Sep 09, 2017 16:30
--- NOTE | 2017-09-09 16:51 | Physical Therapy Daily Note ---
PT Daily Note-Current Subjective Pt at EOB upon arrival. Pt agrees to PT. Pain Numeric Pain Scale: 4 Location: Left Location Body Site: Shoulder Pain Description: Ache Mental Status Patient Orientation: Person, Place, Time, Situation Transfers Functional [place] Measure 0=Not Assessed/NA 4=Minimal Assistance 1=Total Assistance 5=Supervision or Setup 2=Maximal Assistance 6=Modified [place] 3=Moderate Assistance 7=Complete IndependenceIRFPAI Quality Coding Scale 6 Independent with activity with or without an assistive device 5 Patient requires set up or clean up by helper. Patient completes activity by themselves 4 Supervision or touching assist (CGA). [place] provide cues , steadying assist 3 The helper provides less than half the effort to complete the activity 2 The helper provides more than half the effort to complete the activity 1 Dependent. The helper does all the effort to complete an activity 7 Patient refused to complete or attempt activity 9 The patient did not perform the activity before the current illness or injury 88 Not attempted due to Medical conditions or safety concerns Scootin Supine to/from Sit: 4 Sit to/from Stand: 4 Sit to Stand (QC): 4 Weight Bearing Right Lower Extremity: Right Weight Bearing/Tolerated Left Lower Extremity: Left Weight Bearing/Tolerated NWB left UE Gait Training Does the Patient Walk?: Yes Distance (FIM): 3=150 ft Distance: 150' Walk 10 feet (QC): 5 Walk 50 ft with 2 Turns(QC): 5 Walk 150 ft (QC): 5 Gait Level of Assist: 5 Gait Persons Needed: 1 Gait Assistive Device: Cane Large Base Quad Pt ambulates with slow but steady gait, no LOB. Wheelchair Training Does the Pt Use a Wheelchair?: No Exercises Seated Therapy Exercises: Ankle pumps, Long arc quads, Hip flexion, Kicking activity Seated Reps: 20 Treatments Pt transfers from sitting to standing using QC at Min A. Pt ambulates in hallway using QC at SBA. Pt completes Seated Ex at EOB in Therapy Gym before ambulating back to room to rest. Pt transfers back to Supine in bed with all needs met at end of tx. Assessment Current Status: Good Progress Pt's gait has normalized and pt is improving with transfers and ambulation. PT Short Term Goals Short Term Goals Transfers (B,C,W/C) (FIM): 5 PT [facility] Goals Cat Dog Or Other Pet Groomer Goals PT Cat Dog Or Other Pet Groomer Goals Time Frame: Sep 24, 2017 Transfers (B,C,W/C) (FIM): 6 Sit to Lying (QC): 5 Lying-Sitting on Side/Bed(QC): 5 Sit to Stand (QC): 5 Rollin Roll Left to Right (QC): 5 Chair/Apc-nq-Meihh Xfer(QC): 5 Car Transfer (QC): 5 Does the Patient Walk: Yes Gait (FIM): 6 Gait distance (FIM): 3=150 ft Distance: 300' Walk 10 feet (QC): 5 Walk 10ft-Uneven Surface(QC): 5 Walk 50ft with 2 Turns (QC): 5 Walk 150 ft (QC): 5 Gait Level of Assist: 6 Gait Assistive Device: Cane Large Base Quad, Cane Single Point Stairs (FIM): 1 # of Steps: 1 1 Step (curb) (QC): 3 4 Steps (QC): 9 12 Steps (QC): 9 Stairs Level Of Assist: 4 Picking up an Object (QC): 4 PT Plan Problem List Problem List: Activity Tolerance, Gait Treatment/Plan Treatment Plan: Continue Plan of Care Treatment Plan: Bed Mobility, Education, Functional Activity Amy, Functional Strength, Group Therapy, Gait, Safety, Therapeutic Exercise, Transfers Treatment Duration: Sep 24, 2017 Frequency: At least 5 of 7 days/Wk (IRF) Estimated Hrs Per Day: 1.5 hours per day Patient and/or Family Agrees t: Yes Safety Risks/Education Patient Education: Gait Training, Transfer Techniques, Correct Positioning, Safety Issues Teaching Recipient: Patient Teaching Methods: Discussion Response to Teaching: Verbalize Understanding Time/GCodes Time In: 1445 Time Out: 1530 Total Billed Treatment Time: 45 Total Billed Treatment visit, GT x2 (30m) & EX (15m) VASQUEZ CABELLO SALES ASSOCIATE KEY HOLDER Sep 09, 2017 16:51
[2017-09-09 17:49] VITALS: BP 130/62
--- NOTE | 2017-09-09 19:55 | PM & R (SOAP) Progress Note ---
Subjective Time Seen by Provider: 19:20 Subjective/Events-last exam Patient was seen in his room this evening Discussed case with staff Patient now with only a wrist barce on rt after seeing He ortho yesterday in [place] Wants to go home tomorrow.Patient min assist for transfers Objective Exam Last Set of Vital Signs Vital Signs Date Time Temp Pulse Resp B/P (MAP) Pulse Ox O2 Delivery O2 Flow Rate FiO2 09/09/17 17:49 98.4 68 16 130/62 97 Room Air Capillary Refill : Less Than 3 SecondsLess Than 3 Seconds I&O Intake and Output 09/10/17 00:00 Intake Total 1300 ml Output Total 625 ml Balance 675 ml Intake Oral 1300 ml Output Urine Total 625 ml # Voids 6 # Bowel Movements 1 General: Alert, Oriented X3, Cooperative HEENT: Atraumatic, PERRLA Neck: Supple, No JVD, No Thyromegaly Lungs: Clear to Auscultation, Normal Air Movement Heart: Regular Rate, Normal S1, Normal S2, No Murmurs Abdomen: Normal Bowel Sounds, Soft, No Tenderness, No Hepatosplenomegaly, No Masses Extremities: No Clubbing, No Cyanosis, Normal Pulses Skin: No Rashes, No Significant Lesion Neuro: Normal Gait, Cranial Nerves 3-12 NL, Other (Left HP Brace rt wrist Splint left arm) Psych/Mental Status: Mental Status NL, Mood NL Results Lab Laboratory Tests 09/06/17 20:09: Glucometer 199H 09/07/17 05:11: Glucometer 179H 09/07/17 10:51: Glucometer 217H 09/07/17 16:23: Glucometer 158H 09/07/17 20:46: Glucometer 143H 09/08/17 05:34: Glucometer 171H 09/08/17 16:45: Glucometer 300H 09/08/17 20:53: Glucometer 194H 09/09/17 05:21: Glucometer 158H 09/09/17 11:26: Glucometer 258H 09/09/17 16:06: Glucometer 176H Assessment/Plan Assessment TBI s/p fall improving FRx left humerus in cast Frx rt thumb in cast Recuurent A FIB controlled with meds with Rythmol added HTN controlled 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 TIFFANI CHEATHAM MD Sep 09, 2017 19:55
[2017-09-09] MEDS: AMITRIPTYLINE 25 MG (ELAVIL) TAB PO SCH (20:31)
[2017-09-09] MEDS: ATORVASTATIN 40 MG (LIPITOR) TABLET PO SCH (20:31)
[2017-09-10 05:00] VITALS: BP 117/68
[2017-09-10] MEDS: PROPAFENONE 150 MG (RYTHMOL) TABLET PO SCH (06:15)
[2017-09-10] MEDS: inSUlin ASPART (NovoLOG) 1 UNIT/0.01 ML (CHARGE PER UNIT) SC SCH (06:15)
[2017-09-10] MEDS: OMEGA 3 (FISH OIL) 1000 MG CAP PO SCH (06:15)
[2017-09-10] MEDS: METOCLOPRAMIDE 5 MG (REGLAN) TAB PO SCH (06:15)
[2017-09-10] MEDS: meTOprolol TARTRATE 25 MG (LOPRESSOR) TABLET PO SCH (07:58)
[2017-09-10] MEDS: inSUlin DETERMIR 1 UNIT/0.01 ML (LEVEMIR) CHARGE PER UNIT SQ SCH (07:58)
[2017-09-10] MEDS: METHIMAZOLE TABLET 5 MG TABLET PO SCH (07:58)
[2017-09-10] MEDS: DANTROLENE 25 MG PO SCH (07:58)
[2017-09-10] MEDS: APIXABAN 5 MG (ELIQUIS) TABLET PO SCH (07:59)
[2017-09-10] MEDS: PANTOPRAZOLE 40 MG (PROTONIX) TAB PO SCH (07:59)
[2017-09-10] MEDS: RAMIPRIL 5 MG (ALTACE) CAP PO SCH (07:59)
[2017-09-10] MEDS: HYDROCHLOROTHIAZIDE 25 MG (HCTZ) TAB PO SCH (07:59)
[2017-09-10] MEDS: VENlafaxine 75 MG (EFFEXOR) TAB PO SCH (07:59)
[2017-09-10] MEDS: HYDROcodone/APAP 5 MG/325 MG (LORTAB) TAB PO PRN (08:05)
--- NOTE | 2017-09-10 08:53 | PM & R (SOAP) Progress Note ---
Subjective Time Seen by Provider: 07:35 Subjective/Events-last exam Patient was seen in his room this AM Up on his own doing Morning Grooming Adls in bathroom Objective Exam Last Set of Vital Signs Vital Signs Date Time Temp Pulse Resp B/P (MAP) Pulse Ox O2 Delivery O2 Flow Rate FiO2 09/10/17 05:00 98.0 76 18 117/68 95 Room Air Capillary Refill : Less Than 3 SecondsLess Than 3 Seconds I&O Intake and Output 09/11/17 00:00 Intake Total 510 ml Balance 510 ml Intake Oral 510 ml # Voids 4 # Bowel Movements 1 General: Alert, Oriented X3, Cooperative HEENT: Atraumatic, PERRLA Neck: Supple, No JVD, No Thyromegaly Lungs: Clear to Auscultation, Normal Air Movement Heart: Regular Rate, Normal S1, Normal S2, No Murmurs Abdomen: Normal Bowel Sounds, Soft, No Tenderness, No Hepatosplenomegaly, No Masses Extremities: No Clubbing, No Cyanosis, Normal Pulses Skin: No Rashes, No Significant Lesion Neuro: Normal Gait, Cranial Nerves 3-12 NL, Other (Left HP Brace rt wrist Splint left arm) Psych/Mental Status: Mental Status NL, Mood NL Results Lab Laboratory Tests 09/07/17 10:51: Glucometer 217H 09/07/17 16:23: Glucometer 158H 09/07/17 20:46: Glucometer 143H 09/08/17 05:34: Glucometer 171H 09/08/17 16:45: Glucometer 300H 09/08/17 20:53: Glucometer 194H 09/09/17 05:21: Glucometer 158H 09/09/17 11:26: Glucometer 258H 09/09/17 16:06: Glucometer 176H 09/09/17 20:17: Glucometer 59*L 09/09/17 21:28: Glucometer 187H 09/10/17 05:29: Glucometer 185H Assessment/Plan Assessment TBI s/p fall improving FRx left humerus in cast Frx rt thumb in cast Recuurent A FIB controlled with meds with Rythmol added HTN controlled 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 TIFFANI CHEATHAM MD Sep 10, 2017 08:53
--- NOTE | 2017-09-10 09:02 | Physical Therapy Daily Note ---
PT Daily Note-Current Subjective Agrees to PT. Anxious to go home today. Feels ready. Mental Status Patient Orientation: Person, Place, Time, Situation Transfers Functional [place] Measure 0=Not Assessed/NA 4=Minimal Assistance 1=Total Assistance 5=Supervision or Setup 2=Maximal Assistance 6=Modified [place] 3=Moderate Assistance 7=Complete IndependenceIRFPAI Quality Coding Scale 6 Independent with activity with or without an assistive device 5 Patient requires set up or clean up by helper. Patient completes activity by themselves 4 Supervision or touching assist (CGA). [place] provide cues , steadying assist 3 The helper provides less than half the effort to complete the activity 2 The helper provides more than half the effort to complete the activity 1 Dependent. The helper does all the effort to complete an activity 7 Patient refused to complete or attempt activity 9 The patient did not perform the activity before the current illness or injury 88 Not attempted due to Medical conditions or safety concerns Transfers (B, C, W/C) (FIM): 6 Roll Left to Right (QC): 6 Sit to Lying (QC): 6 Sit to Stand (QC): 6 Chair/Fwm-fq-[place]a Xfer(QC): 6 (uses quad cane) Car Transfer (QC): 5 (supervision for safety) Weight Bearing Right Lower Extremity: Right Weight Bearing/Tolerated Left Lower Extremity: Left Weight Bearing/Tolerated NWB left UE Gait Training Does the Patient Walk?: Yes Gait (FIM): 5 Distance (FIM): 3=150 ft Walk 10 feet (QC): 5 Walk 50 ft with 2 Turns(QC): 5 Walk 150 ft (QC): 5 Walking 10ft/uneven surface-QC: 5 Gait Assistive Device: Cane Large Base Quad wide DIOGO with gait with short step length and decreased heel toe angle; seems unsteady but no noted LOB with treatment this date. Wheelchair Training Does the Pt Use a Wheelchair?: No Stair Training Stair Training: Handrails/: 1 handrail Stairs (FIM): 5 #of Steps: 8 1 Step (curb) (QC): 5 4 Steps (QC): 5 12 Steps (QC): 88 Stairs: Pattern: Step to Balance Picking up an Object (QC): 4 Assessment Current Status: Good Progress Pt has made good progress, feel he could be a bit stronger before going home, but he is anxious to return home today. Have recommended [facility] PT to follow. PT Short Term Goals Short Term Goals Transfers (B,C,W/C) (FIM): 5 (t) PT Thoracic Medicine Physician Goals Skilled Nursing Goals PT Thoracic Medicine Physician Goals Time Frame: Sep 24, 2017 Transfers (B,C,W/C) (FIM): 6 (met) Sit to Lying (QC): 5 (mdt) Lying-Sitting on Side/Bed(QC): 5 (met) Sit to Stand (QC): 5 (met) Rollin (met) Roll Left to Right (QC): 5 (met) Chair/Eny-vx-Gpizb Xfer(QC): 5 (met) Car Transfer (QC): 5 (met) Does the Patient Walk: Yes Gait (FIM): 6 (unmet; scored a 5) Gait distance (FIM): 3=150 ft Distance: 300' Walk 10 feet (QC): 5 (met) Walk 10ft-Uneven Surface(QC): 5 (met) Walk 50ft with 2 Turns (QC): 5 (met) Walk 150 ft (QC): 5 (met) Gait Level of Assist: 6 Gait Assistive Device: Cane Large Base Quad, Cane Single Point Stairs (FIM): 1 (exceeded; scored a 5) # of Steps: 1 1 Step (curb) (QC): 3 4 Steps (QC): 9 12 Steps (QC): 9 Stairs Level Of Assist: 4 Picking up an Object (QC): 4 (met) PT Plan Problem List Problem List: Activity Tolerance, Functional Strength, Safety, Balance Treatment/Plan Treatment Plan: Discontinue PT (recommend [facility] to follow) Treatment Plan: Bed Mobility, Education, Functional Activity Amy, Functional Strength, Group Therapy, Gait, Safety, Therapeutic Exercise, Transfers Treatment Duration: Sep 24, 2017 Frequency: At least 5 of 7 days/Wk (IRF) Estimated Hrs Per Day: 1.5 hours per day Patient and/or Family Agrees t: Yes Safety Risks/Education Patient Education: Safety Issues Teaching Recipient: Patient Teaching Methods: Discussion Response to Teaching: Return Demonstration Discharge Recommendations Therapy D/C Recommendations: Physical Therapy Home Care Time/GCodes Time In: 815 Time Out: 853 Total Billed Treatment Time: 38 Total Billed Treatment visit FA 38 RAMSES ARREDONDO PT Sep 10, 2017 09:02
--- NOTE | 2017-09-10 09:06 | Therapy Team Discharge Summary ---
Therapy Discharge Summary Discharge Recommendations Date of Discharge Therapy D/C Recommendations: Physical Therapy Home Care Physical Therapy This patient has been seen on our ARU post fall with subdural hematoma and left humerus fx. Upon admit, he was min assist with transfers, ambulated with min assist and had much difficulty with a step. Treatment has focused on functional strength, gait, transfers safety and activity tolerance. He has made good progress, although I feel a few more days of therapy would be beneficial, pt anxious to return home. He has met goals to a satisfactory level. Recommend [facility] PT to follow for continued skilled training. Will DC from this unit at this time. Occupational Therapy Decreased Activ Tolerance, Decreased UE Strength, Dependent Transfers, Impaired Coordination, Impaired Funct Balance, Impaired I ADL's, Impaired Self-Care Skills, Restricted Funct UE ROM PT Environmental Safety Specialist Goals Mcfp Goals PT Environmental Safety Specialist Goals Time Frame: Sep 24, 2017 Transfers (B,C,W/C) (FIM): 6 (met) Roll Left to Right (QC): 5 (met) Sit to Lying (QC): 5 (mdt) Lying-Sitting on Side/Bed(QC): 5 (met) Sit to Stand (QC): 5 (met) Chair/Aev-bx-Afigg Xfer(QC): 5 (met) Car Transfer (QC): 5 (met) Does the Patient Walk: Yes Gait (FIM): 6 (unmet; scored a 5) Gait distance (FIM): 3=150 ft Distance: 300' Walk 10 feet (QC): 5 (met) Walk 10ft-Uneven Surface(QC): 5 (met) Walk 50ft with 2 Turns (QC): 5 (met) Walk 150 ft (QC): 5 (met) Gait Level of Assist: 6 Gait Assistive Device: Cane Large Base Quad, Cane Single Point Stairs (FIM): 1 (exceeded; scored a 5) # of Steps: 1 1 Step (curb) (QC): 3 4 Steps (QC): 9 12 Steps (QC): 9 Stairs Level Of Assist: 4 Picking up an Object (QC): 4 (met) OT Environmental Safety Specialist Goals Mcfp Goals Time Frame: Sep 14, 2017 Eating (FIM): 6 Eating (QC): 6 Oral Hygiene (QC): 6 Grooming(FIM): 6 Bathing(FIM): 5 Shower/Bathe Self (QC): 4 Upper Body Dressing(FIM): 5 Upper Body Dressing (QC): 4 Lower Body Dressing(FIM): 5 Lower Body Dressing (QC): 4 On/Off Footwear (QC): 4 Toileting(FIM): 66 Toileting Hygiene (QC): 6 Transfers (B,C,W/C) (FIM): 6 Toilet/Commode Transfer(FIM): 6 Toilet/Commode Transfer (QC): 5 Shower Transfer(FIM): 5 Additional Goals: 1-Demonstrate ADL Tasks, 2-Verbalize Understanding, 3- ImproveStrength/Amy 1=Demonstrate adherence to instructed precautions during ADL tasks. 2=Patient will verbalize/demonstrate understanding of assistive devices/ modifications for ADL. 3=Patient will improve strength/tolerance for activity to enable patient to perform ADL's. RAMSES ARREDONDO PT Sep 10, 2017 09:06
[2017-09-10] MEDS ORDERED: INSU100V5 SQ (10:31)
[2017-09-10] MEDS ORDERED: INSU100V16 SC (10:31)
[2017-09-10] MEDS ORDERED: APIX5TAB PO (10:39)
[2017-09-10] MEDS ORDERED: PROP150T2 PO (10:39)
--- NOTE | 2017-09-10 11:41 | Occupational Ther Daily Note ---
OT Current Status-Daily Note Subjective Pt in recliner at beginning of tx. No mention of pain. Pt agreed to shower and dress for therapy. Appearance Alert, cooperative. Mental Status/Objective Functional Marshall Measure 0=Not Assessed/NA 4=Minimal Assistance 1=Total Assistance 5=Supervision or Setup 2=Maximal Assistance 6=Modified Marshall 3=Moderate Assistance 7=Complete Marshall ADL-Treatment Pt walked to bathroom, SBA, toileted, showered, dressed, and returned to recliner. Functional Marshall Measure 0=Not Assessed/NA 4=Minimal Assistance 1=Total Assistance 5=Supervision or Setup 2=Maximal Assistance 6=Modified Marshall 3=Moderate Assistance 7=Complete IndependenceIRFPAI Quality Coding Scale 6 Independent with activity with or without an assistive device 5 Patient requires set up or clean up by helper. Patient completes activity by themselves 4 Supervision or touching assist (CGA). Ciales provide cues , steadying assist 3 The helper provides less than half the effort to complete the activity 2 The helper provides more than half the effort to complete the activity 1 Dependent. The helper does all the effort to complete an activity 7 Patient refused to complete or attempt activity 9 The patient did not perform the activity before the current illness or injury 88 Not attempted due to Medical conditions or safety concerns Eating (FIM): 5 (Setup. Pt reports he needs assistance in opening packages and cuts some foods at home. ) Eating (QC): 5 Grooming (FIM): 5 (Setup. Pt reports he stood at sink to shave and brush teeth , SBA. Accessible sink, cane for balance. ) Oral Hygiene (QC): 5 Bathing (FIM): 5 (Setup. Pt washed all 9 parts with no assistance (L arm in plastic to keep cast dry). Needed SBA when standing to wash bottom. One LOB observed, pt caught self on grab bar. Able to turn water off/on with no assist. Shower bench, hand held shower head, grab bars, long handled sponge. ) Shower/Bathe Self (QC): 4 Upper Body (FIM): 5 (Setup. Pt donned short sleeved, machine puller over shirt in a seated position ) Upper Body Dressing (QC): 5 Lower Body Dressing (FIM): 4 (Setup. Pt threaded underwear and shorts with no assist. Stood to manage clothing with SBA. Needed min assist with socks, shoes with no assist. Cane, grab bars.) Lower Body Dressing (QC): 5 On/Off Footwear (QC): 4 (Pt needed min assist to start socks. Shoes donned with no assist. ) Toileting (FIM): 5 ( Pt able to manage clothing and hygiene with no assist, SBA. Grab bars, cane.) Toileting Hygiene (QC): 4 Toilet/Commode Transfer (FIM): 5 (Pt requires SBA for safety to transfer. BSC over toilet. Cane, grab bars. ) Toilet Transfer (QC): 4 Shower Transfer(FIM): 5 (Setup. Pt transfers to shower bench with SBA for safety. Grab bars, cane. ) Pt walked to bed, tripod cane, SBA, to put on shirt, then walked to recliner, tripod cane, SBA. Pt in recliner at end of tx, with all needs met. Education OT Patient Education: Progress toward Goal/Update tx plan, Purpose of tx/ functional activities, Safety issues Teaching Recipient: Patient Teaching Methods: Demonstration, Discussion Response to Teaching: Verbalize Understanding, Return Demonstration OT Short Term Goals Short Term Goals Time Frame: Sep 07, 2017 Eating(FIM): 5 Grooming(FIM): 5 Bathing(FIM): 3 Upper Body Dressing(FIM): 4 Lower Body Dressing(FIM): 4 Toileting(FIM): 4 Transfers (B,C,W/C) (FIM): 5 (t) Toilet/Commode Transfer(FIM): 5 Shower Transfer(FIM): 4 Additional Short Term Goals: 1-Demonstrate ADL Tasks, 2-Verbalize Understanding , 3-ImproveStrength/Amy 1=Demonstrate adherence to instructed precautions during ADL tasks. 2=Patient will verbalize/demonstrate understanding of assistive devices/ modifications for ADL. 3=Patient will improve strength/tolerance for activity to enable patient to perform ADL's. OT Defect Repairer Glassware Goals Defect Repairer Glassware Goals Time Frame: Sep 14, 2017 Eating (FIM): 6 (not met 09-10-17) Eating (QC): 6 (not met 09-10-17) Groomin (not met 09-10-17) Oral Hygiene (QC): 6 (not met 09-10-17) Bathing(FIM): 5 (met 09-10-17) Shower/Bathe Self (QC): 4 (met 09-10-17) Upper Body Dressing(FIM): 5 (met 09-10-17) Upper Body Dressing (QC): 4 (met 09-10-17) Lower Body Dressing(FIM): 5 (not met 09-10-17) Lower Body Dressing (QC): 4 (met 09-10-17) On/Off Footwear (QC): 4 (met 09-10-17) Toileting(FIM): 6 (not met 09-10-17) Toileting Hygiene (QC): 6 (not met 09-10-17) Transfers (B,C,W/C) (FIM): 6 Toilet/Commode Transfer(FIM): 6 (not met 09-10-17) Toilet/Commode Transfer (QC): 5 (not met 09-10-17) Shower Transfer(FIM): 5 (met 09-10-17) Additional Goals: 1-Demonstrate ADL Tasks, 2-Verbalize Understanding, 3- ImproveStrength/Amy 1=Demonstrate adherence to instructed precautions during ADL tasks. 2=Patient will verbalize/demonstrate understanding of assistive devices/ modifications for ADL. 3=Patient will improve strength/tolerance for activity to enable patient to perform ADL's. OT Education/Plan Discharge Recommendations Plan/Recommendations: Discharge/Goals Met (see tx plan for specifics) Treatment Plan/Plan of Care Patient would benefit from OT for education, treatment and training to promote independence in ADL's, mobility, safety and/or upper extremity function for ADL' s. Plan of Care: ADL Retraining, Caregiver Training, Functional Mobility, Group Exercise/Act as Ind, UE Funct Exercise/Act Treatment Duration: Sep 14, 2017 Frequency: At least 5 of 7 days/Wk (IRF) Estimated Hrs Per Day: 1.5 hours per day Agreement: Yes Rehab Potential: Good Time/GCodes Start Time: 09:15 Stop Time: 10:15 Total Time Billed (hr/min): 60 Billed Treatment Time visit, 60 minutes ADL MEHUL DAVIDSON OT Sep 10, 2017 11:40
--- NOTE | 2017-09-11 11:54 | Therapy Team Discharge Summary ---
Therapy Discharge Summary Discharge Recommendations Date of Discharge Sep 10, 2017 at 11:00 Therapy D/C Recommendations: Physical Therapy Home Care Occupational Therapy Pt was seen for skilled OT to increase his independence in basic self care after a fall, with fractures to both UEs. Care complicated by residual effects of CVA and minimal functional use L UE. On admission pt needed set up for eating , supervision for grooming, min assist for bathing and toileting and mod assist for dressing. By discharge he needed setup for eating and grooming, setup and supervision for bathing, toileting, toilet transfer and shower transfer and CGA with lower body dressing. Adapted equipment used included BSC over toilet, grab bars, quad cane, shower bench, hand held shower. Pt may benefit from home health OT. See tx plan for goals met. DC OT Decreased Activ Tolerance, Decreased UE Strength, Dependent Transfers, Impaired Coordination, Impaired Funct Balance, Impaired I ADL's, Impaired Self-Care Skills, Restricted Funct UE ROM PT Assisted Goals Director Mba Goals PT Assisted Goals Time Frame: Sep 24, 2017 Transfers (B,C,W/C) (FIM): 6 (met) Roll Left to Right (QC): 5 (met) Sit to Lying (QC): 5 (mdt) Lying-Sitting on Side/Bed(QC): 5 (met) Sit to Stand (QC): 5 (met) Chair/Aps-zo-Pgbsi Xfer(QC): 5 (met) Car Transfer (QC): 5 (met) Does the Patient Walk: Yes Gait (FIM): 6 (unmet; scored a 5) Gait distance (FIM): 3=150 ft Distance: 300' Walk 10 feet (QC): 5 (met) Walk 10ft-Uneven Surface(QC): 5 (met) Walk 50ft with 2 Turns (QC): 5 (met) Walk 150 ft (QC): 5 (met) Gait Level of Assist: 6 Gait Assistive Device: Cane Large Base Quad, Cane Single Point Stairs (FIM): 1 (exceeded; scored a 5) # of Steps: 1 1 Step (curb) (QC): 3 4 Steps (QC): 9 12 Steps (QC): 9 Stairs Level Of Assist: 4 Picking up an Object (QC): 4 (met) OT Assisted Goals Director Mba Goals Time Frame: Sep 14, 2017 Eating (FIM): 6 (not met 09-10-17) Eating (QC): 6 (not met 09-10-17) Oral Hygiene (QC): 6 (not met 09-10-17) Grooming(FIM): 6 (not met 09-10-17) Bathing(FIM): 5 (met 09-10-17) Shower/Bathe Self (QC): 4 (met 09-10-17) Upper Body Dressing(FIM): 5 (met 09-10-17) Upper Body Dressing (QC): 4 (met 09-10-17) Lower Body Dressing(FIM): 5 (not met 09-10-17) Lower Body Dressing (QC): 4 (met 09-10-17) On/Off Footwear (QC): 4 (met 09-10-17) Toileting(FIM): 6 (not met 09-10-17) Toileting Hygiene (QC): 6 (not met 09-10-17) Transfers (B,C,W/C) (FIM): 6 Toilet/Commode Transfer(FIM): 6 (not met 09-10-17) Toilet/Commode Transfer (QC): 5 (not met 09-10-17) Shower Transfer(FIM): 5 (met 09-10-17) Additional Goals: 1-Demonstrate ADL Tasks, 2-Verbalize Understanding, 3- ImproveStrength/Amy 1=Demonstrate adherence to instructed precautions during ADL tasks. 2=Patient will verbalize/demonstrate understanding of assistive devices/ modifications for ADL. 3=Patient will improve strength/tolerance for activity to enable patient to perform ADL's. MEHUL DAVIDSON OT Sep 11, 2017 11:54
== END 2017-09-10 11:00 | disposition home health service (06) | DRG 949 ==
PROVIDERS: ADMIT Family Medicine; ATTEND Physical Medicine & Rehabilitation
DX: S06.5X0D Traumatic subdural hemorrhage without loss of consciousness, subsequent encounter (principal); S42.302D Unspecified fracture of shaft of humerus, left arm, subsequent encounter for fracture with routine healing; S62.514D Nondisplaced fracture of proximal phalanx of right thumb, subsequent encounter for fracture with routine healing; I69.354 Hemiplegia and hemiparesis following cerebral infarction affecting left non-dominant side; I48.91 Unspecified atrial fibrillation; I10 Essential (primary) hypertension; R33.9 Retention of urine, unspecified; R39.15 Urgency of urination; E11.9 Type 2 diabetes mellitus without complications; J32.0 Chronic maxillary sinusitis; E78.5 Hyperlipidemia, unspecified; Z79.01 Long term (current) use of anticoagulants; Z87.891 Personal history of nicotine dependence; Z85.46 Personal history of malignant neoplasm of prostate; Z79.4 Long term (current) use of insulin; W19.XXXD Unspecified fall, subsequent encounter; Y92.009 Unspecified place in unspecified non-institutional (private) residence as the place of occurrence of the external cause
CPT/HCPCS: 36415; 80053; 80061; 82962; 84443; 85027; 93005

== ENCOUNTER 2017-11-04 05:37 | Outpatient (CLI) | payer BC, MEDICARE ==
[~2017-11-04] VITALS: Ht 188 cm; Wt 98.9 kg
[~2017-11-04 05:37] MED LIST changes: +APIX5TAB PO; +HYDR-3812 PO; +INSU100I10 SC; +INSU100I14 SC; +INSU100V16 SC; +INSU100V16 SQ; +INSU100V5 SQ; -METO-270 PO; +METO-387 PO; +PRD10T PO
[2017-11-04] MEDS ORDERED: SUCR1TAB PO (13:00)
[2017-11-04] MEDS ORDERED: SENN-120 PO (13:00)
[2017-11-04] MEDS ORDERED: TRAM50TA2 PO (13:00)
[2017-11-04] MEDS ORDERED: ALBU2.5V4 IH (13:00)
[2017-11-05] MEDS ORDERED: DEXL60CA PO (11:41)
== END 2017-11-04 13:01 ==
LOC: PREOP 05:37
PROVIDERS: ATTEND Surgery
DX: Z01.818 Encounter for other preprocedural examination (principal); K22.70 Barrett's esophagus without dysplasia

== ENCOUNTER 2017-11-05 09:24 | Day surgery (SDC) | payer BC, MEDICARE ==
[~2017-11-05] VITALS: Ht 188 cm; Wt 98.9 kg
[~2017-11-05 09:24] MED LIST changes: +ALBU2.5V4 IH; +SENN-120 PO; +SUCR1TAB PO
[2017-11-05] MEDS ORDERED: NS IV 500 ML 500 ML IV PRN (09:26)
[2017-11-05] MEDS ORDERED: LIDOCAINE JELLY 2% (XYLOCAINE) 5 ML TUBE MM PRN (09:30)
[2017-11-05] MEDS ORDERED: HURRICAINE EXT TUBE (BENZOCAINE) XX PRN (09:30)
[2017-11-05] MEDS ORDERED: NS IV 500 ML 500 ML ONE (09:47)
[2017-11-05 10:00] VITALS: BP 143/96
[2017-11-05] MEDS ORDERED: MIDAZOLAM 2 MG/2 ML (VERSED) VIAL ONE ×3 (10:40)
[2017-11-05] MEDS ORDERED: HURRICAINE EXT TUBE (BENZOCAINE) ONE (10:40)
[2017-11-05] MEDS ORDERED: fentaNYL INJECTION 100 MCG/2 ML AMP ONE (10:40)
[2017-11-05] MEDS: MIDAZOLAM 2 MG/2 ML (VERSED) VIAL IVP PRN ×2 (10:45→10:49)
[2017-11-05] MEDS: fentaNYL INJECTION 100 MCG/2 ML AMP IVP PRN ×2 (10:46→10:50)
[2017-11-05] MEDS ORDERED: LIDOCAINE JELLY 2% (XYLOCAINE) 5 ML TUBE ONE (10:50)
[2017-11-05 11:35] VITALS: BP 124/72
--- NOTE | 2017-11-05 11:36 | Conscious Sedation/ASA ---
Conscious Sedation Pre-Proced ASA Class: 3 Airway Mallampati Classification: (pilot station appropriate class) I. II. III, IV Lungs Heart ASA score ASA 1: a normal healthy patient ASA 2: a patient with a mild systemic disease (mid diabetes, controlled hypertension, obesity ASA 3: a patient with a severe systemic disease that limits activity (angina , COPD, prior Myocardial infarction) ASA 4: a patient with an incapacitating disease that is a constant threat to life (CHF, renal failure) ASA 5: a moribund patient not expected to survive 24 hrs. (ruptured aneurysm) ASA 6: a declared brain patient whose organs are being harvested. For emergent operations, add the letter E after the classification Grade 2 Sedation Plan: Analgesia, Amnesia, Plan communicated to team members, Discussed options with patient/fam, Discussed risks with patient/fam Note The patient is an appropriate candidate to undergo the planned procedure, sedation, and anesthesia. The patient immediately re-assessed prior to indication. ILIANA REYES MD Nov 05, 2017 11:36 am
--- NOTE | 2017-11-05 11:37 | Progress Note-Pre Operative ---
Pre-Operative Progress Note H&P Reviewed The H&P was reviewed, patient examined and no changes noted. Date Seen by Provider: Nov 05, 2017 Time Seen by Provider: 10:00 Date H&P Reviewed: Nov 05, 2017 Time H&P Reviewed: 10:00 Pre-Operative Diagnosis: GERD, PUD, hx Barretts, anemia ILIANA REYES MD Nov 05, 2017 11:37 am
--- NOTE | 2017-11-05 11:39 | Progress Note-Post Operative ---
Post-Operative Progess Note Surgeon (s)/Radiological Health Specialist (s) Surgeon ILIANA REYES MD Radiological Health Specialist: none Pre-Operative Diagnosis GERD, PUD, hx Barretts, anemia Post-Operative Diagnosis reflux esophagitis(class C with clinical Penn's esophagus), large HH(hill grade 4), moderate gastritis. Procedure & Operative Findings Date of Procedure 11/05/17 Procedure Performed/Findings EGD with bx. Anesthesia Type CS Estimated Blood Loss Estimated blood loss (mL): minimal Specimens/Packing Specimens Removed GE jxn, antrum ILIANA REYES MD Nov 05, 2017 11:39 am
[2017-11-05] MEDS ORDERED: DEXL60CA PO (11:41)
--- NOTE | 2017-11-05 11:42 | Discharge Inst-Surgical ---
D/C Lap Instructions-KIDO New, Converted, or Re-Newed RX: RX on Chart Follow Up PRN Activity as tolerated 5-6 small meals a day. low fat, low fiber. add dexilant 60mg daily. Avoid Alcohol, Caffeine, Spicy [place] and Acid foods. Drink 64 fluid oz or more of fluids per day. Symptoms to Report: Fever over 101 degree F, Nausea/Vomiting If any problems/questions: Contact your physician or go to Emergency Room ILIANA REYES MD Nov 05, 2017 11:42 am
[2017-11-05] MEDS ORDERED: morphine INJ 10 MG/ML 1ML (SYR OR VIAL) IV PRN (11:45)
[2017-11-05] MEDS ORDERED: HYDROcodone/APAP 5 MG/325 MG (LORTAB) TAB PO PRN (11:45)
[2017-11-05] MEDS ORDERED: ONDANSETRON 4 MG/2 ML (SDV) Z0FRAN IV PRN (11:45)
[2017-11-05] MEDS ORDERED: ACETAMINOPHEN 325 MG TABLET/CAPLET (TYLENOL) PO PRN (11:45)
[2017-11-05 11:56] VITALS: BP 114/74
--- NOTE | 2017-11-05 12:14 | OPERATIVE REPORT ---
DATE OF SERVICE: 11/05/2017 ATTENDING PRIMARY CARE PHYSICIAN: Dr. Jackson. PREOPERATIVE DIAGNOSES: Gastroesophageal reflux disease, coffee ground emesis, history of Penn's esophagus. POSTOPERATIVE DIAGNOSES: Clinical Penn's esophagus, large hiatal hernia approximately 5 to 6 cm in size, moderate gastritis. PROCEDURE: EGD with biopsy. SURGEON: Harjinder Ashraf MD. ANESTHESIA: Conscious sedation. ESTIMATED BLOOD LOSS: Minimal. FINDINGS: Reflux esophagitis class C with clinical Penn's esophagus with cephalad migration of the GE junction in an asymmetric manner. Large hiatal hernia approximately 6 cm in size, moderate gastritis with no formal ulcers, polyps or any neoplasms identified. Pylorus and duodenum appeared normal with no distal obstructions. DISPOSITION: The patient tolerated the procedure well. INDICATIONS: The patient is a 62-year-old male known to us. He has had a history of colon polyps as well as gastroesophageal reflux disease. He has had a right-sided stroke resulting left-sided hemiplegia as well as the expressive aphasia. He did undergo an EGD and colonoscopy in 2015. Colonoscopy showed chronic stage II-III external and internal hemorrhoids as well as a small pedunculated polyp of the sigmoid colon, which was a tubular adenoma and a hyperplastic polyp of the hepatic flexure. EGD showed a significant reflux esophagitis class C, large hiatal hernia, Hill grade IV approximately 5 to 6 cm in size as well as mild to moderate gastritis. Biopsies were positive for Penn's esophagus. He did have a fall requiring surgery and since that time, he has had worsening reflux and anemia as well as episodes of coffee ground emesis. DESCRIPTION OF PROCEDURE: The patient was brought to the endoscopy suite, laid in the left lateral decubitus position. After adequate IV pain and sedative medications and conscious sedation anesthesia, the mouthpiece was applied. The endoscope was placed in the mouth, visualizing the pharynx and hypopharyngeal region. Hemiplegia was also noted within the vocal cords. The endoscope was then gently intubated in the esophageal opening and esophagus insufflated. The endoscope was then advanced to the first, second and third portions of the esophagus. At the level of the GE junction, significant reflux esophagitis class C identified with cephalad migration of transitional cells in an asymmetric manner consistent with a clinical Penn's esophagus. There were no ulcers or strictures identified in this region. Several biopsies were taken with forceps with visualization of good hemostasis. The endoscope was then advanced into the stomach and then endoscope retroflexed, visualizing a large hiatal hernia approximately 6 cm in size. This is consistent with a Hill grade IV. There was a moderate gastritis throughout the stomach. There were no formal ulcers, polyps or any neoplasms identified. A biopsy was taken of the stomach antrum with visualization of good hemostasis. The endoscope was then advanced to the pylorus and the first and second portions of the duodenum, which appeared normal with no distal obstructions. The endoscope was then slowly withdrawn while taking a second look and suctioning of residual air with no additional findings. The patient tolerated the procedure well. We will recommend continued conservative medical therapy with the necessary lifestyle and diet accommodation including 6 small meals a day which should be low fat, low fiber and isotonic. He also needs to avoid caffeinated beverages, spicy, greasy and acidic foods. After every meal or snack, he also needs to sit upright for at least 2 hours. We will also proceed with a trial of Dexilant once a day followed by Protonix once a day as well as Carafate p.r.n. We did not feel he is a surgical candidate to have the hiatal hernia repair. Job ID: [id number] DocumentID: [id number] Dictated Date: 11/05/2017 11:32:04 Wet Process Miller Date: 11/05/2017 12:14:23 Dictated By: MD ANIL SALAS
== END 2017-11-05 12:05 | disposition home or self-care (01) ==
LOC: ENDO 09:24
PROVIDERS: ATTEND Surgery
DX: K21.0 Gastro-esophageal reflux disease with esophagitis (principal); K22.70 Barrett's esophagus without dysplasia; K44.9 Diaphragmatic hernia without obstruction or gangrene; K29.70 Gastritis, unspecified, without bleeding; E11.9 Type 2 diabetes mellitus without complications; I10 Essential (primary) hypertension; E78.5 Hyperlipidemia, unspecified; I48.91 Unspecified atrial fibrillation; D64.9 Anemia, unspecified; I69.359 Hemiplegia and hemiparesis following cerebral infarction affecting unspecified side; Z79.01 Long term (current) use of anticoagulants; Z79.82 Long term (current) use of aspirin; Z79.4 Long term (current) use of insulin; Z79.899 Other long term (current) drug therapy; Z87.891 Personal history of nicotine dependence

== ENCOUNTER → 2017-11-06 | Outpatient (CLI) | payer BC, MEDICARE ==
[~2017-11-06] MED LIST changes: +ACHD5005 PO; +DEXL60CA PO; -HYDR-3812 PO
[2017-11-06 07:51] LABS: BASOPHILS % (AUTO) 0 % (0-10); EOSINOPHILS # (AUTO) 0.1 10^3/uL (0.0-0.3); EOSINOPHILS % (AUTO) 2 % (0-10); LYMPHOCYTES # (AUTO) 1.1 X 10^3 (1.0-4.0); LYMPHOCYTES % (AUTO) 29 % (12-44); MEAN CORPUSCULAR HEMOGLOBIN 26 PG (25-34); MEAN CORPUSCULAR HGB CONC 30 G/DL (32-36); MEAN CORPUSCULAR VOLUME 86 FL (80-99); MONOCYTES # (AUTO) 0.3 X 10^3 (0.0-1.0); MONOCYTES % (AUTO) 9 % (0-12); NEUTROPHILS # (AUTO) 2.3 X 10^3 (1.8-7.8); NEUTROPHILS % (AUTO) 60 % (42-75); PLATELET COUNT 194 10^3/uL (130-400); RED BLOOD COUNT 3.27 10^6/uL (4.35-5.85); WHITE BLOOD COUNT 3.8 10^3/uL (4.3-11.0)
== END ==
LOC: CVS 07:45
PROVIDERS: ATTEND Internal Medicine
DX: D64.9 Anemia, unspecified (principal)
CPT/HCPCS: 85025

== ENCOUNTER 2017-12-17 21:00 | Outpatient (CLI) | payer BC, MEDICARE | END 2017-12-17 21:30 | disposition home or self-care (01) | LOC: SLEEP 21:00 | PROVIDERS: ATTEND Physician Assistant | DX: G47.33 Obstructive sleep apnea (adult) (pediatric) (principal); R06.83 Snoring; I10 Essential (primary) hypertension; Z86.73 Personal history of transient ischemic attack (TIA), and cerebral infarction without residual deficits ==

== ENCOUNTER 2018-02-11 20:15 | Outpatient (CLI) | payer BC, MEDICARE | END 2018-02-12 06:19 | disposition home or self-care (01) | LOC: SLEEP 20:15 | PROVIDERS: ATTEND Nurse Practitioner Family | DX: G47.33 Obstructive sleep apnea (adult) (pediatric) (principal); Z86.73 Personal history of transient ischemic attack (TIA), and cerebral infarction without residual deficits | CPT/HCPCS: 95811 ==

== ENCOUNTER 2018-07-28 09:35 | Outpatient (RCR) | payer BC, MEDICARE ==
[~2018-07-28 09:35] MED LIST changes: -RAMI10CA PO; +RAMI10CA69 PO
== END 2018-07-28 12:14 | disposition home or self-care (01) ==
PROVIDERS: ATTEND Internal Medicine
DX: S72.141D Displaced intertrochanteric fracture of right femur, subsequent encounter for closed fracture with routine healing (principal)

== ENCOUNTER 2019-11-01 09:24 | Outpatient (CLI) | payer BC, MEDICARE ==
[~2019-11-01] VITALS: Ht 188 cm; Wt 100.5 kg
[~2019-11-01 09:24] MED LIST changes: -RIVA20TA PO; +RIVA20TA2 PO; -SENN-120 PO; +SENN-233 PO
[2019-11-01] MEDS ORDERED: GABA-486 PO (10:15)
[2019-11-01] MEDS ORDERED: DANT25CA PO (10:15)
[2019-11-01] MEDS ORDERED: FERR325T5 PO (10:15)
== END 2019-11-01 10:19 | disposition home or self-care (01) ==
LOC: PREOP 09:24
PROVIDERS: ATTEND Surgery
DX: Z01.818 Encounter for other preprocedural examination (principal)

== ENCOUNTER → 2020-01-04 | Outpatient (CLI) | payer BC, MEDICARE ==
[~2020-01-04] MED LIST changes: +FERR325T5 PO; +GABA-486 PO; -METO-387 PO; +MTP25TSR PO; -SENN-233 PO; +SENN1TAB67 PO; -TRAM50TA2 PO; +TRM50T PO
== END ==
LOC: CARD 08:54
PROVIDERS: ATTEND Internal Medicine Cardiovascular Disease
DX: I11.9 Hypertensive heart disease without heart failure (principal); E78.2 Mixed hyperlipidemia; I63.9 Cerebral infarction, unspecified; I48.0 Paroxysmal atrial fibrillation
CPT/HCPCS: 93306

== ENCOUNTER → 2021-08-28 | Outpatient (CLI) | payer BC, MEDICARE ==
[~2021-08-28] MED LIST changes: +ASPI-1238 PO; -ASPI-983 PO; -PANT40TA3 PO; +PANT40TA52 PO; +PROP150T PO; -PROP150T2 PO
== END ==
LOC: CARD 13:00
PROVIDERS: ATTEND Internal Medicine Cardiovascular Disease
DX: I35.8 Other nonrheumatic aortic valve disorders (principal); I10 Essential (primary) hypertension
CPT/HCPCS: 93306

== ENCOUNTER 2022-01-07 09:30 | Day surgery (SDC) | payer BC, MEDICARE ==
[~2022-01-07] VITALS: Ht 188 cm; Wt 107.5 kg
[~2022-01-07 09:30] MED LIST changes: +METH-307 PO; -NF-METHI10 PO
[2022-01-07 09:37] VITALS: BP 145/91
[2022-01-07] MEDS ORDERED: LIDOCAINE 1% INJ 20 ML VIAL ONE (09:47)
--- NOTE | 2022-01-07 10:16 | Implantation of Loop Monitor ---
Implant of Loop Monitior IMPLANTATION OF LOOP MONITOR REPORT DATE OF PROCEDURE: 01/07/22 PREOP DIAGNOSIS: Paroxysmal atrial fibrillation POSTOP DIAGNOSIS: Paroxysmal atrial fibrillation PROCEDURE DETAILS: The patient is a 66 male with history of paroxysmal atrial fibrillation requiring long-term surveillance. Therefore implantable loop recorder was discussed and agreed with the patient. Informed consent was taken. All risks and complications were discussed at length. The patient was draped and prepped in the usual sterile fashion. Local anesthesia was lidocaine, which was given in the substernal area close to the 4th intercostal space. Loop monitor [employer] with serial number [id number] was implanted according to the protocol. Steri- Strips were placed at the end of the procedure. There were no complications and the patient tolerated the procedure well. The device was interrogated with a voltage of. ANESTHESIA: Local anesthesia with lidocaine. COMPLICATIONS: None CONTRAST/FLUOROSCOPY: None CONCLUSION: Successful implantation of loop monitor with no complication FINAL DIAGNOSIS: Paroxysmal atrial fibrillation Palpitation Hypertension DAMIEN DUVALL MD Jan 07, 2022 10:16
== END 2022-01-07 10:45 | disposition home or self-care (01) ==
LOC: CATH 09:30
PROVIDERS: ATTEND Internal Medicine Cardiovascular Disease
DX: I48.0 Paroxysmal atrial fibrillation (principal); R00.2 Palpitations; I10 Essential (primary) hypertension; E78.2 Mixed hyperlipidemia; E11.40 Type 2 diabetes mellitus with diabetic neuropathy, unspecified; E78.00 Pure hypercholesterolemia, unspecified; E05.90 Thyrotoxicosis, unspecified without thyrotoxic crisis or storm; I65.23 Occlusion and stenosis of bilateral carotid arteries; Z86.73 Personal history of transient ischemic attack (TIA), and cerebral infarction without residual deficits; Z87.891 Personal history of nicotine dependence; Z79.4 Long term (current) use of insulin; Z79.899 Other long term (current) drug therapy; Z79.82 Long term (current) use of aspirin
CPT/HCPCS: 33285; C1764

== ENCOUNTER → 2022-03-17 | Outpatient (CLI) | payer BC, MEDICARE ==
--- NOTE | 2022-03-17 17:51 | Diagnostic Imaging Report ---
PROCEDURE: US left lower extremity venous. TECHNIQUE: Multiple real-time grayscale images were obtained over the left lower extremity in various projections. Additional duplex Doppler and color Doppler images were also obtained. INDICATION: Cold extremity. There is no evidence of left lower extremity DVT. Left lower extremity deep venous system shows normal compressibility with normal response to augmentation and Valsalva. No fluid collection or mass is detected. IMPRESSION: No evidence of left lower extremity DVT. Dictated by: Dictated on workstation # [id number]
--- NOTE | 2022-03-17 18:58 | Diagnostic Imaging Report ---
HISTORY: Cold extremity. COMPARISON: None. TECHNIQUE: Ankle-brachial indices were obtained with ultrasound. No sonographic images are provided. FINDINGS/ IMPRESSION: The right ankle-brachial index measures 1.1 and the left measures 1.0, which is normal. Dictated by: Dictated on workstation # [id number]
== END ==
LOC: RAD 13:44
PROVIDERS: ATTEND Nurse Practitioner Family
DX: R68.89 Other general symptoms and signs (principal)
CPT/HCPCS: 93922

== ENCOUNTER → 2023-03-02 | Outpatient (CLI) | payer BC, MEDICARE ==
--- NOTE | 2023-03-02 15:11 | Diagnostic Imaging Report ---
INDICATION: Screening for osteoporosis, history of a personal hip fracture. COMPARISON: None available. FINDINGS: AP Spine L1-L4: [BMD (g/cm2): 1.171] [T-Score: -0.6] [Z-Score: -0.8] [BMD Previous: na] [BMD % Change: na] LT Hip Neck: [BMD (g/cm2): 0.734] [T-Score: -2.6] [Z-Score: 1.9] LT Hip Total: [BMD (g/cm2):0.758] [T-Score:-2.4] [Z-Score: -2.1] [BMD Previous: na] [BMD % Change: na] RT Hip Neck: [BMD (g/cm2):na] [T-Score:na] [Z-Score:na] RT Hip Total: [BMD (g/cm2):na] [T-score:na] [Z-Score:na] [BMD Previous:na] [BMD % Change:na] *Indicates significant change from prior examination based on 95% confidence level. World Health Organization criteria for BMD interpretation classify patients as Normal (T-score at or above -1.0), Osteopenic (T-score between -1.0 and -2.5) or Osteoporotic (T-score at or below -2.5). LIMITATIONS AND MODIFICATION: The right hip was not evaluated secondary to postsurgical changes. FRACTURE RISK (FRAX SCORE): The ten year probability of (%): Major Osteoporotic Fracture: [15.0] Hip Fracture: [4.7] IMPRESSION: 1. Osteoporosis. 2. Baseline examination. 3. See below National Osteoporosis Foundation guidelines on when to potentially initiate pharmacologic therapy. Based on the National Osteoporosis Foundation Guidelines, pharmacologic treatment should be initiated in any of the following, unless clinical conditions suggest otherwise: * Any patient with prior fragility fracture of the hip or vertebrae. A spine fracture indicates 5X risk for subsequent spine fracture and 2X risk for subsequent hip fracture. * Osteoporosis (T-score <-2.5). * Postmenopausal women and men age 50 and older with low bone mass/osteopenia (T-score between -1.0 and -2.5) by DXA and 10-year major osteoporotic fracture greater than 20% or a 10-year probability of hip fracture greater than 3%. These fracture risks are supplied above in the FRAX score, if applicable. * Clinician judgement and/or patient preferences may indicate treatment for people with 10-year fracture probabilities above or below these levels. Dictated by: Dictated on workstation # [id number]
== END ==
LOC: RAD 14:00
PROVIDERS: ATTEND Internal Medicine Endocrinology, Diabetes & Metabolism
DX: Z13.820 Encounter for screening for osteoporosis (principal); M81.0 Age-related osteoporosis without current pathological fracture; G82.22 Paraplegia, incomplete; Z87.81 Personal history of (healed) traumatic fracture
CPT/HCPCS: 77080